=== PATIENT | female | born 1955 ===

== ENCOUNTER 2020-07-31 10:02 | Outpatient (REF) | payer OTHER, SELFPAY | END 2020-07-31 10:03 | disposition home or self-care (01) | LOC: HO.LAB 10:02 | PROVIDERS: PCP Internal Medicine Pulmonary Disease; Visit Provider Internal Medicine Pulmonary Disease | DX: I48.91 Unspecified atrial fibrillation (principal); Z51.81 Encounter for therapeutic drug level monitoring; Z79.01 Long term (current) use of anticoagulants | CPT/HCPCS: 85610; 99211 ==

== ENCOUNTER → 2020-08-03 14:12 | Outpatient (BNVA) | payer OTHER, SELFPAY | PROVIDERS: PCP Internal Medicine Pulmonary Disease; Visit Provider Internal Medicine | DX: I48.91 Unspecified atrial fibrillation (principal); Z51.81 Encounter for therapeutic drug level monitoring; Z79.01 Long term (current) use of anticoagulants | CPT/HCPCS: 85610; 99211 ==

== ENCOUNTER → 2020-08-09 08:39 | Outpatient (BNVA) | payer OTHER, SELFPAY | PROVIDERS: PCP Internal Medicine Pulmonary Disease; Visit Provider Internal Medicine | DX: I48.91 Unspecified atrial fibrillation (principal); Z51.81 Encounter for therapeutic drug level monitoring; Z79.01 Long term (current) use of anticoagulants | CPT/HCPCS: 85610; 99211 ==

== ENCOUNTER → 2020-08-16 10:41 | Outpatient (BNVA) | payer OTHER, SELFPAY | PROVIDERS: PCP Internal Medicine Pulmonary Disease; Visit Provider Internal Medicine Pulmonary Disease | DX: I48.91 Unspecified atrial fibrillation (principal); Z79.01 Long term (current) use of anticoagulants; Z51.81 Encounter for therapeutic drug level monitoring | CPT/HCPCS: 85610; 99211 ==

== ENCOUNTER → 2020-08-31 10:55 | Outpatient (BNVA) | payer OTHER, SELFPAY | PROVIDERS: PCP Internal Medicine Pulmonary Disease; Visit Provider Internal Medicine | DX: I48.91 Unspecified atrial fibrillation (principal); Z51.81 Encounter for therapeutic drug level monitoring; Z79.01 Long term (current) use of anticoagulants | CPT/HCPCS: 85610; 99211 ==

== ENCOUNTER → 2020-09-08 10:11 | Outpatient (BNVA) | payer OTHER, SELFPAY | PROVIDERS: PCP Internal Medicine Pulmonary Disease; Visit Provider Internal Medicine | DX: I48.91 Unspecified atrial fibrillation (principal); Z79.01 Long term (current) use of anticoagulants; Z51.81 Encounter for therapeutic drug level monitoring | CPT/HCPCS: 85610; 99211 ==

== ENCOUNTER → 2020-09-27 14:49 | Outpatient (BNVA) | payer OTHER, SELFPAY | PROVIDERS: PCP Internal Medicine Pulmonary Disease; Visit Provider Internal Medicine | DX: I48.91 Unspecified atrial fibrillation (principal); Z51.81 Encounter for therapeutic drug level monitoring; Z79.01 Long term (current) use of anticoagulants | CPT/HCPCS: 85610; 99211 ==

== ENCOUNTER → 2020-10-23 09:53 | Outpatient (BNVA) | payer OTHER, SELFPAY | PROVIDERS: PCP Internal Medicine Pulmonary Disease; Visit Provider Internal Medicine | DX: I48.91 Unspecified atrial fibrillation (principal); Z51.81 Encounter for therapeutic drug level monitoring; Z79.01 Long term (current) use of anticoagulants | CPT/HCPCS: 85610; 99211 ==

== ENCOUNTER → 2020-10-30 09:35 | Outpatient (BNVA) | payer OTHER, SELFPAY | PROVIDERS: PCP Internal Medicine Pulmonary Disease; Visit Provider Internal Medicine | DX: I48.91 Unspecified atrial fibrillation (principal); Z51.81 Encounter for therapeutic drug level monitoring; Z79.01 Long term (current) use of anticoagulants | CPT/HCPCS: 85610; 99211 ==

== ENCOUNTER → 2020-11-08 08:04 | Outpatient (BNVA) | payer OTHER, SELFPAY | PROVIDERS: PCP Internal Medicine Pulmonary Disease; Visit Provider Internal Medicine | DX: I48.91 Unspecified atrial fibrillation (principal); Z51.81 Encounter for therapeutic drug level monitoring; Z79.01 Long term (current) use of anticoagulants | CPT/HCPCS: 85610; 99211 ==

== ENCOUNTER → 2020-11-15 08:25 | Outpatient (BNVA) | payer OTHER, SELFPAY | PROVIDERS: PCP Internal Medicine Pulmonary Disease; Visit Provider Internal Medicine | DX: I48.91 Unspecified atrial fibrillation (principal); Z51.81 Encounter for therapeutic drug level monitoring; Z79.01 Long term (current) use of anticoagulants | CPT/HCPCS: 85610; 99211 ==

== ENCOUNTER → 2020-11-22 08:51 | Outpatient (BNVA) | payer OTHER, SELFPAY | PROVIDERS: PCP Internal Medicine Pulmonary Disease; Visit Provider Internal Medicine | DX: I48.91 Unspecified atrial fibrillation (principal); Z51.81 Encounter for therapeutic drug level monitoring; Z79.01 Long term (current) use of anticoagulants | CPT/HCPCS: 85610; 99211 ==

== ENCOUNTER → 2020-12-06 09:18 | Outpatient (BNVA) | payer OTHER, SELFPAY | PROVIDERS: PCP Internal Medicine Pulmonary Disease; Visit Provider Internal Medicine | DX: I48.91 Unspecified atrial fibrillation (principal); Z51.81 Encounter for therapeutic drug level monitoring; Z79.01 Long term (current) use of anticoagulants | CPT/HCPCS: 85610; 99211 ==

== ENCOUNTER → 2020-12-20 09:16 | Outpatient (BNVA) | payer OTHER, SELFPAY | PROVIDERS: PCP Internal Medicine Pulmonary Disease; Visit Provider Internal Medicine | DX: I48.91 Unspecified atrial fibrillation (principal); Z79.01 Long term (current) use of anticoagulants; Z51.81 Encounter for therapeutic drug level monitoring | CPT/HCPCS: 85610; 99211 ==

== ENCOUNTER → 2021-02-05 11:09 | Outpatient (BNVA) | payer OTHER, SELFPAY | PROVIDERS: PCP Internal Medicine Pulmonary Disease; Visit Provider Internal Medicine | DX: I48.91 Unspecified atrial fibrillation (principal); Z51.81 Encounter for therapeutic drug level monitoring; Z79.01 Long term (current) use of anticoagulants | CPT/HCPCS: 85610; 99211 ==

== ENCOUNTER → 2021-03-06 10:37 | Outpatient (BNVA) | payer OTHER, SELFPAY | PROVIDERS: PCP Internal Medicine Pulmonary Disease; Visit Provider Internal Medicine | DX: I48.91 Unspecified atrial fibrillation (principal); Z51.81 Encounter for therapeutic drug level monitoring; Z79.01 Long term (current) use of anticoagulants | CPT/HCPCS: 85610; 99211 ==

== ENCOUNTER → 2021-04-03 10:39 | Outpatient (BNVA) | payer MEDICARE, SELFPAY | PROVIDERS: PCP Internal Medicine Pulmonary Disease; Visit Provider Internal Medicine | DX: I48.91 Unspecified atrial fibrillation (principal); Z51.81 Encounter for therapeutic drug level monitoring; Z79.01 Long term (current) use of anticoagulants | CPT/HCPCS: 85610 ==

== ENCOUNTER → 2021-05-01 11:03 | Outpatient (BNVA) | payer MEDICARE, SELFPAY | PROVIDERS: PCP Internal Medicine Pulmonary Disease; Visit Provider Internal Medicine | DX: I48.91 Unspecified atrial fibrillation (principal); Z51.81 Encounter for therapeutic drug level monitoring; Z79.01 Long term (current) use of anticoagulants | CPT/HCPCS: 85610; 99211 ==

== ENCOUNTER → 2021-05-29 11:01 | Outpatient (BNVA) | payer MEDICARE, SELFPAY | PROVIDERS: PCP Internal Medicine Pulmonary Disease; Visit Provider Internal Medicine | DX: I48.91 Unspecified atrial fibrillation (principal); Z51.81 Encounter for therapeutic drug level monitoring; Z79.01 Long term (current) use of anticoagulants | CPT/HCPCS: 85610; 99211 ==

== ENCOUNTER → 2021-06-13 13:38 | Outpatient (BNVA) | payer MEDICARE, SELFPAY | PROVIDERS: PCP Internal Medicine Pulmonary Disease; Visit Provider Internal Medicine | DX: I48.91 Unspecified atrial fibrillation (principal); Z51.81 Encounter for therapeutic drug level monitoring; Z79.01 Long term (current) use of anticoagulants | CPT/HCPCS: 85610; 99211 ==

== ENCOUNTER 2021-06-20 08:42 | Outpatient (REF) | payer MEDICARE, SELFPAY ==
[2021-06-20 09:08] LABS: MANUAL DIFF FLAG NO
[2021-06-20 09:32] LABS: Basophils Percent Auto 0.5 % (0-2); Eosinophils Absolute Auto 0.1 X10*3/uL (0.0-0.4); Eosinophils Percent Auto 1.4 % (0-4); Hematocrit 42.9 % (37-47); Hemoglobin 13.5 g/dl (12.0-16.0); Imm Gran Abs Auto 0.01 X10*3/uL (0.00-0.03); Imm Gran Pct Auto 0.2 % (0.0-0.4); Lymphocytes Absolute Auto 1.9 X10*3/uL (1.2-4.9); Lymphocytes Percent Auto 33.4 % (20-40); Mean Corpuscular HGB Conc 31.5 g/dl (31.0-35.0); Mean Corpuscular Hemoglobin 29.4 pg (27.0-33.0); Mean Corpuscular Volume 93.5 fL (80-98); Mean Platelet Volume 10.9 fL (9.4-12.3); Monocytes Absolute Auto 0.6 X10*3/uL (0.1-1.2); Monocytes Percent Auto 11.1 % (2-11); Neutrophils Percent Auto 53.4 % (45-73); Platelet Count 167 X10*3/uL (160-400); Red Blood Count 4.59 X10*6/uL (4.20-5.50); Red Cell Distribution Width 13.7 % (11.0-16.0); White Blood Count 5.7 X10*3/uL (4.8-10.8)
[2021-06-20 09:52] LABS: Estimated Average Glucose 117 mg/dL; Hemoglobin A1c % 5.7 %
[2021-06-20 09:57] LABS: B Type Natriuretic Peptide 549 pg/mL (<100)
[2021-06-20 10:00] LABS: Alanine Aminotransferase 16 U/L (0-31); Albumin Level 4.4 g/dL (3.5-5.0); Alkaline Phosphatase 57 U/L (39-117); Anion Gap 14 (12-20); Aspartate Amino Transferase 19 U/L (5-31); Bilirubin Total 1.4 mg/dL (0.0-1.0); Blood Urea Nitrogen 24 mg/dL (9-16); Carbon Dioxide 29 mmol/L (22-29); Chloride 104 mmol/L (96-108); Cholesterol 165 mg/dL; Estimated Glomerular Filt Rate > 60; Glucose Random 121 mg/dL (60-115); HDL Cholesterol 42 mg/dL; LDL Cholesterol Calculated 90 mg/dl; Potassium 3.5 mmol/L (3.3-5.1); Sodium 143 mmol/L (135-145); Triglycerides 166 mg/dL
[2021-06-20 10:24] LABS: Insulin 12 uU/mL (2-29); TSH reflex Free T4 3.45 uIU/mL (0.32-4.0); Vitamin D 25-OH Total 6.3 ng/mL (>30)
== END 2021-06-20 08:43 | disposition home or self-care (01) ==
LOC: HO.LAB 08:42
PROVIDERS: PCP Registered Nurse; Visit Provider Registered Nurse
DX: I10 Essential (primary) hypertension (principal); E78.00 Pure hypercholesterolemia, unspecified; R73.01 Impaired fasting glucose; M06.4 Inflammatory polyarthropathy; I48.19 Other persistent atrial fibrillation; E66.9 Obesity, unspecified; E55.9 Vitamin D deficiency, unspecified
CPT/HCPCS: 36415; 80053; 80061; 82306; 83036; 83525; 83880; 84443; 85025; 86141

== ENCOUNTER → 2021-07-03 10:43 | Outpatient (BNVA) | payer MEDICARE, SELFPAY | PROVIDERS: PCP Registered Nurse; Visit Provider Internal Medicine | DX: I48.91 Unspecified atrial fibrillation (principal); Z51.81 Encounter for therapeutic drug level monitoring; Z79.01 Long term (current) use of anticoagulants | CPT/HCPCS: 85610; 99211 ==

== ENCOUNTER → 2021-07-31 10:46 | Outpatient (BNVA) | payer MEDICARE, SELFPAY | PROVIDERS: PCP Registered Nurse; Visit Provider Internal Medicine | DX: I48.91 Unspecified atrial fibrillation (principal); Z51.81 Encounter for therapeutic drug level monitoring; Z79.01 Long term (current) use of anticoagulants | CPT/HCPCS: 85610; 99211 ==

== ENCOUNTER → 2021-08-30 10:56 | Outpatient (BNVA) | payer MEDICARE, SELFPAY | PROVIDERS: PCP Registered Nurse; Visit Provider Internal Medicine | DX: I48.0 Paroxysmal atrial fibrillation (principal); Z51.81 Encounter for therapeutic drug level monitoring; Z79.01 Long term (current) use of anticoagulants | CPT/HCPCS: 85610; 99211 ==

== ENCOUNTER → 2021-10-04 11:10 | Outpatient (BNVA) | payer MEDICARE, SELFPAY | PROVIDERS: PCP Registered Nurse; Visit Provider Internal Medicine | DX: I48.0 Paroxysmal atrial fibrillation (principal); Z51.81 Encounter for therapeutic drug level monitoring; Z79.01 Long term (current) use of anticoagulants | CPT/HCPCS: 85610; 99211 ==

== ENCOUNTER → 2021-11-08 11:24 | Outpatient (BNVA) | payer MEDICARE, SELFPAY | PROVIDERS: PCP Registered Nurse; Visit Provider Internal Medicine | DX: I48.0 Paroxysmal atrial fibrillation (principal); Z51.81 Encounter for therapeutic drug level monitoring; Z79.01 Long term (current) use of anticoagulants | CPT/HCPCS: 85610; 99211 ==

== ENCOUNTER → 2021-12-06 10:58 | Outpatient (BNVA) | payer MEDICARE, SELFPAY | PROVIDERS: PCP Registered Nurse; Visit Provider Internal Medicine | DX: I48.0 Paroxysmal atrial fibrillation (principal); Z51.81 Encounter for therapeutic drug level monitoring; Z79.01 Long term (current) use of anticoagulants | CPT/HCPCS: 85610; 99211 ==

== ENCOUNTER → 2021-12-12 10:00 | Outpatient (BNVA) | payer MEDICARE, SELFPAY | PROVIDERS: PCP Registered Nurse; Visit Provider Internal Medicine | DX: I48.0 Paroxysmal atrial fibrillation (principal); Z79.01 Long term (current) use of anticoagulants; Z51.81 Encounter for therapeutic drug level monitoring | CPT/HCPCS: 85610; 99211 ==

== ENCOUNTER 2021-12-31 22:42 | Emergency (ER) | payer MEDICARE, SELFPAY ==
--- NOTE | ~2021-12-31 | XR_ITS ---
EXAMINATION: XR CHEST CLINICAL INFORMATION: Cough COMPARISON: None TECHNIQUE: Frontal view of the chest was obtained. FINDINGS: Lung volumes are symmetric. There is prominence of the central vasculature and surrounding interstitium. Haziness is noted towards the bilateral lung bases.. No evidence of pneumothorax or significant pleural effusion. Cardiac silhouette is enlarged. Calcification is present at the aortic arch. No acute osseous findings are seen. XR/XR chest 1V IMPRESSION: Prominence of the central vasculature and surrounding interstitium, suggesting congestion and subtle interstitial edema. Enlarged cardiac silhouette.
[2021-12-31 23:59] VITALS: BP 183/96; PULSE 76; RESP 20; TEMP 36.2; O2SAT 99; BMI 51.2
--- NOTE | 2022-01-01 | ECG_ITS ---
Test Reason : abd pain,htn Blood Pressure : / mmHG Vent. Rate : 121 BPM Atrial Rate : 000 BPM P-R Int : 000 ms QRS Dur : 142 ms QT Int : 386 ms P-R-T Axes : 000 062 -83 degrees QTc Int : 548 ms Atrial fibrillation with rapid ventricular response with premature ventricular or aberrantly conducted complexes Right bundle branch block T wave abnormality, consider inferolateral ischemia Abnormal ECG When compared with ECG of 01-OCT-2010 06:51, Atrial fibrillation has replaced Sinus rhythm Vent. rate has increased BY 66 BPM Right bundle branch block is now Present Referred By: Generic ED Physician Electronically Signed By:ANTONY PEPE MD
[2022-01-01] MEDS: Ondansetron ODT 4 MG TAB.RAPDIS TRANSLINGU (00:09)
[2022-01-01 00:20] LABS: MANUAL DIFF FLAG NO
[2022-01-01 00:22] LABS: Basophils Percent Auto 0.2 % (0-2); Eosinophils Percent Auto 0.2 % (0-4); Hematocrit 44.7 % (37.0-47.0); Imm Gran Abs Auto 0.09 X10*3/uL (0.00-0.03); Imm Gran Pct Auto 0.9 % (0.0-0.4); Lymphocytes Absolute Auto 1.4 X10*3/uL (1.2-4.9); Lymphocytes Percent Auto 14.3 % (20-40); Mean Corpuscular HGB Conc 33.6 g/dl (31.0-35.0); Mean Corpuscular Hemoglobin 29.5 pg (27.0-33.0); Mean Platelet Volume 9.8 fL (9.4-12.3); Monocytes Absolute Auto 1.1 X10*3/uL (0.1-1.2); Monocytes Percent Auto 11.4 % (2-11); Neutrophils Absolute Auto 7.2 x10*3/uL (2.0-8.3); Platelet Count 295 X10*3/uL (160-400); Red Blood Count 5.08 X10*6/uL (4.20-5.50); Red Cell Distribution Width 14.7 % (11.0-16.0); White Blood Count 9.8 X10*3/uL (4.8-10.8)
[2022-01-01 00:29] LABS: INTERNATIONAL NORM RATIO 3.5 (0.9-1.1); Prothrombin Time 41.1 SEC (9.9-13.0)
[2022-01-01 00:38] LABS: Alanine Aminotransferase 15 U/L (0-31); Alkaline Phosphatase 58 U/L (39-117); Anion Gap 15 (12-20); Aspartate Amino Transferase 19 U/L (5-31); Bilirubin Direct 0.5 mg/dL (0.0-0.5); Bilirubin Total 1.1 mg/dL (0.0-1.0); Blood Urea Nitrogen 10 mg/dL (9-16); Calcium 8.6 mg/dL (8.4-10.2); Carbon Dioxide 22 mmol/L (22-29); Chloride 104 mmol/L (96-108); Creatinine Clr Calc Pharmacy 87.4; Estimated Glomerular Filt Rate > 60; Glucose Random 121 mg/dL (60-115); Lipase 27 U/L (8-78); Potassium 3.2 mmol/L (3.3-5.1); Sodium 138 mmol/L (135-145); Total Protein 6.9 g/dL (6.5-8.0)
[2022-01-01 00:41] LABS: Troponin-I High Sensitivity 24.7 ng/L (<3.5-17.0)
[2022-01-01 00:41] LABS: COVID-19 Test Negative (Negative); IDNOW Serial# 16C4AD1C; Influenza A Positive (Negative); Influenza B2 Negative (Negative)
--- NOTE | 2022-01-01 00:48 | ED.GENADULT ---
HPI - General Adult General Chief complaint: Nausea/Vomiting/Diarrhea Stated complaint: n,v Time Seen by Provider: 01/01/22 00:42 Source: patient Limitations: no limitations History of Present Illness HPI narrative: This is a 66-year-old female with history of atrial fibrillation who complains of vomiting and diarrhea as well as a dry cough for about a week. The patient states she has not been able to hold down her medication or food or fluids for several days. She has had body aches, is not sure if she has had any fever. She does feel short of breath. She denies abdominal pain, states she has nausea. She denies any urinary symptoms. She notes she is on Coumadin for atrial fibrillation but cannot recall a she is on a medication for rate control Related Data Home Medications Medication Instructions Recorded Confirmed atenolol 100 mg tablet 100 mg PO DAILY 08/16/20 12/12/21 furosemide 20 mg tablet 20 mg PO Q OTHER DAY 08/16/20 12/12/21 gabapentin 300 mg capsule 300 mg PO DAILY 08/16/20 12/12/21 hydrochlorothiazide 12.5 mg tablet 12.5 mg PO DAILY 08/16/20 12/12/21 levothyroxine 50 mcg tablet 50 mcg PO QAM 08/16/20 12/12/21 losartan 50 mg tablet 50 mg PO DAILY 08/16/20 12/12/21 omeprazole 20 mg capsule,delayed 20 mg PO DAILY 08/16/20 12/12/21 release oxycodone 5 mg tablet mg PO 08/16/20 12/12/21 simvastatin 10 mg tablet 10 mg PO DAILY 08/16/20 12/12/21 metformin 500 mg tablet 500 mg PO BID 08/30/21 12/12/21 Previous Rx's Medication Instructions Recorded warfarin 1 mg tablet See Rx Instructions .ROUTE 07/31/20 .COMPLEX #180 tab ondansetron 4 mg disintegrating 4 mg PO Q6H PRN 3 Days #12 tab 01/01/22 tablet Allergies Allergy/AdvReac Type Severity Reaction Status Date / Time codeine [CODEINE] Allergy Intermediate CHEST PAIN Verified 01/01/22 00:03 Review of Systems Review of Systems: Yes all other systems are reviewed and are negative Constitutional: Constitutional: Reports as per HPI and Denies fever(s) Eyes: Eyes: Reports as per HPI and Reports no additional eye complaints ENT: Reports system reviewed and no additional complaints, except as documented, Reports as per HPI, Denies nasal congestion, Denies nasal discharge and Denies sore throat Cardiovascular: Cardiovascular: Reports as per HPI, Denies chest pain and Reports dyspnea Respiratory: Respiratory: Reports as per HPI, Reports cough and Reports dyspnea Gastrointestinal: Gastrointestinal: Reports as per HPI, Denies abdominal pain, Reports diarrhea, Reports nausea and Reports vomiting Genitourinary: Genitourinary: Reports as per HPI, Denies hematuria, Denies urinary frequency and Denies dysuria Musculoskeletal: Musculoskeletal: Reports no additional musculoskeletal complaints and Denies numbness Integumentary/Breasts: Skin/Breast: Reports as per HPI and Denies rash Neurologic: Reports as per HPI, Denies focal weakness and Denies numbness Psychiatric: Psychiatric: Reports no additional psychiatric complaints and Reports as per HPI Endocrine: Endocrine: Reports no additional endocrine complaints and Reports as per HPI Hematologic/Lymphatic: Hematologic/Lymphatic: Reports no additional hematologic/lymphatic complaints, Reports as per HPI and Reports other (No peripheral edema) [facility] Past Medical History Medical History (Updated 01/01/22 @ 02:48 by Brian Parnell MD) Afib HTN (hypertension) Social History Social History Advance Directives: No Advance Directives Information Provided: Yes Physical Exam ED Vital Signs: Vital Signs - 24 hr 12/31/21 23:59 01/01/22 01:15 01/01/22 02:28 Temperature 97.2 F Pulse Rate 76 95 89 Respiratory Rate 20 22 H 20 Blood Pressure 183/96 H 185/120 H 166/108 H Pulse Oximetry 99 94 93 BMI result Body Mass Index 51.2 Medical Decision Making [facility] Narrative Medical decision making narrative: Patient with recent vomiting and diarrhea, cough. Influenza A positive. Negative COVID. Patient was mildly hypokalemia, was repleted with 20 mEq IV. Patient was also tachycardic with AFib/RVR, had not been able hold down her usual medicines. Patient was given metoprolol 5 mg IV and atenolol 100 mg p.o.. Her heart rate has come down to 7 days. She is feeling better. She was given normal saline 1 L IV to rehydrate her. CBC and chemistry otherwise without any concerning findings. Patient is out of the window for Tamiflu. Will prescribe Zofran to help control the nausea so the patient can both feel better and take her usual medications. Patient feels comfortable going home Lab Data Lab results reviewed: Yes I reviewed the patient's lab results. Result diagrams: 01/01/22 00:13 01/01/22 00:13 Labs: Lab Results 01/01/22 01/01/22 01/01/22 Range/Units 00:06 00:06 00:13 WBC 9.8 (4.8-10.8) X10*3/uL RBC 5.08 (4.20-5.50) X10*6/uL Hgb 15.0 (12.0-16.0) g/dl Hct 44.7 (37.0-47.0) % MCV 88.0 (80.0-98.0) fL MCH 29.5 (27.0-33.0) pg MCHC 33.6 (31.0-35.0) g/dl RDW 14.7 (11.0-16.0) % Plt Count 295 (160-400) X10*3/uL MPV 9.8 (9.4-12.3) fL Immature Gran % (Auto) 0.9 H (0.0-0.4) % Neut % (Auto) 73.0 (45-73) % Lymph % (Auto) 14.3 L (20-40) % [place] % (Auto) 11.4 H (2-11) % Eos % (Auto) 0.2 (0-4) % Baso % (Auto) 0.2 (0-2) % Lymph # (Auto) 1.4 (1.2-4.9) X10*3/uL [place] # (Auto) 1.1 (0.1-1.2) X10*3/uL Eos # (Auto) 0.0 (0.0-0.4) X10*3/uL Baso # (Auto) 0.0 (0.0-0.2) X10*3/uL Abs Immat Gran (auto) 0.09 H (0.00-0.03) X10*3/uL Absolute Neuts (auto) 7.2 (2.0-8.3) x10*3/uL Absolute Nucleated RBC 0.000 (0.0-0.012) X10*3/uL Nucleated RBC % (auto) 0.0 (0.0-0.2) /100WBC PT (9.9-13.0) SEC INR (0.9-1.1) Sodium (135-145) mmol/L Potassium (3.3-5.1) mmol/L Chloride (96-108) mmol/L Carbon Dioxide (22-29) mmol/L Anion Gap (12-20) BUN (9-16) mg/dL Creatinine (0.5-1.4) mg/dL Estim Creat Clear Calc Estimated GFR Random Glucose (60-115) mg/dL Calcium (8.4-10.2) mg/dL Total Bilirubin (0.0-1.0) mg/dL Direct Bilirubin (0.0-0.5) mg/dL AST (5-31) U/L ALT (0-31) U/L Alkaline Phosphatase (39-117) U/L Troponin I High Sens (<3.5-17.0) ng/L Total Protein (6.5-8.0) g/dL Albumin (3.5-5.0) g/dL Lipase (8-78) U/L COVID-19 (EDWIN) Negative (Negative) COVID-19 Clin Com See Note Influenza Type A (YESSENIA) Positive A (Negative) Influenza Type B (YESSENIA) Negative (Negative) Influenza A & B Note See Note 01/01/22 01/01/22 01/01/22 Range/Units 00:13 00:13 00:13 WBC (4.8-10.8) X10*3/uL RBC (4.20-5.50) X10*6/uL Hgb (12.0-16.0) g/dl Hct (37.0-47.0) % MCV (80.0-98.0) fL MCH (27.0-33.0) pg MCHC (31.0-35.0) g/dl RDW (11.0-16.0) % Plt Count (160-400) X10*3/uL MPV (9.4-12.3) fL Immature Gran % (Auto) (0.0-0.4) % Neut % (Auto) (45-73) % Lymph % (Auto) (20-40) % [place] % (Auto) (2-11) % Eos % (Auto) (0-4) % Baso % (Auto) (0-2) % Lymph # (Auto) (1.2-4.9) X10*3/uL [place] # (Auto) (0.1-1.2) X10*3/uL Eos # (Auto) (0.0-0.4) X10*3/uL Baso # (Auto) (0.0-0.2) X10*3/uL Abs Immat Gran (auto) (0.00-0.03) X10*3/uL Absolute Neuts (auto) (2.0-8.3) x10*3/uL Absolute Nucleated RBC (0.0-0.012) X10*3/uL Nucleated RBC % (auto) (0.0-0.2) /100WBC PT 41.1 H (9.9-13.0) SEC INR 3.5 H (0.9-1.1) Sodium 138 (135-145) mmol/L Potassium 3.2 L (3.3-5.1) mmol/L Chloride 104 (96-108) mmol/L Carbon Dioxide 22 (22-29) mmol/L Anion Gap 15 (12-20) BUN 10 (9-16) mg/dL Creatinine 0.83 (0.5-1.4) mg/dL Estim Creat Clear Calc 87.4 Estimated GFR > 60 Random Glucose 121 H (60-115) mg/dL Calcium 8.6 (8.4-10.2) mg/dL Total Bilirubin 1.1 H (0.0-1.0) mg/dL Direct Bilirubin 0.5 (0.0-0.5) mg/dL AST 19 (5-31) U/L ALT 15 (0-31) U/L Alkaline Phosphatase 58 (39-117) U/L Troponin I High Sens 24.7 H (<3.5-17.0) ng/L Total Protein 6.9 (6.5-8.0) g/dL Albumin 4.0 (3.5-5.0) g/dL Lipase 27 (8-78) U/L COVID-19 ([facility]WIN) (Negative) COVID-19 Clin Com Influenza Type A (YESSENIA) (Negative) Influenza Type B (YESSENIA) (Negative) Influenza A & B Note Imaging Data Chest x-ray: Radiologist's impression: IMPRESSION: Prominence of the central vasculature and surrounding interstitium, suggesting congestion and subtle interstitial edema. Enlarged cardiac silhouette. ECG Data Attestation: I personally reviewed and interpreted this ECG as follows: Interpretation: Atrial fibrillation with a ventricular response of 121. Right bundle-branch block. Q-waves in leads V1 and V2. PVC present Discharge Plan Discharge Clinical Impression: Influenza A, Hypokalemia, Vomiting, Atrial fibrillation with rapid ventricular response Patient Disposition: Home, Self-Care Instructions: Hypokalemia (ED), Influenza (ED) Additional Instructions: Drink plenty of fluids. Continue her current medications. Use ondansetron as prescribed for nausea. Return for any new or worsened symptoms Prescriptions: New ondansetron 4 mg tablet,disintegrating 4 mg PO Q6H PRN (Reason: nausea and vomiting) 3 Days Qty: 12 0RF No Action warfarin 1 mg tablet See Rx Instructions mg .ROUTE .COMPLEX Qty: 180 0RF Protocol: Dose Management Condition: Friday (Week One) Dose/Route: 3 mg Instruction: 3 x 1 mg tablets Condition: Friday Dose/Route: 4 mg Instruction: 4 x 1 mg tablets Condition: Friday Dose/Route: 3 mg Instruction: 3 x 1 mg tablets Condition: Friday Dose/Route: 4 mg Instruction: 4 x 1 mg tablets Condition: Dose/Route: 3 mg Instruction: 3 x 1 mg tablets Condition: Friday Dose/Route: 4 mg Instruction: 4 x 1 mg tablets Condition: Friday Dose/Route: 3 mg Instruction: 3 x 1 mg tablets Condition: Friday (Week Two) Dose/Route: 3 mg Instruction: 3 x 1 mg tablets Condition: Friday Dose/Route: 4 mg Instruction: 4 x 1 mg tablets Condition: Friday Dose/Route: 3 mg Instruction: 3 x 1 mg tablets Condition: Friday Dose/Route: 4 mg Instruction: 4 x 1 mg tablets Condition: Dose/Route: 3 mg Instruction: 3 x 1 mg tablets Condition: Friday Dose/Route: 4 mg Instruction: 4 x 1 mg tablets Condition: Friday Dose/Route: 3 mg Instruction: 3 x 1 mg tablets Protocol Text: Adjustment Start Date: Friday12/12/21 INR Value: 2.1 INR Date: 12/12/21 Recheck Date: 01/09/22 Additional Instructions: EAT A FEW MORE ORANGE AND REDS WHILE EATING MORE [place] LOWER THE INR ORANGE AND REDS HELP RAISE THE INR Rx Instructions: 4MG DAILY; oxycodone 5 mg tablet PO 0RF hydrochlorothiazide 12.5 mg tablet 12.5 mg PO DAILY 0RF losartan 50 mg tablet 50 mg PO DAILY 0RF levothyroxine 50 mcg tablet 50 mcg PO QAM 0RF omeprazole 20 mg capsule,delayed release(DR/EC) 20 mg PO DAILY 0RF simvastatin 10 mg tablet 10 mg PO DAILY 0RF atenolol 100 mg tablet 100 mg PO DAILY 0RF gabapentin 300 mg capsule 300 mg PO DAILY 0RF furosemide 20 mg tablet 20 mg PO Q OTHER DAY 0RF metformin 500 mg tablet 500 mg PO BID 0RF
[2022-01-01 01:15] VITALS: BP 185/120; PULSE 95; RESP 22; O2SAT 94
[2022-01-01] MEDS: atenoloL 100 MG TABLET PO (01:16)
[2022-01-01] MEDS: Potassium Chloride/H20 10 MEQ/100 ML PIGGYBACK 100 MEQ IV ×2 (01:16→02:27)
[2022-01-01] MEDS: 0.9 % Sodium Chloride 1,000 ML 999 ML IV (01:16)
[2022-01-01] MEDS: ondansetron HCL 4 MG/2 ML VIAL IVPUSH (01:16)
[2022-01-01] MEDS: Metoprolol Tartrate 5 MG/5 ML VIAL IVPUSH (01:16)
[2022-01-01 02:28] VITALS: BP 166/108; PULSE 89; RESP 20; O2SAT 93
== END 2022-01-01 03:47 | disposition home or self-care (01) ==
PROVIDERS: Emergency Provider Emergency Medicine
DX: J10.1 Influenza due to other identified influenza virus with other respiratory manifestations (principal); I48.20 Chronic atrial fibrillation, unspecified; E87.6 Hypokalemia; R11.10 Vomiting, unspecified; R11.2 Nausea with vomiting, unspecified; R19.7 Diarrhea, unspecified; R05.9 Cough, unspecified; Z20.822 Contact with and (suspected) exposure to COVID-19; Z79.01 Long term (current) use of anticoagulants; Z79.899 Other long term (current) drug therapy
CPT/HCPCS: 36415; 71045; 80048; 80076; 83690; 84484; 85025; 85610; 87502; 87635; 93005; 96361; 96365; 96375; 99284; J2405

== ENCOUNTER → 2022-01-18 10:44 | Outpatient (BNVA) | payer MEDICARE, SELFPAY | PROVIDERS: PCP Registered Nurse; Visit Provider Internal Medicine | DX: I48.0 Paroxysmal atrial fibrillation (principal); Z79.01 Long term (current) use of anticoagulants; Z51.81 Encounter for therapeutic drug level monitoring | CPT/HCPCS: 85610; 99211 ==

== ENCOUNTER → 2022-02-18 10:28 | Outpatient (BNVA) | payer OTHER, SELFPAY | PROVIDERS: PCP Registered Nurse; Visit Provider Internal Medicine | DX: I48.0 Paroxysmal atrial fibrillation (principal); Z79.01 Long term (current) use of anticoagulants; Z51.81 Encounter for therapeutic drug level monitoring | CPT/HCPCS: 85610; 99211 ==

== ENCOUNTER → 2022-02-21 14:31 | Outpatient (BNVA) | payer OTHER, SELFPAY | PROVIDERS: PCP Registered Nurse; Visit Provider Internal Medicine | DX: I48.0 Paroxysmal atrial fibrillation (principal); Z51.81 Encounter for therapeutic drug level monitoring; Z79.01 Long term (current) use of anticoagulants | CPT/HCPCS: Q3014 ==

== ENCOUNTER 2022-03-06 11:17 | Inpatient (IN) | payer MEDICARE, SELFPAY ==
--- NOTE | ~2022-03-06 | XR_ITS ---
EXAMINATION: XR CHEST CLINICAL INFORMATION: Leg swelling COMPARISON: 01/01/2022 TECHNIQUE: 2 views of the chest were obtained. FINDINGS: There is cardiomegaly and likely left lower lobe opacity due to pleural effusion and atelectasis. There are mildly increased interstitial markings. There is no vascular congestion. XR/XR chest 2V IMPRESSION: Cardiomegaly with interstitial prominence and left lower lobe airspace disease and/or pleural
--- NOTE | ~2022-03-06 | XR_ITS ---
EXAMINATION: XR CHEST CLINICAL INFORMATION: Right heart failure. Evaluate for pulmonary embolism. COMPARISON: Previous chest x-ray most recent 03/06/2022 TECHNIQUE: Frontal view of the chest was obtained. FINDINGS: The cardiac silhouette is enlarged but stable. There may be pulmonary venous redistribution. The lungs are otherwise clear. There is no pleural effusion or thorax. There are degenerative changes of the spine. XR/XR chest 1V IMPRESSION: Stable enlargement of the cardiac silhouette. Question pulmonary venous redistribution.
--- NOTE | ~2022-03-06 | NM_ITS ---
EXAMINATION: PULMONARY PERFUSION STUDY CLINICAL INFORMATION: Evaluate for pulmonary embolism, right heart failure. COMPARISON: No previous lung scan is available for comparison. A radiograph of the chest dated 03/11/2022, the same date as this lung scan, is available for comparison. TECHNIQUE: Following the intravenous injection of 4.0 mCi Tc-99m MAA, the lungs were imaged in the anterior and posterior, left and right lateral and CORIE, BOYKIN, LPO, and RPO projections using a gamma scintillation camera. FINDINGS: No segmental perfusion defects are present. There is volume loss on the left associated with marked cardiomegaly. There is otherwise homogeneous distribution of activity bilaterally. There are no focal anatomic appearing perfusion defects present. The contemporaneous chest radiograph shows cardiomegaly that is well matched to the appearance on this lung scan. NM/NM pul perfusion IMPRESSION: Very low probability of pulmonary embolism. Cardiomegaly.
--- NOTE | ~2022-03-06 | US_ITS ---
EXAMINATION: US VENOUS ULTRASOUND WITH DOPPLER LOWER EXTREMITY, LEFT CLINICAL INFORMATION: Swelling. Rule out DVT. COMPARISON: None TECHNIQUE: Ultrasound of the deep veins is performed from the hip to the calf with compression sonography and color and pulse Doppler assessment. Spectral analysis with color-flow imaging is performed. FINDINGS: There is normal venous compression and respiratory variation and augmented flow. The visualized common femoral vein, superficial femoral vein, profunda femoral vein, popliteal vein, and the trifurcation region shows no evidence of deep venous thrombosis. The contralateral right common femoral vein is patent. There is no popliteal fossa cyst. US/US venous duplex LE LT IMPRESSION: No DVT demonstrated in the left lower extremity.
[2022-03-06 11:37] VITALS: BP 116/89; PULSE 93; RESP 18; TEMP 36.7; O2SAT 93; BMI 51.2
--- NOTE | 2022-03-06 12:37 | ECG_ITS ---
Test Reason : Leg Swelling Blood Pressure : / mmHG Vent. Rate : 084 BPM Atrial Rate : 000 BPM P-R Int : 000 ms QRS Dur : 148 ms QT Int : 440 ms P-R-T Axes : 000 068 224 degrees QTc Int : 519 ms Atrial fibrillation with premature ventricular or aberrantly conducted complexes Non-specific intra-ventricular conduction block T wave abnormality, consider inferior ischemia T wave abnormality, consider anterolateral ischemia Abnormal ECG When compared with ECG of 01-JAN-2022 00:04, No significant change was found Referred By: Jayda Ctoo Electronically Signed By:Danyel Prado
--- NOTE | 2022-03-06 12:39 | ED_ITS ---
HPI - General Adult General Chief complaint: General Medical Stated complaint: swollen and leaking L leg Time Seen by Provider: 03/06/22 11:19 Source: patient Mode of arrival: wheelchair Limitations: no limitations History of Present Illness HPI narrative: 66-year-old female with a history of hypertension, AFib on Coumadin, [id number] diabetes, hypothyroidism, high cholesterol, GERD, diabetic neuropathy here with reports of bilateral lower leg swelling left greater than right with wounds. Patient tells me that she has had swelling to the lower legs for several months extending to abdomen with weight gain. She noticed 1 month ago wound to the left leg. She was seen by her primary care doctor and given a 10 day course of cephalexin which she completed. She feels like the wounds have continued. She also feels like both legs were swollen and she has some increasing shortness of breath from baseline. No cough, no chest pain, no leg fevers or chills. No recent travel or sick contact. She has been compliant with her Coumadin. Related Data Home Medications Medication Instructions Recorded Confirmed atenolol 100 mg tablet 100 mg PO DAILY 08/16/20 03/06/22 gabapentin 300 mg capsule 300 mg PO TID 08/16/20 03/06/22 hydrochlorothiazide 12.5 mg tablet 12.5 mg PO DAILY 08/16/20 03/06/22 levothyroxine 50 mcg tablet 50 mcg PO QAM 08/16/20 03/06/22 losartan 50 mg tablet 50 mg PO DAILY 08/16/20 03/06/22 omeprazole 20 mg capsule,delayed 20 mg PO BEDTIME 08/16/20 03/06/22 release simvastatin 10 mg tablet 10 mg PO DAILY 08/16/20 03/06/22 metformin 500 mg tablet 500 mg PO BID 08/30/21 03/06/22 oxycodone 5 mg tablet 1 tab PO TID 03/06/22 03/06/22 warfarin 1 mg tablet 3 mg PO SUTUTHSA 03/06/22 03/06/22 warfarin 1 mg tablet 4 mg PO MOWEFR@1800 03/06/22 03/06/22 Previous Rx's Medication Instructions Recorded ondansetron 4 mg disintegrating 4 mg PO Q6H PRN nausea and 01/01/22 tablet vomiting 3 days #12 tabs Allergies Allergy/AdvReac Type Severity Reaction Status Date / Time codeine [CODEINE] Allergy Intermediate CHEST PAIN Verified 03/06/22 11:37 Review of Systems Review of Systems: Yes all other systems are reviewed and are negative Constitutional: Constitutional: Reports no additional constitutional complaints, Denies body ache(s), Denies chills, Denies fever(s), Denies headache(s) and Denies weakness Eyes: Eyes: Reports no additional eye complaints and Denies change in vision ENT: Reports system reviewed and no additional complaints, except as documented, Denies dizziness, Denies headache(s), Denies nasal congestion, Denies nasal discharge and Denies neck pain Cardiovascular: Cardiovascular: Reports no additional cardiovascular complaints, Denies chest pain, Reports leg edema and Reports dyspnea Respiratory: Respiratory: Reports no additional respiratory complaints, Denies cough and Reports dyspnea Gastrointestinal: Gastrointestinal: Reports no additional gastrointestinal complaints, Denies abdominal pain, Denies diarrhea, Denies nausea and Denies vomiting Genitourinary: Genitourinary: Reports no additional female genitourinary complaints and Denies urinary incontinence Musculoskeletal: Musculoskeletal: Reports no additional musculoskeletal complaints, Denies back pain, Denies arthralgias, Denies joint swelling, Denies neck pain, Denies numbness and Denies tingling Integumentary/Breasts: Skin/Breast: Reports system reviewed and no additional complaints, except as docu, Reports erythema and Denies rash Neurologic: Reports system reviewed and no additional complaints, except as documented, Denies dizziness, Denies headache(s), Denies numbness, Denies tingling and Denies weakness PMFSH Past Medical History Attestation statement: The following information was validated with the patient. Source: old records reviewed and nursing notes reviewed Medical History Afib Chronic venous stasis Diabetes HTN (hypertension) Hypothyroid Morbid obesity Surgical History History of appendectomy Hx of total knee arthroplasty S/P cholecystectomy Family History Family History Father EtOH dependence Social History Social History (Updated 03/06/22 @ 16:40 by Francisco Javier Moss MD) Alcohol intake: never Patient Tobacco Use Status: Never used Tobacco Use of substances other than those prescribed or required for medical reasons: No Advance Directives: Yes Advance Directives Information Provided: Yes Advance Directives on File: No Physical Exam ED Vital Signs: Vital Signs - 24 hr 03/06/22 11:37 03/06/22 16:39 Temperature 98.0 F Pulse Rate 93 72 Respiratory Rate 18 18 Blood Pressure 116/89 132/74 Pulse Oximetry 93 100 Oxygen Delivery Method Room Air Room Air BMI result Body Mass Index 51.2 Const General: cooperative, healthy appearing, comfortable and no acute distress Orientation/consciousness: patient oriented x3 Limitations: no limitations HENMT Head: Yes normal to inspection Ears: hearing grossly normal bilaterally Eyes General: appearance normal, both eyes and all related structures Pupils: Equal, round and reactive pupils present Neck Neck: Yes normal visual inspection, Yes full ROM and Yes no lymphadenopathy Chest Chest palpation & inspection: normal inspection of the chest Resp Effort & Inspection: normal respiratory effort Auscultation: clear to auscultation bilaterally Cardio Rate: regular rate Rhythm: regular rhythm Peripheral pulses: Peripheral pulses 2+ throughout GI Other: +obese Inspection: Yes normal to inspection Palpation (GI): Soft to palpation and nontender Auscultation: normal bowel sounds Back/Spine/Pelvis Thoracic/Lumbar Spine: thoracic and lumbar spine normal to inspection Skin General skin exam: no rashes or lesions noted Neuro General: patient oriented x3 and moves all extremities Cranial nerves: Yes Equal, round and reactive pupils present Extrem Other: Both legs have nonpitting bilateral edema left greater than right extending to thighs, bilateral buttocks. Palpable DP and PT pulses. There is chronic vascular changes seen over the skin. To the left leg over the anterior aspect there is a wet wound with some slough covering the wound base. There is mild erythema surrounding the wound base and tenderness. Course Course Course Narrative: 1400-The patient has a chest x-ray that is consistent with fluid overload. The left lower lobe there is an area of atelectasis that may be concerning for pneumonia patient does report shortness of breath with exertion and with lying flat but no cough and no shortness of breath at rest. Her BNP is 1500 her baseline is 500. She is denies current use of lasix or diuretics. She had taken lasix years ago.' She sees Dr Dario Albrecht at [facility]. She last saw him about 7-8 months ago and tells me she had echocardiogram at that time but she does not know the results. Her troponin is 186. No chest pain. Will trend. Low concern for ACS Magnesium 1.2. Will replace. Patient quite tachypneic with any movement. Sats are okay. At this time infection is suspected. Blood cultures and lactic acid ordered. Antibiotics ordered. COVID screen ordered. Anticipate admission Reevaluation(s) Reevaluation #1: Unofficial read of left lower extremity ultrasound is negative for DVT. Will speak to Medicine to admit Reevaluation #2: Spoke to Medicine who accepted admission of patient. Dr Moss Time: 16:45 Medical Decision Making MDM Narrative Medical decision making narrative: 66-year-old female here with months of bilateral leg swelling now with wounds the left leg for the last month despite taking oral antibiotics. Also acute on chronic shortness of breath, swelling extending to abdomen with weight gain. Will check chest x-ray, EKG, labs, venous ultrasound left lower extremity. -consider CHF, DVT, liver disease, chronic changes Medical Records Medical records reviewed: Yes I reviewed the patient's medical records. Lab Data Lab results reviewed: Yes I reviewed the patient's lab results. Result diagrams: 03/06/22 13:07 03/06/22 13:07 Labs: Lab Results 03/06/22 03/06/22 03/06/22 Range/Units 13:07 13:07 13:07 WBC 5.2 (4.8-10.8) X10*3/uL RBC 4.36 (4.20-5.50) X10*6/uL Hgb 12.8 (12.0-16.0) g/dl Hct 41.4 (37.0-47.0) % MCV 95.0 (80.0-98.0) fL MCH 29.4 (27.0-33.0) pg MCHC 30.9 L (31.0-35.0) g/dl RDW 14.5 (11.0-16.0) % Plt Count 201 D (160-400) X10*3/uL MPV 10.3 (9.4-12.3) fL Immature Gran % (Auto) 0.4 (0.0-0.4) % Neut % (Auto) 67.3 (45-73) % Lymph % (Auto) 15.6 L (20-40) % Brooke % (Auto) 14.9 H (2-11) % Eos % (Auto) 1.2 (0-4) % Baso % (Auto) 0.6 (0-2) % Lymph # (Auto) 0.8 L (1.2-4.9) X10*3/uL Brooke # (Auto) 0.8 (0.1-1.2) X10*3/uL Eos # (Auto) 0.1 (0.0-0.4) X10*3/uL Baso # (Auto) 0.0 (0.0-0.2) X10*3/uL Abs Immat Gran (auto) 0.02 (0.00-0.03) X10*3/uL Absolute Neuts (auto) 3.5 (2.0-8.3) x10*3/uL Absolute Nucleated RBC 0.000 (0.0-0.012) X10*3/uL Nucleated RBC % (auto) 0.0 (0.0-0.2) /100WBC PT (10.0-13.1) SEC INR (0.9-1.1) Sodium 140 (135-145) mmol/L Potassium 3.6 (3.3-5.1) mmol/L Chloride 101 (96-108) mmol/L Carbon Dioxide 29 (22-29) mmol/L Anion Gap 14 (12-20) BUN 22 H D (9-16) mg/dL Creatinine 1.13 (0.5-1.4) mg/dL Estim Creat Clear Calc 64.2 Estimated GFR 48 Random Glucose 104 (60-115) mg/dL Lactic Acid (0.5-2.0) mmol/L Calcium 7.9 L D (8.4-10.2) mg/dL Magnesium 1.2 L* (1.6-2.6) mg/dL Total Bilirubin 1.0 (0.0-1.0) mg/dL Direct Bilirubin 0.5 (0.0-0.5) mg/dL AST 16 (5-31) U/L ALT 8 (0-31) U/L Alkaline Phosphatase 50 (39-117) U/L Total Creatine Kinase 70 (26-140) U/L Troponin I High Sens (<3.5-17.0) ng/L B-Natriuretic Peptide (<100) pg/mL Total Protein 5.9 L (6.5-8.0) g/dL Albumin 3.6 (3.5-5.0) g/dL COVID-19 ([facility]) (Negative) COVID-19 Clin Com 03/06/22 03/06/22 03/06/22 Range/Units 13:07 13:07 13:07 WBC (4.8-10.8) X10*3/uL RBC (4.20-5.50) X10*6/uL Hgb (12.0-16.0) g/dl Hct (37.0-47.0) % MCV (80.0-98.0) fL MCH (27.0-33.0) pg MCHC (31.0-35.0) g/dl RDW (11.0-16.0) % Plt Count (160-400) X10*3/uL MPV (9.4-12.3) fL Immature Gran % (Auto) (0.0-0.4) % Neut % (Auto) (45-73) % Lymph % (Auto) (20-40) % Brooke % (Auto) (2-11) % Eos % (Auto) (0-4) % Baso % (Auto) (0-2) % Lymph # (Auto) (1.2-4.9) X10*3/uL Brooke # (Auto) (0.1-1.2) X10*3/uL Eos # (Auto) (0.0-0.4) X10*3/uL Baso # (Auto) (0.0-0.2) X10*3/uL Abs Immat Gran (auto) (0.00-0.03) X10*3/uL Absolute Neuts (auto) (2.0-8.3) x10*3/uL Absolute Nucleated RBC (0.0-0.012) X10*3/uL Nucleated RBC % (auto) (0.0-0.2) /100WBC PT 33.3 H (10.0-13.1) SEC INR 2.8 H (0.9-1.1) Sodium (135-145) mmol/L Potassium (3.3-5.1) mmol/L Chloride (96-108) mmol/L Carbon Dioxide (22-29) mmol/L Anion Gap (12-20) BUN (9-16) mg/dL Creatinine (0.5-1.4) mg/dL Estim Creat Clear Calc Estimated GFR Random Glucose (60-115) mg/dL Lactic Acid (0.5-2.0) mmol/L Calcium (8.4-10.2) mg/dL Magnesium (1.6-2.6) mg/dL Total Bilirubin (0.0-1.0) mg/dL Direct Bilirubin (0.0-0.5) mg/dL AST (5-31) U/L ALT (0-31) U/L Alkaline Phosphatase (39-117) U/L Total Creatine Kinase (26-140) U/L Troponin I High Sens 184.9 H* D (<3.5-17.0) ng/L B-Natriuretic Peptide 1537 H (<100) pg/mL Total Protein (6.5-8.0) g/dL Albumin (3.5-5.0) g/dL COVID-19 ([facility]) (Negative) COVID-19 Clin Com 03/06/22 03/06/22 03/06/22 Range/Units 15:31 15:50 15:50 WBC (4.8-10.8) X10*3/uL RBC (4.20-5.50) X10*6/uL Hgb (12.0-16.0) g/dl Hct (37.0-47.0) % MCV (80.0-98.0) fL MCH (27.0-33.0) pg MCHC (31.0-35.0) g/dl RDW (11.0-16.0) % Plt Count (160-400) X10*3/uL MPV (9.4-12.3) fL Immature Gran % (Auto) (0.0-0.4) % Neut % (Auto) (45-73) % Lymph % (Auto) (20-40) % Brooke % (Auto) (2-11) % Eos % (Auto) (0-4) % Baso % (Auto) (0-2) % Lymph # (Auto) (1.2-4.9) X10*3/uL Brooke # (Auto) (0.1-1.2) X10*3/uL Eos # (Auto) (0.0-0.4) X10*3/uL Baso # (Auto) (0.0-0.2) X10*3/uL Abs Immat Gran (auto) (0.00-0.03) X10*3/uL Absolute Neuts (auto) (2.0-8.3) x10*3/uL Absolute Nucleated RBC (0.0-0.012) X10*3/uL Nucleated RBC % (auto) (0.0-0.2) /100WBC PT (10.0-13.1) SEC INR (0.9-1.1) Sodium (135-145) mmol/L Potassium (3.3-5.1) mmol/L Chloride (96-108) mmol/L Carbon Dioxide (22-29) mmol/L Anion Gap (12-20) BUN (9-16) mg/dL Creatinine (0.5-1.4) mg/dL Estim Creat Clear Calc Estimated GFR Random Glucose (60-115) mg/dL Lactic Acid 1.3 (0.5-2.0) mmol/L Calcium (8.4-10.2) mg/dL Magnesium (1.6-2.6) mg/dL Total Bilirubin (0.0-1.0) mg/dL Direct Bilirubin (0.0-0.5) mg/dL AST (5-31) U/L ALT (0-31) U/L Alkaline Phosphatase (39-117) U/L Total Creatine Kinase (26-140) U/L Troponin I High Sens 234.8 H* (<3.5-17.0) ng/L B-Natriuretic Peptide (<100) pg/mL Total Protein (6.5-8.0) g/dL Albumin (3.5-5.0) g/dL COVID-19 ([facility]) Negative (Negative) COVID-19 Clin Com See Note Imaging Data Chest x-ray: Attestation: I personally reviewed and interpreted this imaging study as follows: Radiologist's impression: EXAMINATION: XR CHEST CLINICAL INFORMATION: Leg swelling COMPARISON: 01/01/2022 TECHNIQUE: 2 views of the chest were obtained. FINDINGS: There is cardiomegaly and likely left lower lobe opacity due to pleural effusion and atelectasis. There are mildly increased interstitial markings. There is no vascular congestion. XR/XR chest 2V IMPRESSION: Cardiomegaly with interstitial prominence and left lower lobe airspace disease and/or pleural Venous US: Attestation: I personally reviewed and interpreted this imaging study as follows: Radiologist's impression: TECHNIQUE: Ultrasound of the deep veins is performed from the hip to the calf with compression sonography and color and pulse Doppler assessment. Spectral analysis with color-flow imaging is performed. FINDINGS: There is normal venous compression and respiratory variation and augmented flow. The visualized common femoral vein, superficial femoral vein, profunda femoral vein, popliteal vein, and the trifurcation region shows no evidence of deep venous thrombosis. The contralateral right common femoral vein is patent. There is no popliteal fossa cyst. US/US venous duplex LE LT IMPRESSION: No DVT demonstrated in the left lower extremity. ECG Data Attestation: I personally reviewed and interpreted this ECG as follows: Interpretation: AFib with a rate of 84, normal QRS, normal QT, diffuse ST depressions leads v1- v6, occasional PVCs-unchanged from EKG 12/2021 Discharge Plan Discharge Clinical Impression: CHF (congestive heart failure), Hypomagnesemia Patient Disposition: Admitted As Inpatient
[2022-03-06 13:14] LABS: MANUAL DIFF FLAG NO
[2022-03-06 13:15] LABS: Basophils Percent Auto 0.6 % (0-2); Eosinophils Absolute Auto 0.1 X10*3/uL (0.0-0.4); Eosinophils Percent Auto 1.2 % (0-4); Hematocrit 41.4 % (37.0-47.0); Hemoglobin 12.8 g/dl (12.0-16.0); Imm Gran Abs Auto 0.02 X10*3/uL (0.00-0.03); Imm Gran Pct Auto 0.4 % (0.0-0.4); Lymphocytes Absolute Auto 0.8 X10*3/uL (1.2-4.9); Lymphocytes Percent Auto 15.6 % (20-40); Mean Corpuscular HGB Conc 30.9 g/dl (31.0-35.0); Mean Corpuscular Hemoglobin 29.4 pg (27.0-33.0); Mean Platelet Volume 10.3 fL (9.4-12.3); Monocytes Absolute Auto 0.8 X10*3/uL (0.1-1.2); Monocytes Percent Auto 14.9 % (2-11); Neutrophils Absolute Auto 3.5 x10*3/uL (2.0-8.3); Neutrophils Percent Auto 67.3 % (45-73); Platelet Count 201 X10*3/uL (160-400); Red Blood Count 4.36 X10*6/uL (4.20-5.50); Red Cell Distribution Width 14.5 % (11.0-16.0); White Blood Count 5.2 X10*3/uL (4.8-10.8)
[2022-03-06 13:20] LABS: INTERNATIONAL NORM RATIO 2.8 (0.9-1.1); Prothrombin Time 33.3 SEC (10.0-13.1)
--- NOTE | 2022-03-06 13:44 | PC.NURSE ---
ambulated pt and o2 sat went from 98% on RA to 95% on RA
[2022-03-06 13:48] LABS: Anion Gap 14 (12-20); Blood Urea Nitrogen 22 mg/dL (9-16); Calcium 7.9 mg/dL (8.4-10.2); Chloride 101 mmol/L (96-108); Creatinine Clr Calc Pharmacy 64.2; Estimated Glomerular Filt Rate 48; Glucose Random 104 mg/dL (60-115); Potassium 3.6 mmol/L (3.3-5.1); Sodium 140 mmol/L (135-145)
[2022-03-06 13:49] LABS: B Type Natriuretic Peptide 1537 pg/mL (<100)
[2022-03-06 13:53] LABS: Carbon Dioxide 29 mmol/L (22-29)
[2022-03-06 13:55] LABS: Alanine Aminotransferase 8 U/L (0-31); Albumin Level 3.6 g/dL (3.5-5.0); Alkaline Phosphatase 50 U/L (39-117); Aspartate Amino Transferase 16 U/L (5-31); Bilirubin Direct 0.5 mg/dL (0.0-0.5); Magnesium 1.2 mg/dL (1.6-2.6); Total Protein 5.9 g/dL (6.5-8.0)
[2022-03-06 13:58] LABS: Troponin-I High Sensitivity 184.9 ng/L (<3.5-17.0)
[2022-03-06] MEDS: Furosemide 40 MG/4 ML VIAL IVPUSH ×2 (14:30→18:03)
--- NOTE | 2022-03-06 15:36 | PHA.MEDREC ---
Pharmacy Consult ? Medication Reconciliation Pharmacy has completed the medication reconciliation.
[2022-03-06 15:58] LABS: COVID-19 Test Negative (Negative); IDNOW Serial# 16C4AD1C
[2022-03-06 16:10] LABS: Lactic Acid 1.3 mmol/L (0.5-2.0)
[2022-03-06] MEDS: cefTRIAXone sodium 1 GM in 0.9 % Sodium Chloride 50 ML IV (16:19)
[2022-03-06] MEDS: Magnesium Sulfate/H2O 2 GM/50 ML PIGGYBACK IV (16:22)
[2022-03-06 16:26] LABS: Troponin-I High Sensitivity 234.8 ng/L (<3.5-17.0)
--- NOTE | 2022-03-06 16:37 | PM.IMHP ---
History of Present Illness Date of Service: 03/06/22 Chief Complaint: sob, le edema 66F poor historian, pmh of chornic afib, morbid obesity, chronic diastolic chf, htn, dm, presented with worsening le bilateral edema Left>right, sob. reports ongoing symptoms for years, but has worsened over the past few days. positive orthopnea, sob on minmal exertion. patient only on HCTZ for diuretic at home. denies cehst pain, fever, chills. in ED noted to have elevated bnp 1537, elevated trop 184.9 and 234.8. Review of Systems Review of Systems: Constitutional: Denies fever, denies Chills Eyes: denies blurry vision ENT: denies sore throat CVS: denies chest pain Respiratory: dyspnea GI: no abdominal pain : denies dysuria MSK: denies neck pain Skin: denies rash Neuro: denies specific motor weakness Psych: denies suicidal ideation Endocrine: denies heat/cold intolerance Hematologic: denies easy bleeding Allergy: denies hives [facility] Medical History Afib Chronic venous stasis Diabetes HTN (hypertension) Hypothyroid Morbid obesity Family History Father EtOH dependence Surgical History History of appendectomy Hx of total knee arthroplasty S/P cholecystectomy Social History (Updated 03/06/22 @ 16:40 by Francisco Javier Moss MD) Alcohol intake: never Patient Tobacco Use Status: Never used Tobacco Use of substances other than those prescribed or required for medical reasons: No Advance Directives: Yes Advance Directives Information Provided: Yes Advance Directives on File: No Meds Allergies Allergy/AdvReac Type Severity Reaction Status Date / Time codeine [CODEINE] Allergy Intermediate CHEST PAIN Verified 03/06/22 11:37 Active Medications: Current Medications Atenolol (Atenolol 100 Mg Tablet) 100 mg PO DAILY AYE; Protocol Dextrose (Dextrose 50 % 25 Gm/50 Ml Syringe) 25 gm IVPUSH Q15M PRN; Protocol PRN Reason: per Hypoglycemia Standing Ord. Furosemide (Furosemide 40 Mg/4 Ml Vial) 40 mg IVPUSH BID@0900,1800 AYE; Protocol Gabapentin (Gabapentin 300 Mg Capsule) 300 mg PO TID [facility] Glucose (Glucose Gel 15 Gm Gel..Gram.) 15 gm PO Q15M PRN; Protocol PRN Reason: per Hypoglycemia Standing Ord. Insulin Human Lispro (Insulin Lispro 100 Unit/Ml 3 Ml Vial) 0 unit SUBCUT QIDACHS [facility]; Protocol Levothyroxine Sodium (Levothyroxine Sodium 50 Mcg Tablet) 50 mcg PO QAM [facility] Losartan Potassium (Losartan Potassium 50 Mg Tablet) 50 mg PO DAILY [facility]; Protocol Non-Formulary Medication (Simvastatin) 10 mg PO DAILY [facility] Omeprazole (Omeprazole 20 Mg Capsule.Dr) 20 mg PO BEDTIME [facility] Oxycodone HCl (Oxycodone Hcl Immed Release 5 Mg Tablet) 5 mg PO TID [facility] Pharmacy Consult (Consult Rx Perform Med Rec) 1 each MISCELLANE ONCE PRN PRN Reason: Consult order Warfarin Sodium (Warfarin Sodium 3 Mg Tablet) 3 mg PO SUTUTHSA [facility] Warfarin Sodium (Warfarin Sodium 1 Mg Tablet) mg PO MOWEFR@1800 [facility] Home Medications Medication Instructions Recorded Confirmed Last Taken Type atenolol 100 mg tablet 100 mg PO DAILY 08/16/20 03/06/22 03/05/22 History gabapentin 300 mg capsule 300 mg PO TID 08/16/20 03/06/22 03/05/22 History hydrochlorothiazide 12.5 mg tablet 12.5 mg PO DAILY 08/16/20 03/06/22 03/05/22 History levothyroxine 50 mcg tablet 50 mcg PO QAM 08/16/20 03/06/22 03/05/22 History losartan 50 mg tablet 50 mg PO DAILY 08/16/20 03/06/22 03/05/22 History omeprazole 20 mg capsule,delayed 20 mg PO BEDTIME 08/16/20 03/06/22 03/05/22 History release simvastatin 10 mg tablet 10 mg PO DAILY 08/16/20 03/06/22 03/05/22 History metformin 500 mg tablet 500 mg PO BID 08/30/21 03/06/22 03/05/22 History oxycodone 5 mg tablet 1 tab PO TID 03/06/22 03/06/22 03/05/22 History warfarin 1 mg tablet 3 mg PO SUTUTHSA 03/06/22 03/06/22 03/05/22 History warfarin 1 mg tablet 4 mg PO MOWEFR@1800 03/06/22 03/06/22 03/04/22 History Physical Exam Vital Signs and Narrative: Vital Signs: Last Vital Signs Temp 98.0 F 03/06/22 11:37 Pulse 93 03/06/22 11:37 Resp 18 03/06/22 11:37 BP 116/89 03/06/22 11:37 Pulse Ox 93 03/06/22 11:37 O2 Del Method 03/06/22 11:37 BMI result Body Mass Index 51.2 General: no acute distress HEENT: atraumatic Neck: normal to visual inspection CVS: S1, S2, RRR, 3 bilateral edema Resp: CTA bilateral Chest: non tender GI: soft, non tender, non distended : no CVA tenderness Skin: stasis ulcer lle Extremities: 3 + edema Neuro: Oriented X3, grossly intact Psych: cooperative Results Labs CBC and Chem 7: 03/06/22 13:07 03/06/22 13:07 Labs: Laboratory Results - last 24 hr 03/06/22 03/06/22 03/06/22 13:07 13:07 13:07 MCV 95.0 MCH 29.4 MCHC 30.9 L RDW 14.5 Plt Count 201 D MPV 10.3 Immature Gran % (Auto) 0.4 Neut % (Auto) 67.3 Lymph % (Auto) 15.6 L [place] % (Auto) 14.9 H Eos % (Auto) 1.2 Baso % (Auto) 0.6 Lymph # (Auto) 0.8 L [place] # (Auto) 0.8 Eos # (Auto) 0.1 Baso # (Auto) 0.0 Abs Immat Gran (auto) 0.02 Absolute Neuts (auto) 3.5 Absolute Nucleated RBC 0.000 Nucleated RBC % (auto) 0.0 PT INR Anion Gap 14 Estim Creat Clear Calc 64.2 Estimated GFR 48 Random Glucose 104 Lactic Acid Calcium 7.9 L D Magnesium 1.2 L* Total Bilirubin 1.0 Direct Bilirubin 0.5 AST 16 ALT 8 Alkaline Phosphatase 50 Total Creatine Kinase 70 Troponin I High Sens B-Natriuretic Peptide Total Protein 5.9 L Albumin 3.6 COVID-19 ([facility]) COVID-19 Clin Com 03/06/22 03/06/22 03/06/22 13:07 13:07 13:07 MCV MCH MCHC RDW Plt Count MPV Immature Gran % (Auto) Neut % (Auto) Lymph % (Auto) [place] % (Auto) Eos % (Auto) Baso % (Auto) Lymph # (Auto) [place] # (Auto) Eos # (Auto) Baso # (Auto) Abs Immat Gran (auto) Absolute Neuts (auto) Absolute Nucleated RBC Nucleated RBC % (auto) PT 33.3 H INR 2.8 H Anion Gap Estim Creat Clear Calc Estimated GFR Random Glucose Lactic Acid Calcium Magnesium Total Bilirubin Direct Bilirubin AST ALT Alkaline Phosphatase Total Creatine Kinase Troponin I High Sens 184.9 H* D B-Natriuretic Peptide 1537 H Total Protein Albumin COVID-19 ([facility]) COVID-19 [employer] Com 03/06/22 03/06/22 03/06/22 15:31 15:50 15:50 MCV MCH MCHC RDW Plt Count MPV Immature Gran % (Auto) Neut % (Auto) Lymph % (Auto) [place] % (Auto) Eos % (Auto) Baso % (Auto) Lymph # (Auto) [place] # (Auto) Eos # (Auto) Baso # (Auto) Abs Immat Gran (auto) Absolute Neuts (auto) Absolute Nucleated RBC Nucleated RBC % (auto) PT INR Anion Gap Estim Creat Clear Calc Estimated GFR Random Glucose Lactic Acid 1.3 Calcium Magnesium Total Bilirubin Direct Bilirubin AST ALT Alkaline Phosphatase Total Creatine Kinase Troponin I High Sens 234.8 H* B-Natriuretic Peptide Total Protein Albumin COVID-19 ([facility]) Negative COVID-19 Clin Com See Note Imaging Radiologist's Impressions: Impressions Chest X-Ray 03/06/22 12:52 IMPRESSION: Cardiomegaly with interstitial prominence and left lower lobe airspace disease and/or pleural Venous Duplex 03/06/22 14:44 IMPRESSION: No DVT demonstrated in the left lower extremity. Assessment and Plan (1) CHF (congestive heart failure): Status: Acute Plan 66F presented with edema and sob acute on chronic unspecified chf IV lasix, monitor electrolytes, echo, cardio eval elevated troponin denies chest pain, ekg non ischemic chronic afib atenolol, coumadin, monitor inr DM hold metformin inuslin hld statin htn atenolol morbid obesity weight loss hypothryoid synthroid dvt prophylaxis - on coumadin full code patient with significant fluid overload requiring iv diuresis, risk factors include DM, chronic afib, morbid obesity, therefore, expected to require atleast 2 midnights in hospital. Quality Stroke Does the patient have a stroke diagnosis?: No VTE Prior VTE?: No VTE Risk Level:: Medical - moderate - high VTE Device Contraindication: Treatment Not Indicated VTE Drug Contraindication: N/A - Med Ordered
[2022-03-06 16:39] VITALS: BP 132/74; PULSE 72; RESP 18; O2SAT 100
--- NOTE | 2022-03-06 16:40 | PC.NURSE ---
HOSPITALIST AT BEDSIDE. PT AGREES TO ADMISSION.
[2022-03-06] MEDS: Magnesium Oxide 400 MG TABLET PO (18:03)
[2022-03-06] MEDS: Warfarin Sodium 4 MG TABLET PO (18:04)
[2022-03-06 18:08] VITALS: BP 129/82; PULSE 67; RESP 20; O2SAT 96
[2022-03-06 21:13] LABS: Glucose, Whole Blood 105 mg/dL (60-115)
[2022-03-06 23:05] VITALS: BP 120/73; PULSE 83; RESP 20; TEMP 37; O2SAT 95
[2022-03-06] MEDS: oxyCODONE HCl Immed Release 5 MG TABLET PO (23:08)
[2022-03-06] MEDS: Omeprazole 20 MG CAPSULE.DR PO (23:08)
[2022-03-06] MEDS: Gabapentin 300 MG CAPSULE PO (23:09)
[2022-03-07] VITALS (7 sets, daily range): BP systolic 110–137; BP diastolic 65–86; PULSE 68–85; RESP 14–20; TEMP 36.1–37.1; O2SAT 91–99; BMI 60.8
[2022-03-07] MEDS: 0.9 % Sodium Chloride Flush 3 ML SYRINGE IVFLUSH ×3 (00:34→17:48)
--- NOTE | 2022-03-07 00:55 | PC.NURSE ---
Addendum entered by Yas Garcia 03/07/22 05:23: report given to DIONY Salinas Original Note: report received from DIONY Henry. pt is alert and oriented. resting in bed. no signs of acute distress notice.
[2022-03-07] MEDS: Acetaminophen 325 MG TABLET 650 MG PO ×2 (05:11→18:09)
[2022-03-07] MEDS: Levothyroxine Sodium 50 MCG TABLET PO (05:11)
--- NOTE | 2022-03-07 06:33 | PC.NURSE ---
ADMIT TO 459-1 VIA BED FROM ER DEPT..ALERT..ORIENTED X3..SPEECH CLEAR...RESPIRATIONS EASY ON ROOM AIR...MILD ORTHOPNEA WITH HOB FLAT..CHRONIC ATRIAL FIB CONTROLLED HR..MARKED +4 EDEMA LEGS TO HIPS/BUTTOCKS/ABDOMEN....ABDOMEN /CELLULITIS...FUNGAL AREAS TO GROIN....2 SCABBED WOUNDS TO LEFT LOWER LEG...PATIENT REPORTED I WAS DOWN TO 277 POUNDS AND ALL THIS STARTED ... ADMIT WEIGHT= 150.9KG/331 LBS..ORIENTED TO UNIT ROUTINE/ENVIRONMENT INCLUDING CALL MOTA
--- NOTE | 2022-03-07 07:00 | CA_ITS ---
Transthoracic Echocardiogram Amended Patient (Last, First, Middle): Stella Frias, Gender: Female Date of : 1955 Age: 66 Procedure Date: 03/07/2022 Procedure Type: Transthoracic Echocardiogram Location: [facility] [place] Height: 157.48 cm Weight: 150.6 kg BSA: 2.37 m2 Heart Rate: bpm BP: 137 / 73 mmHg Load Out Supervisor: YA Referring MD: Francisco Javier Moss MD Symptoms: chf Study Quality: Technically Difficult Conclusions: - Technically limited study. - Normal left ventricular cavity size. There is mildly increased left ventricular wall thickness. The left ventricular systolic function is low normal. The visually estimated ejection fraction is between 55-60%. - Severely increased right ventricular cavity size. There is severely decreased right ventricular systolic function. - There is trace tricuspid valve regurgitation. Significantly elevated right atrial pressure. Mild pulmonary hypertension is present. - There is mild dilatation of the ascending aorta measuring 3.60 cm. The visualized portions of the pulmonary artery and branches are normal. Findings Procedure Information Contrast agent, definity, is being given per protocol without apparent complications. Left Ventricle Normal left ventricular cavity size. There is mildly increased left ventricular wall thickness. The left ventricular systolic function is low normal. The visually estimated ejection fraction is between 55-60%. There is a flattened septum in systole and diastole consistent with right ventricular pressure and volume overload. Diastolic function is indeterminate on the basis of available data. Right Ventricle Severely increased right ventricular cavity size. There is severely decreased right ventricular systolic function. Atria The left atrium is normal in size. The right atrium is mildly dilated. Aortic Valve The aortic valve was not well visualized. There is no aortic valve stenosis. There is no aortic valve regurgitation. Mitral Valve The mitral valve was not well visualized. There is moderate mitral annular calcification. Pulmonic Valve The pulmonic valve is likely normal. Tricuspid Valve There is trace tricuspid valve regurgitation. Significantly elevated right atrial pressure. Mild pulmonary hypertension is present. Great Vessels There is mild dilatation of the ascending aorta measuring 3.60 cm. The visualized portions of the pulmonary artery and branches are normal. Venous The inferior vena cava is dilated and does not collapse with inspiration. Pericardium/Pleural There is no evidence of pericardial effusion. Prior Study Comparison Changes noted compared to prior study dated: 11/13/2004. RV dysfunction noted. Measurements 2D Linear Measurements IVSd: 1.11 0.6-0.9/0.6-1.0 cm LVIDd: 5.29 3.9-5.3/4.2-5.9 cm LVIDd Index: 2.23 2.4-3.2/2.2-3.1 cm/m2 LVIDs: 4.10 2.0-3.6 cm LVPWd: 1.10 0.7-1.1 cm LV Mass: 284.79 67-162/88-224 g LV Mass Index: 120.17 43-95/49-115 g/m2 LVOT Diam: 2.00 3.0+(-)1.3 cm 2D Volumes LA Vol: 29.60 Mitral Valve MV Pk E: 0.90 MV Decel Time: 179.00 E'Lateral: 10.30 E'Medial: 8.38 E/E' Med: 10.70 E/E' Lat: 8.70 PHT: 52.00 MVA PHT: 4.23 Decel Schuyler: 5.04 Aortic Valve AoV Pk Flaquito: 0.99 AoV Mn Flaquito: 0.73 AoV VTI: 0.22 AoV Pk Grad: 4.00 Aov Mn Grad: 2.00 GARCIA Cont.VTI: 2.13 LVOT LVOT Pk Flaquito: 0.65 LVOT Mn Flaquito: 0.48 LVOT VTI: 0.15 LVOT Pk Grad: 2.00 LVOT Mn Grad: 1.00 LVOT Diam: 2.00 LVOT Area: 3.14 Diastolic Function MV Pk E: 0.90 E'Medial: 8.38 E/E' Med: 10.70 E' Laterial: 10.30 E/E' Lat: 8.70 Right Ventricle TAPSE (mm): 17.30 Tricuspid Valve TR Pk Flaquito: 2.52 TR Pk Grad: 25.00 RA Press: 15.00 RVSP: 40.00 Great Vessels Aorta Ao Asc: 3.60 2.1-3.4 cm Updated in Other Vendor System with Status of Final Danyel Prado MD electronically signed on 03/08/2022 5:31:20 PM with status of Final
[2022-03-07 07:22] LABS: Glucose, Whole Blood 96 mg/dL (60-115)
[2022-03-07] MEDS: oxyCODONE HCl Immed Release 5 MG TABLET PO ×3 (08:28→20:47)
[2022-03-07] MEDS: Magnesium Oxide 400 MG TABLET PO (08:28)
[2022-03-07] MEDS: Gabapentin 300 MG CAPSULE PO ×3 (08:29→20:47)
[2022-03-07] MEDS: Losartan Potassium 50 MG TABLET PO (08:29)
[2022-03-07] MEDS: Atorvastatin Calcium 10 MG TABLET PO (08:29)
[2022-03-07] MEDS: Furosemide 40 MG/4 ML VIAL IVPUSH (08:29)
[2022-03-07] MEDS: atenoloL 100 MG TABLET PO (08:29)
--- NOTE | 2022-03-07 09:36 | HO.PM.IMPN ---
Subjective Subjective Date of Service: 03/07/22 Interval History: cc: edema, sob interval history:minimal improvment Cardiovascular Cardiovascular: Reports no additional cardiovascular complaints Respiratory Respiratory: Reports no additional respiratory complaints Physical Exam Vital Signs: Vital Signs: Last Vital Signs Temp 96.9 F 03/07/22 07:07 Pulse 68 03/07/22 07:07 Resp 20 03/07/22 07:07 BP 137/73 03/07/22 07:07 Pulse Ox 98 03/07/22 07:07 O2 Del Method 03/07/22 07:07 BMI result Body Mass Index 60.8 General: AO X 3, no acute distress Resp: CTA bilateral, no accessory muscles used CVS: S1,S2,RRR, 2-3+ edema GI: soft, non tender, non distended Neuro: motor grossly intact, alert Psych: appropriate affect, appropriate insight Objective Data Active Medications Acetaminophen (Acetaminophen 325 Mg Tablet) 650 mg PO Q6H PRN PRN Reason: Pain, Mild (Pain Scale 1-3) Last Admin: 03/07/22 05:11 Dose: 650 mg Documented By: JUAN-TREASURE Atenolol (Atenolol 100 Mg Tablet) 100 mg PO DAILY [facility]; Protocol Last Admin: 03/07/22 08:29 Dose: 100 mg Documented By: TREY Atorvastatin Calcium (Atorvastatin Calcium 10 Mg Tablet) 10 mg PO DAILY [facility] Last Admin: 03/07/22 08:29 Dose: 10 mg Documented By: TREY Dextrose (Dextrose 50 % 25 Gm/50 Ml Syringe) 25 gm IVPUSH Q15M PRN; Protocol PRN Reason: per Hypoglycemia Standing Ord. Furosemide (Furosemide 40 Mg/4 Ml Vial) 40 mg IVPUSH BID@0900,1800 [facility]; Protocol Last Admin: 03/07/22 08:29 Dose: 40 mg Documented By: TREY Gabapentin (Gabapentin 300 Mg Capsule) 300 mg PO TID [facility] Last Admin: 03/07/22 08:29 Dose: 300 mg Documented By: TREY Glucose (Glucose Gel 15 Gm Gel..Gram.) 15 gm PO Q15M PRN; Protocol PRN Reason: per Hypoglycemia Standing Ord. Insulin Human Lispro (Insulin Lispro 100 Unit/Ml 3 Ml Vial) 0 unit SUBCUT QIDACHS [facility]; Protocol Last Admin: 03/07/22 07:25 Dose: Not Given Documented By: TREY Non-Admin Reason: No Insulin Coverage Levothyroxine Sodium (Levothyroxine Sodium 50 Mcg Tablet) 50 mcg PO DAILY@0600 [facility] Last Admin: 03/07/22 05:11 Dose: 50 mcg Documented By: N-ANICL Losartan Potassium (Losartan Potassium 50 Mg Tablet) 50 mg PO DAILY [facility]; Protocol Last Admin: 03/07/22 08:29 Dose: 50 mg Documented By: TREY Magnesium Oxide (Magnesium Oxide 400 Mg Tablet) 400 mg PO BIDPC [facility] Last Admin: 03/07/22 08:28 Dose: 400 mg Documented By: TREY Omeprazole (Omeprazole 20 Mg Capsule.Dr) 20 mg PO BEDTIME [facility] Last Admin: 03/06/22 23:08 Dose: 20 mg Documented By: LAUREN Oxycodone HCl (Oxycodone Hcl Immed Release 5 Mg Tablet) 5 mg PO TID [facility] Last Admin: 03/07/22 08:28 Dose: 5 mg Documented By: TREY Pharmacy Consult (Consult Rx Perform Med Rec) 1 each MISCELLANE ONCE PRN PRN Reason: Consult order Sodium Chloride (0.9 % Sodium Chloride Flush 3 Ml Syringe) 3 ml IVFLUSH QSHIFT [facility] Last Admin: 03/07/22 08:29 Dose: 3 ml Documented By: TREY Warfarin Sodium (Warfarin Sodium 4 Mg Tablet) 4 mg PO MOWEFR@1800 [facility] Last Admin: 03/06/22 18:04 Dose: 4 mg Documented By: LAUREN Warfarin Sodium (Warfarin Sodium 3 Mg Tablet) 3 mg PO SUTUTHSA [facility] Labs CBC & Chem 7: 03/06/22 13:07 03/06/22 13:07 Labs: Laboratory Results - last 24 hr 03/06/22 03/06/22 03/06/22 13:07 13:07 13:07 MCV 95.0 MCH 29.4 MCHC 30.9 L RDW 14.5 Plt Count 201 D MPV 10.3 Immature Gran % (Auto) 0.4 Neut % (Auto) 67.3 Lymph % (Auto) 15.6 L Rogers % (Auto) 14.9 H Eos % (Auto) 1.2 Baso % (Auto) 0.6 Lymph # (Auto) 0.8 L Rogers # (Auto) 0.8 Eos # (Auto) 0.1 Baso # (Auto) 0.0 Abs Immat Gran (auto) 0.02 Absolute Neuts (auto) 3.5 Absolute Nucleated RBC 0.000 Nucleated RBC % (auto) 0.0 PT INR Anion Gap 14 Estim Creat Clear Calc 64.2 Estimated GFR 48 POC Glucose Random Glucose 104 Lactic Acid Calcium 7.9 L D Magnesium 1.2 L* Total Bilirubin 1.0 Direct Bilirubin 0.5 AST 16 ALT 8 Alkaline Phosphatase 50 Total Creatine Kinase 70 Troponin I High Sens B-Natriuretic Peptide Total Protein 5.9 L Albumin 3.6 COVID-19 ([facility]) COVID-19 Clin Com 03/06/22 03/06/22 03/06/22 13:07 13:07 13:07 MCV MCH MCHC RDW Plt Count MPV Immature Gran % (Auto) Neut % (Auto) Lymph % (Auto) Rogers % (Auto) Eos % (Auto) Baso % (Auto) Lymph # (Auto) Rogers # (Auto) Eos # (Auto) Baso # (Auto) Abs Immat Gran (auto) Absolute Neuts (auto) Absolute Nucleated RBC Nucleated RBC % (auto) PT 33.3 H INR 2.8 H Anion Gap Estim Creat Clear Calc Estimated GFR POC Glucose Random Glucose Lactic Acid Calcium Magnesium Total Bilirubin Direct Bilirubin AST ALT Alkaline Phosphatase Total Creatine Kinase Troponin I High Sens 184.9 H* D B-Natriuretic Peptide 1537 H Total Protein Albumin COVID-19 ([facility]) COVID-19 Clin Com 03/06/22 03/06/22 03/06/22 15:31 15:50 15:50 MCV MCH MCHC RDW Plt Count MPV Immature Gran % (Auto) Neut % (Auto) Lymph % (Auto) Rogers % (Auto) Eos % (Auto) Baso % (Auto) Lymph # (Auto) Rogers # (Auto) Eos # (Auto) Baso # (Auto) Abs Immat Gran (auto) Absolute Neuts (auto) Absolute Nucleated RBC Nucleated RBC % (auto) PT INR Anion Gap Estim Creat Clear Calc Estimated GFR POC Glucose Random Glucose Lactic Acid 1.3 Calcium Magnesium Total Bilirubin Direct Bilirubin AST ALT Alkaline Phosphatase Total Creatine Kinase Troponin I High Sens 234.8 H* B-Natriuretic Peptide Total Protein Albumin COVID-19 ([facility]) Negative COVID-19 Clin Com See Note 03/06/22 03/07/22 21:05 07:09 MCV MCH MCHC RDW Plt Count MPV Immature Gran % (Auto) Neut % (Auto) Lymph % (Auto) Rogers % (Auto) Eos % (Auto) Baso % (Auto) Lymph # (Auto) Rogers # (Auto) Eos # (Auto) Baso # (Auto) Abs Immat Gran (auto) Absolute Neuts (auto) Absolute Nucleated RBC Nucleated RBC % (auto) PT INR Anion Gap Estim Creat Clear Calc Estimated GFR POC Glucose 105 96 Random Glucose Lactic Acid Calcium Magnesium Total Bilirubin Direct Bilirubin AST ALT Alkaline Phosphatase Total Creatine Kinase Troponin I High Sens B-Natriuretic Peptide Total Protein Albumin COVID-19 ([facility]) COVID-19 Clin Com Assessment and Plan (1) CHF (congestive heart failure): Status: Acute Plan 66F presented with edema and sob acute on chronic unspecified chf continue IV lasix, monitor electrolytes, echo, cardio eval elevated troponin denies chest pain, ekg non ischemic chronic afib atenolol, coumadin, monitor inr DM holding metformin inuslin hld statin htn atenolol morbid obesity weight loss hypothryoid synthroid dvt prophylaxis - on coumadin full code reason for continued hospitalization:ongoing diuresis Quality Stroke Does the patient have a stroke diagnosis?: No VTE Prior VTE?: No VTE Risk Level:: Medical - moderate - high VTE Device Contraindication: Treatment Not Indicated VTE Drug Contraindication: N/A - Med Ordered
--- NOTE | 2022-03-07 09:46 | MHC.CM.PN ---
CM met with pt. IMM addressed with pt at bedside, original given to pt and copy placed in chart. Pt reports she lives with her spouse, Sammy. She reports she does not have services at home and uses a walker, she reports she goes to the coumadin clinic monthly. She is COVID Vaccinated x3 ([place]). PCP is Reny Nixon. Brother-Nilesh or Friend-Miguelina will transport her home. HCP to be completed. D/C plan: Home vs Home with New [facility]NA service pending PT eval.
--- NOTE | 2022-03-07 10:15 | MHC.CM.PN ---
HCP completed, original and copies to pt. copy uploaded to [facility].
[2022-03-07 10:32] LABS: Hematocrit 38.7 % (37.0-47.0); Hemoglobin 12.1 g/dl (12.0-16.0); Mean Corpuscular HGB Conc 31.3 g/dl (31.0-35.0); Mean Corpuscular Hemoglobin 29.5 pg (27.0-33.0); Mean Corpuscular Volume 94.4 fL (80.0-98.0); Mean Platelet Volume 10.3 fL (9.4-12.3); Platelet Count 209 X10*3/uL (160-400); Red Cell Distribution Width 14.3 % (11.0-16.0); White Blood Count 4.7 X10*3/uL (4.8-10.8)
[2022-03-07 10:51] LABS: INTERNATIONAL NORM RATIO 2.8 (0.9-1.1); Prothrombin Time 33.2 SEC (10.0-13.1)
[2022-03-07 11:18] LABS: Anion Gap 14 (12-20); Blood Urea Nitrogen 18 mg/dL (9-16); Calcium 8.2 mg/dL (8.4-10.2); Carbon Dioxide 33 mmol/L (22-29); Chloride 98 mmol/L (96-108); Creatinine Clr Calc Pharmacy 77.2; Estimated Glomerular Filt Rate 53; Glucose Fasting 133 mg/dL (60-99); Potassium 3.5 mmol/L (3.3-5.1); Sodium 141 mmol/L (135-145)
[2022-03-07 11:23] LABS: Glucose, Whole Blood 131 mg/dL (60-115)
[2022-03-07 11:32] LABS: Magnesium 1.2 mg/dL (1.6-2.6)
--- NOTE | 2022-03-07 14:03 | P.CONCA_ITS ---
History of Present Illness History of Present Illness Date of Service: 03/07/22 Requesting physician: Francisco Javier Moss Chief complaint: chf Narrative: 66-year-old female who has history of heart failure, hypothyroidism, hypertension and atrial fibrillation on Coumadin. She has been following with Dr. Dario Albrecht at [facility]. She is here because she has been experiencing shortness of breath and significant weight gain over the last few months. She is significantly volume overloaded. Has been started on 40 mg IV b.i.d. Lasix. She is taking the same supplements currently because her magnesium level was 1.2. She denying any chest discomfort. She is saying she has significant weight gain and approximately has gained 60 lb compared to her dry weight of 270 lb few months ago. Reports that she takes medications regularly. Does not smoke or drink. Has no reported history of coronary disease or valvular heart disease. We will need records from [facility]. [facility] Past Medical History Medical History Afib Chronic venous stasis Diabetes HTN (hypertension) Hypothyroid Morbid obesity Family History Family History Father EtOH dependence Surgical History Surgical History History of appendectomy Hx of total knee arthroplasty S/P cholecystectomy Social History Social History (Updated 03/06/22 @ 16:40 by Francisco Javier Moss MD) Alcohol intake: never Patient Tobacco Use Status: Never used Tobacco Use of substances other than those prescribed or required for medical reasons: No Currently Displaying Signs/Symptoms of Drug Intoxication Withdrawal: No Advance Directives: Yes Advance Directives Information Provided: Yes Advance Directives on File: No service: No Current occupational status: disabled Meds Allergies Allergy/AdvReac Type Severity Reaction Status Date / Time codeine [CODEINE] Allergy Intermediate CHEST PAIN Verified 03/06/22 11:37 Active Medications: Current Medications Acetaminophen (Acetaminophen 325 Mg Tablet) 650 mg PO Q6H PRN PRN Reason: Pain, Mild (Pain Scale 1-3) Last Admin: 03/07/22 05:11 Dose: 650 mg Atenolol (Atenolol 100 Mg Tablet) 100 mg PO DAILY [facility]; Protocol Last Admin: 03/07/22 08:29 Dose: 100 mg Atorvastatin Calcium (Atorvastatin Calcium 10 Mg Tablet) 10 mg PO DAILY [facility] Last Admin: 03/07/22 08:29 Dose: 10 mg Dextrose (Dextrose 50 % 25 Gm/50 Ml Syringe) 25 gm IVPUSH Q15M PRN; Protocol PRN Reason: per Hypoglycemia Standing Ord. Furosemide (Furosemide 40 Mg/4 Ml Vial) 40 mg IVPUSH BID@0900,1800 [facility]; Protocol Last Admin: 03/07/22 08:29 Dose: 40 mg Gabapentin (Gabapentin 300 Mg Capsule) 300 mg PO TID [facility] Last Admin: 03/07/22 08:29 Dose: 300 mg Glucose (Glucose Gel 15 Gm Gel..Gram.) 15 gm PO Q15M PRN; Protocol PRN Reason: per Hypoglycemia Standing Ord. Insulin Human Lispro (Insulin Lispro 100 Unit/Ml 3 Ml Vial) 0 unit SUBCUT QIDACHS [facility]; Protocol Last Admin: 03/07/22 11:32 Dose: Not Given Levothyroxine Sodium (Levothyroxine Sodium 50 Mcg Tablet) 50 mcg PO DAILY@0600 [facility] Last Admin: 03/07/22 05:11 Dose: 50 mcg Losartan Potassium (Losartan Potassium 50 Mg Tablet) 50 mg PO DAILY [facility]; Protocol Last Admin: 03/07/22 08:29 Dose: 50 mg Magnesium Oxide (Magnesium Oxide 400 Mg Tablet) 400 mg PO BIDPC [facility] Last Admin: 03/07/22 08:28 Dose: 400 mg Omeprazole (Omeprazole 20 Mg Capsule.Dr) 20 mg PO BEDTIME [facility] Last Admin: 03/06/22 23:08 Dose: 20 mg Oxycodone HCl (Oxycodone Hcl Immed Release 5 Mg Tablet) 5 mg PO TID [facility] Last Admin: 03/07/22 08:28 Dose: 5 mg Pharmacy Consult (Consult Rx Perform Med Rec) 1 each MISCELLANE ONCE PRN PRN Reason: Consult order Sodium Chloride (0.9 % Sodium Chloride Flush 3 Ml Syringe) 3 ml IVFLUSH QSHIFT [facility] Last Admin: 03/07/22 08:29 Dose: 3 ml Spironolactone (Spironolactone 25 Mg Tablet) 25 mg PO DAILY [facility]; Protocol Warfarin Sodium (Warfarin Sodium 4 Mg Tablet) 4 mg PO MOWEFR@1800 [facility] Last Admin: 03/06/22 18:04 Dose: 4 mg Warfarin Sodium (Warfarin Sodium 3 Mg Tablet) 3 mg PO [facility] Home Medications Medication Instructions Recorded Confirmed Last Taken Type atenolol 100 mg tablet 100 mg PO DAILY 08/16/20 03/06/22 03/05/22 History gabapentin 300 mg capsule 300 mg PO TID 08/16/20 03/06/22 03/05/22 History hydrochlorothiazide 12.5 mg tablet 12.5 mg PO DAILY 08/16/20 03/06/22 03/05/22 History levothyroxine 50 mcg tablet 50 mcg PO QAM 08/16/20 03/06/22 03/05/22 History losartan 50 mg tablet 50 mg PO DAILY 08/16/20 03/06/22 03/05/22 History omeprazole 20 mg capsule,delayed 20 mg PO BEDTIME 08/16/20 03/06/22 03/05/22 History release simvastatin 10 mg tablet 10 mg PO DAILY 08/16/20 03/06/22 03/05/22 History metformin 500 mg tablet 500 mg PO BID 08/30/21 03/06/22 03/05/22 History oxycodone 5 mg tablet 1 tab PO TID 03/06/22 03/06/22 03/05/22 History warfarin 1 mg tablet 3 mg PO [facility] 03/06/22 03/06/22 03/05/22 History warfarin 1 mg tablet 4 mg PO MOWEFR@1800 03/06/22 03/06/22 03/04/22 History Physical Exam Vital Signs: Vital Signs: Last Vital Signs Temp 97.8 F 03/07/22 11:54 Pulse 70 03/07/22 11:54 Resp 19 03/07/22 11:54 BP 135/70 03/07/22 11:54 Pulse Ox 99 03/07/22 11:54 O2 Del Method 03/07/22 11:54 BMI result Body Mass Index 60.8 GENERAL APPEARANCE: Short of breath. NECK: no carotid bruit, chief PD angle of jaw. SKIN: no suspicious lesions, warm and dry. HEART: no murmurs, irregular irregular heart rhythm. LUNGS: Few crackles at bases. ABDOMEN: soft, nontender. EXTREMITIES: 2+ edema bilaterally. PERIPHERAL PULSES: equal. NEUROLOGIC: No gross deficits, AAO X 3 Objective Labs and Meds Result diagrams: 03/07/22 10:08 03/07/22 10:08 Lab results: Laboratory Results - last 24 hr 03/06/22 03/06/22 03/06/22 15:31 15:50 15:50 WBC RBC Hgb Hct MCV MCH MCHC RDW Plt Count MPV Absolute Nucleated RBC Nucleated RBC % (auto) PT INR Sodium Potassium Chloride Carbon Dioxide Anion Gap BUN Creatinine Estim Creat Clear Calc Estimated GFR POC Glucose Fasting Glucose Lactic Acid 1.3 Calcium Magnesium Troponin I High Sens 234.8 H* COVID-19 ([facility]) Negative COVID-19 Clin Com See Note 03/06/22 03/07/22 03/07/22 21:05 07:09 10:08 WBC RBC Hgb Hct MCV MCH MCHC RDW Plt Count MPV Absolute Nucleated RBC Nucleated RBC % (auto) PT 33.2 H INR 2.8 H Sodium Potassium Chloride Carbon Dioxide Anion Gap BUN Creatinine Estim Creat Clear Calc Estimated GFR POC Glucose 105 96 Fasting Glucose Lactic Acid Calcium Magnesium Troponin I High Sens COVID-19 ([facility]) COVID-19 Clin Com 03/07/22 03/07/22 03/07/22 10:08 10:08 11:13 WBC 4.7 L RBC 4.10 L Hgb 12.1 Hct 38.7 MCV 94.4 MCH 29.5 MCHC 31.3 RDW 14.3 Plt Count 209 MPV 10.3 Absolute Nucleated RBC 0.000 Nucleated RBC % (auto) 0.0 PT INR Sodium 141 Potassium 3.5 Chloride 98 Carbon Dioxide 33 H Anion Gap 14 BUN 18 H Creatinine 1.05 Estim Creat Clear Calc 77.2 Estimated GFR 53 POC Glucose 131 H Fasting Glucose 133 H Lactic Acid Calcium 8.2 L Magnesium 1.2 L* Troponin I High Sens COVID-19 ([facility]) COVID-19 Clin Com Imaging Radiologist's impression: Impressions Venous Duplex 03/06/22 14:44 IMPRESSION: No DVT demonstrated in the left lower extremity. Assessment and Plan (1) CHF (congestive heart failure): Status: Acute (2) Hypomagnesemia: Status: Acute Plan 66-year-old female with acute on chronic congestive heart failure. She reports history of congestive heart failure. She has chronic atrial fibrillation. Has been on Coumadin. Clinically she is significantly volume overloaded at this point. By report she is 60 lb above her dry weight of 270 lb. Would favor starting her on Bumex drip 0.25 milligram/hour. Please monitor electrolytes closely. She has hypomagnesemia and has been is heaving magnesium supplements. She is on PPI which can cause magnesium absorption issues and may be this should be changed to Pepcid for now. Would check echocardiogram. We will request her records from Dr. Albrecht. Thank you for allowing me to participate in the care of your patient. Please feel free to contact me if you have any questions. Procedures Date of Service Date of Service: 03/07/22
[2022-03-07] MEDS: Spironolactone 25 MG TABLET PO (14:40)
[2022-03-07 15:57] LABS: Glucose, Whole Blood 119 mg/dL (60-115)
[2022-03-07] MEDS: Magnesium Oxide 400 MG TABLET 800 MG PO (17:47)
[2022-03-07] MEDS: Bumetanide 25 MG in Container,Empty 0 ML IVCONT (17:58)
[2022-03-07] MEDS: Warfarin Sodium 3 MG TABLET PO (18:10)
[2022-03-07 20:27] LABS: Glucose, Whole Blood 109 mg/dL (60-115)
[2022-03-07] MEDS: Omeprazole 20 MG CAPSULE.DR PO (20:47)
[2022-03-08 04:00] VITALS: BP 96/64; PULSE 74; RESP 18; TEMP 36.6; O2SAT 92
[2022-03-08] MEDS: Levothyroxine Sodium 50 MCG TABLET PO (05:18)
[2022-03-08 07:15] LABS: Hematocrit 37.1 % (37.0-47.0); Hemoglobin 11.6 g/dl (12.0-16.0); Mean Corpuscular HGB Conc 31.3 g/dl (31.0-35.0); Mean Corpuscular Hemoglobin 29.2 pg (27.0-33.0); Mean Corpuscular Volume 93.5 fL (80.0-98.0); Mean Platelet Volume 10.4 fL (9.4-12.3); Platelet Count 190 X10*3/uL (160-400); Red Blood Count 3.97 X10*6/uL (4.20-5.50); Red Cell Distribution Width 14.4 % (11.0-16.0); White Blood Count 4.5 X10*3/uL (4.8-10.8)
[2022-03-08 07:17] LABS: INTERNATIONAL NORM RATIO 2.7 (0.9-1.1); Prothrombin Time 32.9 SEC (10.0-13.1)
[2022-03-08 07:23] LABS: Glucose, Whole Blood 95 mg/dL (60-115)
[2022-03-08 07:51] LABS: Anion Gap 11 (12-20); Blood Urea Nitrogen 22 mg/dL (9-16); Calcium 8.1 mg/dL (8.4-10.2); Carbon Dioxide 36 mmol/L (22-29); Chloride 95 mmol/L (96-108); Creatinine Clr Calc Pharmacy 69.3; Estimated Glomerular Filt Rate 47; Glucose Fasting 108 mg/dL (60-99); Magnesium 1.2 mg/dL (1.6-2.6); Potassium 3.2 mmol/L (3.3-5.1); Sodium 139 mmol/L (135-145)
[2022-03-08 08:00] VITALS: BP 134/60; PULSE 66; RESP 20; TEMP 36.5; O2SAT 94
[2022-03-08] MEDS: Magnesium Sulfate/H2O 2 GM/50 ML PIGGYBACK IV ×2 (09:15→14:14)
[2022-03-08] MEDS: atenoloL 50 MG TABLET PO (09:15)
[2022-03-08] MEDS: oxyCODONE HCl Immed Release 5 MG TABLET PO ×3 (09:15→20:26)
[2022-03-08] MEDS: Gabapentin 300 MG CAPSULE PO ×3 (09:15→20:27)
[2022-03-08] MEDS: Losartan Potassium 50 MG TABLET PO (09:16)
[2022-03-08] MEDS: Atorvastatin Calcium 10 MG TABLET PO (09:16)
[2022-03-08] MEDS: Magnesium Oxide 400 MG TABLET 800 MG PO ×2 (09:16→16:59)
[2022-03-08] MEDS: 0.9 % Sodium Chloride Flush 3 ML SYRINGE IVFLUSH ×2 (09:16→17:03)
[2022-03-08] MEDS: Spironolactone 25 MG TABLET PO ×2 (09:16→16:59)
--- NOTE | 2022-03-08 11:17 | MHC.CM.PN ---
Per ROUNDS discussion, Patient is being diuresed and is not yet medically cleared for dc. Home is the goal vs home with new VNA and CM will continue to follow.
[2022-03-08 11:23] LABS: Glucose, Whole Blood 111 mg/dL (60-115)
--- NOTE | 2022-03-08 11:34 | PM.PNCARD ---
Subjective Subjective Date of Service: 03/08/22 Interval history: Continues to be volume overloaded and short of breath. Magnesium was low and she is getting IV supplementation. Has been on Bumex drip. Physical Exam Vital Signs: Last Vital Signs Temp 97.7 F 03/08/22 08:00 Pulse 66 03/08/22 08:00 Resp 20 03/08/22 08:00 BP 134/60 03/08/22 08:00 Pulse Ox 94 03/08/22 08:00 O2 Del Method 03/08/22 08:00 BMI result Body Mass Index 60.8 GENERAL APPEARANCE: Short of breath. NECK: no carotid bruit, JVD to angle of jaw. SKIN: no suspicious lesions, warm and dry. HEART: no murmurs, irregular irregular heart rhythm. LUNGS: Few crackles at bases. ABDOMEN: soft, nontender. EXTREMITIES: 2+ edema bilaterally. PERIPHERAL PULSES: equal. NEUROLOGIC: No gross deficits, AAO X 3 Objective Labs and Meds Result diagrams: 03/08/22 06:46 03/08/22 06:46 Lab results: Laboratory Results - last 24 hr 03/07/22 03/07/22 03/08/22 15:54 20:23 06:46 WBC RBC Hgb Hct MCV MCH MCHC RDW Plt Count MPV Absolute Nucleated RBC Nucleated RBC % (auto) PT 32.9 H INR 2.7 H Sodium Potassium Chloride Carbon Dioxide Anion Gap BUN Creatinine Estim Creat Clear Calc Estimated GFR POC Glucose 119 H 109 Fasting Glucose Calcium Magnesium 03/08/22 03/08/22 03/08/22 06:46 06:46 07:12 WBC 4.5 L RBC 3.97 L Hgb 11.6 L Hct 37.1 MCV 93.5 MCH 29.2 MCHC 31.3 RDW 14.4 Plt Count 190 MPV 10.4 Absolute Nucleated RBC 0.000 Nucleated RBC % (auto) 0.0 PT INR Sodium 139 Potassium 3.2 L Chloride 95 L Carbon Dioxide 36 H Anion Gap 11 L BUN 22 H Creatinine 1.17 Estim Creat Clear Calc 69.3 Estimated GFR 47 POC Glucose 95 Fasting Glucose 108 H Calcium 8.1 L Magnesium 1.2 L* 03/08/22 11:13 WBC RBC Hgb Hct MCV MCH MCHC RDW Plt Count MPV Absolute Nucleated RBC Nucleated RBC % (auto) PT INR Sodium Potassium Chloride Carbon Dioxide Anion Gap BUN Creatinine Estim Creat Clear Calc Estimated GFR POC Glucose 111 Fasting Glucose Calcium Magnesium Progress Note: A&P Assessment and plan (1) CHF (congestive heart failure): Status: Acute Plan 66-year-old female with acute on chronic congestive heart failure appears significantly volume overloaded and has right more than left side heart failure currently. Was not diuresing well and we have decided to give her some metolazone increase Bumex dose to 0.5 milligram/hour. Monitor electrolytes including magnesium closely. She is hypomagnesemic. Titrating spironolactone. Decreasing the atenolol dose for now. We will follow along with you. Thank you for allowing me to participate in the care of your patient. Please feel free to contact me if you have any questions. Time Spent With Patient Time: Total time spent is greater than 50% in coordination of care (as documented) at patient's floor/unit and/or counseling patient: Progress Note: Quality Stroke Does the patient have a stroke diagnosis?: No Procedures Date of Service Date of Service: 03/08/22
--- NOTE | 2022-03-08 11:38 | HO.PM.IMPN ---
Subjective Subjective Date of Service: 03/08/22 Interval History: cc: sob interval history:edema Cardiovascular Cardiovascular: Reports no additional cardiovascular complaints Respiratory Respiratory: Reports no additional respiratory complaints Physical Exam Vital Signs: Vital Signs: Last Vital Signs Temp 97.7 F 03/08/22 08:00 Pulse 66 03/08/22 08:00 Resp 20 03/08/22 08:00 BP 134/60 03/08/22 08:00 Pulse Ox 94 03/08/22 08:00 O2 Del Method 03/08/22 08:00 BMI result Body Mass Index 60.8 General: AO X 3, no acute distress Resp: CTA bilateral, no accessory muscles used CVS: S1,S2,RRR, 3+ edema GI: soft, non tender, non distended Neuro: motor grossly intact, alert Psych: appropriate affect, appropriate insight Objective Data Active Medications Acetaminophen (Acetaminophen 325 Mg Tablet) 650 mg PO Q6H PRN PRN Reason: Pain, Mild (Pain Scale 1-3) Last Admin: 03/07/22 18:09 Dose: 650 mg Documented By: LUIS M Atenolol (Atenolol 50 Mg Tablet) 50 mg PO DAILY [facility]; Protocol Last Admin: 03/08/22 09:15 Dose: 50 mg Documented By: TARAH Atorvastatin Calcium (Atorvastatin Calcium 10 Mg Tablet) 10 mg PO DAILY [facility] Last Admin: 03/08/22 09:16 Dose: 10 mg Documented By: TARAH Dextrose (Dextrose 50 % 25 Gm/50 Ml Syringe) 25 gm IVPUSH Q15M PRN; Protocol PRN Reason: per Hypoglycemia Standing Ord. Gabapentin (Gabapentin 300 Mg Capsule) 300 mg PO TID [facility] Last Admin: 03/08/22 09:15 Dose: 300 mg Documented By: TARAH Glucose (Glucose Gel 15 Gm Gel..Gram.) 15 gm PO Q15M PRN; Protocol PRN Reason: per Hypoglycemia Standing Ord. Magnesium Sulfate (Magnesium Sulfate/H2o) 2 gm in 50 mls @ 25 mls/hr IV ONCE ONE Stop: 03/08/22 16:35 Bumetanide 25 mg/ IV (Miscellaneous Supplies) 100 mls @ 2 mls/hr IVCONT .Q24H [facility] Insulin Human Lispro (Insulin Lispro 100 Unit/Ml 3 Ml Vial) 0 unit SUBCUT QIDACHS [facility]; Protocol Last Admin: 03/08/22 07:42 Dose: Not Given Documented By: TARAH Non-Admin Reason: No Insulin Coverage Levothyroxine Sodium (Levothyroxine Sodium 50 Mcg Tablet) 50 mcg PO DAILY@0600 [facility] Last Admin: 03/08/22 05:18 Dose: 50 mcg Documented By: DARRYL Losartan Potassium (Losartan Potassium 50 Mg Tablet) 50 mg PO DAILY [facility]; Protocol Last Admin: 03/08/22 09:16 Dose: 50 mg Documented By: TARAH Magnesium Oxide (Magnesium Oxide 400 Mg Tablet) 800 mg PO BIDPC [facility] Last Admin: 03/08/22 09:16 Dose: 800 mg Documented By: TARAH Metolazone (Metolazone 2.5 Mg Tablet) 2.5 mg PO ONCE ONE Stop: 03/08/22 11:38 Omeprazole (Omeprazole 20 Mg Capsule.Dr) 20 mg PO BEDTIME [facility] Last Admin: 03/07/22 20:47 Dose: 20 mg Documented By: LUIS M Oxycodone HCl (Oxycodone Hcl Immed Release 5 Mg Tablet) 5 mg PO TID [facility] Last Admin: 03/08/22 09:15 Dose: 5 mg Documented By: TARAH Pharmacy Consult (Consult Rx Perform Med Rec) 1 each MISCELLANE ONCE PRN PRN Reason: Consult order Sodium Chloride (0.9 % Sodium Chloride Flush 3 Ml Syringe) 3 ml IVFLUSH QSHIFT [facility] Last Admin: 03/08/22 09:16 Dose: 3 ml Documented By: TARAH Spironolactone (Spironolactone 25 Mg Tablet) 25 mg PO BID@0900,1800 [facility]; Protocol Last Admin: 03/08/22 09:16 Dose: 25 mg Documented By: TARAH Warfarin Sodium (Warfarin Sodium 4 Mg Tablet) 4 mg PO MOWEFR@1800 [facility] Last Admin: 03/06/22 18:04 Dose: 4 mg Documented By: LAUREN Warfarin Sodium (Warfarin Sodium 3 Mg Tablet) 3 mg PO SUTUTHSA [facility] Last Admin: 03/07/22 18:10 Dose: 3 mg Documented By: LUIS M Labs CBC & Chem 7: 03/08/22 06:46 03/08/22 06:46 Labs: Laboratory Results - last 24 hr 03/07/22 03/07/22 03/08/22 15:54 20:23 06:46 MCV MCH MCHC RDW Plt Count MPV Absolute Nucleated RBC Nucleated RBC % (auto) PT 32.9 H INR 2.7 H Anion Gap Estim Creat Clear Calc Estimated GFR POC Glucose 119 H 109 Fasting Glucose Calcium Magnesium 03/08/22 03/08/22 03/08/22 06:46 06:46 07:12 MCV 93.5 MCH 29.2 MCHC 31.3 RDW 14.4 Plt Count 190 MPV 10.4 Absolute Nucleated RBC 0.000 Nucleated RBC % (auto) 0.0 PT INR Anion Gap 11 L Estim Creat Clear Calc 69.3 Estimated GFR 47 POC Glucose 95 Fasting Glucose 108 H Calcium 8.1 L Magnesium 1.2 L* 03/08/22 11:13 MCV MCH MCHC RDW Plt Count MPV Absolute Nucleated RBC Nucleated RBC % (auto) PT INR Anion Gap Estim Creat Clear Calc Estimated GFR POC Glucose 111 Fasting Glucose Calcium Magnesium Microbiology Microbiology Results: Microbiology 03/06/22 15:17 Blood Culture - Final Blood - Venous Coag negative Staphylococcus 03/06/22 15:50 Blood Culture - Preliminary Blood - Venous No growth after 24 hours. Assessment and Plan (1) CHF (congestive heart failure): Status: Acute Plan 66F presented with edema and sob acute on chronic unspecified chf minimal diuresis, increased to bumex 0.5mg/hr, metolazone 2.5mg hyopmagnesemia replace, monitor elevated troponin denies chest pain, ekg non ischemic chronic afib atenolol, coumadin, monitor inr DM holding metformin insulin hld statin htn atenolol morbid obesity weight loss hypothryoid synthroid dvt prophylaxis - on coumadin full code reason for continued hospitalization:ongoing diuresis Quality Stroke Does the patient have a stroke diagnosis?: No VTE Prior VTE?: No VTE Risk Level:: Medical - moderate - high VTE Device Contraindication: Treatment Not Indicated VTE Drug Contraindication: N/A - Med Ordered
[2022-03-08 11:47] VITALS: BP 144/69; PULSE 70; RESP 20; TEMP 36.6; O2SAT 92
[2022-03-08] MEDS: metOLazone 2.5 MG TABLET PO (14:14)
[2022-03-08] MEDS: Bumetanide 25 MG in Container,Empty 0 ML IVCONT (14:14)
[2022-03-08 15:49] LABS: Glucose, Whole Blood 141 mg/dL (60-115)
[2022-03-08 16:00] VITALS: BP 106/54; PULSE 69; RESP 20; TEMP 36.6; O2SAT 92
[2022-03-08] MEDS: Warfarin Sodium 4 MG TABLET PO (16:59)
[2022-03-08 20:00] VITALS: BP 123/56; PULSE 75; RESP 14; TEMP 36.7; O2SAT 90
[2022-03-08 20:20] LABS: Glucose, Whole Blood 123 mg/dL (60-115)
[2022-03-08] MEDS: Omeprazole 20 MG CAPSULE.DR PO (20:25)
[2022-03-08] MEDS: Acetaminophen 325 MG TABLET 650 MG PO (20:26)
[2022-03-08 23:12] VITALS: BP 138/76; PULSE 68; RESP 19; TEMP 36.5; O2SAT 90
[2022-03-09] VITALS (8 sets, daily range): BP systolic 113–148; BP diastolic 55–92; PULSE 57–77; RESP 14–18; TEMP 36–36.6; O2SAT 85–93
[2022-03-09] MEDS: Levothyroxine Sodium 50 MCG TABLET PO (05:42)
[2022-03-09 06:44] LABS: Hematocrit 38.1 % (37.0-47.0); Hemoglobin 12.2 g/dl (12.0-16.0); Mean Corpuscular Hemoglobin 29.7 pg (27.0-33.0); Mean Corpuscular Volume 92.7 fL (80.0-98.0); Mean Platelet Volume 10.4 fL (9.4-12.3); Platelet Count 186 X10*3/uL (160-400); Red Blood Count 4.11 X10*6/uL (4.20-5.50); Red Cell Distribution Width 14.5 % (11.0-16.0); White Blood Count 4.4 X10*3/uL (4.8-10.8)
[2022-03-09 06:47] LABS: INTERNATIONAL NORM RATIO 2.5 (0.9-1.1)
[2022-03-09 07:03] LABS: Anion Gap 14 (12-20); Blood Urea Nitrogen 19 mg/dL (9-16); Calcium 8.8 mg/dL (8.4-10.2); Carbon Dioxide 37 mmol/L (22-29); Chloride 91 mmol/L (96-108); Creatinine Clr Calc Pharmacy 80.2; Estimated Glomerular Filt Rate 55; Glucose Fasting 107 mg/dL (60-99); Potassium 2.9 mmol/L (3.3-5.1); Sodium 139 mmol/L (135-145)
[2022-03-09 07:18] LABS: Magnesium 1.4 mg/dL (1.6-2.6)
[2022-03-09 08:15] LABS: Glucose, Whole Blood 107 mg/dL (60-115)
[2022-03-09] MEDS: Atorvastatin Calcium 10 MG TABLET PO (09:23)
[2022-03-09] MEDS: Magnesium Oxide 400 MG TABLET 800 MG PO ×2 (09:23→18:21)
[2022-03-09] MEDS: Losartan Potassium 50 MG TABLET PO (09:23)
[2022-03-09] MEDS: atenoloL 50 MG TABLET PO (09:23)
[2022-03-09] MEDS: oxyCODONE HCl Immed Release 5 MG TABLET PO ×3 (09:23→21:16)
[2022-03-09] MEDS: Spironolactone 25 MG TABLET PO ×2 (09:23→18:21)
[2022-03-09] MEDS: Gabapentin 300 MG CAPSULE PO ×3 (09:27→21:15)
--- NOTE | 2022-03-09 10:10 | HO.PM.IMPN ---
Subjective Subjective Date of Service: 03/09/22 Interval History: cc: sob, edema interval history: some improvement Cardiovascular Cardiovascular: Reports no additional cardiovascular complaints Respiratory Respiratory: Reports no additional respiratory complaints Physical Exam Vital Signs: Vital Signs: Last Vital Signs Temp 97.2 F 03/09/22 07:48 Pulse 57 03/09/22 07:48 Resp 18 03/09/22 07:48 BP 148/92 H 03/09/22 07:48 Pulse Ox 92 03/09/22 07:48 O2 Del Method 03/09/22 07:48 O2 Flow Rate 2 03/09/22 03:14 BMI result Body Mass Index 60.8 General: AO X 3, no acute distress Resp: CTA bilateral, no accessory muscles used CVS: S1,S2,RRR, 3+ edema GI: soft, non tender, non distended Neuro: motor grossly intact, alert Psych: appropriate affect, appropriate insight Objective Data Active Medications Acetaminophen (Acetaminophen 325 Mg Tablet) 650 mg PO Q6H PRN PRN Reason: Pain, Mild (Pain Scale 1-3) Last Admin: 03/08/22 20:26 Dose: 650 mg Documented By: IVA Atenolol (Atenolol 50 Mg Tablet) 50 mg PO DAILY [facility]; Protocol Last Admin: 03/09/22 09:23 Dose: 50 mg Documented By: TANYA Atorvastatin Calcium (Atorvastatin Calcium 10 Mg Tablet) 10 mg PO DAILY [facility] Last Admin: 03/09/22 09:23 Dose: 10 mg Documented By: TANYA Dextrose (Dextrose 50 % 25 Gm/50 Ml Syringe) 25 gm IVPUSH Q15M PRN; Protocol PRN Reason: per Hypoglycemia Standing Ord. Gabapentin (Gabapentin 300 Mg Capsule) 300 mg PO TID [facility] Last Admin: 03/09/22 09:27 Dose: 300 mg Documented By: TANYA Glucose (Glucose Gel 15 Gm Gel..Gram.) 15 gm PO Q15M PRN; Protocol PRN Reason: per Hypoglycemia Standing Ord. Bumetanide 25 mg/ IV (Miscellaneous Supplies) 100 mls @ 2 mls/hr IVCONT .Q24H [facility] Last Admin: 03/08/22 14:14 Dose: 0.5 mg/hr, 2 mls/hr Documented By: TARAH Magnesium Sulfate (Magnesium Sulfate/H2o) 2 gm in 50 mls @ 25 mls/hr IV ONCE ONE Stop: 03/09/22 11:43 Insulin Human Lispro (Insulin Lispro 100 Unit/Ml 3 Ml Vial) 0 unit SUBCUT QIDACHS [facility]; Protocol Last Admin: 03/09/22 08:27 Dose: Not Given Documented By: TANYA Non-Admin Reason: No Insulin Coverage Levothyroxine Sodium (Levothyroxine Sodium 50 Mcg Tablet) 50 mcg PO DAILY@0600 [facility] Last Admin: 03/09/22 05:42 Dose: 50 mcg Documented By: IVA Losartan Potassium (Losartan Potassium 50 Mg Tablet) 50 mg PO DAILY [facility]; Protocol Last Admin: 03/09/22 09:23 Dose: 50 mg Documented By: TANYA Magnesium Oxide (Magnesium Oxide 400 Mg Tablet) 800 mg PO BIDPC [facility] Last Admin: 03/09/22 09:23 Dose: 800 mg Documented By: TANYA Omeprazole (Omeprazole 20 Mg Capsule.Dr) 20 mg PO BEDTIME [facility] Last Admin: 03/08/22 20:25 Dose: 20 mg Documented By: IVA Oxycodone HCl (Oxycodone Hcl Immed Release 5 Mg Tablet) 5 mg PO TID [facility] Last Admin: 03/09/22 09:23 Dose: 5 mg Documented By: TANYA Pharmacy Consult (Consult Rx Perform Med Rec) 1 each MISCELLANE ONCE PRN PRN Reason: Consult order Potassium Chloride (Potassium Chloride Er 20 Meq Tab.Er.Prt) 40 meq PO ONCE ONE Stop: 03/09/22 10:10 Sodium Chloride (0.9 % Sodium Chloride Flush 3 Ml Syringe) [facility] Last Admin: 03/09/22 09:27 Dose: Not Given Documented By: TANYA Non-Admin Reason: IV Running Spironolactone (Spironolactone 25 Mg Tablet) 25 mg PO BID@0900,1800 [facility]; Protocol Last Admin: 03/09/22 09:23 Dose: 25 mg Documented By: TANYA Warfarin Sodium (Warfarin Sodium 4 Mg Tablet) 4 mg PO MOWEFR@1800 [facility] Last Admin: 03/08/22 16:59 Dose: 4 mg Documented By: TARAH Warfarin Sodium (Warfarin Sodium 3 Mg Tablet) [facility] Last Admin: 03/07/22 18:10 Dose: 3 mg Documented By: LUIS M Labs CBC & Chem 7: 03/09/22 06:07 03/09/22 06:07 Labs: Laboratory Results - last 24 hr 03/08/22 03/08/22 03/08/22 11:13 15:42 20:16 MCV MCH MCHC RDW Plt Count MPV Absolute Nucleated RBC Nucleated RBC % (auto) PT INR Anion Gap Estim Creat Clear Calc Estimated GFR POC Glucose 111 141 H 123 H Fasting Glucose Calcium Magnesium 03/09/22 03/09/22 03/09/22 06:07 06:07 06:07 MCV 92.7 MCH 29.7 MCHC 32.0 RDW 14.5 Plt Count 186 MPV 10.4 Absolute Nucleated RBC 0.000 Nucleated RBC % (auto) 0.0 PT 30.0 H INR 2.5 H Anion Gap 14 Estim Creat Clear Calc 80.2 Estimated GFR 55 POC Glucose Fasting Glucose 107 H Calcium 8.8 D Magnesium 1.4 L* 03/09/22 07:52 MCV MCH MCHC RDW Plt Count MPV Absolute Nucleated RBC Nucleated RBC % (auto) PT INR Anion Gap Estim Creat Clear Calc Estimated GFR POC Glucose 107 Fasting Glucose Calcium Magnesium Microbiology Microbiology Results: Microbiology 03/06/22 15:50 Blood Culture - Preliminary Blood - Venous No growth after 48 hours. 03/06/22 15:17 Blood Culture - Final Blood - Venous Coag negative Staphylococcus Assessment and Plan (1) CHF (congestive heart failure): Status: Acute Plan 66F presented with edema and sob acute on chronic right sided chf now diuresing well on bumex 0.5mg/hr, monitor bmp hyopmagnesemia, hypokalemia replace, monitor elevated troponin denies chest pain, ekg non ischemic chronic afib atenolol, coumadin, monitor inr DM holding metformin insulin hld statin htn atenolol morbid obesity weight loss hypothryoid synthroid dvt prophylaxis - on coumadin full code reason for continued hospitalization:ongoing diuresis Quality Stroke Does the patient have a stroke diagnosis?: No VTE Prior VTE?: No VTE Risk Level:: Medical - moderate - high VTE Device Contraindication: Treatment Not Indicated VTE Drug Contraindication: N/A - Med Ordered
[2022-03-09] MEDS: Potassium Chloride ER 20 MEQ TAB.ER.PRT 40 MEQ PO (10:36)
[2022-03-09] MEDS: Magnesium Sulfate/H2O 2 GM/50 ML PIGGYBACK IV (11:13)
--- NOTE | 2022-03-09 11:18 | PM.PNCARD ---
Subjective Subjective Date of Service: 03/09/22 Interval history: Feeling little tired today. Diuresing well. Echo has shown severely increased right ventricular cavity size with severely decreased right ventricular systolic function. Physical Exam Vital Signs: Last Vital Signs Temp 97.2 F 03/09/22 07:48 Pulse 57 03/09/22 07:48 Resp 18 03/09/22 07:48 BP 148/92 H 03/09/22 07:48 Pulse Ox 92 03/09/22 07:48 O2 Del Method 03/09/22 07:48 O2 Flow Rate 2 03/09/22 03:14 BMI result Body Mass Index 60.8 GENERAL APPEARANCE: Short of breath. NECK: no carotid bruit, JVD to angle of jaw. SKIN: no suspicious lesions, warm and dry. HEART: no murmurs, irregular irregular heart rhythm. LUNGS: Few crackles at bases. ABDOMEN: soft, nontender. EXTREMITIES: 1+ edema bilaterally. PERIPHERAL PULSES: equal. NEUROLOGIC: No gross deficits, AAO X 3 Objective Labs and Meds Result diagrams: 03/09/22 06:07 03/09/22 06:07 Lab results: Laboratory Results - last 24 hr 03/08/22 03/08/22 03/08/22 11:13 15:42 20:16 WBC RBC Hgb Hct MCV MCH MCHC RDW Plt Count MPV Absolute Nucleated RBC Nucleated RBC % (auto) PT INR Sodium Potassium Chloride Carbon Dioxide Anion Gap BUN Creatinine Estim Creat Clear Calc Estimated GFR POC Glucose 111 141 H 123 H Fasting Glucose Calcium Magnesium 03/09/22 03/09/22 03/09/22 06:07 06:07 06:07 WBC 4.4 L RBC 4.11 L Hgb 12.2 Hct 38.1 MCV 92.7 MCH 29.7 MCHC 32.0 RDW 14.5 Plt Count 186 MPV 10.4 Absolute Nucleated RBC 0.000 Nucleated RBC % (auto) 0.0 PT 30.0 H INR 2.5 H Sodium 139 Potassium 2.9 L Chloride 91 L Carbon Dioxide 37 H Anion Gap 14 BUN 19 H Creatinine 1.01 Estim Creat Clear Calc 80.2 Estimated GFR 55 POC Glucose Fasting Glucose 107 H Calcium 8.8 D Magnesium 1.4 L* 03/09/22 07:52 WBC RBC Hgb Hct MCV MCH MCHC RDW Plt Count MPV Absolute Nucleated RBC Nucleated RBC % (auto) PT INR Sodium Potassium Chloride Carbon Dioxide Anion Gap BUN Creatinine Estim Creat Clear Calc Estimated GFR POC Glucose 107 Fasting Glucose Calcium Magnesium Progress Note: A&P Assessment and plan (1) CHF (congestive heart failure): Status: Acute (2) Hypomagnesemia: Status: Acute Plan 66-year-old female presenting with congestive heart failure. She has right more than left-sided heart failure. Echo showing severely reduced right ventricular function. Etiology is unclear but probably related to underlying untreated sleep apnea and hypoxia. She does not have COPD. We decreased her atenolol to 50 mg and increase her Bumex drip yesterday with good diuresis. She has significant volume overload right now and I would leave her on drip. Aggressively treat hypokalemia and hypomagnesemia. Would titrate spironolactone to 50 mg twice a day from tomorrow. Thank you for allowing me to participate in the care of your patient. Please feel free to contact me if you have any questions. Time Spent With Patient Time: Total time spent is greater than 50% in coordination of care (as documented) at patient's floor/unit and/or counseling patient: Progress Note: Quality Stroke Does the patient have a stroke diagnosis?: No Procedures Date of Service Date of Service: 03/09/22
[2022-03-09 11:37] LABS: Glucose, Whole Blood 107 mg/dL (60-115)
[2022-03-09 15:32] LABS: Glucose, Whole Blood 112 mg/dL (60-115)
[2022-03-09] MEDS: Potassium Chloride ER 20 MEQ TAB.ER.PRT PO (18:21)
[2022-03-09] MEDS: Warfarin Sodium 3 MG TABLET PO (18:47)
[2022-03-09 19:55] LABS: Glucose, Whole Blood 97 mg/dL (60-115)
[2022-03-09] MEDS: Omeprazole 20 MG CAPSULE.DR PO (21:16)
[2022-03-10] VITALS (8 sets, daily range): BP systolic 98–143; BP diastolic 52–86; PULSE 56–83; RESP 14–18; TEMP 36.2–36.9; O2SAT 90–99
--- NOTE | 2022-03-10 01:14 | PC.NURSE ---
Midnight O2 sat 88 on RA. O2 appied via 2L NC. Rechecked O2 sat-99% on 2L NC. Will continue to monitor.
[2022-03-10] MEDS: Levothyroxine Sodium 50 MCG TABLET PO (05:32)
[2022-03-10 07:06] LABS: Hematocrit 39.4 % (37.0-47.0); Hemoglobin 12.5 g/dl (12.0-16.0); Mean Corpuscular HGB Conc 31.7 g/dl (31.0-35.0); Mean Corpuscular Hemoglobin 29.3 pg (27.0-33.0); Mean Corpuscular Volume 92.3 fL (80.0-98.0); Mean Platelet Volume 10.6 fL (9.4-12.3); Platelet Count 189 X10*3/uL (160-400); Red Blood Count 4.27 X10*6/uL (4.20-5.50); Red Cell Distribution Width 14.4 % (11.0-16.0); White Blood Count 5.1 X10*3/uL (4.8-10.8)
[2022-03-10 07:14] LABS: INTERNATIONAL NORM RATIO 2.1 (0.9-1.1); Prothrombin Time 24.6 SEC (10.0-13.1)
[2022-03-10 07:22] LABS: Anion Gap 15 (12-20); Blood Urea Nitrogen 21 mg/dL (9-16); Calcium 9.2 mg/dL (8.4-10.2); Chloride 83 mmol/L (96-108); Creatinine Clr Calc Pharmacy 87.2; Estimated Glomerular Filt Rate > 60; Glucose Fasting 105 mg/dL (60-99); Potassium 2.9 mmol/L (3.3-5.1); Sodium 139 mmol/L (135-145)
[2022-03-10 07:26] LABS: Carbon Dioxide 44 mmol/L (22-29); Magnesium 1.4 mg/dL (1.6-2.6)
[2022-03-10] MEDS: 0.9 % Sodium Chloride Flush 3 ML SYRINGE IVFLUSH ×3 (07:54→21:21)
[2022-03-10] MEDS: Spironolactone 25 MG TABLET PO (07:55)
[2022-03-10] MEDS: Magnesium Oxide 400 MG TABLET 800 MG PO ×2 (07:55→17:39)
[2022-03-10] MEDS: oxyCODONE HCl Immed Release 5 MG TABLET PO ×3 (07:56→21:18)
[2022-03-10] MEDS: Losartan Potassium 50 MG TABLET PO (07:56)
[2022-03-10] MEDS: atenoloL 50 MG TABLET PO (07:56)
[2022-03-10] MEDS: Gabapentin 300 MG CAPSULE PO ×3 (07:56→21:19)
[2022-03-10] MEDS: Atorvastatin Calcium 10 MG TABLET PO (07:56)
[2022-03-10 08:09] LABS: Glucose, Whole Blood 123 mg/dL (60-115)
--- NOTE | 2022-03-10 09:12 | HO.PM.IMPN ---
Subjective Subjective Date of Service: 03/10/22 Interval History: cc: sob, edema interval history: some improvement Cardiovascular Cardiovascular: Reports no additional cardiovascular complaints Respiratory Respiratory: Reports no additional respiratory complaints Physical Exam Vital Signs: Vital Signs: Last Vital Signs Temp 97.3 F 03/10/22 08:58 Pulse 83 03/10/22 08:58 Resp 17 03/10/22 08:58 BP 143/86 H 03/10/22 08:58 Pulse Ox 93 03/10/22 08:58 O2 Del Method 03/10/22 08:58 O2 Flow Rate 2 03/10/22 03:15 BMI result Body Mass Index 60.8 GENERAL APPEARANCE: Short of breath. NECK: no carotid bruit, JVD to angle of jaw. SKIN: no suspicious lesions, warm and dry. HEART: no murmurs, irregular irregular heart rhythm. LUNGS: Few crackles at bases. ABDOMEN: soft, nontender. EXTREMITIES: 1+ edema bilaterally. PERIPHERAL PULSES: equal. NEUROLOGIC: No gross deficits, AAO X 3 Objective Data Active Medications Acetaminophen (Acetaminophen 325 Mg Tablet) 650 mg PO Q6H PRN PRN Reason: Pain, Mild (Pain Scale 1-3) Last Admin: 03/08/22 20:26 Dose: 650 mg Documented By: IVA Acetazolamide (Acetazolamide Sodium 500 Mg Vial) 250 mg IVPUSH TID [facility] Stop: 03/11/22 21:01 Atenolol (Atenolol 50 Mg Tablet) 50 mg PO DAILY [facility]; Protocol Last Admin: 03/10/22 07:56 Dose: 50 mg Documented By: TANYA Atorvastatin Calcium (Atorvastatin Calcium 10 Mg Tablet) 10 mg PO DAILY [facility] Last Admin: 03/10/22 07:56 Dose: 10 mg Documented By: TANYA Dextrose (Dextrose 50 % 25 Gm/50 Ml Syringe) 25 gm IVPUSH Q15M PRN; Protocol PRN Reason: per Hypoglycemia Standing Ord. Gabapentin (Gabapentin 300 Mg Capsule) 300 mg PO TID [facility] Last Admin: 03/10/22 07:56 Dose: 300 mg Documented By: TANYA Glucose (Glucose Gel 15 Gm Gel..Gram.) 15 gm PO Q15M PRN; Protocol PRN Reason: per Hypoglycemia Standing Ord. Bumetanide 25 mg/ IV (Miscellaneous Supplies) 100 mls @ 2 mls/hr IVCONT .Q24H [facility] Last Admin: 03/08/22 14:14 Dose: 0.5 mg/hr, 2 mls/hr Documented By: TARAH Magnesium Sulfate (Magnesium Sulfate/H2o) 2 gm in 50 mls @ 25 mls/hr IV ONCE ONE Stop: 03/10/22 09:43 Insulin Human Lispro (Insulin Lispro 100 Unit/Ml 3 Ml Vial) 0 unit SUBCUT QIDACHS [facility]; Protocol Last Admin: 03/10/22 07:34 Dose: Not Given Documented By: TANYA Non-Admin Reason: No Insulin Coverage Levothyroxine Sodium (Levothyroxine Sodium 50 Mcg Tablet) 50 mcg PO DAILY@0600 [facility] Last Admin: 03/10/22 05:32 Dose: 50 mcg Documented By: CHON Losartan Potassium (Losartan Potassium 50 Mg Tablet) 50 mg PO DAILY [facility]; Protocol Last Admin: 03/10/22 07:56 Dose: 50 mg Documented By: TANYA Magnesium Oxide (Magnesium Oxide 400 Mg Tablet) 800 mg PO BIDPC [facility] Last Admin: 03/10/22 07:55 Dose: 800 mg Documented By: TANYA Omeprazole (Omeprazole 20 Mg Capsule.Dr) 20 mg PO BEDTIME [facility] Last Admin: 03/09/22 21:16 Dose: 20 mg Documented By: CHON Oxycodone HCl (Oxycodone Hcl Immed Release 5 Mg Tablet) 5 mg PO TID [facility] Last Admin: 03/10/22 07:56 Dose: 5 mg Documented By: TANYA Pharmacy Consult (Consult Rx Perform Med Rec) 1 each MISCELLANE ONCE PRN PRN Reason: Consult order Sodium Chloride (0.9 % Sodium Chloride Flush 3 Ml Syringe) 3 ml IVFLUSH QSHIFT [facility] Last Admin: 03/10/22 07:54 Dose: 3 ml Documented By: TANYA Spironolactone (Spironolactone 25 Mg Tablet) 25 mg PO BID@0900,1800 [facility]; Protocol Last Admin: 03/10/22 07:55 Dose: 25 mg Documented By: TANYA Warfarin Sodium (Warfarin Sodium 4 Mg Tablet) 4 mg PO MOWEFR@1800 [facility] Last Admin: 03/08/22 16:59 Dose: 4 mg Documented By: TARAH Warfarin Sodium (Warfarin Sodium 3 Mg Tablet) 3 mg PO [facility] Last Admin: 03/09/22 18:47 Dose: 3 mg Documented By: TANYA Labs CBC & Chem 7: 03/10/22 06:08 03/10/22 06:08 Labs: Laboratory Results - last 24 hr 03/09/22 03/09/22 03/09/22 11:21 15:17 19:28 MCV MCH MCHC RDW Plt Count MPV Absolute Nucleated RBC Nucleated RBC % (auto) PT INR Anion Gap Estim Creat Clear Calc Estimated GFR POC Glucose 107 112 97 Fasting Glucose Calcium Magnesium 03/10/22 03/10/22 03/10/22 06:08 06:08 06:08 MCV 92.3 MCH 29.3 MCHC 31.7 RDW 14.4 Plt Count 189 MPV 10.6 Absolute Nucleated RBC 0.000 Nucleated RBC % (auto) 0.0 PT 24.6 H INR 2.1 H Anion Gap 15 Estim Creat Clear Calc 87.2 Estimated GFR > 60 POC Glucose Fasting Glucose 105 H Calcium 9.2 Magnesium 1.4 L* 03/10/22 07:26 MCV MCH MCHC RDW Plt Count MPV Absolute Nucleated RBC Nucleated RBC % (auto) PT INR Anion Gap Estim Creat Clear Calc Estimated GFR POC Glucose 123 H Fasting Glucose Calcium Magnesium Assessment and Plan (1) CHF (congestive heart failure): Status: Acute Plan 66F presented with edema and sob acute on chronic right sided chf -15L will change bumex to diamox for now (bicarb up to 44) monitor bmp hyopmagnesemia, hypokalemia replace, monitor elevated troponin denies chest pain, ekg non ischemic chronic afib atenolol, coumadin, monitor inr DM holding metformin insulin hld statin htn atenolol morbid obesity weight loss hypothryoid synthroid dvt prophylaxis - on coumadin full code reason for continued hospitalization:ongoing diuresis Quality Stroke Does the patient have a stroke diagnosis?: No VTE Prior VTE?: No VTE Risk Level:: Medical - moderate - high VTE Device Contraindication: Treatment Not Indicated VTE Drug Contraindication: N/A - Med Ordered
[2022-03-10] MEDS: Potassium Chloride ER 20 MEQ TAB.ER.PRT 40 MEQ PO (10:03)
[2022-03-10] MEDS: Magnesium Sulfate/H2O 2 GM/50 ML PIGGYBACK IV (10:05)
--- NOTE | 2022-03-10 11:21 | P.PNCA_ITS ---
Subjective Subjective Date of Service: 03/10/22 Interval history: Significantly volume overloaded. On Bumex drip. Hypokalemic and hypomagnesemic. Physical Exam Vital Signs: Last Vital Signs Temp 97.3 F 03/10/22 08:58 Pulse 83 03/10/22 08:58 Resp 17 03/10/22 08:58 BP 143/86 H 03/10/22 08:58 Pulse Ox 93 03/10/22 08:58 O2 Del Method 03/10/22 08:58 O2 Flow Rate 2 03/10/22 03:15 BMI result Body Mass Index 60.8 GENERAL APPEARANCE: In no acute distress. NECK: no carotid bruit, elevated neck veins. SKIN: no suspicious lesions, warm and dry. HEART: no murmurs, irregular irregular heart rhythm. LUNGS: Few crackles at bases. ABDOMEN: soft, nontender. EXTREMITIES: 1+ edema bilaterally. PERIPHERAL PULSES: equal. NEUROLOGIC: No gross deficits, AAO X 3 Objective Labs and Meds Result diagrams: 03/10/22 06:08 03/10/22 06:08 Lab results: Laboratory Results - last 24 hr 03/09/22 03/09/22 03/09/22 11:21 15:17 19:28 WBC RBC Hgb Hct MCV MCH MCHC RDW Plt Count MPV Absolute Nucleated RBC Nucleated RBC % (auto) PT INR Sodium Potassium Chloride Carbon Dioxide Anion Gap BUN Creatinine Estim Creat Clear Calc Estimated GFR POC Glucose 107 112 97 Fasting Glucose Calcium Magnesium 03/10/22 03/10/22 03/10/22 06:08 06:08 06:08 WBC 5.1 RBC 4.27 Hgb 12.5 Hct 39.4 MCV 92.3 MCH 29.3 MCHC 31.7 RDW 14.4 Plt Count 189 MPV 10.6 Absolute Nucleated RBC 0.000 Nucleated RBC % (auto) 0.0 PT 24.6 H INR 2.1 H Sodium 139 Potassium 2.9 L Chloride 83 L Carbon Dioxide 44 H* Anion Gap 15 BUN 21 H Creatinine 0.93 Estim Creat Clear Calc 87.2 Estimated GFR > 60 POC Glucose Fasting Glucose 105 H Calcium 9.2 Magnesium 1.4 L* 03/10/22 07:26 WBC RBC Hgb Hct MCV MCH MCHC RDW Plt Count MPV Absolute Nucleated RBC Nucleated RBC % (auto) PT INR Sodium Potassium Chloride Carbon Dioxide Anion Gap BUN Creatinine Estim Creat Clear Calc Estimated GFR POC Glucose 123 H Fasting Glucose Calcium Magnesium Progress Note: A&P Assessment and plan (1) CHF (congestive heart failure): Status: Acute (2) Hypomagnesemia: Status: Acute Plan 66-year-old female presenting with congestive heart failure. She has right more than left-sided heart failure. Echo showing severely reduced right ventricular function. Etiology is unclear but probably related to underlying untreated sleep apnea and hypoxia. She does not have COPD. We decreased her atenolol to 50 mg and increase her Bumex drip with good diuresis. She has significant volume overload but also is developing some contraction alkalosis and electrolyte abnormalities. Monitor potassium and magnesium closely and replete. I think we can decrease the Bumex drip 2.2 5 milligram/ hour. Thank you for allowing me to participate in the care of your patient. Please feel free to contact me if you have any questions. Time Spent With Patient Time: Total time spent is greater than 50% in coordination of care (as documented) at patient's floor/unit and/or counseling patient: Progress Note: Quality Stroke Does the patient have a stroke diagnosis?: No Procedures Date of Service Date of Service: 03/10/22
[2022-03-10 11:41] LABS: Glucose, Whole Blood 121 mg/dL (60-115)
[2022-03-10] MEDS: acetaZOLAMIDE sodium 500 MG VIAL 250 MG IVPUSH ×3 (12:03→21:19)
[2022-03-10 16:37] LABS: Glucose, Whole Blood 106 mg/dL (60-115)
[2022-03-10] MEDS: Spironolactone 25 MG TABLET 50 MG PO (17:40)
[2022-03-10] MEDS: Warfarin Sodium 3 MG TABLET PO (18:44)
[2022-03-10 20:49] LABS: Glucose, Whole Blood 109 mg/dL (60-115)
[2022-03-10] MEDS: Omeprazole 20 MG CAPSULE.DR PO (21:18)
[2022-03-11 03:19] VITALS: BP 117/57; PULSE 71; RESP 14; TEMP 36.6; O2SAT 90
[2022-03-11] MEDS: Acetaminophen 325 MG TABLET 650 MG PO (05:21)
[2022-03-11] MEDS: Levothyroxine Sodium 50 MCG TABLET PO (05:21)
[2022-03-11 06:26] LABS: Hematocrit 38.8 % (37.0-47.0); Hemoglobin 12.3 g/dl (12.0-16.0); Mean Corpuscular HGB Conc 31.7 g/dl (31.0-35.0); Mean Corpuscular Hemoglobin 29.5 pg (27.0-33.0); Mean Platelet Volume 10.6 fL (9.4-12.3); Platelet Count 182 X10*3/uL (160-400); Red Blood Count 4.17 X10*6/uL (4.20-5.50); Red Cell Distribution Width 14.2 % (11.0-16.0); White Blood Count 5.8 X10*3/uL (4.8-10.8)
[2022-03-11 06:39] LABS: INTERNATIONAL NORM RATIO 1.9 (0.9-1.1); Prothrombin Time 22.4 SEC (10.0-13.1)
[2022-03-11 06:45] LABS: Anion Gap 12 (12-20); Blood Urea Nitrogen 25 mg/dL (9-16); Calcium 9.1 mg/dL (8.4-10.2); Carbon Dioxide 42 mmol/L (22-29); Chloride 85 mmol/L (96-108); Creatinine Clr Calc Pharmacy 78.7; Estimated Glomerular Filt Rate 54; Glucose Fasting 108 mg/dL (60-99); Magnesium 1.6 mg/dL (1.6-2.6); Potassium 3.4 mmol/L (3.3-5.1); Sodium 136 mmol/L (135-145)
--- NOTE | 2022-03-11 06:46 | PC.NURSE ---
Critical bicarb of [address] Parker. Will passs along in report.
[2022-03-11 07:25] LABS: Glucose, Whole Blood 98 mg/dL (60-115)
[2022-03-11 07:30] VITALS: BP 124/71; PULSE 76; RESP 20; TEMP 36.2; O2SAT 95
[2022-03-11] MEDS: acetaZOLAMIDE sodium 500 MG VIAL 250 MG IVPUSH ×3 (09:34→21:56)
[2022-03-11] MEDS: Gabapentin 300 MG CAPSULE PO ×3 (09:35→21:56)
[2022-03-11] MEDS: Spironolactone 25 MG TABLET 50 MG PO ×2 (09:35→16:45)
[2022-03-11] MEDS: oxyCODONE HCl Immed Release 5 MG TABLET PO ×2 (09:35→16:42)
[2022-03-11] MEDS: 0.9 % Sodium Chloride Flush 3 ML SYRINGE IVFLUSH ×2 (09:35→16:42)
[2022-03-11] MEDS: Losartan Potassium 50 MG TABLET PO (09:36)
[2022-03-11] MEDS: Atorvastatin Calcium 10 MG TABLET PO (09:37)
[2022-03-11] MEDS: Magnesium Oxide 400 MG TABLET 800 MG PO ×2 (09:37→16:40)
[2022-03-11] MEDS: atenoloL 50 MG TABLET PO (09:38)
--- NOTE | 2022-03-11 10:02 | P.PNCA_ITS ---
Subjective Subjective Date of Service: 03/11/22 Principal diagnosis: Right heart failure Interval history: patient has diuresed since admission about -17 L. she says her leg edema significantly improved. Her breathing is stable. However she says she remains fluid overloaded. Blood pressure is stable. Noted low potassium and magnesium levels. Review of Systems Constitutional: Reports no additional constitutional complaints Eyes: Reports no additional eye complaints Cardiovascular: Denies chest pain, Reports leg edema, Denies lightheadedness, D enies Loss of Consciousness and Reports dyspnea on exertion Respiratory: Reports no additional respiratory complaints and Reports dyspnea on exertion Gastrointestinal: Reports no additional gastrointestinal complaints Genitourinary: Reports no additional female genitourinary complaints Musculoskeletal: Reports no additional musculoskeletal complaints Skin/Breast: Reports system reviewed and no additional complaints, except as docu Reports system reviewed and no additional complaints, except as documented Psychiatric: Reports no additional psychiatric complaints Endocrine: Reports no additional endocrine complaints Hematologic/Lymphatic: Reports no additional hematologic/lymphatic complaints Allergic/Immunologic: Reports no additional allergic/immunologic complaints Physical Exam Vital Signs: Last Vital Signs Temp 97.2 F 03/11/22 07:30 Pulse 76 03/11/22 07:30 Resp 20 03/11/22 07:30 BP 124/71 03/11/22 07:30 Pulse Ox 95 03/11/22 07:30 O2 Del Method 03/11/22 07:30 O2 Flow Rate 2 03/10/22 03:15 BMI result Body Mass Index 60.8 Objective Labs and Meds Result diagrams: 03/11/22 05:46 03/11/22 05:46 Lab results: Laboratory Results - last 24 hr 03/10/22 03/10/22 03/10/22 11:22 16:20 20:22 WBC RBC Hgb Hct MCV MCH MCHC RDW Plt Count MPV Absolute Nucleated RBC Nucleated RBC % (auto) PT INR Sodium Potassium Chloride Carbon Dioxide Anion Gap BUN Creatinine Estim Creat Clear Calc Estimated GFR POC Glucose 121 H 106 109 Fasting Glucose Calcium Magnesium 03/11/22 03/11/22 03/11/22 05:46 05:46 05:46 WBC 5.8 RBC 4.17 L Hgb 12.3 Hct 38.8 MCV 93.0 MCH 29.5 MCHC 31.7 RDW 14.2 Plt Count 182 MPV 10.6 Absolute Nucleated RBC 0.000 Nucleated RBC % (auto) 0.0 PT 22.4 H INR 1.9 H Sodium 136 Potassium 3.4 Chloride 85 L Carbon Dioxide 42 H* Anion Gap 12 BUN 25 H Creatinine 1.03 Estim Creat Clear Calc 78.7 Estimated GFR 54 POC Glucose Fasting Glucose 108 H Calcium 9.1 Magnesium 1.6 03/11/22 07:20 WBC RBC Hgb Hct MCV MCH MCHC RDW Plt Count MPV Absolute Nucleated RBC Nucleated RBC % (auto) PT INR Sodium Potassium Chloride Carbon Dioxide Anion Gap BUN Creatinine Estim Creat Clear Calc Estimated GFR POC Glucose 98 Fasting Glucose Calcium Magnesium Progress Note: A&P Assessment and plan (1) Decompensated heart failure: Status: Acute Assessment and Plan: decompensated heart failure with predominant right heart failure secondary to RV dysfunction. Cause of RV dysfunction is unclear at this point time. Possible chronic thromboembolic disease needs to be considered. Consider of V/Q scan for the same. Will also require sleep study, will be done as outpatient. Could be related to obesity hypoventilation syndrome. Still appears to be clinically fluid overloaded. Will continue IV diuresis with Bumex at a lower dose 2 mg b.i.d.. Continue strict intake and output chart. Continue Diamox therapy p.o. for contraction alkalosis. Continue with spironolactone therapy. Replace electrolytes aggressively including potassium and magnesium. Trend BMP and BNP tomorrow. Out of bed to chair and consider PT consultation. CHF education to be provided. Will continue to follow with you Time Spent With Patient Time: Total time spent is greater than 50% in coordination of care (as documented) at patient's floor/unit and/or counseling patient: Progress Note: Quality Stroke Does the patient have a stroke diagnosis?: No Procedures Date of Service Date of Service: 03/11/22
[2022-03-11] MEDS: Bumetanide 1 MG/4 ML VIAL 2 MG IVPUSH ×2 (10:23→16:41)
[2022-03-11 11:08] VITALS: BP 119/67; PULSE 68; RESP 19; TEMP 36.2; O2SAT 93
[2022-03-11 11:15] LABS: Glucose, Whole Blood 113 mg/dL (60-115)
--- NOTE | 2022-03-11 12:05 | HO.PM.IMPN ---
Subjective Subjective Date of Service: 03/11/22 Interval History: Seen and examined this morning Follow-up for CHF No dyspnea at rest, lower extremity edema persist Denies chest pain Review of Systems Review of Systems: Yes all other systems are reviewed and are negative Constitutional Constitutional: Denies fever(s) Cardiovascular Cardiovascular: Denies chest pain Respiratory Respiratory: Denies cough Gastrointestinal Gastrointestinal: Denies diarrhea, Denies nausea and Denies vomiting Physical Exam Vital Signs: Vital Signs: Last Vital Signs Temp 97.2 F 03/11/22 11:08 Pulse 68 03/11/22 11:08 Resp 19 03/11/22 11:08 BP 119/67 03/11/22 11:08 Pulse Ox 93 03/11/22 11:08 O2 Del Method 03/11/22 11:08 O2 Flow Rate 2 03/10/22 03:15 BMI result Body Mass Index 60.8 Const: General: cooperative, comfortable, alert, awake and acute distress Nutritional Appearance: obese Resp: Effort & Inspection: normal respiratory effort and able to speak in complete sentences Auscultation: crackles Cardio: Jugular venous distension: JVD Heart sounds: S1 normal heart sound present and S2 normal heart sound present GI: Palpation (GI): Soft to palpation and nontender Extrem: General: Yes no pedal edema Objective Data Active Medications Acetaminophen (Acetaminophen 325 Mg Tablet) 650 mg PO Q6H PRN PRN Reason: Pain, Mild (Pain Scale 1-3) Last Admin: 03/11/22 05:21 Dose: 650 mg Documented By: CHON Acetazolamide (Acetazolamide Sodium 500 Mg Vial) 250 mg IVPUSH TID [facility] Stop: 03/11/22 21:01 Last Admin: 03/11/22 09:34 Dose: 250 mg Documented By: MARIAH Atenolol (Atenolol 50 Mg Tablet) 50 mg PO DAILY [facility]; Protocol Last Admin: 03/11/22 09:38 Dose: 50 mg Documented By: MARIAH Atorvastatin Calcium (Atorvastatin Calcium 10 Mg Tablet) 10 mg PO DAILY [facility] Last Admin: 03/11/22 09:37 Dose: 10 mg Documented By: MARIAH Bumetanide (Bumetanide 1 Mg/4 Ml Vial) 2 mg IVPUSH BID@0900,1700 [facility]; Protocol Last Admin: 03/11/22 10:23 Dose: 2 mg Documented By: MARIAH Dextrose (Dextrose 50 % 25 Gm/50 Ml Syringe) 25 gm IVPUSH Q15M PRN; Protocol PRN Reason: per Hypoglycemia Standing Ord. Gabapentin (Gabapentin 300 Mg Capsule) 300 mg PO TID [facility] Last Admin: 03/11/22 09:35 Dose: 300 mg Documented By: MARIAH Glucose (Glucose Gel 15 Gm Gel..Gram.) 15 gm PO Q15M PRN; Protocol PRN Reason: per Hypoglycemia Standing Ord. Insulin Human Lispro (Insulin Lispro 100 Unit/Ml 3 Ml Vial) 0 unit SUBCUT QIDACHS [facility]; Protocol Last Admin: 03/11/22 09:34 Dose: Not Given Documented By: MARIAH Non-Admin Reason: No Insulin Coverage Levothyroxine Sodium (Levothyroxine Sodium 50 Mcg Tablet) 50 mcg PO DAILY@0600 [facility] Last Admin: 03/11/22 05:21 Dose: 50 mcg Documented By: CHON Losartan Potassium (Losartan Potassium 50 Mg Tablet) 50 mg PO DAILY [facility]; Protocol Last Admin: 03/11/22 09:36 Dose: 50 mg Documented By: MARIAH Magnesium Oxide (Magnesium Oxide 400 Mg Tablet) 800 mg PO BIDPC [facility] Last Admin: 03/11/22 09:37 Dose: 800 mg Documented By: MARIAH Omeprazole (Omeprazole 20 Mg Capsule.Dr) 20 mg PO BEDTIME [facility] Last Admin: 03/10/22 21:18 Dose: 20 mg Documented By: CHON Oxycodone HCl (Oxycodone Hcl Immed Release 5 Mg Tablet) 5 mg PO TID [facility] Last Admin: 03/11/22 09:35 Dose: 5 mg Documented By: MARIAH Pharmacy Consult (Consult Rx Perform Med Rec) 1 each MISCELLANE ONCE PRN PRN Reason: Consult order Sodium Chloride (0.9 % Sodium Chloride Flush 3 Ml Syringe) [address] [facility] Last Admin: 03/11/22 09:35 Dose: 3 ml Documented By: MARIAH Spironolactone (Spironolactone 25 Mg Tablet) 50 mg PO BID@0900,1800 [facility]; Protocol Last Admin: 03/11/22 09:35 Dose: 50 mg Documented By: MARIAH Warfarin Sodium (Warfarin Sodium 4 Mg Tablet) 4 mg PO MOWEFR@1800 [facility] Last Admin: 03/08/22 16:59 Dose: 4 mg Documented By: TARAH Warfarin Sodium (Warfarin Sodium 3 Mg Tablet) 3 mg PO [facility] Last Admin: 03/10/22 18:44 Dose: 3 mg Documented By: TANYA Labs CBC & Chem 7: 03/11/22 05:46 03/11/22 05:46 Labs: Laboratory Results - last 24 hr 03/10/22 03/10/22 03/11/22 16:20 20:22 05:46 MCV MCH MCHC RDW Plt Count MPV Absolute Nucleated RBC Nucleated RBC % (auto) PT 22.4 H INR 1.9 H Anion Gap Estim Creat Clear Calc Estimated GFR POC Glucose 106 109 Fasting Glucose Calcium Magnesium 03/11/22 03/11/22 03/11/22 05:46 05:46 07:20 MCV 93.0 MCH 29.5 MCHC 31.7 RDW 14.2 Plt Count 182 MPV 10.6 Absolute Nucleated RBC 0.000 Nucleated RBC % (auto) 0.0 PT INR Anion Gap 12 Estim Creat Clear Calc 78.7 Estimated GFR 54 POC Glucose 98 Fasting Glucose 108 H Calcium 9.1 Magnesium 1.6 03/11/22 11:10 MCV MCH MCHC RDW Plt Count MPV Absolute Nucleated RBC Nucleated RBC % (auto) PT INR Anion Gap Estim Creat Clear Calc Estimated GFR POC Glucose 113 Fasting Glucose Calcium Magnesium Assessment and Plan (1) Decompensated heart failure: Status: Acute Plan 66F presented with edema and sob acute on chronic right sided chf Still appears fluid overloaded -18L Initially on Bumex drip, held due to rising bicarb, resume IV bolus dosing per Cardiology recommendation Continue low-sodium diet, follow I's and O's monitor bmp Cardiology following, etiology for right heart failure unclear, requesting V/Q scan to evaluate for chronic PE Continue Diamox for contraction alkalosis- bicarb 42 hyopmagnesemia, hypokalemia replace, monitor Atrial fibrillation Heart rate controlled Continue Coumadin elevated troponin denies chest pain, ekg non ischemic chronic afib atenolol, coumadin, monitor inr DM holding metformin insulin hld statin htn atenolol morbid obesity BMI 60.8 weight loss hypothryoid synthroid dvt prophylaxis - on coumadin Attending-Dr. Silverman full code reason for continued hospitalization:ongoing diuresis Quality Stroke Does the patient have a stroke diagnosis?: No VTE Prior VTE?: No VTE Risk Level:: Medical - moderate - high VTE Device Contraindication: Treatment Not Indicated VTE Drug Contraindication: N/A - Med Ordered
--- NOTE | 2022-03-11 13:30 | MHC.CM.PN ---
PT NOT READY FOR DC DUE TO ONGOING DIURESIS
[2022-03-11 15:22] VITALS: BP 109/58; PULSE 74; RESP 18; TEMP 36.9; O2SAT 92
[2022-03-11 16:02] LABS: Glucose, Whole Blood 118 mg/dL (60-115)
[2022-03-11] MEDS: Warfarin Sodium 4 MG TABLET PO (16:40)
[2022-03-11 19:11] VITALS: BP 116/56; PULSE 101; RESP 18; TEMP 36.7; O2SAT 91
[2022-03-11 19:43] LABS: Glucose, Whole Blood 123 mg/dL (60-115)
[2022-03-11] MEDS: Omeprazole 20 MG CAPSULE.DR PO (21:56)
[2022-03-11 23:08] VITALS: BP 134/62; PULSE 72; RESP 19; TEMP 36.1; O2SAT 94
[2022-03-12 03:50] VITALS: BP 103/55; PULSE 80; RESP 16; TEMP 36.6; O2SAT 95
[2022-03-12] MEDS: Levothyroxine Sodium 50 MCG TABLET PO (05:28)
[2022-03-12 06:46] LABS: Prothrombin Time 24.2 SEC (10.0-13.1)
[2022-03-12 07:04] LABS: Hematocrit 38.4 % (37.0-47.0); Hemoglobin 11.9 g/dl (12.0-16.0); Mean Corpuscular Hemoglobin 28.8 pg (27.0-33.0); Mean Platelet Volume 10.7 fL (9.4-12.3); Platelet Count 192 X10*3/uL (160-400); Red Blood Count 4.13 X10*6/uL (4.20-5.50); Red Cell Distribution Width 14.2 % (11.0-16.0); White Blood Count 5.6 X10*3/uL (4.8-10.8)
[2022-03-12 07:05] LABS: B Type Natriuretic Peptide 650 pg/mL (<100)
[2022-03-12 07:17] LABS: Glucose, Whole Blood 135 mg/dL (60-115)
[2022-03-12 07:23] LABS: Anion Gap 12 (12-20); Blood Urea Nitrogen 27 mg/dL (9-16); Calcium 8.8 mg/dL (8.4-10.2); Carbon Dioxide 40 mmol/L (22-29); Chloride 88 mmol/L (96-108); Creatinine Clr Calc Pharmacy 73.7; Estimated Glomerular Filt Rate 50; Glucose Random 110 mg/dL (60-115); Magnesium 1.6 mg/dL (1.6-2.6); Potassium 3.3 mmol/L (3.3-5.1); Sodium 137 mmol/L (135-145)
[2022-03-12 07:41] VITALS: BP 108/57; PULSE 64; RESP 20; TEMP 36.2; O2SAT 93
[2022-03-12 08:50] VITALS: BP 108/57; PULSE 64; O2SAT 93
[2022-03-12] MEDS: Bumetanide 1 MG/4 ML VIAL 2 MG IVPUSH (08:54)
[2022-03-12] MEDS: Gabapentin 300 MG CAPSULE PO (08:54)
[2022-03-12] MEDS: Spironolactone 25 MG TABLET 50 MG PO (08:54)
[2022-03-12] MEDS: 0.9 % Sodium Chloride Flush 3 ML SYRINGE IVFLUSH (08:54)
[2022-03-12] MEDS: Magnesium Oxide 400 MG TABLET 800 MG PO (08:54)
[2022-03-12] MEDS: Losartan Potassium 50 MG TABLET PO (08:54)
[2022-03-12] MEDS: Atorvastatin Calcium 10 MG TABLET PO (08:55)
[2022-03-12] MEDS: atenoloL 50 MG TABLET PO (08:55)
[2022-03-12 11:18] LABS: Glucose, Whole Blood 108 mg/dL (60-115)
--- NOTE | 2022-03-12 11:38 | W.MHC.F2F ---
Service Date Service Date: 03/12/22 Encounter Date of encounter: 03/12/22 Reasons for Services Signs and symptoms assessed: Heart failure exacerbation Reason for mcc: monitoring of PT/INR, medication management and teach disease management Reason for physical therapy: home safety and mobility and therapeutic exercises Homebound: Leaving the home is medically contraindicated at this time without the asist of a device and/or another person due th the listed conditions above and below. Reason homebound: unsteady gait / fall risk Certification: Based on the above findings, I certify that this patient is confined to the home and needs intermittent mcc care, physical therapy and/or speech therapy, or continues to need occupational therapy. The patient is under my care, and I have initiated the establishment of the plan of care. The patient will be followed by a physician who will periodically review the plan of care.
--- NOTE | 2022-03-12 11:39 | P.DS_ITS ---
DS: Providers Provider Date of Service: 03/12/22 Date of admission: 03/06/22 16:36 Primary care physician: Reny Nixon DNP Consults: 03/06/22 16:32 Consult to Cardiology Routine Consulting Provider: Danyel Prado Reason for consultation: chf, elevated trops DS: Diagnosis Discharge Diagnosis (1) Decompensated heart failure: Status: Acute (2) Physical deconditioning: Status: Acute (3) Hypomagnesemia: Status: Acute (4) Hypokalemia: Status: Acute DS: Summary Hospital Course Hospital Course: Admission note HPI 66F poor historian, pmh of chornic afib, morbid obesity, chronic diastolic chf, htn, dm, presented with worsening le bilateral edema Left>right, sob. reports ongoing symptoms for years, but has worsened over the past few days. positive orthopnea, sob on minmal exertion. patient only on HCTZ for diuretic at home. denies cehst pain, fever, chills. in ED noted to have elevated bnp 1537, elevated trop 184.9 and 234.8. Hospital course The patient was admitted for treatment of CHF exacerbation. Responded well to treatment with Bumex drip for CHF exacerbation as evidenced with elevated BNP and CXR showing fluid overload. Seen by Cardiology team who recommended IV boluses of Bumex for evidence of traction alkalosis. Her CO2 level were fairly controlled after addition of Diamox. The patient was weaned off the oxygen and became able to ambulate on room air is for short distance as she uses walker to ambulate. A V/Q scan was done per Cardiology recommendation but came back negative. Recommendations to follow-up with outpatient sleep study. Doppler ultrasound was negative for DVT in her left lower extremity. She was found to have hypomagnesemia and hypokalemia which both were repleted with good response. We advise you to lose weight To do outpatient sleep study as you might need CPAP machine at night To do physical therapy at home Decrease atenolol to 50 mg daily Start Bumex 2 mg daily along with acetazolamide once daily Discontinue hydrochlorothiazide Start spironolactone 50 mg twice Daily To follow up with Cardiology as outpatient, low-sodium diet, fluid restriction to 1.5 L a day To repeat blood work next week Time Spent with Patient Time attestation: Total time spent providing and/or coordinating discharge services: Discharge coordination time: Greater than 30 minutes Quality: Safe Use of Opioids Does Pt have an Active Cancer Diagnosis on the Problem List?: No Quality: Stroke Does the patient have a stroke diagnosis?: No Physical Exam Vital Signs: Vital Signs: Last Vital Signs Temp 97.2 F 03/12/22 07:41 Pulse 64 03/12/22 08:50 Resp 20 03/12/22 07:41 BP 108/57 L 03/12/22 08:50 Pulse Ox 93 03/12/22 08:50 O2 Del Method 03/12/22 07:41 O2 Flow Rate 2 03/10/22 03:15 BMI result Body Mass Index 60.8 Const: Other: Constitutional : Alert, oriented, not in distress Neck : Normal inspection, Supple Cardiovascular : RRR, no JVP, trace bilateral lower extremity edema Respiratory : fair bilateral air entry decreased at the bases, no crackles, wheezes or rhonchi Gastrointestinal: soft, lax, Normal bowel sounds, Non tender Skin : Warm, Dry, chronic bilateral lower extremities changes suggestive of stasis dermatitis Neurological : Alert & oriented x3, No focal deficit , CN 2-12 within normal DS: Data Data Completed and Pending Labs on day of discharge: Laboratory Results - last 24 hr 03/11/22 03/11/22 03/12/22 15:57 19:39 05:49 WBC RBC Hgb Hct MCV MCH MCHC RDW Plt Count MPV Absolute Nucleated RBC Nucleated RBC % (auto) PT 24.2 H INR 2.0 H Sodium Potassium Chloride Carbon Dioxide Anion Gap BUN Creatinine Estim Creat Clear Calc Estimated GFR POC Glucose 118 H 123 H Random Glucose Calcium Magnesium B-Natriuretic Peptide 03/12/22 03/12/22 03/12/22 05:49 05:49 05:49 WBC 5.6 RBC 4.13 L Hgb 11.9 L Hct 38.4 MCV 93.0 MCH 28.8 MCHC 31.0 RDW 14.2 Plt Count 192 MPV 10.7 Absolute Nucleated RBC 0.000 Nucleated RBC % (auto) 0.0 PT INR Sodium 137 Potassium 3.3 Chloride 88 L Carbon Dioxide 40 H* Anion Gap 12 BUN 27 H Creatinine 1.10 Estim Creat Clear Calc 73.7 Estimated GFR 50 POC Glucose Random Glucose 110 Calcium 8.8 Magnesium 1.6 B-Natriuretic Peptide 650 H 03/12/22 03/12/22 07:04 10:51 WBC RBC Hgb Hct MCV MCH MCHC RDW Plt Count MPV Absolute Nucleated RBC Nucleated RBC % (auto) PT INR Sodium Potassium Chloride Carbon Dioxide Anion Gap BUN Creatinine Estim Creat Clear Calc Estimated GFR POC Glucose 135 H 108 Random Glucose Calcium Magnesium B-Natriuretic Peptide Imaging Chest x-ray: Radiologist's impression: ITS Impressions Chest X-Ray 03/06/22 12:52 IMPRESSION: Cardiomegaly with interstitial prominence and left lower lobe airspace disease and/or pleural Venous Duplex 03/06/22 14:44 IMPRESSION: No DVT demonstrated in the left lower extremity. Pulmonary Perfusion Imaging 03/11/22 13:09 IMPRESSION: Very low probability of pulmonary embolism. Cardiomegaly. Chest X-Ray 03/11/22 13:11 IMPRESSION: Stable enlargement of the cardiac silhouette. Question pulmonary venous redistribution. Discharge Plan Discharge Patient Disposition: Home Health Service Discharge Diagnosis: Heart failure exacerbation Referrals: Reny Nixon, [facility], [employer] CAREER MANAGER, [employer] [Primary Care Provider] - 1 Week Discharge Medications: New spironolactone 25 mg Tablet 50 mg PO BID@0900,1800 30 Days Qty: 120 0RF Protocol: Hold for SBP< HOLD for SBP < : 90 magnesium oxide 400 mg (241.3 mg magnesium) Tablet 800 mg PO DAILY Qty: 60 0RF bumetanide 2 mg tablet 2 mg PO DAILY Qty: 30 0RF acetazolamide 250 mg tablet 500 mg PO DAILY Qty: 60 0RF (DME) Ultra-Light Rollator Misc See Rx Instructions .Route Qty: 1 0RF Rx Instructions: As directed Continued ondansetron 4 mg tablet,disintegrating 4 mg PO Q6H PRN (Reason: nausea and vomiting) 3 Days Qty: 12 0RF oxycodone 5 mg tablet 1 tab PO TID warfarin 1 mg tablet 3 mg PO SUTUTHSA warfarin 1 mg tablet 4 mg PO MOWEFR@1800 Protocol: Dose Management Condition: Friday (Week One) Dose/Route: 3 mg Instruction: 3 x 1 mg tablets Condition: Friday Dose/Route: 6 mg Instruction: 6 x 1 mg tablets Condition: Friday Dose/Route: 3 mg Instruction: 3 x 1 mg tablets Condition: Friday Dose/Route: 4 mg Instruction: 4 x 1 mg tablets Condition: Dose/Route: 3 mg Instruction: 3 x 1 mg tablets Condition: Friday Dose/Route: 4 mg Instruction: 4 x 1 mg tablets Condition: Friday Dose/Route: 3 mg Instruction: 3 x 1 mg tablets Condition: Friday (Week Two) Dose/Route: 3 mg Instruction: 3 x 1 mg tablets Condition: Friday Dose/Route: 4 mg Instruction: 4 x 1 mg tablets Condition: Friday Dose/Route: 3 mg Instruction: 3 x 1 mg tablets Condition: Friday Dose/Route: 4 mg Instruction: 4 x 1 mg tablets Condition: Dose/Route: 3 mg Instruction: 3 x 1 mg tablets Condition: Friday Dose/Route: 4 mg Instruction: 4 x 1 mg tablets Condition: Friday Dose/Route: 3 mg Instruction: 3 x 1 mg tablets Protocol Text: Adjustment Start Date: 02/21/22 INR Value: 1.7 INR Date: 02/18/22 Recheck Date: 02/25/22 Additional Instructions: KEEP SAME DOSE FOR NOW THE ANTIBIOITCS CAN RAISE THE INR EAT A SERVING OF [place] OVER THE WEEKEND PLEASE KEEP 02/25/22 APPT losartan 50 mg tablet 50 mg PO DAILY levothyroxine 50 mcg tablet 50 mcg PO QAM omeprazole 20 mg capsule,delayed release(DR/EC) 20 mg PO BEDTIME simvastatin 10 mg tablet 10 mg PO DAILY gabapentin 300 mg capsule 300 mg PO TID metformin 500 mg tablet 500 mg PO BID Changed atenolol 100 mg tablet 50 mg PO DAILY Qty: 15 0RF Discontinued hydrochlorothiazide 12.5 mg tablet 12.5 mg PO DAILY Discharge Orders: Discharge Order (Routine); Ordered 03/12/22 Ordered By: Corine Lennon Diet: Low salt diet Activity on Discharge: As tolerated Stand Alone Forms: Patient Portal Discharge page Other Ambulatory Orders: Basic Metabolic Panel (Routine) Timeframe: 1 Week Facility: [facility] - Location: Laboratory Ordered By: Corine Lennon Care Plan Goals: Read below Health Concerns: Read below Plan of Treatment: Read below Assessment: You were admitted to the hospital for treatment of shortness of breath and edema in lower extremities. Found to be in acute heart failure exacerbation. Treated with water restriction and IV water pills as you were evaluated by Cardiology team. Your symptoms improved significantly as you lost almost 20 L of extra fluids. You were also noted to have electrolyte imbalance that was corrected with replacement. We advise you to lose weight To do outpatient sleep study as you might need CPAP machine at night To do physical therapy at home Decrease atenolol to 50 mg daily Start Bumex 2 mg daily along with acetazolamide once daily Discontinue hydrochlorothiazide Start spironolactone 50 mg twice Daily To follow up with Cardiology as outpatient, low-sodium diet, fluid restriction to 1.5 L a day To repeat blood work next week
[2022-03-12 11:55] VITALS: BP 122/58; PULSE 63; RESP 20; TEMP 36.3; O2SAT 94
--- NOTE | 2022-03-12 12:05 | MHC.CM.PN ---
pt dcd with [facility]ns ,pt arranging own ride home with cecilia banerjee .t/w asked md for script for seated walker
--- NOTE | 2022-03-12 12:29 | P.PNCA_ITS ---
Subjective Subjective Date of Service: 03/12/22 Principal diagnosis: Right heart failure Interval history: Patient has diuresed extremely well. She is negative balance of almost 20 L. her leg edema is improved. Breathing is improved. No palpitations. Atrial f ibrillation rate is controlled. Review of Systems Review of Systems Yes all other systems are reviewed and are negative Physical Exam Vital Signs: Last Vital Signs Temp 97.3 F 03/12/22 11:55 Pulse 63 03/12/22 11:55 Resp 20 03/12/22 11:55 BP 122/58 L 03/12/22 11:55 Pulse Ox 94 03/12/22 11:55 O2 Del Method 03/12/22 11:55 O2 Flow Rate 2 03/10/22 03:15 BMI result Body Mass Index 60.8 Neck Neck: Yes trachea midline, Yes supple and Yes no JVD Resp Effort & Inspection: normal respiratory effort Auscultation: clear to auscultation bilaterally and diminished lung sounds Cardio Jugular venous distension: no JVD Rhythm: abnormal rhythm irregularly irregular Heart sounds: S1 normal heart sound present and S2 normal heart sound present Neuro General: no focal motor deficits Objective Labs and Meds Result diagrams: 03/12/22 05:49 03/12/22 05:49 Lab results: Laboratory Results - last 24 hr 03/11/22 03/11/22 03/12/22 15:57 19:39 05:49 WBC RBC Hgb Hct MCV MCH MCHC RDW Plt Count MPV Absolute Nucleated RBC Nucleated RBC % (auto) PT 24.2 H INR 2.0 H Sodium Potassium Chloride Carbon Dioxide Anion Gap BUN Creatinine Estim Creat Clear Calc Estimated GFR POC Glucose 118 H 123 H Random Glucose Calcium Magnesium B-Natriuretic Peptide 03/12/22 03/12/22 03/12/22 05:49 05:49 05:49 WBC 5.6 RBC 4.13 L Hgb 11.9 L Hct 38.4 MCV 93.0 MCH 28.8 MCHC 31.0 RDW 14.2 Plt Count 192 MPV 10.7 Absolute Nucleated RBC 0.000 Nucleated RBC % (auto) 0.0 PT INR Sodium 137 Potassium 3.3 Chloride 88 L Carbon Dioxide 40 H* Anion Gap 12 BUN 27 H Creatinine 1.10 Estim Creat Clear Calc 73.7 Estimated GFR 50 POC Glucose Random Glucose 110 Calcium 8.8 Magnesium 1.6 B-Natriuretic Peptide 650 H 03/12/22 03/12/22 07:04 10:51 WBC RBC Hgb Hct MCV MCH MCHC RDW Plt Count MPV Absolute Nucleated RBC Nucleated RBC % (auto) PT INR Sodium Potassium Chloride Carbon Dioxide Anion Gap BUN Creatinine Estim Creat Clear Calc Estimated GFR POC Glucose 135 H 108 Random Glucose Calcium Magnesium B-Natriuretic Peptide Imaging Radiologist's impression: Impressions Pulmonary Perfusion Imaging 03/11/22 13:09 IMPRESSION: Very low probability of pulmonary embolism. Cardiomegaly. Chest X-Ray 03/11/22 13:11 IMPRESSION: Stable enlargement of the cardiac silhouette. Question pulmonary venous redistribution. Progress Note: A&P Assessment and plan (1) Decompensated heart failure: Status: Acute Assessment and Plan: Decompensated heart failure predominant right heart failure with significant RV systolic dysfunction enlargement. No evidence of chronic thromboembolic disease Bi VQ scan. Sleep study at our outpatient is required. Continue to switch to p.o. Bumex. Heart failure management and education should be provided. Will follow up in the office in couple of weeks time. Continue spironolactone therapy. (2) Persistent atrial fibrillation: Status: Acute Assessment and Plan: Persistent atrial fibrillation, currently rate controlled. Continue rate control strategy with atenolol. Continue full oral anticoagulation, currently on warfarin therapy. Follow-up Holter monitor next week. Will follow up in the clinic in 2 weeks time, patient can be discharged home today Time Spent With Patient Time: Total time spent is greater than 50% in coordination of care (as documented) at patient's floor/unit and/or counseling patient: Progress Note: Quality Stroke Does the patient have a stroke diagnosis?: No Procedures Date of Service Date of Service: 03/12/22
== END 2022-03-12 14:25 | disposition home health service (06) | DRG 292 ==
LOC: HO.ED 16:23 → HO.EDOVER 17:01 → HO.IMC 03-07 04:47
PROVIDERS: Nurse Practitioner Family; Physician Assistant Medical; Admitting Provider Internal Medicine; Emergency Provider Internal Medicine; PCP Registered Nurse; Visit Provider Student in an Organized Health Care Education/Training Program
DX: I11.0 Hypertensive heart disease with heart failure (principal); I48.20 Chronic atrial fibrillation, unspecified; E03.9 Hypothyroidism, unspecified; E66.01 Morbid (severe) obesity due to excess calories; E11.40 Type 2 diabetes mellitus with diabetic neuropathy, unspecified; K21.9 Gastro-esophageal reflux disease without esophagitis; E83.42 Hypomagnesemia; E78.5 Hyperlipidemia, unspecified; I50.813 Acute on chronic right heart failure; E87.6 Hypokalemia; Z96.653 Presence of artificial knee joint, bilateral; Z20.822 Contact with and (suspected) exposure to COVID-19; Z88.5 Allergy status to narcotic agent; Z79.84 Long term (current) use of oral hypoglycemic drugs; Z79.01 Long term (current) use of anticoagulants; Z79.899 Other long term (current) drug therapy
CPT/HCPCS: 36415; 71045; 71046; 78580; 80048; 80076; 82550; 82947; 83605; 83735; 83880; 84484; 85025; 85027; 85610; 87040; 87147; 87205; 87635; 93005; 93306; 93971; 96365; 96366; 96375; 97162; 99284; 99285; A9540; J0696; J1940; J3475; Q9957

== ENCOUNTER → 2022-03-20 14:22 | Outpatient (REF) | payer MEDICARE, SELFPAY ==
[2022-03-20 12:12] LABS: Anion Gap 15 (12-20); Blood Urea Nitrogen 36 mg/dL (9-16); Calcium 9.8 mg/dL (8.4-10.2); Carbon Dioxide 26 mmol/L (22-29); Chloride 100 mmol/L (96-108); Estimated Glomerular Filt Rate 48; Glucose Random 95 mg/dL (60-115); Potassium 4.2 mmol/L (3.3-5.1); Sodium 137 mmol/L (135-145)
--- NOTE | 2022-03-20 14:25 | HM_ITS ---
* Total monitoring time 3 days. * Underlying rhythm is atrial fibrillation. * Average ventricular rate 66/Min. Range 47 to 111/Min. * No significant pauses. * Rare ventricular ectopy with minimal burden. * No patient events. MTDD
== END ==
LOC: HO.CARD 14:22
PROVIDERS: Student in an Organized Health Care Education/Training Program; PCP Registered Nurse; Visit Provider Internal Medicine Cardiovascular Disease
DX: I50.9 Heart failure, unspecified (principal); I48.19 Other persistent atrial fibrillation
CPT/HCPCS: 36415; 80048; 93242

== ENCOUNTER → 2022-04-05 11:25 | Outpatient (BNVA) | payer MEDICARE, SELFPAY | PROVIDERS: PCP Registered Nurse; Visit Provider Internal Medicine | DX: I48.0 Paroxysmal atrial fibrillation (principal); Z79.01 Long term (current) use of anticoagulants; Z51.81 Encounter for therapeutic drug level monitoring | CPT/HCPCS: Q3014 ==

== ENCOUNTER → 2022-04-08 10:46 | Outpatient (REF) | payer MEDICARE, SELFPAY | LOC: HO.SL 10:46 | PROVIDERS: PCP Registered Nurse; Visit Provider Internal Medicine Cardiovascular Disease | DX: G47.33 Obstructive sleep apnea (adult) (pediatric) (principal); G47.10 Hypersomnia, unspecified | CPT/HCPCS: 95806; Q3014 ==

== ENCOUNTER → 2022-04-09 12:23 | Outpatient (BNVA) | payer MEDICARE, SELFPAY | PROVIDERS: PCP Registered Nurse; Visit Provider Internal Medicine | DX: I48.0 Paroxysmal atrial fibrillation (principal); Z79.01 Long term (current) use of anticoagulants; Z51.81 Encounter for therapeutic drug level monitoring | CPT/HCPCS: Q3014 ==

== ENCOUNTER → 2022-04-15 08:15 | Outpatient (BNVA) | payer MEDICARE, SELFPAY | PROVIDERS: PCP Registered Nurse; Visit Provider Internal Medicine | DX: I48.0 Paroxysmal atrial fibrillation (principal); Z79.01 Long term (current) use of anticoagulants; Z51.81 Encounter for therapeutic drug level monitoring | CPT/HCPCS: 85610; 99211 ==

== ENCOUNTER 2022-04-26 08:13 | Outpatient (REF) | payer MEDICARE, SELFPAY ==
[2022-04-26 09:07] LABS: MANUAL DIFF FLAG NO
[2022-04-26 09:48] LABS: Basophils Percent Auto 0.8 % (0-2); Eosinophils Absolute Auto 0.1 X10*3/uL (0.0-0.4); Eosinophils Percent Auto 2.1 % (0-4); Hematocrit 45.4 % (37.0-47.0); Hemoglobin 14.7 g/dl (12.0-16.0); Imm Gran Abs Auto 0.02 X10*3/uL (0.00-0.03); Imm Gran Pct Auto 0.4 % (0.0-0.4); Lymphocytes Absolute Auto 1.9 X10*3/uL (1.2-4.9); Lymphocytes Percent Auto 39.2 % (20-40); Mean Corpuscular HGB Conc 32.4 g/dl (31.0-35.0); Mean Corpuscular Volume 89.5 fL (80.0-98.0); Mean Platelet Volume 10.3 fL (9.4-12.3); Monocytes Absolute Auto 0.8 X10*3/uL (0.1-1.2); Monocytes Percent Auto 17.1 % (2-11); Neutrophils Absolute Auto 1.9 x10*3/uL (2.0-8.3); Neutrophils Percent Auto 40.4 % (45-73); Platelet Count 203 X10*3/uL (160-400); Red Blood Count 5.07 X10*6/uL (4.20-5.50); Red Cell Distribution Width 14.2 % (11.0-16.0); White Blood Count 4.8 X10*3/uL (4.8-10.8)
[2022-04-26 10:10] LABS: Alanine Aminotransferase 34 U/L (0-31); Albumin Level 4.4 g/dL (3.5-5.0); Alkaline Phosphatase 72 U/L (39-117); Anion Gap 17 (12-20); Aspartate Amino Transferase 32 U/L (5-31); Bilirubin Total 1.1 mg/dL (0.0-1.0); Blood Urea Nitrogen 38 mg/dL (9-16); Calcium 8.7 mg/dL (8.4-10.2); Carbon Dioxide 26 mmol/L (22-29); Chloride 99 mmol/L (96-108); Cholesterol 166 mg/dL; Estimated Glomerular Filt Rate 32; Glucose Random 108 mg/dL (60-115); HDL Cholesterol 42 mg/dL; LDL Cholesterol Calculated 89 mg/dl; Potassium 3.4 mmol/L (3.3-5.1); Sodium 139 mmol/L (135-145); Total Protein 7.5 g/dL (6.5-8.0); Triglycerides 177 mg/dL
[2022-04-26 12:17] LABS: Amphetamine Screen Urine Not Detected (Not Detect); Barbiturates, Urine Not Detected (Not Detect); Benzodiazepines Screen Urine Not Detected (Not Detect); Cannabinoid Screen Urine Not Detected (Not Detect); Cocaine Screen Urine Not Detected (Not Detect); Fentanyl, urine Not Detected (Not Detect); Opiate Screen Urine POSITIVE (Not Detect); Phencyclidine Screen Urine Not Detected (Not Detect)
[2022-04-26 12:19] LABS: Creatinine Urine 135.34 mg/dL; Microalbum/Creatinine Ratio Ur 33.9 ug/mg cr
== END 2022-04-26 08:14 | disposition home or self-care (01) ==
LOC: HO.LAB 08:13
PROVIDERS: Absent Provider Registered Nurse; PCP Registered Nurse; Visit Provider Internal Medicine
DX: I48.19 Other persistent atrial fibrillation (principal); Z51.81 Encounter for therapeutic drug level monitoring; Z79.01 Long term (current) use of anticoagulants; I10 Essential (primary) hypertension; E78.00 Pure hypercholesterolemia, unspecified
CPT/HCPCS: 80053; 80061; 80307; 82043; 85025; 85610; 99211

== ENCOUNTER → 2022-05-03 08:35 | Outpatient (BNVA) | payer MEDICARE, SELFPAY | PROVIDERS: PCP Registered Nurse; Visit Provider Internal Medicine | DX: I48.0 Paroxysmal atrial fibrillation (principal); Z51.81 Encounter for therapeutic drug level monitoring; Z79.01 Long term (current) use of anticoagulants | CPT/HCPCS: 85610; 99211 ==

== ENCOUNTER → 2022-05-10 08:00 | Outpatient (BNVA) | payer MEDICARE, SELFPAY | PROVIDERS: PCP Registered Nurse; Visit Provider Internal Medicine | DX: I48.0 Paroxysmal atrial fibrillation (principal); Z79.01 Long term (current) use of anticoagulants; Z51.81 Encounter for therapeutic drug level monitoring | CPT/HCPCS: 85610; 99211 ==

== ENCOUNTER → 2022-05-22 10:13 | Outpatient (BNVA) | payer MEDICARE, SELFPAY | PROVIDERS: PCP Registered Nurse; Visit Provider Internal Medicine | DX: G47.33 Obstructive sleep apnea (adult) (pediatric) (principal); E66.01 Morbid (severe) obesity due to excess calories; Z68.42 Body mass index [BMI] 45.0-49.9, adult | CPT/HCPCS: 99202 ==

== ENCOUNTER → 2022-05-24 08:02 | Outpatient (BNVA) | payer MEDICARE, SELFPAY | PROVIDERS: PCP Registered Nurse; Visit Provider Internal Medicine | DX: I48.0 Paroxysmal atrial fibrillation (principal); Z79.01 Long term (current) use of anticoagulants; Z51.81 Encounter for therapeutic drug level monitoring | CPT/HCPCS: 85610; 99211 ==

== ENCOUNTER 2022-05-29 13:49 | Outpatient (REF) | payer MEDICARE, SELFPAY ==
[2022-05-29 15:55] LABS: B Type Natriuretic Peptide 196 pg/mL (<100)
[2022-05-29 15:57] LABS: Alanine Aminotransferase 29 U/L (0-31); Albumin Level 4.3 g/dL (3.5-5.0); Alkaline Phosphatase 85 U/L (39-117); Anion Gap 20 (12-20); Aspartate Amino Transferase 30 U/L (5-31); Bilirubin Total 1.4 mg/dL (0.0-1.0); Blood Urea Nitrogen 23 mg/dL (9-16); Calcium 9.4 mg/dL (8.4-10.2); Carbon Dioxide 29 mmol/L (22-29); Chloride 96 mmol/L (96-108); Estimated Glomerular Filt Rate 49; Glucose Random 104 mg/dL (60-115); Magnesium 1.3 mg/dL (1.6-2.6); Potassium 3.4 mmol/L (3.3-5.1); Sodium 142 mmol/L (135-145); Total Protein 7.4 g/dL (6.5-8.0)
== END 2022-05-29 13:50 | disposition home or self-care (01) ==
LOC: HO.LAB 13:49
PROVIDERS: PCP Registered Nurse; Visit Provider Nurse Practitioner Family
DX: I48.91 Unspecified atrial fibrillation (principal); I50.9 Heart failure, unspecified; E83.42 Hypomagnesemia; E66.01 Morbid (severe) obesity due to excess calories; G47.33 Obstructive sleep apnea (adult) (pediatric); Z51.81 Encounter for therapeutic drug level monitoring; Z79.01 Long term (current) use of anticoagulants
CPT/HCPCS: 36415; 80053; 83735; 83880; 85610; 99211; 99212

== ENCOUNTER → 2022-06-06 14:55 | Outpatient (BNVA) | payer MEDICARE, SELFPAY | PROVIDERS: PCP Internal Medicine; Visit Provider Internal Medicine | DX: I48.0 Paroxysmal atrial fibrillation (principal); Z79.01 Long term (current) use of anticoagulants; Z51.81 Encounter for therapeutic drug level monitoring | CPT/HCPCS: 85610; 99211 ==

== ENCOUNTER 2022-06-20 08:13 | Outpatient (REF) | payer MEDICARE, SELFPAY ==
--- NOTE | ~2022-06-20 | MM_ITS ---
EXAMINATION: MM SCREENING DIGITAL BREAST TOMOSYNTHESIS, BILATERAL CLINICAL INFORMATION: Screening. Asymptomatic. The lifetime risk of breast cancer based on the Tyrer-Cuzick Model is 12%. COMPARISON: Mammography: 03/06/2012, 01/25/2011, 10/27/2009 TECHNIQUE: Digital breast tomosynthesis is performed in both the craniocaudal and mediolateral oblique views along with computer-aided detection (CAD). Synthesized 2D images are generated from the tomosynthesis. Additional bilateral CC and right MLO views are provided. FINDINGS: There are scattered areas of fibroglandular density (ACR BI-RADS breast composition Category b). There are scattered small asymmetric densities similar to prior studies. No interval mass or architectural abnormality. There are scattered bilateral round and predominantly vascular calcifications. Interval tightly grouped punctate calcifications inferior medial mid right breast possibly vascular. There are also some additional calcifications posterior outer breast without three-dimensional correlate on MLO view. Patient will be recalled for additional magnification views on the right. The axilla and skin contours are unremarkable. MM/MM tomosynthesis screening BI IMPRESSION: Right: -Tightly grouped calcifications mid lower inner quadrant, possibly vascular. -Loosely grouped calcifications posterior outer breast, no MLO correlate. Left: -No mammographic evidence of malignancy. ASSESSMENT: BI-RADS 0: Incomplete - Need Additional Imaging Evaluation RECOMMENDATION: 1. Additional views of the right breast (magnification CC inner and outer, magnification LM). 2. Radiology department staff will contact the patient for additional imaging. This patient's information was entered into a reminder system with a target due date for their next mammogram.
== END 2022-06-20 08:14 | disposition home or self-care (01) ==
LOC: HO.MAMMO 08:13
PROVIDERS: PCP Internal Medicine; Visit Provider Internal Medicine
DX: Z12.31 Encounter for screening mammogram for malignant neoplasm of breast (principal)
CPT/HCPCS: 77063; 77067

== ENCOUNTER 2022-06-21 07:13 | Outpatient (REF) | payer MEDICARE, SELFPAY ==
[2022-06-21 09:28] LABS: Anion Gap 15 (12-20); Blood Urea Nitrogen 27 mg/dL (9-16); Calcium 9.5 mg/dL (8.4-10.2); Carbon Dioxide 28 mmol/L (22-29); Chloride 104 mmol/L (96-108); Estimated Glomerular Filt Rate 42; Glucose Random 113 mg/dL (60-115); Magnesium 1.9 mg/dL (1.6-2.6); Potassium 5.3 mmol/L (3.3-5.1); Sodium 142 mmol/L (135-145)
[2022-06-21 09:29] LABS: B Type Natriuretic Peptide 594 pg/mL (<100)
[2022-06-21 09:50] LABS: Free T4 (Free Thyroxine) 1.15 ng/dL (0.71-1.85); Thyroid Stimulating Hormone 2.62 uIU/mL (0.32-4.0)
== END 2022-06-21 07:14 | disposition home or self-care (01) ==
LOC: HO.LAB 07:13
PROVIDERS: Internal Medicine; PCP Registered Nurse; Visit Provider Nurse Practitioner Family
DX: E03.9 Hypothyroidism, unspecified (principal); I50.9 Heart failure, unspecified
CPT/HCPCS: 36415; 80048; 83735; 83880; 84439; 84443

== ENCOUNTER 2022-06-25 08:11 | Outpatient (REF) | payer MEDICARE, SELFPAY | END 2022-06-25 08:12 | disposition home or self-care (01) | LOC: HO.MAMMO 08:11 | PROVIDERS: PCP Registered Nurse; Visit Provider Internal Medicine | DX: I48.0 Paroxysmal atrial fibrillation (principal); Z51.81 Encounter for therapeutic drug level monitoring; Z79.01 Long term (current) use of anticoagulants | CPT/HCPCS: 85610; 99211 ==

== ENCOUNTER 2022-07-01 12:30 | Outpatient (REF) | payer MEDICARE, SELFPAY ==
--- NOTE | ~2022-07-01 | MM_ITS ---
EXAMINATION: MM DIAGNOSTIC DIGITAL MAMMOGRAPHY, RIGHT CLINICAL INFORMATION: Recall from screening for 2 areas calcification right breast mid lower inner and posterior outer, respectively. COMPARISON: Mammography: 06/20/2022, outside mammography 01/23/2019 and 01/20/2018 ([facility]). TECHNIQUE: Digital mammography is performed in the following views: Magnification CC x2, magnification ML x3, magnification LM. FINDINGS: There are scattered areas of fibroglandular density (ACR BI-RADS breast composition Category b). A few loosely grouped punctate round calcifications 3-6 in number in the posterior outer right breast, are likely without significant change from prior outside mammography 2019. They are considered probably benign. There are additional tightly grouped fine round calcifications anterior upper outer right breast on magnification CC view which were not intended for recall. In retrospect, these are likely without significant change from outside right exaggerated CC view 2019. They are considered probably benign. The calcifications mid lower inner right breast are heterogeneous and likely increased since 2019. There were some calcifications in this area on 2019, definitive comparison is difficult in absence of prior diagnostic magnified images as usual. Results are discussed with the patient at time of visit and follow up called today. Management options were discussed including stereotactic sampling of the calcifications lower inner right breast and follow-up of the other 2 areas. Patient prefers follow-up rather than stereotactic sampling. MM/MM added views RT IMPRESSION: -2 grouped of calcifications outer right breast, probably benign, likely chronic. -Grouped calcifications lower inner right breast, probably increased. ASSESSMENT: BI-RADS 3: Probably Benign RECOMMENDATION: -Diagnostic right mammography to include magnifications views in 6 months. This patient's information was entered into a reminder system with a target due date for their next mammogram.
== END 2022-07-01 12:31 | disposition home or self-care (01) ==
LOC: HO.MAMMO 12:30
PROVIDERS: PCP Internal Medicine; Visit Provider Internal Medicine
DX: R92.1 Mammographic calcification found on diagnostic imaging of breast (principal)
CPT/HCPCS: 77065

== ENCOUNTER → 2022-07-12 07:58 | Outpatient (BNVA) | payer MEDICARE, SELFPAY | PROVIDERS: PCP Internal Medicine; Visit Provider Internal Medicine | DX: I48.0 Paroxysmal atrial fibrillation (principal); Z51.81 Encounter for therapeutic drug level monitoring; Z79.01 Long term (current) use of anticoagulants | CPT/HCPCS: 85610; 99211 ==

== ENCOUNTER → 2022-07-29 08:12 | Outpatient (BNVA) | payer MEDICARE, SELFPAY | PROVIDERS: PCP Internal Medicine; Visit Provider Internal Medicine | DX: I48.0 Paroxysmal atrial fibrillation (principal); Z51.81 Encounter for therapeutic drug level monitoring; Z79.01 Long term (current) use of anticoagulants | CPT/HCPCS: 85610; 99211 ==

== ENCOUNTER → 2022-08-16 14:20 | Outpatient (BNVA) | payer MEDICARE, SELFPAY | PROVIDERS: PCP Internal Medicine; Visit Provider Internal Medicine | DX: M25.561 Pain in right knee (principal); M25.562 Pain in left knee; M79.89 Other specified soft tissue disorders; R20.0 Anesthesia of skin; R20.2 Paresthesia of skin; E66.01 Morbid (severe) obesity due to excess calories; I73.9 Peripheral vascular disease, unspecified; Z96.653 Presence of artificial knee joint, bilateral; Z68.42 Body mass index [BMI] 45.0-49.9, adult; G89.28 Other chronic postprocedural pain; I48.0 Paroxysmal atrial fibrillation; Z79.01 Long term (current) use of anticoagulants; Z51.81 Encounter for therapeutic drug level monitoring | CPT/HCPCS: 85610; 99202; 99211 ==

== ENCOUNTER → 2022-08-30 13:26 | Outpatient (BNVA) | payer MEDICARE, SELFPAY | PROVIDERS: PCP Internal Medicine; Visit Provider Internal Medicine | DX: I48.0 Paroxysmal atrial fibrillation (principal); Z79.01 Long term (current) use of anticoagulants; Z51.81 Encounter for therapeutic drug level monitoring | CPT/HCPCS: 85610; 99211 ==

== ENCOUNTER → 2022-09-13 13:01 | Outpatient (BNVA) | payer MEDICARE, SELFPAY | PROVIDERS: PCP Internal Medicine; Visit Provider Internal Medicine | DX: I48.0 Paroxysmal atrial fibrillation (principal); Z79.01 Long term (current) use of anticoagulants; Z51.81 Encounter for therapeutic drug level monitoring | CPT/HCPCS: 85610; 99211 ==

== ENCOUNTER → 2022-09-27 13:03 | Outpatient (BNVA) | payer MEDICARE, SELFPAY | PROVIDERS: PCP Internal Medicine; Visit Provider Internal Medicine | DX: I48.0 Paroxysmal atrial fibrillation (principal); Z79.01 Long term (current) use of anticoagulants; Z51.81 Encounter for therapeutic drug level monitoring | CPT/HCPCS: 85610; 99211 ==

== ENCOUNTER → 2022-10-18 13:02 | Outpatient (BNVA) | payer MEDICARE, SELFPAY | PROVIDERS: PCP Internal Medicine; Visit Provider Internal Medicine | DX: I48.0 Paroxysmal atrial fibrillation (principal); Z79.01 Long term (current) use of anticoagulants; Z51.81 Encounter for therapeutic drug level monitoring | CPT/HCPCS: 85610; 99211 ==

== ENCOUNTER → 2022-11-01 13:17 | Outpatient (BNVA) | payer MEDICARE, SELFPAY | PROVIDERS: PCP Internal Medicine; Visit Provider Internal Medicine | DX: I48.0 Paroxysmal atrial fibrillation (principal); Z79.01 Long term (current) use of anticoagulants; Z51.81 Encounter for therapeutic drug level monitoring | CPT/HCPCS: 85610; 99211 ==

== ENCOUNTER → 2022-11-07 14:16 | Outpatient (BNVA) | payer MEDICARE, SELFPAY | PROVIDERS: PCP Internal Medicine; Visit Provider Surgery Vascular Surgery | DX: I45.10 Unspecified right bundle-branch block (principal); I48.91 Unspecified atrial fibrillation; R94.31 Abnormal electrocardiogram [ECG] [EKG]; I50.9 Heart failure, unspecified; E66.01 Morbid (severe) obesity due to excess calories; Z68.42 Body mass index [BMI] 45.0-49.9, adult; I83.12 Varicose veins of left lower extremity with inflammation; I89.0 Lymphedema, not elsewhere classified | CPT/HCPCS: 93005; 99202; 99212 ==

== ENCOUNTER → 2022-11-14 10:32 | Outpatient (REF) | payer MEDICARE, OTHER, SELFPAY ==
--- NOTE | 2022-11-14 11:05 | CA_ITS ---
Transthoracic Echocardiogram Patient (Last, First, Middle): Stella Frias M Gender: Female Date of : 1955 Age: 67 Procedure Date: 11/14/2022 Procedure Type: Transthoracic Echocardiogram Location: OP Height: 157.48 cm Weight: 108.86 kg BSA: 2.07 m2 Heart Rate: bpm BP: 124 / 78 mmHg Nib Inspector: TO Referring MD: Danyel Prado MD Doctor Of Veterinary Medicine: Danyel Prado MD Symptoms: I50.9 - Heart failure, unspecified Study Quality: Fair Conclusions: - Normal left ventricular cavity size. There is mildly increased left ventricular wall thickness. The left ventricular systolic function is borderline reduced. The visually estimated ejection fraction is between 45-50%. - Moderately increased right ventricular cavity size. There is moderately decreased right ventricular systolic function. - Mildly elevated right atrial pressure. Mild to moderate pulmonary hypertension is present. - There is mild dilatation of the sinuses of Valsalva measuring 3.63 cm and mild dilatation of the ascending aorta measuring 3.90 cm. - There is a small pericardial effusion. Findings Left Ventricle Normal left ventricular cavity size. There is mildly increased left ventricular wall thickness. The left ventricular systolic function is borderline reduced. The visually estimated ejection fraction is between 45 50%. Regional wall motion abnormalities can not be excluded due to suboptimal endocardial definition. Diastolic function is indeterminate on the basis of available data. Right Ventricle Moderately increased right ventricular cavity size. There is moderately decreased right ventricular systolic function. Atria The left atrium is mildly dilated. The right atrium is mildly dilated. Aortic Valve There is no aortic valve stenosis. There is trace (trivial) aortic valve regurgitation. Mitral Valve There is mild mitral annular calcification. There is trace mitral valve regurgitation. There is no mitral valve stenosis. Pulmonic Valve Normal pulmonic valve structure and function. There is trace pulmonic valve regurgitation. Tricuspid Valve Normal tricuspid valve structure. There is mild to moderate tricuspid valve regurgitation. Mildly elevated right atrial pressure. Mild to moderate pulmonary hypertension is present. Great Vessels There is mild dilatation of the sinuses of Valsalva measuring 3.63 cm and mild dilatation of the ascending aorta measuring 3.90 cm. The visualized portions of the pulmonary artery and branches are normal. Venous The inferior vena cava is dilated and collapses greater than 50% with inspiration. Pericardium/Pleural There is a small pericardial effusion. There are no definitive echocardiographic findings of tamponade physiology. Prior Study Comparison Changes noted compared to prior study dated: 03/07/2022. RV moderately dilated with moderate dysfunction. Measurements 2D Linear Measurements IVSd: 1.19 0.6-0.9/0.6-1.0 cm LVIDd: 4.85 3.9-5.3/4.2-5.9 cm LVIDd Index: 2.34 2.4-3.2/2.2-3.1 cm/m2 LVIDs: 3.24 2.0-3.6 cm LVPWd: 1.02 0.7-1.1 cm LA Diam: 4.10 2.7-3.8/3.0-4.0 cm LAIDs Index: 1.98 1.5-2.3 cm/m2 LV Mass: 247.32 67-162/88-224 g LV Mass Index: 119.48 43-95/49-115 g/m2 LVOT Diam: 2.10 3.0+(-)1.3 cm 2D Systolic Function EF 4C: 49.90 >55% EF 2C: 46.40 >55% EF BiP: 47.70 >55% Mitral Valve MV Pk E: 0.96 MV Decel Time: 191.00 E'Lateral: 9.34 E'Medial: 5.01 E/E' Med: 19.20 E/E' Lat: 10.30 PHT: 56.00 MVA PHT: 3.93 Decel Howell: 5.19 Aortic Valve AoV Pk [place]: 1.04 AoV Pk Grad: 4.00 LVOT LVOT Pk [place]: 0.73 LVOT Mn [place]: 0.48 LVOT VTI: 0.16 LVOT Pk Grad: 2.00 LVOT Mn Grad: 1.00 LVOT Diam: 2.10 LVOT Area: 3.46 Diastolic Function MV Pk E: 0.96 E'Medial: 5.01 E/E' Med: 19.20 E' Laterial: 9.34 E/E' Lat: 10.30 Right Ventricle TAPSE (mm): 13.50 TVS' Flaquito: 8.22 Tricuspid Valve TR Pk [place]quito: 3.04 TR Pk Grad: 37.00 RA Press: 8.00 RVSP: 45.00 Great Vessels Aorta Sinus of Valsalva: 3.63 2.0-3.5 cm Ao Asc: 3.90 2.1-3.4 cm Updated in Other Vendor System with Status of Final Danyel Prado MD electronically signed on 11/17/2022 5:51:12 PM with status of Final
== END ==
LOC: HO.CARD 10:32
PROVIDERS: PCP Internal Medicine; Visit Provider Internal Medicine Cardiovascular Disease
DX: I50.9 Heart failure, unspecified (principal)
CPT/HCPCS: 93306

== ENCOUNTER → 2022-11-22 13:00 | Outpatient (BNVA) | payer MEDICARE, SELFPAY | PROVIDERS: PCP Internal Medicine; Visit Provider Internal Medicine | DX: I48.0 Paroxysmal atrial fibrillation (principal); Z79.01 Long term (current) use of anticoagulants; Z51.81 Encounter for therapeutic drug level monitoring | CPT/HCPCS: 85610; 99211 ==

== ENCOUNTER → 2022-12-18 13:00 | Outpatient (BNVA) | payer MEDICARE, MEDICAID, SELFPAY | PROVIDERS: PCP Internal Medicine; Visit Provider Internal Medicine | DX: I48.0 Paroxysmal atrial fibrillation (principal); Z79.01 Long term (current) use of anticoagulants; Z51.81 Encounter for therapeutic drug level monitoring | CPT/HCPCS: 85610; 99211 ==

== ENCOUNTER 2022-12-25 10:03 | Outpatient (REF) | payer MEDICARE, MEDICAID, SELFPAY ==
--- NOTE | ~2022-12-25 | US_ITS ---
EXAMINATION: US LOWER EXTREMITY VENOUS (REFLUX EXAM), BILATERAL CLINICAL INDICATION: Varicose veins of the lower extremity COMPARISON: None. TECHNIQUE: Color flow triplex imaging and compression Doppler was performed to evaluate both the deep and the superficial systems bilaterally. To evaluate the superficial system, the examination was performed in the upright position. Color-flow Doppler ultrasound and compression ultrasound were utilized. In addition, maneuvers were utilized to demonstrate reflux. FINDINGS: RIGHT: 1. DEEP VENOUS ULTRASOUND OF THE RIGHT LOWER EXTREMITY: Common Femoral Vein: Compressible, normal respiratory variation and augmented flow. Popliteal Vein: Compressible, normal augmentation. Deep Venous Reflux: There is no evidence of reflux in the deep system in either the common femoral vein or the popliteal vein. There is no evidence of a Wolff's cyst. 2. SUPERFICIAL ULTRASOUND WITH DOPPLER OF RIGHT LOWER EXTREMITY: RIGHT GREAT SAPHENOUS VEIN: Saphenofemoral Junction: 8 mm. No reflux. Proximal Thigh: 6 mm. No reflux. Mid Thigh: 4 mm. No reflux. Above Knee: 4 mm. No reflux. Below Knee: 4 mm. No reflux. Mid Calf: 3 mm. No reflux. Ankle: 4 mm. No reflux. DUPLICATED GREAT SAPHENOUS VEIN: None RIGHT SMALL SAPHENOUS VEIN: Saphenopopliteal junction: 2 mm. 2316 ms reflux Proximal: 3 mm. 2264 ms reflux. Distal: 3 mm. 440 ms reflux. PERFORATORS: None LEFT: 1. DEEP VENOUS ULTRASOUND OF THE LEFT LOWER EXTREMITY: Common Femoral Vein: Compressible, normal respiratory variation and augmented flow. Popliteal Vein: Compressible, normal augmentation. Deep Venous Reflux: There is no evidence of reflux in the deep system in either the common femoral vein or the popliteal vein. There is no evidence of a Wolff's cyst. 2. SUPERFICIAL ULTRASOUND WITH DOPPLER OF LEFT LOWER EXTREMITY: LEFT GREAT SAPHENOUS VEIN: Saphenofemoral Junction: 7 mm. No reflux. Proximal Thigh: 4 mm. No reflux. Mid Thigh: 4 mm. No reflux. Above Knee: 4 mm. No reflux. Below Knee: 4 mm. No reflux. Mid Calf: 2 mm. No reflux. Ankle: 3 mm. No reflux. DUPLICATED GREAT SAPHENOUS VEIN: None LEFT SMALL SAPHENOUS VEIN: Proximal: 3 mm. No reflux. Distal: 3 mm. No reflux. PERFORATORS: None US/US venous duplex LE BI IMPRESSION: Prolonged reflux in the right small saphenous vein. Abnormal lower extremity venous reflux times: Superficial and deep calf veins: >500 ms Femoropopliteal veins: >1000 ms Perforating veins: >350 ms Mei N, Samantha J, Angeline L, Jacob AK, Isidro SS, Deanna Ovalles M, Mariella WH. Definition of venous reflux in lower-extremity veins.J Vasc Surg. 2003; [phone].
[2022-12-25 11:30] LABS: MANUAL DIFF FLAG NO
[2022-12-25 12:16] LABS: Basophils Percent Auto 0.8 % (0-2); Eosinophils Absolute Auto 0.1 X10*3/uL (0.0-0.4); Eosinophils Percent Auto 1.4 % (0-4); Hematocrit 44.4 % (37.0-47.0); Hemoglobin 14.1 g/dl (12.0-16.0); Imm Gran Abs Auto 0.02 X10*3/uL (0.00-0.03); Imm Gran Pct Auto 0.4 % (0.0-0.4); Lymphocytes Absolute Auto 1.6 X10*3/uL (1.2-4.9); Lymphocytes Percent Auto 31.2 % (20-40); Mean Corpuscular HGB Conc 31.8 g/dl (31.0-35.0); Mean Corpuscular Hemoglobin 30.3 pg (27.0-33.0); Mean Corpuscular Volume 95.5 fL (80.0-98.0); Mean Platelet Volume 10.8 fL (9.4-12.3); Monocytes Absolute Auto 0.7 X10*3/uL (0.1-1.2); Monocytes Percent Auto 13.2 % (2-11); Neutrophils Absolute Auto 2.7 x10*3/uL (2.0-8.3); Platelet Count 198 X10*3/uL (160-400); Red Blood Count 4.65 X10*6/uL (4.20-5.50); Red Cell Distribution Width 12.9 % (11.0-16.0); White Blood Count 5.1 X10*3/uL (4.8-10.8)
[2022-12-25 12:45] LABS: Estimated Average Glucose 105 mg/dL; Hemoglobin A1c % 5.3 %
[2022-12-25 12:46] LABS: B Type Natriuretic Peptide 255 pg/mL (<100)
[2022-12-25 12:49] LABS: Alanine Aminotransferase 24 U/L (0-31); Albumin Level 4.3 g/dL (3.5-5.0); Alkaline Phosphatase 89 U/L (39-117); Anion Gap 16 (12-20); Aspartate Amino Transferase 28 U/L (5-31); Bilirubin Total 1.1 mg/dL (0.0-1.0); Blood Urea Nitrogen 32 mg/dL (9-16); Calcium 9.7 mg/dL (8.4-10.2); Carbon Dioxide 33 mmol/L (22-29); Chloride 96 mmol/L (96-108); Estimated Glomerular Filt Rate 48; Glucose Random 104 mg/dL (60-115); Sodium 141 mmol/L (135-145); Total Protein 7.1 g/dL (6.5-8.0)
[2022-12-25 13:06] LABS: Free T4 (Free Thyroxine) 1.13 ng/dL (0.71-1.85); Thyroid Stimulating Hormone 4.21 uIU/mL (0.32-4.0)
== END 2022-12-25 10:04 | disposition home or self-care (01) ==
LOC: HO.US 10:03
PROVIDERS: Absent Provider Internal Medicine; PCP Internal Medicine; Visit Provider Surgery Vascular Surgery
DX: I83.893 Varicose veins of bilateral lower extremities with other complications (principal); I50.9 Heart failure, unspecified; E11.65 Type 2 diabetes mellitus with hyperglycemia
CPT/HCPCS: 36415; 80053; 83036; 83880; 84439; 84443; 85025; 93970

== ENCOUNTER → 2023-01-06 15:44 | Outpatient (BNVA) | payer MEDICARE, MEDICAID, SELFPAY | PROVIDERS: PCP Internal Medicine; Visit Provider Internal Medicine ==

== ENCOUNTER → 2023-01-09 14:36 | Outpatient (BNVA) | payer MEDICARE, MEDICAID, SELFPAY | PROVIDERS: PCP Internal Medicine; Visit Provider Internal Medicine | DX: I48.0 Paroxysmal atrial fibrillation (principal); Z79.01 Long term (current) use of anticoagulants; Z51.81 Encounter for therapeutic drug level monitoring | CPT/HCPCS: 85610; 99211 ==

== ENCOUNTER → 2023-01-15 13:07 | Outpatient (BNVA) | payer MEDICARE, MEDICAID, SELFPAY | PROVIDERS: PCP Internal Medicine; Visit Provider Internal Medicine | DX: I48.0 Paroxysmal atrial fibrillation (principal); Z79.01 Long term (current) use of anticoagulants; Z51.81 Encounter for therapeutic drug level monitoring | CPT/HCPCS: 85610; 99211 ==

== ENCOUNTER → 2023-01-16 13:35 | Outpatient (BNVA) | payer MEDICARE, MEDICAID, SELFPAY | PROVIDERS: PCP Internal Medicine; Visit Provider Internal Medicine | DX: I48.0 Paroxysmal atrial fibrillation (principal); Z79.01 Long term (current) use of anticoagulants; Z51.81 Encounter for therapeutic drug level monitoring | CPT/HCPCS: 85610; 99212 ==

== ENCOUNTER → 2023-01-20 13:48 | Outpatient (BNVA) | payer MEDICARE, MEDICAID, SELFPAY | PROVIDERS: PCP Internal Medicine; Visit Provider Internal Medicine | DX: I48.0 Paroxysmal atrial fibrillation (principal); Z79.01 Long term (current) use of anticoagulants; Z51.81 Encounter for therapeutic drug level monitoring | CPT/HCPCS: 85610; 99211 ==

== ENCOUNTER → 2023-01-22 12:46 | Outpatient (BNVA) | payer MEDICARE, MEDICAID, SELFPAY | PROVIDERS: PCP Internal Medicine; Visit Provider Internal Medicine Cardiovascular Disease | DX: I42.9 Cardiomyopathy, unspecified (principal) | CPT/HCPCS: 93005; 99212 ==

== ENCOUNTER → 2023-02-05 13:04 | Outpatient (BNVA) | payer MEDICARE, MEDICAID, SELFPAY | PROVIDERS: PCP Internal Medicine; Visit Provider Internal Medicine | DX: I48.0 Paroxysmal atrial fibrillation (principal); Z79.01 Long term (current) use of anticoagulants; Z51.81 Encounter for therapeutic drug level monitoring | CPT/HCPCS: 85610; 99211 ==

== ENCOUNTER 2023-02-06 13:21 | Outpatient (REF) | payer MEDICARE, MEDICAID, SELFPAY ==
--- NOTE | ~2023-02-06 | MM_ITS ---
EXAMINATION: MM DIAGNOSTIC DIGITAL BREAST TOMOSYNTHESIS, RIGHT CLINICAL INFORMATION: Short interval follow-up for 3 areas of probable benign calcification right breast posterior outer, anterior upper outer, and mid lower inner, respectively. TC score 12%. COMPARISON: Mammography: 07/01/2022, 06/20/2022 (BI-RADS 0); outside mammography 01/23/2019 ([place]). TECHNIQUE: Digital breast tomosynthesis is performed in both the craniocaudal and mediolateral oblique views along with computer-aided detection (CAD). Synthesized 2D images are generated from the tomosynthesis. FINDINGS: There are scattered areas of fibroglandular density (ACR BI-RADS breast composition Category b). Parenchymal pattern is similar to prior studies and there is no significant mass, developing density, or architectural abnormality. There are scattered vascular and some small grouped round calcifications. The axilla and skin contours are unremarkable. Calcifications for follow-up as previously described are stable from prior diagnostic exam. They will be reassessed again at time of annual bilateral mammography, due in 6 months. Results are provided to the patient at time of visit by the technologist. MM/MM tomosynthesis diagnostic RT IMPRESSION: -Calcifications right breast for follow-up are stable from prior diagnostic exam. ASSESSMENT: BI-RADS 3: Probably Benign RECOMMENDATION: Diagnostic mammography at time of annual bilateral mammography, due in 6 months. This patient's information was entered into a reminder system with a target due date for their next mammogram.
== END 2023-02-06 13:22 | disposition home or self-care (01) ==
LOC: HO.MAMMO 13:21
PROVIDERS: PCP Internal Medicine; Visit Provider Internal Medicine
DX: R92.1 Mammographic calcification found on diagnostic imaging of breast (principal)
CPT/HCPCS: 77061; 77065

== ENCOUNTER 2023-02-14 09:47 | Outpatient (REF) | payer MEDICARE, MEDICAID, SELFPAY ==
[2023-02-14 09:58] LABS: MANUAL DIFF FLAG NO
[2023-02-14 11:04] LABS: Basophils Percent Auto 0.9 % (0-2); Eosinophils Absolute Auto 0.1 X10*3/uL (0.0-0.4); Eosinophils Percent Auto 2.2 % (0-4); Hematocrit 43.6 % (37.0-47.0); Imm Gran Abs Auto 0.01 X10*3/uL (0.00-0.03); Imm Gran Pct Auto 0.2 % (0.0-0.4); Lymphocytes Percent Auto 44.7 % (20-40); Mean Corpuscular HGB Conc 32.1 g/dl (31.0-35.0); Mean Corpuscular Volume 93.6 fL (80.0-98.0); Mean Platelet Volume 10.4 fL (9.4-12.3); Monocytes Absolute Auto 0.5 X10*3/uL (0.1-1.2); Monocytes Percent Auto 11.5 % (2-11); Neutrophils Absolute Auto 1.8 x10*3/uL (2.0-8.3); Neutrophils Percent Auto 40.5 % (45-73); Platelet Count 168 X10*3/uL (160-400); Red Blood Count 4.66 X10*6/uL (4.20-5.50); Red Cell Distribution Width 12.7 % (11.0-16.0); White Blood Count 4.5 X10*3/uL (4.8-10.8)
[2023-02-14 11:09] LABS: INTERNATIONAL NORM RATIO 2.4 (0.9-1.1); Prothrombin Time 28.9 SEC (10.0-13.1)
[2023-02-14 12:05] LABS: Anion Gap 14 (12-20); Blood Urea Nitrogen 41 mg/dL (9-16); Carbon Dioxide 33 mmol/L (22-29); Chloride 98 mmol/L (96-108); Estimated Glomerular Filt Rate 43; Glucose Random 132 mg/dL (60-115); Potassium 3.3 mmol/L (3.3-5.1); Sodium 142 mmol/L (135-145)
== END 2023-02-14 09:48 | disposition home or self-care (01) ==
LOC: HO.LAB 09:47
PROVIDERS: PCP Internal Medicine; Visit Provider Internal Medicine Cardiovascular Disease
DX: Z01.812 Encounter for preprocedural laboratory examination (principal); Z79.01 Long term (current) use of anticoagulants
CPT/HCPCS: 36415; 80048; 85025; 85610

== ENCOUNTER → 2023-02-28 07:50 | Outpatient (BNVA) | payer MEDICARE, OTHER, SELFPAY | PROVIDERS: PCP Internal Medicine; Visit Provider Surgery Vascular Surgery | DX: I83.11 Varicose veins of right lower extremity with inflammation (principal) | CPT/HCPCS: 36475 ==

== ENCOUNTER 2023-03-03 12:50 | Outpatient (REF) | payer MEDICARE, OTHER, SELFPAY ==
--- NOTE | ~2023-03-03 | US_ITS ---
EXAMINATION: TRIPLEX SCANNING OF RIGHT LOWER EXTREMITY; SUPERFICIAL ULTRASOUND WITH DOPPLER OF RIGHT LOWER EXTREMITY CLINICAL INFORMATION: Status post radiofrequency ablation of the small saphenous vein Ambulatory phlebectomy performed: No COMPARISON: preprocedure studies. TECHNIQUE: Color flow triplex imaging and compression Doppler were performed as well as superficial ultrasound with Doppler. FINDINGS: RIGHT LOWER EXTREMITY DEEP VENOUS SYSTEM: Respiratory variation, normal compression and augmented flow are noted throughout the lower extremity. The visualized common femoral vein, femoral vein, profunda femoral vein, popliteal vein and the calf veins show no evidence of deep venous thrombosis. There is no evidence of Wolff's cyst. SUPERFICIAL VENOUS SYSTEM: The small saphenous vein is partially patent from the access site to just before the saphenofemoral junction. Flow is seen within the small saphenous vein. US/US venous duplex LE RT IMPRESSION: No evidence of DVT.
== END 2023-03-03 12:51 | disposition home or self-care (01) ==
LOC: HO.US 12:50
PROVIDERS: PCP Internal Medicine; Visit Provider Surgery Vascular Surgery
DX: I48.0 Paroxysmal atrial fibrillation (principal); M79.604 Pain in right leg; Z51.81 Encounter for therapeutic drug level monitoring; Z79.01 Long term (current) use of anticoagulants
CPT/HCPCS: 85610; 93971; 99211

== ENCOUNTER → 2023-03-11 23:59 | Outpatient (BNV) | payer MEDICARE, MEDICAID, SELFPAY | PROVIDERS: PCP Internal Medicine; Visit Provider Internal Medicine Cardiovascular Disease | DX: I50.20 Unspecified systolic (congestive) heart failure (principal); R06.02 Shortness of breath; I25.10 Atherosclerotic heart disease of native coronary artery without angina pectoris | CPT/HCPCS: 93460; 93566; 93571; 99152 ==

== ENCOUNTER 2023-03-12 11:05 | Outpatient (AMB) | payer MEDICARE, MEDICAID, SELFPAY ==
[2023-03-12 11:10] VITALS: BP 104/62; PULSE 70; O2SAT 91; BMI 46.5
--- NOTE | 2023-03-12 11:10 | A.OFFPC_ITS ---
Vital Signs 03/12/23 11:10 Height 5 ft 2 in Weight 254 lb BMI 46.5 BP 104/62 Blood Pressure Location Lt brachial Position Sitting Pulse 70 Pulse Source Pulse Oximeter Pulse Oximetry (%) 91 L Oxygen Delivery Method Room Air Intake Visit Reasons: Chronic knee pain, diabetes, hypothyroidism Allergies codeine [CODEINE] Allergy (Intermediate, Verified 03/12/23 11:10) CHEST PAIN Tobacco use date assessed: 09/10/22 Fall risk assessment: No Falls in past year Last assessed Fall Risk: 03/12/23 Dental Screening Dental Screen Date: 03/12/23 Did you have a dental visit in the last 12 months?: No Did you have a dental problem in the last 6 months where you did not have access to dental care?: No Was dental information given to patient?: No HPI Chronic knee pain, diabetes, hypothyroidism HPI Details 67-year-old obese female with multiple medical problems diabetes mellitus hypothyroidism hypercholesterolemia hypertension chronic atrial fibrillation on anticoagulation congestive heart failure coming in for follow- up. Last seen in November 2022. Patient has declined colonoscopy. Up-to-date with mammogram. Patient has chronic knee pain bilateral and has been referred for pain management patient also has seen the vascular surgeon and in 02/28/2023 had endovascular radiofrequency ablation of the right saphenous vein. Echocardiogram October 2022 mild reduced ejection fraction 45 to 50% with moderately increased right ventricular size and moderately decreased right ventricular systolic function. With her getting short of breath has been advised to get right heart and left heart catheterization. PAtient did get the cathertherization done but results are pending. [facility] Medical History (Updated 03/12/23 @ 11:31 by Anderson Peters MD) Afib Breast calcification, left Breast cancer screening by mammogram Bunion CHF (congestive heart failure) Chronic venous stasis Diabetes Hospital discharge follow-up HTN (hypertension) Hypokalemia Hypothyroid Morbid obesity PARADISE (obstructive sleep apnea) Persistent atrial fibrillation Physical deconditioning Surgical History History of ankle surgery History of appendectomy Hx of total knee arthroplasty S/P cholecystectomy Family History (Updated 03/12/23 @ 11:11 by Shannon Lala CMA) Father EtOH dependence Social History Housing: Apartment Alcohol intake: current Alcohol intake frequency: holidays/special occasions only Patient Tobacco Use Status: Never used Tobacco e-Cigarette/Vaping Use: Never Used Second Hand Smoke Exposure: No service: No Current occupational status: disabled Cognitive needs: No Hearing needs: No Vision needs: Yes Questionnaire PHQ-9 Over the last 2 weeks, how often have you been bothered by any of the following problems? 1. Little interest or pleasure in doing things: not at all 2. Feeling down, depressed, or hopeless: nearly every day 3. Trouble falling or staying asleep, or sleeping too much: nearly every day 4. Feeling tired or having little energy: nearly every day 5. Poor appetite or overeating: several days 6. Feeling bad about yourself - or that you are a failure or have let yourself or your family down: several days 7. Trouble concentrating on things, such as reading the newspaper or watching television: more than half the days 8. Moving or speaking so slowly that other people could have noticed. Or the opposite - being so fidgety or restless that you have been moving around a lot more than usual: not at all 9. Thoughts that you would be better off or of hurting yourself in some way: not at all Total score: 13 Depression Screening Interpretation: Positive Depression Screening Follow-up: Community Mental Health Worker F/U 10236 - PHQ-9 Billing: Yes Source: Developed by Drs. Jaime Moore, Ganesh Olivares and colleagues, with an educational rick from [employer]. Thrive Questionnaire Date Thrive assessed: 09/10/22 AUDIT C Alcohol Use Questionnaire (AUDIT-C) 1. How often do you have a drink containing alcohol?: Monthly or less 2. How many drinks containing alcohol do you have on a typical day when you are drinking?: 1 or 2 3. How often do you have six or more drinks on one occasion?: Never Total Score: 1 MARTITA-7 AMB Questionnaire MARTITA-7 Date MARTITA - 7 assessed: 09/10/22 Source: Developed by Drs. Jaime Moore, Ganesh Olivares and colleagues, with an educational rick from [employer]. Physical exam (Primary Care) Vital Signs: Last Vital Signs Pulse 70 03/12/23 11:10 BP 104/62 03/12/23 11:10 Pulse Ox 91 L 03/12/23 11:10 Oxygen Delivery Method Room Air 03/12/23 11:10 BMI result Body Mass Index 46.5 Tobacco/Smoking Status: Tobacco use Status Tobacco use date assessed 09/10/22 03/12/23 11:11 Patient Tobacco Use Status Never used Tobacco 03/12/23 11:11 e-Cigarette/Vaping Use Never Used 03/12/23 11:11 PHQ-9: PHQ-9 Score PHQ-9: Total score 13 03/12/23 11:11 Depression Screening Interpretation: Positive Depression Screening Follow-up: Community Mental Health Worker F/U Thrive Assessment: Date of Thrive Assessment Date Thrive assessed 09/10/22 03/12/23 11:11 Const General: alert; No acute distress Eyes Conjunctivae: conjunctivae normal Resp Auscultation: clear to auscultation bilaterally Cardio Rate: regular rate Rhythm: regular rhythm GI Inspection: Yes normal to inspection Extrem General: Yes normal to inspection and No edema Results AMB Hemoglobin A1c AMB Hemoglobin A1c 5.5 % Last Edit by Shannon Lala CMA on 03/12/23 11 :24 Assessment and Plan Assessment & Plan (1) Type 2 diabetes mellitus with hyperglycemia: Comment: Eye and lasik 10/03/2022 Code(s): E11.65 - Type 2 diabetes mellitus with hyperglycemia Plan: Decrease the amount of carbohydrate intake, pasta, bread, rice and potatoes are all sugar and that is aside from all the sweet stuff, remember that fruits are good but they are Sweet also. Hemoglobin A1c goal of less than 6.5 patient is on diet control (2) Afib: Comment: Normal left ventricular cavity size. There is mildly increased left ventricular wall thickness. The left ventricular systolic function is borderline reduced. The visually estimated ejection fraction is between 45-50%. - Moderately increased right ventricular cavity size. There is moderately decreased right ventricular systolic function. - Mildly elevated right atrial pressure. Mild to moderate pulmonary hypertension is present. - There is mild dilatation of the sinuses of Valsalva measuring 3.63 cm and mild dilatation of the ascending aorta measuring 3.90 cm. - There is a small pericardial effusion. 10/2022 Code(s): I48.91 - Unspecified atrial fibrillation Plan: Patient follows up with Cardiology and planned left and right heart catheterization continue with anticoagulation (3) Morbid obesity: Code(s): E66.01 - Morbid (severe) obesity due to excess calories Plan: Diet and exercise (4) CHF (congestive heart failure): Code(s): I50.9 - Heart failure, unspecified Plan: Continue with present diuretic weigh daily. (5) Hypertension: Code(s): I10 - Essential (primary) hypertension Plan: Continue with blood pressure medication. Decrease salt intake and exercise patient is on atenolol 50 mg once a day spironolactone (6) Hypothyroid: Code(s): E03.9 - Hypothyroidism, unspecified Plan: Continue with thyroid medication will need blood work (7) Knee osteoarthritis: Code(s): M17.9 - Osteoarthritis of knee, unspecified Plan: Patient has met with pain management agreed on oxycodone use as well as gabapentin. Problem of needing to lose weight (8) Hypercholesterolemia: Code(s): E78.00 - Pure hypercholesterolemia, unspecified Plan: Avoid fried foods, chicken skin, eggs, butter margarine, pastries and meat. Be it pork or beef they have a lot of cholesterol patient is taking simvastatin 10 mg once a day need to get blood work (9) Varicose veins of right lower extremity with inflammation: Code(s): I83.11 - Varicose veins of right lower extremity with inflammation Plan: Patient has had ablation done under vascular surgeon right (10) Cardiomyopathy: Code(s): I42.9 - Cardiomyopathy, unspecified Plan: Control the cholesterol, weight, blood pressure, diabetes (11) Age-related osteoporosis without current pathological fracture: Code(s): M81.0 - Age-related osteoporosis without current pathological fracture Orders: Orders Vitamin B12 and Folate Today E11.65 - Type 2 diabetes mellitus with hyperglycemia B Type Natriuretic Peptide Today I48.91 - Unspecified atrial fibrillation Comprehensive Met. Panel Today E11.65 - Type 2 diabetes mellitus with hyperglycemia Lipid Panel Today E11.65 - Type 2 diabetes mellitus with hyperglycemia, E78.00 - Pure hypercholesterolemia, unspecified Magnesium Today I48.91 - Unspecified atrial fibrillation Phosphorus Today I48.91 - Unspecified atrial fibrillation Free T4 (Free Thyroxine) Today E11.65 - Type 2 diabetes mellitus with hyperglycemia Thyroid Stimulating Hormone Today E11.65 - Type 2 diabetes mellitus with hyperglycemia Vitamin D 25-OH Total Today E11.65 - Type 2 diabetes mellitus with hyperglycemia Creatinine Urine Today E11.65 - Type 2 diabetes mellitus with hyperglycemia Microalbumin, Random (w Creat) Today E11.65 - Type 2 diabetes mellitus with hyperglycemia Complete Blood Count Auto Diff Today E11.65 - Type 2 diabetes mellitus with hyperglycemia XR DEXA axial skeleton Today M81.0 - Age-related osteoporosis without current pathological fracture AMB Hemoglobin A1c Today Z13.9 - Encounter for screening, unspecified Coding Level of Care Code Est Pt Level 4 (89098) Diagnoses Type 2 diabetes mellitus with hyperglycemia E11.65 Afib I48.91 Morbid obesity E66.01 CHF (congestive heart failure) I50.9 Hypertension I10 Hypothyroid E03.9 Knee osteoarthritis M17.9 Hypercholesterolemia E78.00 Varicose veins of right lower extremity with inflammation I83.11 Cardiomyopathy I42.9 Age-related osteoporosis without current pathological fracture M81.0
== END 2023-03-12 11:45 | disposition home or self-care (01) ==
PROVIDERS: PCP Internal Medicine; Visit Provider Internal Medicine
DX: E03.9 Hypothyroidism, unspecified (principal); I48.91 Unspecified atrial fibrillation; E66.01 Morbid (severe) obesity due to excess calories; Z68.42 Body mass index [BMI] 45.0-49.9, adult; I50.9 Heart failure, unspecified; I10 Essential (primary) hypertension; E11.65 Type 2 diabetes mellitus with hyperglycemia; M17.9 Osteoarthritis of knee, unspecified; E78.00 Pure hypercholesterolemia, unspecified; I83.11 Varicose veins of right lower extremity with inflammation; I42.9 Cardiomyopathy, unspecified; M81.0 Age-related osteoporosis without current pathological fracture
CPT/HCPCS: 83036; 90471; 90677; 99214

== ENCOUNTER 2023-03-13 08:57 | Outpatient (AMB) | payer MEDICARE, MEDICAID, SELFPAY ==
--- NOTE | 2023-03-13 09:03 | MHC.OFFVIS ---
Intake Intake Visit Reasons: 2 week follow up Right SSV RFA 02/28/2023 Intake Note: Patient is here for a 2 week follow up right SSV RFA 02/28/23, patient stated shes been doing good. pt mentioned Left leg discomfort Allergies codeine [CODEINE] Allergy (Intermediate, Verified 03/13/23 09:05) CHEST PAIN HPI 2 week follow up Right SSV RFA 02/28/2023 HPI Details Very pleasant 67-year-old female presents for follow-up status post right small saphenous vein ablation. She reports that her leg does feel significantly better and notes that her discomfort is is better. She reports that she does have continued swelling of the low left lower extremity. When she tries to walker exercise it appears that her shortness of breath is an issue as well. She now presents for routine postprocedure follow-up. Of note postprocedure ultrasound was negative for DVT. [facility] Medical History Afib Breast calcification, left Breast cancer screening by mammogram Bunion CHF (congestive heart failure) Chronic venous stasis Diabetes Hospital discharge follow-up HTN (hypertension) Hypokalemia Hypothyroid Morbid obesity [place] (obstructive sleep apnea) Persistent atrial fibrillation Physical deconditioning Surgical History History of ankle surgery History of appendectomy Hx of total knee arthroplasty S/P cholecystectomy Family History Father EtOH dependence Social History Housing: Apartment Alcohol intake: current Alcohol intake frequency: holidays/special occasions only Patient Tobacco Use Status: Never used Tobacco e-Cigarette/Vaping Use: Never Used Second Hand Smoke Exposure: No service: No Current occupational status: disabled Cognitive needs: No Hearing needs: No Vision needs: Yes Review of Systems Const All systems reviewed & are unremarkable except as noted in HPI and below Reports no additional complaints ENT Reports Normal hearing present Card Denies chest pain, Denies chest pain at rest, Denies chest pain with activity and Denies pedal edema Resp Denies cough GI Denies abdominal pain Musc Denies abnormal gait, Denies muscle cramps and Denies radiating pain into limb Skin/Breast Denies skin ulcer and Denies wounds Neuro Reports Normal hearing present and Denies abnormal gait Psych Reports no additional complaints Physical Exam Const General: cooperative, healthy appearing and comfortable Orientation/consciousness: oriented to person, oriented to place and oriented to time HEENT Head: Yes normal to inspection Neck Neck: Yes normal visual inspection Carotids: no bruits Chest Chest palpation & inspection: normal inspection of the chest Resp Effort & Inspection: normal respiratory effort and able to speak in complete sentences Auscultation: clear to auscultation bilaterally, no crackles, no rales, no rhonchi and no wheezes Cardio Rate: regular rate Rhythm: regular rhythm Heart sounds: S1 normal heart sound present and S2 normal heart sound present Bruits: no carotid bruits Peripheral pulses: Peripheral pulses 2+ throughout GI Inspection: Yes normal to inspection Skin Wounds: no wounds Hair: normal Neuro General: oriented to person, oriented to place and oriented to time Cranial nerves: Yes CN's II-XII intact bilaterally and Yes Normal hearing present Cognition (Neuro): normal cognition Motor exam (neuro): 5/5 motor strength present throughout Extrem Other: venous exam: +2 edema General: No clubbing, No cyanosis and Yes edema Psych Appearance: grossly normal Mental Status: mental status grossly normal Speech and movement: Normal speech and movement present Assessment & Plan Assessment & Plan (1) Varicose veins of right lower extremity with inflammation: Comment: 02/28/2023 - right small saphenous vein ablation Code(s): I83.11 - Varicose veins of right lower extremity with inflammation Plan: The patient has done extremely well with all venous treatments. Patient's may often experience postprocedure phlebitic episodes and I have discussed with the patient use of warm compresses and NSAIDS if tolerated for pain discomfort. In addition, I have discussed continued conservative measures including use of compression, leg elevation, and exercise. The patient was also given an information sheet regarding appropriate use of compression stockings and future purchases. Thank you for allowing us to care for your patient with venous disease. Coding Level of Care Code Est Pt Level 3 (25326) Diagnoses Varicose veins of right lower extremity with inflammation I83.11
== END 2023-03-13 09:44 | disposition home or self-care (01) ==
LOC: HO.HVS 08:57
PROVIDERS: PCP Internal Medicine; Visit Provider Surgery Vascular Surgery
DX: I83.11 Varicose veins of right lower extremity with inflammation (principal)
CPT/HCPCS: 99213

== ENCOUNTER → 2023-03-13 08:57 | Outpatient (BNVA) | payer MEDICARE, MEDICAID, SELFPAY | PROVIDERS: PCP Internal Medicine; Visit Provider Surgery Vascular Surgery | DX: I83.11 Varicose veins of right lower extremity with inflammation (principal) | CPT/HCPCS: 99212 ==

== ENCOUNTER 2023-03-17 10:45 | Outpatient (AMB) | payer MEDICARE, MEDICAID, SELFPAY ==
--- NOTE | 2023-03-17 11:08 | MHC.OFFVISCO ---
Intake Intake Visit Reasons: Anticoagulation Allergies codeine [CODEINE] Allergy (Intermediate, Verified 03/17/23 11:08) CHEST PAIN Medication List - Last Reconciled 03/17/23 by Margo Briceno RN acetaminophen 500 mg PO Q6H atenolol 50 mg PO DAILY 90 days blood sugar diagnostic (FreeStyle Lite Strips) As directed check the BS QD blood-glucose meter (FreeStyle Lite Meter kit) As directed bumetanide 2 mg PO BID gabapentin 300 mg PO DAILY lancets (FreeStyle Lancets) As directed check BS QD levothyroxine 50 mcg PO QAM magnesium oxide 400 mg PO DAILY omeprazole 20 mg PO BEDTIME 90 days ondansetron 8 mg PO Q8H PRN oxycodone 5 mg PO BID PRN simvastatin 10 mg PO DAILY 90 days spironolactone 12.5 mg (1/2 x 25 mg) PO DAILY 90 days walker (Ultra-Light Rollator misc) As directed warfarin As per INR orally daily; Nursing Note INR: 2.7- in therapeutic range Medications and supplements reviewed- no changes No changes in health, diet, medications, or supplements, Denies any signs and symptoms of bleeding or bruising or clotting. Bleeding, bruising, clotting discussed Nutritional guidance given Dose: 4mg x 2, 3mg x 5 F/U INR: 1 week Patient verbalizes understanding of instructions given pt s/p vein ligation 02/28/23 without warfarin hold pt s/p cardiac cath 03/11/23, warfarin hold 03/06/23-03/10/23 pt with bruising right wrist. pt states diarrhea, decreased appetite pt to verify warfarin pill strengtha and call acs Anti-Coag Initial Assessment Social Hx Patient Tobacco Use Status: Never used Tobacco alcohol intake: current Alcohol intake frequency: holidays/special occasions only Coding Level of Care Code Est Patient Level 2 Diagnoses Current use of anticoagulant therapy Z79.01 Assessment & Plan Assessment & Plan (1) Current use of anticoagulant therapy: Code(s): Z79.01 - FPC (current) use of anticoagulants Category: Medical Medications: New warfarin 1 mg See Protocol PO DAILY
[2023-03-17 11:15] LABS: Prothrombin Time Whole Bld POC 32.4 sec (11.1-13.5); ~PT, ~INR - Anti Coag Clinic 2.7 (0.9-1.1)
== END 2023-03-17 11:32 | disposition home or self-care (01) ==
LOC: HO.ACS 10:45
PROVIDERS: PCP Internal Medicine; Visit Provider Internal Medicine
DX: Z79.01 Long term (current) use of anticoagulants (principal)

== ENCOUNTER → 2023-03-17 10:45 | Outpatient (BNVA) | payer MEDICARE, MEDICAID, SELFPAY | PROVIDERS: PCP Internal Medicine; Visit Provider Internal Medicine | DX: I48.0 Paroxysmal atrial fibrillation (principal); Z79.01 Long term (current) use of anticoagulants; Z51.81 Encounter for therapeutic drug level monitoring | CPT/HCPCS: 85610; 99212 ==

== ENCOUNTER 2023-03-24 12:33 | Outpatient (REF) | payer MEDICARE, MEDICAID, SELFPAY ==
[2023-03-24 12:50] LABS: MANUAL DIFF FLAG NO
[2023-03-24 13:31] LABS: Basophils Absolute Auto 0.1 X10*3/uL (0.0-0.2); Basophils Percent Auto 0.9 % (0-2); Eosinophils Absolute Auto 0.1 X10*3/uL (0.0-0.4); Eosinophils Percent Auto 1.8 % (0-4); Hemoglobin 14.4 g/dl (12.0-16.0); Imm Gran Abs Auto 0.01 X10*3/uL (0.00-0.03); Imm Gran Pct Auto 0.2 % (0.0-0.4); Lymphocytes Absolute Auto 1.8 X10*3/uL (1.2-4.9); Lymphocytes Percent Auto 33.5 % (20-40); Mean Corpuscular Hemoglobin 29.9 pg (27.0-33.0); Mean Corpuscular Volume 93.4 fL (80.0-98.0); Mean Platelet Volume 10.6 fL (9.4-12.3); Monocytes Absolute Auto 0.6 X10*3/uL (0.1-1.2); Monocytes Percent Auto 11.5 % (2-11); Neutrophils Absolute Auto 2.8 x10*3/uL (2.0-8.3); Neutrophils Percent Auto 52.1 % (45-73); Platelet Count 195 X10*3/uL (160-400); Red Blood Count 4.82 X10*6/uL (4.20-5.50); Red Cell Distribution Width 13.3 % (11.0-16.0); White Blood Count 5.4 X10*3/uL (4.8-10.8)
[2023-03-24 13:47] LABS: B Type Natriuretic Peptide 301 pg/mL (<100)
[2023-03-24 14:00] LABS: Alanine Aminotransferase 14 U/L (0-31); Albumin Level 4.4 g/dL (3.5-5.0); Alkaline Phosphatase 79 U/L (39-117); Anion Gap 13 (12-20); Aspartate Amino Transferase 18 U/L (5-31); Bilirubin Total 0.8 mg/dL (0.0-1.0); Blood Urea Nitrogen 41 mg/dL (9-16); Calcium 10.2 mg/dL (8.4-10.2); Carbon Dioxide 33 mmol/L (22-29); Chloride 100 mmol/L (96-108); Cholesterol 202 mg/dL; Estimated Glomerular Filt Rate 39; Glucose Random 104 mg/dL (60-115); HDL Cholesterol 44 mg/dL; LDL Cholesterol Calculated 117 mg/dl; Magnesium 2.4 mg/dL (1.6-2.6); Phosphorus 3.9 mg/dL (2.7-4.5); Potassium 3.9 mmol/L (3.3-5.1); Sodium 142 mmol/L (135-145); Triglycerides 209 mg/dL
[2023-03-24 14:15] LABS: Folate 10.6 ng/mL (> or = 4.0); Vitamin B12 519 pg/mL (200-900)
[2023-03-24 14:16] LABS: Free T4 (Free Thyroxine) 1.01 ng/dL (0.71-1.85); Vitamin D 25-OH Total 10.8 ng/mL (>30)
[2023-03-24 14:53] LABS: Creatinine Urine 110.03 mg/dL; Microalbum/Creatinine Ratio Ur 112.6 ug/mg cr
== END 2023-03-24 12:34 | disposition home or self-care (01) ==
LOC: HO.LAB 12:33
PROVIDERS: PCP Internal Medicine; Visit Provider Internal Medicine
DX: E11.65 Type 2 diabetes mellitus with hyperglycemia (principal); E78.00 Pure hypercholesterolemia, unspecified; I48.91 Unspecified atrial fibrillation; M81.0 Age-related osteoporosis without current pathological fracture
CPT/HCPCS: 36415; 80053; 80061; 82043; 82306; 82607; 82746; 83735; 83880; 84100; 84439; 84443; 85025; 85610; 99211

== ENCOUNTER 2023-03-24 13:08 | Outpatient (AMB) | payer MEDICARE, MEDICAID, SELFPAY ==
[2023-03-24 13:17] LABS: Prothrombin Time Whole Bld POC 36.6 sec (11.1-13.5); ~PT, ~INR - Anti Coag Clinic 3.1 (0.9-1.1)
--- NOTE | 2023-03-24 13:24 | MHC.OFFVISCO ---
Intake Intake Visit Reasons: Anticoagulation Allergies codeine [CODEINE] Allergy (Intermediate, Verified 03/24/23 13:13) CHEST PAIN Medication List - Last Reconciled 03/24/23 by Stella Morales RN acetaminophen 500 mg PO Q6H atenolol 50 mg PO DAILY 90 days blood sugar diagnostic (FreeStyle Lite Strips) As directed check the BS QD blood-glucose meter (FreeStyle Lite Meter kit) As directed bumetanide 2 mg PO BID gabapentin 300 mg PO DAILY lancets (FreeStyle Lancets) As directed check BS QD levothyroxine 50 mcg PO QAM magnesium oxide 400 mg PO DAILY omeprazole 20 mg PO BEDTIME 90 days ondansetron 8 mg PO Q8H PRN oxycodone 5 mg PO BID PRN simvastatin 10 mg PO DAILY 90 days spironolactone 12.5 mg (1/2 x 25 mg) PO DAILY 90 days walker (Ultra-Light Rollator misc) As directed warfarin See Protocol As per INR orally daily; warfarin 1 mg See Protocol PO DAILY warfarin 2 mg orally as per INR; Nursing Note NO CP,SOB,DIET/MED CHANGES,FALLS OR SX OF BLEEDING. CONTINUE PRESENT DOSE AND FOLLOW-UP IN 2 WEEKS. GOOD UNDERSTANDING OF DOSING INSTR. CARMENCITA TOUSSAINT Anti-Coag Initial Assessment Social Hx Patient Tobacco Use Status: Never used Tobacco alcohol intake: current Alcohol intake frequency: holidays/special occasions only Coding Level of Care Code Est Patient Level 1 Diagnoses Current use of anticoagulant therapy Z79.01 Assessment & Plan Assessment & Plan (1) Current use of anticoagulant therapy: Code(s): Z79.01 - residential (current) use of anticoagulants Category: Medical
== END 2023-03-24 13:26 | disposition home or self-care (01) ==
LOC: HO.ACS 13:08
PROVIDERS: PCP Internal Medicine; Visit Provider Internal Medicine
DX: Z79.01 Long term (current) use of anticoagulants (principal)

== ENCOUNTER 2023-04-03 14:00 | Outpatient (AMB) | payer MEDICARE, MEDICAID, SELFPAY ==
[2023-04-03 14:18] VITALS: BP 120/70; PULSE 74; BMI 48.0
--- NOTE | 2023-04-03 14:18 | MHC.OFFVIS ---
Intake Vital Signs 04/03/23 14:18 Height 5 ft 2 in Weight 262 lb 5.601 oz BMI 48.0 BP 120/70 Blood Pressure Location Lt brachial Position Sitting Pulse 74 Pulse Source Pulse Oximeter Intake Visit Reasons: Follow up post cardiac cath Intake Note: f/up post cardiac cath having some s/b while doing physical activities Mgmt Analyst Required: No Allergies codeine [CODEINE] Allergy (Intermediate, Verified 04/03/23 14:23) CHEST PAIN Medication List - Last Reconciled 04/03/23 by Elza Macdonald NP-C acetaminophen 500 mg PO Q6H atenolol 50 mg PO DAILY 90 days blood sugar diagnostic (FreeStyle Lite Strips) As directed check the BS QD blood-glucose meter (FreeStyle Lite Meter kit) As directed bumetanide 2 mg PO BID gabapentin 300 mg PO DAILY lancets (FreeStyle Lancets) As directed check BS QD levothyroxine 50 mcg PO QAM magnesium oxide 400 mg PO DAILY omeprazole 20 mg PO BEDTIME 90 days ondansetron 8 mg PO Q8H PRN oxycodone 5 mg PO BID PRN simvastatin 10 mg PO DAILY 90 days spironolactone 12.5 mg (1/2 x 25 mg) PO DAILY 90 days walker (Ultra-Light Rollator misc) As directed warfarin See Protocol 2 mg orally as per INR; HPI Follow up post cardiac cath HPI Details Stella 67-year-old past medical history of hypertension, diabetes, morbid obesity, obstructive sleep apnea, Congestive heart failure, chronic atrial fibrillation with recent echo showing reduced EF. She underwent right and left cardiac catheterization for further evaluation and now presents for follow-up. Her pulmonary pressures were mildly elevated and note indicates that her Bumex would be increased. Today she reports that she did not know about the increased dose of Bumex. She has been taking her usual 2 mg b.i.d.. She has chronic shortness of breath with activity. No chest discomfort, palpitations, dizziness, presyncope, syncope, PND, edema. She reports compliance with her medications. No bleeding issues with anticoagulation. Right radial catheterization site feels fine. Family member present. [facility] Medical History (Updated 04/03/23 @ 19:08 by Elza Macdonald, DIRECTOR DIABETES-C) Afib Breast calcification, left Breast cancer screening by mammogram Bunion CHF (congestive heart failure) Chronic venous stasis Diabetes Hospital discharge follow-up HTN (hypertension) Hypokalemia Hypothyroid Morbid obesity PARADISE (obstructive sleep apnea) Persistent atrial fibrillation Physical deconditioning Surgical History (Updated 04/03/23 @ 17:17 by Elza Macdonald NP-C) History of ankle surgery History of appendectomy Hx of total knee arthroplasty S/P cardiac catheterization S/P cholecystectomy Family History Father EtOH dependence Social History Housing: Apartment Alcohol intake: current Alcohol intake frequency: holidays/special occasions only Patient Tobacco Use Status: Never used Tobacco e-Cigarette/Vaping Use: Never Used Second Hand Smoke Exposure: No service: No Current occupational status: disabled Cognitive needs: No Hearing needs: No Vision needs: Yes Review of Systems Const All systems reviewed & are unremarkable except as noted in HPI and below ENT Denies dizziness Card Denies chest pain, Denies chest pain at rest, Denies chest pain with activity, Denies rapid heart rate, Denies pedal edema, Denies edema, Denies leg edema, Denies lightheadedness, Denies palpitations, Denies dyspnea, Reports dyspnea on exertion and Denies orthopnea Resp Denies cough, Denies dyspnea and Reports dyspnea on exertion GI Denies hematochezia and Denies change in stool character Musc Denies abnormal gait, Reports limited range of motion, Reports muscle cramps, Denies muscle weakness, Denies numbness, Denies radiating pain into limb, Denies stiffness and Denies tingling Neuro Denies abnormal gait, Denies dizziness, Denies numbness and Denies tingling Endo Denies palpitations Physical Exam Vital Signs: Last Vital Signs Pulse 74 04/03/23 14:18 BP 120/70 04/03/23 14:18 BMI result Body Mass Index 48.0 Const General: cooperative, healthy appearing, comfortable and no acute distress Orientation/consciousness: patient oriented x3 Neck Neck: Yes normal visual inspection and Yes no JVD Resp Effort & Inspection: normal respiratory effort Auscultation: clear to auscultation bilaterally, no crackles, no rales, no rhonchi and no wheezes Cardio Jugular venous distension: no JVD Rate: regular rate Rhythm: regular rhythm Heart sounds: S1 normal heart sound present, S2 normal heart sound present, no murmurs and no rubs Neuro General: patient oriented x3 Extrem Other: Right radial catheterization site well healed General: Yes normal to inspection, No no pedal edema and No calf tenderness Psych Appearance: grossly normal Mental Status: mental status grossly normal Speech and movement: Normal speech and movement present Assessment & Plan Assessment & Plan (1) Cardiomyopathy: Code(s): I42.9 - Cardiomyopathy, unspecified Plan: [facility] [place] admission 03/2022 with RV failure, Congestive heart failure. She was diuresed and has been on Bumex for diuretic. Repeat echo done 10/2022 showing a mildly reduced EF 45-50% with moderate increase in the RV size and moderate decrease in the RV systolic function. She underwent cardiac catheterization on 03/11/2023 showing mid LAD 50% stenosis, IFR 0.97, mildly elevated PA pressures with PA D 28, wedge 19. She was determined to have severe pulmonary hypertension as a cause of her RV dysfunction. The cardiac catheterization note recommends increase in Bumex to 3 mg in the a.m. and 2 mg in the p.m.. Reviewed this with her and she will begin now. At this time she will use her current to mg tabs. Diagnosis of pulmonary hypertension reviewed. She does not follow with pulmonology and states she follows with her PCP for her lung issues. At this time will continue current meds including atenolol, spironolactone. Blood pressure is well controlled. Benefits of weight loss reviewed. Cardiology follow-up in 3 months, sooner if needed (2) S/P cardiac catheterization: Comment: 03/11/2023, mid LAD 50% stenosis, IFR 0.97, wedge 19, PA pressure is 62/42/28, RA 14 Code(s): Z98.890 - Other specified postprocedural states (3) Hypertension: Code(s): I10 - Essential (primary) hypertension Plan: Well controlled at present (4) CHF (congestive heart failure): Code(s): I50.9 - Heart failure, unspecified Plan: She does not appear in decompensated heart failure at present. She does have severe pulmonary hypertension as above (5) Morbid obesity: Code(s): E66.01 - Morbid (severe) obesity due to excess calories Plan: BMI 48. Weight loss strongly encouraged. She may benefit from weight loss program. (6) Hypercholesterolemia: Code(s): E78.00 - Pure hypercholesterolemia, unspecified Plan: [place] LDL goal less than 70% in patient with CAD. Labs done 03/24/2023 shows LDL 117. She is currently on simvastatin 10 mg daily. Will change to atorvastatin 20 mg daily. Plan for fasting lipid profile at next visit (7) Coronary atherosclerosis: Code(s): I25.10 - Atherosclerotic heart disease of teller coronary artery without angina pectoris Plan: As above, 50 % mid LAD stenosis. Medical management. Medications: New atorvastatin 20 mg PO BEDTIME 90 tabs 1RF Discontinued simvastatin Discontinued Reason: Doctor's Order 10 mg PO DAILY 90 days 90 tabs 3RF E78.00 - Pure hypercholesterolemia, unspecified Coding Level of Care Code Est Pt Level 4 (49095) Diagnoses Cardiomyopathy I42.9 S/P cardiac catheterization Z98.890 Hypertension I10 CHF (congestive heart failure) I50.9 Morbid obesity E66.01 Hypercholesterolemia E78.00 Coronary atherosclerosis I25.10 Time Spent (min) 28 Comment Chart review, documentation, interview, assessment
== END 2023-04-03 14:59 | disposition home or self-care (01) ==
PROVIDERS: PCP Internal Medicine; Referring Provider Internal Medicine; Visit Provider Nurse Practitioner Family
DX: I42.9 Cardiomyopathy, unspecified (principal); Z98.890 Other specified postprocedural states; I10 Essential (primary) hypertension; I50.9 Heart failure, unspecified; E66.01 Morbid (severe) obesity due to excess calories; E78.00 Pure hypercholesterolemia, unspecified; I25.10 Atherosclerotic heart disease of native coronary artery without angina pectoris
CPT/HCPCS: 99214

== ENCOUNTER → 2023-04-03 14:00 | Outpatient (BNVA) | payer MEDICARE, MEDICAID, SELFPAY | PROVIDERS: PCP Internal Medicine; Referring Provider Internal Medicine; Visit Provider Nurse Practitioner Family | DX: I42.9 Cardiomyopathy, unspecified (principal); I11.0 Hypertensive heart disease with heart failure; I50.9 Heart failure, unspecified; I25.10 Atherosclerotic heart disease of native coronary artery without angina pectoris; E78.00 Pure hypercholesterolemia, unspecified; E66.01 Morbid (severe) obesity due to excess calories; Z98.890 Other specified postprocedural states; Z68.42 Body mass index [BMI] 45.0-49.9, adult | CPT/HCPCS: 99212 ==

== ENCOUNTER 2023-04-09 13:04 | Outpatient (AMB) | payer MEDICARE, MEDICAID, SELFPAY ==
[2023-04-09 13:11] LABS: Prothrombin Time Whole Bld POC 29.7 sec (11.1-13.5); ~PT, ~INR - Anti Coag Clinic 2.5 (0.9-1.1)
--- NOTE | 2023-04-09 13:11 | MHC.OFFVISCO ---
Intake Intake Visit Reasons: Anticoagulation Allergies codeine [CODEINE] Allergy (Intermediate, Verified 04/09/23 13:04) CHEST PAIN Medication List - Last Reconciled 04/09/23 by Margo Briceno RN acetaminophen 500 mg PO Q6H atenolol 50 mg PO DAILY 90 days atorvastatin 20 mg PO BEDTIME blood sugar diagnostic (FreeStyle Lite Strips) As directed check the BS QD blood-glucose meter (FreeStyle Lite Meter kit) As directed bumetanide 2 mg orally 1.5 tablets in the a.m. and 1 tablet in the p.m.; 90 days gabapentin 300 mg PO DAILY lancets (FreeStyle Lancets) As directed check BS QD levothyroxine 50 mcg PO QAM magnesium oxide 400 mg PO DAILY omeprazole 20 mg PO BEDTIME 90 days ondansetron 8 mg PO Q8H PRN oxycodone 5 mg PO BID PRN spironolactone 12.5 mg (1/2 x 25 mg) PO DAILY 90 days walker (Ultra-Light Rollator misc) As directed warfarin See Protocol 2 mg orally as per INR; Nursing Note INR: 2.5- in therapeutic range Medications and supplements reviewed- pt states simvastatin to be d/c today and will start atorvastatin. simvastatin raises inr, no interaction with warfarin for atorvastatin, bumetanide increased per cardiology to 1.5 tabs in the am, 1 tab in the pm No changes in health, diet, medications, or supplements, Denies any signs and symptoms of bleeding or bruising or clotting. Bleeding, bruising, clotting discussed - bruise on upper right arm Nutritional guidance given Dose: 4mg x 2, 3mg x 5 F/U INR: 2 weeks- due to med changes- delayed Patient verbalizes understanding of instructions given Anti-Coag Initial Assessment Social Hx Patient Tobacco Use Status: Never used Tobacco alcohol intake: current Alcohol intake frequency: holidays/special occasions only Coding Level of Care Code Est Patient Level 1 Diagnoses Current use of anticoagulant therapy Z79.01 Assessment & Plan Assessment & Plan (1) Current use of anticoagulant therapy: Code(s): Z79.01 - FDC (current) use of anticoagulants Category: Medical
== END 2023-04-09 13:43 | disposition home or self-care (01) ==
LOC: HO.ACS 13:04
PROVIDERS: PCP Internal Medicine; Visit Provider Internal Medicine
DX: Z79.01 Long term (current) use of anticoagulants (principal)

== ENCOUNTER → 2023-04-09 13:04 | Outpatient (BNVA) | payer MEDICARE, MEDICAID, SELFPAY | PROVIDERS: PCP Internal Medicine; Visit Provider Internal Medicine | DX: I48.0 Paroxysmal atrial fibrillation (principal); Z79.01 Long term (current) use of anticoagulants; Z51.81 Encounter for therapeutic drug level monitoring | CPT/HCPCS: 85610; 99211 ==

== ENCOUNTER 2023-04-24 13:01 | Outpatient (AMB) | payer MEDICARE, MEDICAID, SELFPAY ==
[2023-04-24 13:16] LABS: Prothrombin Time Whole Bld POC 34.7 sec (11.1-13.5); ~PT, ~INR - Anti Coag Clinic 2.9 (0.9-1.1)
--- NOTE | 2023-04-24 13:27 | MHC.OFFVISCO ---
Intake Intake Visit Reasons: Anticoagulation Allergies codeine [CODEINE] Allergy (Intermediate, Verified 04/24/23 13:02) CHEST PAIN Medication List - Last Reconciled 04/24/23 by Meme Villalobos RN acetaminophen 500 mg PO Q6H atenolol 50 mg PO DAILY 90 days atorvastatin 20 mg PO BEDTIME blood sugar diagnostic (FreeStyle Lite Strips) As directed check the BS QD blood-glucose meter (FreeStyle Lite Meter kit) As directed bumetanide 2 mg orally 1.5 tablets in the a.m. 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 her escitalopram was increased from 10mg to 20 mg few weeks ago ( she did not mention that med change last visit) which may increase the INR over time Denies any signs and symptoms of bleeding or clotting. She has a bruise on her arm and leg about egg size - she is not sure where they came from Bleeding, bruising, clotting discussed Nutritional guidance given - increase greens weekly Dose: keep same for now 4mg x 2 days/ 3mg x 5 days F/U INR: 3 weeks Patient verbalizes understanding of instructions given Anti-Coag Initial Assessment Social Hx Patient Tobacco Use Status: Never used Tobacco alcohol intake: current Alcohol intake frequency: holidays/special occasions only Coding Level of Care Code Est Patient Level 1 Diagnoses Current use of anticoagulant therapy Z79.01 Assessment & Plan Assessment & Plan (1) Current use of anticoagulant therapy: Code(s): Z79.01 - terminal carman (current) use of anticoagulants Category: Medical
== END 2023-04-24 13:32 | disposition home or self-care (01) ==
LOC: HO.ACS 13:01
PROVIDERS: PCP Internal Medicine; Visit Provider Internal Medicine
DX: Z79.01 Long term (current) use of anticoagulants (principal)

== ENCOUNTER → 2023-04-24 13:01 | Outpatient (BNVA) | payer MEDICARE, MEDICAID, SELFPAY | PROVIDERS: PCP Internal Medicine; Visit Provider Internal Medicine | DX: I48.0 Paroxysmal atrial fibrillation (principal); Z79.01 Long term (current) use of anticoagulants; Z51.81 Encounter for therapeutic drug level monitoring | CPT/HCPCS: 85610; 99211 ==

== ENCOUNTER 2023-05-21 13:04 | Outpatient (AMB) | payer MEDICARE, MEDICAID, SELFPAY ==
--- NOTE | 2023-05-21 13:13 | MHC.OFFVISCO ---
Intake Intake Visit Reasons: Anticoagulation Allergies codeine [CODEINE] Allergy (Intermediate, Verified 05/21/23 13:08) CHEST PAIN Medication List - Last Reconciled 05/21/23 by Margo Briceno RN acetaminophen 500 mg PO Q6H atenolol 50 mg PO DAILY 90 days atorvastatin 20 mg PO BEDTIME blood sugar diagnostic (FreeStyle Lite Strips) As directed check the BS QD blood-glucose meter (FreeStyle Lite Meter kit) As directed bumetanide 2 mg orally 1.5 tablets in the a.m. and 1 tablet in the p.m.; 90 days escitalopram oxalate 20 mg PO DAILY gabapentin 300 mg PO DAILY lancets (FreeStyle Lancets) As directed check BS QD levothyroxine 50 mcg PO QAM magnesium oxide 400 mg PO DAILY omeprazole 20 mg PO BEDTIME 90 days ondansetron 8 mg PO Q8H PRN oxycodone 5 mg PO BID PRN spironolactone 12.5 mg (1/2 x 25 mg) PO DAILY 90 days walker (Ultra-Light Rollator [facility] [place]) As directed warfarin See Protocol 2 mg orally 4mg x 2 days , 3mg x 5 days; Nursing Note INR 3.9-?? out of therapeutic range Medications and supplements reviewed Patient status: pt states s/p fall last week/friday and landed on knees and hands, denies hit head. bruise right knee fading. pt states does not need xray at this time. enc to use assistive device- cane or walker Medications or supplements: no changes in medications, taking tylenol prn- awaire raises inr and to increase greens recent increase in escitalopram which can raise inr Diet: same Denies any signs and symptoms of bleeding or clotting or unusual bruising Bleeding, bruising, clotting discussed Nutritional guidance given: eat greens to lower, no reds for 2 days Dose: hold warfarin today, then decrease weekly dose to 3mg x 6, 4mg x 1 F/U INR Date : 2 weeks? Patient verbalizing understanding of instructions given. 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
[2023-05-21 13:14] LABS: Prothrombin Time Whole Bld POC 46.9 sec (11.1-13.5); ~PT, ~INR - Anti Coag Clinic 3.9 (0.9-1.1)
== END 2023-05-21 13:26 | disposition home or self-care (01) ==
LOC: HO.ACS 13:04
PROVIDERS: PCP Internal Medicine; Visit Provider Internal Medicine
DX: Z79.01 Long term (current) use of anticoagulants (principal)

== ENCOUNTER → 2023-05-21 13:04 | Outpatient (BNVA) | payer MEDICARE, MEDICAID, SELFPAY | PROVIDERS: PCP Internal Medicine; Visit Provider Internal Medicine | DX: I48.0 Paroxysmal atrial fibrillation (principal); Z79.01 Long term (current) use of anticoagulants; Z51.81 Encounter for therapeutic drug level monitoring | CPT/HCPCS: 85610; 99211 ==

== ENCOUNTER 2023-07-02 13:03 | Outpatient (AMB) | payer MEDICARE, SELFPAY ==
--- NOTE | 2023-07-02 13:11 | MHC.OFFVISCO ---
Intake Intake Visit Reasons: Anticoagulation Allergies codeine [CODEINE] Allergy (Intermediate, Verified 07/02/23 13:06) CHEST PAIN Medication List - Last Reconciled 07/02/23 by Margo Briceno RN acetaminophen 500 mg PO Q6H atenolol 50 mg PO DAILY 90 days atorvastatin 20 mg PO BEDTIME blood sugar diagnostic (FreeStyle Lite Strips) As directed check the BS QD blood-glucose meter (FreeStyle Lite Meter kit) As directed bumetanide 2 mg orally 1.5 tablets in the a.m. and 1 tablet in the p.m.; 90 days escitalopram oxalate 20 mg PO DAILY gabapentin 300 mg PO DAILY lancets (FreeStyle Lancets) As directed check BS QD levothyroxine 50 mcg PO QAM magnesium oxide 400 mg PO DAILY omeprazole 20 mg PO BEDTIME 90 days ondansetron 8 mg PO Q8H PRN oxycodone 5 mg PO BID PRN spironolactone 12.5 mg (1/2 x 25 mg) PO DAILY 90 days walker (Ultra-Light Rollator misc) As directed warfarin See Protocol 2 mg orally 4mg x 2 days , 3mg x 5 days; Nursing Note INR: 2.6-in therapeutic range Medications and supplements reviewed- no changes No changes in health, diet, medications, or supplements, Denies any signs and symptoms of bleeding or bruising or clotting. 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
[2023-07-02 13:12] LABS: Prothrombin Time Whole Bld POC 31.8 sec (11.1-13.5); ~PT, ~INR - Anti Coag Clinic 2.6 (0.9-1.1)
== END 2023-07-02 13:19 | disposition home or self-care (01) ==
LOC: HO.ACS 13:03
PROVIDERS: PCP Internal Medicine; Visit Provider Internal Medicine
DX: Z79.01 Long term (current) use of anticoagulants (principal)

== ENCOUNTER → 2023-07-02 13:03 | Outpatient (BNVA) | payer MEDICARE, SELFPAY | PROVIDERS: PCP Internal Medicine; Visit Provider Internal Medicine | DX: I48.0 Paroxysmal atrial fibrillation (principal); Z79.01 Long term (current) use of anticoagulants; Z51.81 Encounter for therapeutic drug level monitoring | CPT/HCPCS: 85610; 99211 ==

== ENCOUNTER 2023-07-28 11:37 | Outpatient (AMB) | payer MEDICARE, SELFPAY ==
[2023-07-28 11:44] LABS: Prothrombin Time Whole Bld POC 55.9 sec (11.1-13.5); ~PT, ~INR - Anti Coag Clinic 4.7 (0.9-1.1)
--- NOTE | 2023-07-28 11:48 | MHC.OFFVISCO ---
Intake Intake Visit Reasons: Anticoagulation Allergies codeine [CODEINE] Allergy (Intermediate, Verified 07/28/23 11:38) CHEST PAIN Medication List - Last Reconciled 07/28/23 by Meme Villalobos RN acetaminophen 500 mg PO Q6H atenolol 50 mg PO DAILY 90 days atorvastatin 20 mg PO BEDTIME blood sugar diagnostic (FreeStyle Lite Strips) As directed check the BS QD blood-glucose meter (FreeStyle Lite Meter kit) As directed bumetanide 2 mg orally 1.5 tablets in the a.m. and 1 tablet in the p.m.; 90 days escitalopram oxalate 20 mg PO DAILY gabapentin 300 mg PO DAILY lancets (FreeStyle Lancets) As directed check BS QD levothyroxine 50 mcg PO QAM magnesium oxide 400 mg PO DAILY omeprazole 20 mg PO BEDTIME 90 days ondansetron 8 mg PO Q8H PRN oxycodone 5 mg PO BID PRN spironolactone 12.5 mg (1/2 x 25 mg) PO DAILY 90 days walker (Ultra-Light Rollator misc) As directed warfarin See Protocol 2 mg orally 4mg x 2 days , 3mg x 5 days; Nursing Note INR 4.7? out of therapeutic range Medications and supplements reviewed Patient status: PT STATES SHE HAS BEEN TAKING MORE TYLENOL THAN USUAL FOR SERNA , HAS A HX OF HEADACHES, STATES SHE FELT DIZZY OFF AND ON, SHE WAS STRONGLY ENC TO GO TO ER IF IT PERSISTS DUE TO HER ELEVATED INR VALUE , MAY ALSO BE ELEVATED DUE TO THANKSGIVING MEAL Medications or supplements: NO CHANGES Diet: GOOD - HAD A LOT OF FOODS THAT COULD RAISE THE INR Denies any signs and symptoms of bleeding or clotting or unusual bruising Bleeding, bruising, clotting discussed Nutritional guidance given: EAT GREENS TODAY AND TOMORROW Dose: HOLD TODAY AND DECREASE WEEKLY DOSE 3MG X 6 DAYS/4MG X 1 DAY F/U INR Date : PT REFUSED [facility]ON[facility] APPT DUE TO GOIGN AWAY 08/07/23 IT WAS EXPLAINED TO HER AND HER SPOUSE THAT HER INR IS ELEVATED AND THAT IF HER HEADACHE PERSISTS AND OR HAS DIZZINESS SHE SHOULD GO TO THE ER DUE TO RISK OF BLEEDING ? SHE STATES SHE IS FINE AND KNOWS WHAT TO DO Patient verbalizing understanding of instructions given. Anti-Coag Initial Assessment Social Hx Patient Tobacco Use Status: Never used Tobacco alcohol intake: current Alcohol intake frequency: holidays/special occasions only Coding Level of Care Code Est Patient Level 1
== END 2023-07-28 12:01 | disposition home or self-care (01) ==
LOC: HO.ACS 11:37
PROVIDERS: PCP Internal Medicine; Visit Provider Internal Medicine
DX: Z79.01 Long term (current) use of anticoagulants (principal)

== ENCOUNTER → 2023-07-28 11:37 | Outpatient (BNVA) | payer MEDICARE, SELFPAY | PROVIDERS: PCP Internal Medicine; Visit Provider Internal Medicine | DX: I25.10 Atherosclerotic heart disease of native coronary artery without angina pectoris (principal); I42.9 Cardiomyopathy, unspecified; I50.9 Heart failure, unspecified; G47.30 Sleep apnea, unspecified; I48.0 Paroxysmal atrial fibrillation; Z79.01 Long term (current) use of anticoagulants; Z51.81 Encounter for therapeutic drug level monitoring | CPT/HCPCS: 85610; 99211; 99212 ==

== ENCOUNTER 2023-07-28 11:59 | Outpatient (AMB) | payer MEDICARE, MEDICAID, SELFPAY ==
[2023-07-28 12:41] VITALS: BP 114/80; PULSE 74; O2SAT 92; BMI 49.2
--- NOTE | 2023-07-28 12:41 | A.OFFVIS_ITS ---
Intake Vital Signs 07/28/23 12:41 Height 5 ft 2 in Weight 268 lb 15.423 oz BMI 49.2 BP 114/80 Blood Pressure Location Lt brachial Position Sitting Pulse 74 Pulse Source Pulse Oximeter Pulse Oximetry (%) 92 Oxygen Delivery Method Room Air Intake Visit Reasons: 6 mth f/up Intake Note: Pt presents to the office today for a 6 month follow up. Pt states she is overall feeling well but states she does get headaches occasionally. Pt denies any new cardiac symptoms at this time. Allergies codeine [CODEINE] Allergy (Intermediate, Verified 07/28/23 12:43) CHEST PAIN Medication List - Last Reconciled 07/28/23 by Danyel Prado MD acetaminophen 500 mg PO Q6H atenolol 50 mg PO DAILY 90 days atorvastatin 20 mg PO BEDTIME blood sugar diagnostic (FreeStyle Lite Strips) As directed check the BS QD blood-glucose meter (FreeStyle Lite Meter kit) As directed bumetanide 2 mg orally 1.5 tablets in the a.m. and 1 tablet in the p.m.; 90 days escitalopram oxalate 20 mg PO DAILY gabapentin 300 mg PO DAILY lancets (FreeStyle Lancets) As directed check BS QD levothyroxine 50 mcg PO QAM magnesium oxide 400 mg PO DAILY omeprazole 20 mg PO BEDTIME 90 days ondansetron 8 mg PO Q8H PRN oxycodone 5 mg PO BID PRN spironolactone 12.5 mg (1/2 x 25 mg) PO DAILY 90 days walker (Ultra-Light Rollator misc) As directed warfarin See Protocol 2 mg orally 4mg x 2 days , 3mg x 5 days; HPI HPI Comments History of Present Illness Details 68 female here for f/u. She was seen in March 2022 in the hospital when she presented with RV failure and congestive heart failure. She is c/o dyspnea and PND. She recently has gained weight. Taking meds regularly. She is on Bumex 2 mg once daily. She had repeat echocardiography in October 2022 which is showing mildly reduced ejection fraction of 45-50% with moderately increased right ventricular size and moderately decreased right ventricular systolic function. She continues to have dyspnea on exertion. She is denying chest discomfort. By exam she is not in heart failure but has gained 5 more lb. She is saying she had sleep study in the past which was borderline and she was not offered CPAP treatment. 07/28/23: She returns for f/u. She unde rwent cardiac catheterization which showed 50% mid LAD stenosis which was IFR negative. She had elevated filling pressures. She was advised to increase the Bumex to 3 mg in the morning. She was seen in the office by Elza in April at that time she was taking Bumex 2 mg twice a day and she was advised to increase to 3 mg in the morning and 2 in the afternoon. She is returning and continues to be short of breath. She sleeps on 2 pillows and has not been experiencing any orthopnea. She had borderline PARADISE in the past. Given pulmonary hypertension RV dysfunction I have advised her that she should get repeat sleep study and should see sleep medicine. [facility] Medical History Breast calcification, left Breast cancer screening by mammogram [facility] discharge follow-up PARADISE (obstructive sleep apnea) Morbid obesity Persistent atrial fibrillation Hypokalemia Physical deconditioning CHF (congestive heart failure) Diabetes Chronic venous stasis Hypothyroid Afib HTN (hypertension) Surgical History S/P cardiac catheterization History of ankle surgery History of appendectomy S/P cholecystectomy Hx of total knee arthroplasty Family History Father EtOH dependence Housing: Apartment Alcohol intake: current Alcohol intake frequency: holidays/special occasions only Patient Tobacco Use Status: Never used Tobacco e-Cigarette/Vaping Use: Never Used Second Hand Smoke Exposure: No service: No Current occupational status: disabled Cognitive needs: No Hearing needs: No Vision needs: Yes Physical Exam Vital Signs: Last Vital Signs Pulse 74 07/28/23 12:41 BP 114/80 07/28/23 12:41 Pulse Ox 92 07/28/23 12:41 Oxygen Delivery Method Room Air 07/28/23 12:41 BMI result Body Mass Index 49.2 GENERAL APPEARANCE: in no acute distress, pleasant. NECK: no carotid bruit, + jugular venous distention. SKIN: no suspicious lesions, warm and dry. HEART: no murmurs, irregular rate and rhythm. LUNGS: clear to auscultation bilaterally. ABDOMEN: Mildly distended and tense, nontender. EXTREMITIES: no edema. PERIPHERAL PULSES: equal. NEUROLOGIC: No gross deficits, AAO X 3 Assessment & Plan Assessment & Plan (1) Sleep disorder breathing: Code(s): G47.30 - Sleep apnea, unspecified (2) Coronary atherosclerosis: Code(s): I25.10 - Atherosclerotic heart disease of [place] coronary artery without angina pectoris (3) Cardiomyopathy: Code(s): I42.9 - Cardiomyopathy, unspecified (4) CHF (congestive heart failure): Code(s): I50.9 - Heart failure, unspecified Plan 68-year-old female who is here for follow-up. She has background of mild cardiomyopathy and RV dysfunction. She underwent cardiac catheterization where 50% lad stenosis was noticed. Her filling pressures were elevated. She had severe pulmonary hypertension. Her diuretics were increased previously. I have advised her to increase the Bumex to 3 mg twice a day. Blood pressure control is reasonable. Blood pressure is low to add ROQUE-i/ARB. Referring her for sleep medicine assessment. Thank you for allowing me to participate in the care of your patient. Please feel free to contact me if you have any questions. Orders: Referrals Sleep Medicine Referral G47.30 - Sleep apnea, unspecified Coding Level of Care Code Est Pt Level 4 (07784) Diagnoses Sleep disorder breathing G47.30 Coronary atherosclerosis I25.10 Cardiomyopathy I42.9 CHF (congestive heart failure) I50.9
== END 2023-07-28 13:13 | disposition home or self-care (01) ==
PROVIDERS: PCP Internal Medicine; Visit Provider Internal Medicine Cardiovascular Disease
DX: G47.30 Sleep apnea, unspecified (principal); I25.10 Atherosclerotic heart disease of native coronary artery without angina pectoris; I42.9 Cardiomyopathy, unspecified; I50.9 Heart failure, unspecified
CPT/HCPCS: 99214

== ENCOUNTER 2023-07-31 15:51 | Outpatient (AMB) | payer MEDICARE, MEDICAID, SELFPAY ==
[2023-07-31 15:53] VITALS: BP 116/74; PULSE 52; O2SAT 96; BMI 47.9
--- NOTE | 2023-07-31 15:53 | MHC.PC.OV ---
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 Required: No Allergies codeine [CODEINE] Allergy (Intermediate, Verified 07/31/23 16:13) CHEST PAIN Medication List - Last Reconciled 07/31/23 by GIOVANNA Sebastian acetaminophen 500 mg PO Q6H atenolol 50 mg PO DAILY 90 days atorvastatin 20 mg PO BEDTIME blood sugar diagnostic (FreeStyle Lite Strips) As directed check the BS QD blood-glucose meter (FreeStyle Lite Meter kit) As directed bumetanide 3 mg (1.5 x 2 mg) PO BID 90 days escitalopram oxalate 20 mg PO DAILY gabapentin 300 mg PO DAILY lancets (FreeStyle Lancets) As directed check BS QD levothyroxine 50 mcg PO QAM magnesium oxide 400 mg PO DAILY omeprazole 20 mg PO BEDTIME 90 days ondansetron 8 mg PO Q8H PRN oxycodone 5 mg PO BID PRN spironolactone 12.5 mg (1/2 x 25 mg) PO DAILY 90 days walker (Ultra-Light Rollator misc) As directed warfarin See Protocol 2 mg orally 4mg x 2 days , 3mg x 5 days; Tobacco use date assessed: 07/31/23 Fall risk assessment: No Falls in past year Last assessed Fall Risk: 07/31/23 HPI Atrial fibrillation HPI Details Patient is a 68-year-old female who presents today for a routine follow-up. Patient with Dr. Peters. Medical history significant for congestive heart failure-followed by [facility], morbid obesity, diabetes type 2-diet controlled, hypertension, hypothyroid, depression, sleep disorder breathing-patient reports that she will be having sleep study, knee osteoarthritis-reports stable with oxycodone p.r.n.. Patient denies shortness of breath or chest pain. Denies concerns at this visit. Reports compliant with medications. Patient reports that she is trying to lose weight and would like referral to dietitian. [facility] Medical History Pneumonia Bilateral claudication of lower limb Breast calcification, left Breast cancer screening by mammogram [facility] discharge follow-up [facility] (obstructive sleep apnea) Morbid obesity Persistent atrial fibrillation Hypokalemia Physical deconditioning CHF (congestive heart failure) Diabetes Chronic venous stasis Hypothyroid Afib HTN (hypertension) Surgical History S/P cardiac catheterization History of ankle surgery History of appendectomy S/P cholecystectomy Hx of total knee arthroplasty Family History Father EtOH dependence Social History Housing: Apartment Alcohol intake: current Alcohol intake frequency: holidays/special occasions only Patient Tobacco Use Status: Never used Tobacco e-Cigarette/Vaping Use: Never Used Second Hand Smoke Exposure: No service: No Current occupational status: disabled Cognitive needs: No Hearing needs: No Vision needs: Yes Questionnaire Thrive Questionnaire Date Thrive assessed: 09/10/22 AUDIT C Alcohol Use Questionnaire (AUDIT-C) 1. How often do you have a drink containing alcohol?: Monthly or less 2. How many drinks containing alcohol do you have on a typical day when you are drinking?: 1 or 2 3. How often do you have six or more drinks on one occasion?: Never Total Score: 1 Score Reviewed/Action Taken: No MARTITA-7 AMB Questionnaire MARTITA-7 Date MARTITA - 7 assessed: 09/10/22 Source: Developed by Drs. Jaime Moore, Kasia Manzo, Ganesh Lebron and colleagues, with an educational rick from [employer]. Review of Systems Const Denies body aches, Denies chills, Denies fever(s) and Denies headache(s) Eyes Denies change in vision ENT Denies dizziness, Denies otalgia, Denies headache(s), Denies nasal discharge, Denies sinus pain and Denies sore throat Card Denies chest pain, Denies edema, Denies lightheadedness and Denies dyspnea Resp Denies cough, Denies dyspnea and Denies wheezing GI Denies abdominal pain Denies dysuria Musc Denies myalgias and Reports arthralgias Skin/Breast Denies rash Neuro Denies dizziness and Denies headache(s) Aller/Immun Denies wheezing Physical exam (Primary Care) Vital Signs: Last Vital Signs Pulse 52 07/31/23 15:53 BP 116/74 07/31/23 15:53 Pulse Ox 96 07/31/23 15:53 Oxygen Delivery Method Room Air 07/31/23 15:53 BMI result Body Mass Index 47.9 Tobacco/Smoking Status: Tobacco use Status Tobacco use date assessed 07/31/23 07/31/23 15:53 Patient Tobacco Use Status Never used Tobacco 07/31/23 15:53 e-Cigarette/Vaping Use Never Used 07/31/23 15:53 Thrive Assessment: Date of Thrive Assessment Date Thrive assessed 09/10/22 07/31/23 15:53 Const General: cooperative and no acute distress Orientation/consciousness: patient oriented x3 HENMT Head: Yes normocephalic and Yes atraumatic Throat: Yes posterior oropharynx normal Eyes General: appearance normal, both eyes and all related structures Neck Neck: Yes normal visual inspection and Yes full ROM Resp Effort & Inspection: normal respiratory effort and able to speak in complete sentences Auscultation: clear to auscultation bilaterally, no crackles, no rales, no rhonchi and no wheezes Cardio Rate: regular rate Rhythm: abnormal rhythm irregularly irregular GI Auscultation: normal bowel sounds Skin General skin exam: no rashes or lesions noted Neuro General: patient oriented x3 Gait exam (Neuro): Normal gait present Extrem General: Yes full ROM and No edema Results AMB Hemoglobin A1c AMB Hemoglobin A1c 6.1 % Last Edit by LAURENCE Reyes on 07/31/23 17:00 Assessment and Plan Assessment & Plan (1) Depression: Code(s): F32.A - Depression, unspecified Qualifiers: Depression Type: other depression Qualified Code(s): F32.89 - Other specified depressive episodes Plan: Stable with escitalopram (2) Hypercholesterolemia: Code(s): E78.00 - Pure hypercholesterolemia, unspecified Plan: Continue atorvastatin Low-cholesterol diet (3) Hypothyroid: Code(s): E03.9 - Hypothyroidism, unspecified Plan: Continue levothyroxine (4) Hypertension: Code(s): I10 - Essential (primary) hypertension Plan: Goal BP equal or less than 140/90 Continue atenolol, Bumex, spironolactone Low-sodium diet and weight loss (5) Type 2 diabetes mellitus with hyperglycemia: Comment: Eye and lasik 10/03/2022 Code(s): E11.65 - Type 2 diabetes mellitus with hyperglycemia Plan: A1c 6.1 Reinforced low-carbohydrate diet Dietitian referral Not on prescription at this time (6) Afib: Comment: Normal left ventricular cavity size. There is mildly increased left ventricular wall thickness. The left ventricular systolic function is borderline reduced. The visually estimated ejection fraction is between 45-50%. - Moderately increased right ventricular cavity size. There is moderately decreased right ventricular systolic function. - Mildly elevated right atrial pressure. Mild to moderate pulmonary hypertension is present. - There is mild dilatation of the sinuses of Valsalva measuring 3.63 cm and mild dilatation of the ascending aorta measuring 3.90 cm. - There is a small pericardial effusion. 10/2022 Code(s): I48.91 - Unspecified atrial fibrillation Plan: Continue to follow-up with [facility] Continue atenolol and Coumadin (7) Morbid obesity: Code(s): E66.01 - Morbid (severe) obesity due to excess calories Plan: Healthy food choices and exercise as tolerated Dietitian referral (8) CHF (congestive heart failure): Code(s): I50.9 - Heart failure, unspecified Plan: Continue current treatment Continue to follow-up with geophysical drafter Orders: Orders Lipid Panel Today E78.00 - Pure hypercholesterolemia, unspecified Comprehensive [place]. Panel Fast Today E11.65 - Type 2 diabetes mellitus with hyperglycemia TSH reflex Free T4 Today E03.9 - Hypothyroidism, unspecified AMB Hemoglobin A1c Today E11.65 - Type 2 diabetes mellitus with hyperglycemia Referrals Salesperson Handbags Nutrition Referral E11.65 - Type 2 diabetes mellitus with hyperglycemia, E66.01 - Morbid (severe) obesity due to excess calories Coding Level of Care Code Est Pt Level 4 (75566) Diagnoses Other depression F32.89 Depression Type: other depression Hypercholesterolemia E78.00 Hypothyroid E03.9 Hypertension I10 Type 2 diabetes mellitus with hyperglycemia E11.65 Afib I48.91 Morbid obesity E66.01 CHF (congestive heart failure) I50.9
== END 2023-07-31 16:27 | disposition home or self-care (01) ==
PROVIDERS: PCP Internal Medicine; Visit Provider Nurse Practitioner Family
DX: E11.65 Type 2 diabetes mellitus with hyperglycemia (principal); I50.9 Heart failure, unspecified; I48.91 Unspecified atrial fibrillation; E66.01 Morbid (severe) obesity due to excess calories; Z68.42 Body mass index [BMI] 45.0-49.9, adult; F32.89 Other specified depressive episodes; E78.00 Pure hypercholesterolemia, unspecified; E03.9 Hypothyroidism, unspecified; I10 Essential (primary) hypertension
CPT/HCPCS: 83036; 99214

== ENCOUNTER 2023-08-07 13:32 | Outpatient (AMB) | payer MEDICARE, SELFPAY ==
[2023-08-07 13:40] LABS: Prothrombin Time Whole Bld POC 17.8 sec (11.1-13.5); ~PT, ~INR - Anti Coag Clinic 1.5 (0.9-1.1)
--- NOTE | 2023-08-07 13:40 | MHC.OFFVISCO ---
Intake Intake Visit Reasons: Anticoagulation Allergies codeine [CODEINE] Allergy (Intermediate, Verified 08/07/23 13:35) CHEST PAIN Medication List - Last Reconciled 08/07/23 by Margo Briceno RN acetaminophen 500 mg PO Q6H atenolol 50 mg PO DAILY 90 days atorvastatin 20 mg PO BEDTIME blood sugar diagnostic (FreeStyle Lite Strips) As directed check the BS QD blood-glucose meter (FreeStyle Lite Meter kit) As directed bumetanide 3 mg (1.5 x 2 mg) PO BID 90 days escitalopram oxalate 20 mg PO DAILY gabapentin 300 mg PO DAILY lancets (FreeStyle Lancets) As directed check BS QD levothyroxine 50 mcg PO QAM magnesium oxide 400 mg PO DAILY omeprazole 20 mg PO BEDTIME 90 days ondansetron 8 mg PO Q8H PRN oxycodone 5 mg PO BID PRN spironolactone 12.5 mg (1/2 x 25 mg) PO DAILY 90 days walker (Ultra-Light Rollator misc) As directed warfarin See Protocol 2 mg orally 4mg x 2 days , 3mg x 5 days; Nursing Note INR 1.5-?? out of therapeutic range of 2-3 denies missed dose Medications and supplements reviewed Patient status: pt prev inr last week 4.7 Medications or supplements: no changes Diet: same, had greens Denies any signs and symptoms of bleeding or clotting or unusual bruising Bleeding, bruising, clotting discussed - aware at risk for clotting Nutritional guidance given: no greens for 2-3 days, eat reds to raise inr Dose: 5mg today then 3mg x 6, 4mg x 1 F/U INR Date : fri08/11/23?? Patient verbalizing understanding of instructions given. pcp office dr robledo called with low inr/dosing and f/u appt. ? 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
== END 2023-08-07 14:26 | disposition home or self-care (01) ==
LOC: HO.ACS 13:32
PROVIDERS: PCP Internal Medicine; Visit Provider Internal Medicine
DX: Z79.01 Long term (current) use of anticoagulants (principal)

== ENCOUNTER → 2023-08-07 13:32 | Outpatient (BNVA) | payer MEDICARE, SELFPAY | PROVIDERS: PCP Internal Medicine; Visit Provider Internal Medicine | DX: I48.0 Paroxysmal atrial fibrillation (principal); Z79.01 Long term (current) use of anticoagulants; Z51.81 Encounter for therapeutic drug level monitoring | CPT/HCPCS: 85610; 99211 ==

== ENCOUNTER 2023-08-11 08:01 | Outpatient (AMB) | payer MEDICARE, SELFPAY ==
--- NOTE | 2023-08-11 08:06 | MHC.OFFVISCO ---
Intake Intake Visit Reasons: Anticoagulation Allergies codeine [CODEINE] Allergy (Intermediate, Verified 08/11/23 08:02) CHEST PAIN Medication List - Last Reconciled 08/11/23 by Meme Villalobos RN acetaminophen 500 mg PO Q6H atenolol 50 mg PO DAILY 90 days atorvastatin 20 mg PO BEDTIME blood sugar diagnostic (FreeStyle Lite Strips) As directed check the BS QD blood-glucose meter (FreeStyle Lite Meter kit) As directed bumetanide 3 mg (1.5 x 2 mg) PO BID 90 days escitalopram oxalate 20 mg PO DAILY gabapentin 300 mg PO DAILY lancets (FreeStyle Lancets) As directed check BS QD levothyroxine 50 mcg PO QAM magnesium oxide 400 mg PO DAILY omeprazole 20 mg PO BEDTIME 90 days ondansetron 8 mg PO Q8H PRN oxycodone 5 mg PO BID PRN spironolactone 12.5 mg (1/2 x 25 mg) PO DAILY 90 days walker (Ultra-Light Rollator misc) As directed warfarin See Protocol 2 mg orally 4mg x 2 days , 3mg x 5 days; Nursing Note pt visit delaye ue to interfacing discussed DOAC possiblity due labile INR INR: 1.9almost therapeutic range Medications and supplements reviewed No changes in health, diet, medications, or supplements, Denies any signs and symptoms of bleeding or bruising or clotting. Bleeding, bruising, clotting discussed Nutritional guidance given- avoid greens x 2 days, eat orange and reds to help raise the INR Dose: 4mg today then 3mg x 6days F/U INR: 1 week Patient verbalizes understanding of instructions given Anti-Coag Initial Assessment Social Hx Patient Tobacco Use Status: Never used Tobacco alcohol intake: current Alcohol intake frequency: holidays/special occasions only Coding Level of Care Code Est Patient Level 1 Diagnoses Current use of anticoagulant therapy Z79.01 Results AMB INR Fingerstick AMB INR Fingerstick 1.9 Last Edit by Meme Villalobos RN on 08/11/23 08:10 manual entry Assessment & Plan Assessment & Plan (1) Current use of anticoagulant therapy: Code(s): 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
[2023-08-11 08:11] LABS: Prothrombin Time Whole Bld POC 22.2 sec (11.1-13.5); ~PT, ~INR - Anti Coag Clinic 1.9 (0.9-1.1)
== END 2023-08-11 08:33 | disposition home or self-care (01) ==
PROVIDERS: PCP Internal Medicine; Visit Provider Internal Medicine
DX: Z79.01 Long term (current) use of anticoagulants (principal)

== ENCOUNTER → 2023-08-11 08:01 | Outpatient (BNVA) | payer MEDICARE, SELFPAY | PROVIDERS: PCP Internal Medicine; Visit Provider Internal Medicine | DX: I48.0 Paroxysmal atrial fibrillation (principal); Z79.01 Long term (current) use of anticoagulants; Z51.81 Encounter for therapeutic drug level monitoring | CPT/HCPCS: 85610; 99211 ==

== ENCOUNTER 2023-08-21 08:47 | Outpatient (REF) | payer MEDICARE, SELFPAY ==
--- NOTE | ~2023-08-21 | MM_ITS ---
EXAMINATION: MM DIAGNOSTIC DIGITAL BREAST TOMOSYNTHESIS, RIGHT CLINICAL INFORMATION: 6 month (second) follow-up for calcifications right breast inferomedial aspect, anterior one third. COMPARISON: Mammography: 02/06/2023, 07/01/2022, 06/20/2022, 01/23/2019, 01/20/2018. TECHNIQUE: Digital breast tomosynthesis is performed in both the craniocaudal and mediolateral oblique views along with computer-aided detection (CAD). Synthesized 2D images are generated from the tomosynthesis. In addition to standard views, 2-D spot magnification right CC and right ML views were obtained. FINDINGS: There are scattered areas of fibroglandular density (ACR BI-RADS breast composition Category b). The calcifications in question in the anterior medial right breast, anterior one third, are stable without significant change and remain probably benign. An additional 1 year follow-up recommended to include standard magnification views. There are bilateral vascular calcifications. Calcifications in the far lateral right breast with an associated subtle density are unchanged from 2019 and benign. No suspicious findings in the left breast. MM/MM tomosynthesis diagnostic BI IMPRESSION: Stable calcifications in the lower inner right breast anterior one third, which remain probably benign. One-year follow-up recommended to include standard magnification views. No suspicious findings in the left breast. Benign findings in the right breast. ASSESSMENT: BI-RADS BI-RADS 3 - Probably benign finding(s) - 12 month follow-up suggested RECOMMENDATION: 12 month diagnostic follow up Results were provided to the patient at time of visit by the technologist. This patient's information was entered into a reminder system with a target due date for their next mammogram.
--- NOTE | ~2023-08-21 | MM_ITS ---
EXAMINATION: BONE DENSITOMETRY CLINICAL INDICATION: Age-related osteoporosis without current pathological fracture. COMPARISON: Previous BD dated 07/12/2010 and baseline BD dated 03/11/2008. TECHNIQUE: Using a [employer] DXA System (software version: 13.1) manufactured by [employer], dual-energy x-ray absorptiometry was performed of the lumbar spine and left hip. The images are of good technical quality. Summary results are attached. FINDINGS: LEFT FEMUR, NECK: Current: BMD 0.758 g/cm2, Z-score -1.3, T-score -2.0, osteopenia. Prior: BMD 0.881 g/cm2. Baseline: BMD 0.881 g/cm2. LEFT FEMUR, TOTAL: Current: BMD 0.757 g/cm2, Z-score -1.6, T-score -2.0, osteopenia, 16.5% decrease from previous, 23.1% decrease from baseline (<5% change is not significant). Prior: BMD 0.907 g/cm2. Baseline: BMD 0.984 g/cm2. AP SPINE L1-L4: Current: BMD 1.048 g/cm2, Z-score -0.7, T-score -1.1, osteopenia, 2.1% decrease from previous, 4.6% decrease from baseline (<5% change is not significant). Prior: BMD 1.070 g/cm2. Baseline: BMD 1.098 g/cm2. IDENTIFIED RISK FACTORS: Menopause, history of fracture (adult), recurrent falls, low calcium intake, parental hip fracture. HISTORY OF FRACTURE: Wrist. Other. MEDICATIONS: None listed. MM/XR DEXA axial skeleton IMPRESSION: 1. DIAGNOSIS: Osteopenia based on the lowest T-score value of -2.0 in the femoral neck and total femur applying World Health Organization criteria. 2. 10-YEAR FRACTURE RISK PREDICTION, FRAX: Major osteoporotic fracture (clinical spine, forearm, hip or shoulder) 26.4%. Hip fracture 2.6%. 3. Treatment Recommendations: NOF guidelines recommend consideration for treatment in postmenopausal women and men age 50 and older presenting with the following: -A hip or vertebral (clinical or morphometric) fracture. -T-score less than or equal to -2.5 at the femoral neck or spine after appropriate evaluation to exclude secondary causes. -Low bone mass at the hip or spine and a 10-year fracture probability by FRAX of greater than or equal to 3% for hip fracture or greater than or equal to 20% for major osteoporotic fracture based on the [place] adapted WHO algorithm. 4. Other Recommendations: All treatment decisions require clinical judgment and consideration of individual patient factors, including patient preferences, comorbidities, previous drug use, risk factors not captured in the FRAX model (e.g. frailty, falls, vitamin D deficiency, increased bone turnover, interval significant decline in bone density) and possible under or overestimation of fracture risk by FRAX. Additional medical evaluation for secondary cause of low bone mineral density may be appropriate. FUTURE SCAN RECOMMENDATION: People with diagnosed cases of osteoporosis or at high risk for fracture should have regular bone mineral density tests. For patients eligible for Medicare, routine testing is allowed once every 2 years. The testing frequency can be increased to one year for patients who have rapidly progressing disease, those who are receiving or discontinuing medical therapy to restore bone mass, or have additional risk factors.
== END 2023-08-21 08:48 | disposition home or self-care (01) ==
LOC: HO.MAMMO 08:47
PROVIDERS: PCP Internal Medicine; Visit Provider Internal Medicine
DX: R92.1 Mammographic calcification found on diagnostic imaging of breast (principal); M81.0 Age-related osteoporosis without current pathological fracture
CPT/HCPCS: 77062; 77066; 77080

== ENCOUNTER → 2023-08-21 08:49 | Outpatient (BNV) | payer MEDICARE, SELFPAY | PROVIDERS: PCP Internal Medicine; Visit Provider Radiology Diagnostic Radiology | DX: R92.0 Mammographic microcalcification found on diagnostic imaging of breast (principal) | CPT/HCPCS: 77066; G0279 ==

== ENCOUNTER 2023-09-11 13:31 | Outpatient (AMB) | payer MEDICARE, MEDICAID, SELFPAY ==
--- NOTE | 2023-09-11 13:33 | MHC.OFFVIS ---
Intake Vital Signs 09/11/23 13:34 Height 5 ft 2 in Weight 268 lb 2 oz BMI 49.0 BP 140/68 H Blood Pressure Location Rt brachial Pulse 67 Pulse Source Pulse Oximeter Pulse Oximetry (%) 97 Oxygen Delivery Method Room Air Intake Visit Reasons: I-LOG SAWYER: Sleep Apnea Eval for [facility] -Conf Allergies codeine [CODEINE] Allergy (Intermediate, Verified 09/11/23 13:37) CHEST PAIN HPI HPI Comments History of Present Illness Details 68 y/o female patient presents for new in-person visit to manage sleep apnea. Pt reports she was diagnosed with mild degree of sleep apnea, and recommended wt loss and position therapy to manage sleep apnea. She lost 18 lb since the last sleep study. However, she continues to have gasping arousals, difficulty breathing, non refreshing sleep with daytime sleepiness. She feels tired and takes a nap all the time. Sleep questionnaire: Have you ever been diagnosed with a sleep disorder? Yes. Have you ever had a sleep study in the past? Yes, home sleep study. Have you ever been treated for a sleep disorder? No. Do you take medications for a sleep disorder? No. Do you snore? No. Do you wake up gasping at night? Yes, having hard time breathing. Do you have episodes of apneas? Yes. If yes, are they witnessed? Yes. Do you have episodes of nocturnal chest pain or dyspnea? Yes. Do you have difficulty initiating sleep? Yes. Do you have difficulty maintaining sleep? Yes. Do you wake up tired? Yes. Do you have headaches upon awakening? Yes. Do you wake up with dry mouth or throat? Yes. Do you have GERD? Yes. Do you have nocturia? Yes. Do you have nocturnal leg cramps? Yes. Do you have symptoms of restless legs? Yes. Do you act out your dreams? No. Sleep hygiene questionnaire: What is your usual sleep routine? N/A Usual bedtime is at ; Usual wake up time is at 7 am . Do you take naps? Yes. Is your sleep environment cool, dark, and quiet? Yes. Do you exercise? Yes. Do you take caffeine or other stimulants? Sometimes. Do you use electronics in bed? Yes. What is your work schedule? N/A. Hypersomnolence questionnaire: Do you have daytime tiredness or fatigue? Yes. Do you easily fall asleep when inactive? Yes. Have you ever had episodes of sudden weakness? No. Have you ever had episodes of sudden weakness associated with strong emotions? No. PFSH Medical History Pneumonia Bilateral claudication of lower limb Breast calcification, left Breast cancer screening by mammogram [facility] discharge follow-up [facility] (obstructive sleep apnea) Morbid obesity Persistent atrial fibrillation Hypokalemia Physical deconditioning CHF (congestive heart failure) Diabetes Chronic venous stasis Hypothyroid Afib HTN (hypertension) Surgical History S/P cardiac catheterization History of ankle surgery History of appendectomy S/P cholecystectomy Hx of total knee arthroplasty Family History Father EtOH dependence Social History Housing: Apartment Alcohol intake: current Alcohol intake frequency: holidays/special occasions only Patient Tobacco Use Status: Never used Tobacco e-Cigarette/Vaping Use: Never Used Second Hand Smoke Exposure: No service: No Current occupational status: disabled Cognitive needs: No Hearing needs: No Vision needs: Yes Review of Systems Const All systems reviewed & are unremarkable except as noted in HPI and below Physical Exam Vital Signs: Last Vital Signs Pulse 67 09/11/23 13:34 BP 140/68 H 09/11/23 13:34 Pulse Ox 97 09/11/23 13:34 Oxygen Delivery Method Room Air 09/11/23 13:34 BMI result Body Mass Index 49.0 Const General: cooperative Nutritional Appearance: obese Orientation/consciousness: patient oriented x3 Neck Neck: Yes full ROM and Yes supple Resp Effort & Inspection: normal respiratory effort and able to speak in complete sentences Neuro General: patient oriented x3 and moves all extremities Cranial nerves: Yes CN's II-XII intact bilaterally Cognition (Neuro): normal cognition Psych Appearance: grossly normal Mental Status: mental status grossly normal Speech and movement: Normal speech and movement present Affect: normal affect Attitude: cooperative Assessment & Plan Assessment & Plan (1) Obesity, Class III, BMI 40-49.9 (morbid obesity): Code(s): E66.01 - Morbid (severe) obesity due to excess calories (2) Sleep disorder breathing: Code(s): G47.30 - Sleep apnea, unspecified (3) Morbid obesity: Code(s): E66.01 - Morbid (severe) obesity due to excess calories (4) Hx of sleep apnea: Code(s): Z86.69 - Personal history of other diseases of the nervous system and sense organs Plan Pt is advised to undergo in lab sleep study to assess for sleep apnea. Will f/u with pt after study to discuss results and appropriate treatment options. Wt reudction advised. Pt to call with any worsening concerns or questions. Orders: Orders RT PSG in-lab sleep study 09/11/23 E66.01 - Morbid (severe) obesity due to excess calories, G47.30 - Sleep apnea, unspecified, I25.10 - Atherosclerotic heart disease of [place] coronary artery without angina pectoris, I42.9 - Cardiomyopathy, unspecified, I50.9 - Heart failure, unspecified, Z98.890 - Other specified postprocedural states Coding Level of Care Code New Pt Level 3 (06117) Diagnoses Obesity, Class III, BMI 40-49.9 (morbid obesity) E66.01 Sleep disorder breathing G47.30 Morbid obesity E66.01 Hx of sleep apnea Z86.69
[2023-09-11 13:34] VITALS: BP 140/68; PULSE 67; O2SAT 97; BMI 49.0
== END 2023-09-11 14:18 | disposition home or self-care (01) ==
PROVIDERS: PCP Internal Medicine; Visit Provider Nurse Practitioner Family
DX: E66.01 Morbid (severe) obesity due to excess calories (principal); G47.30 Sleep apnea, unspecified; Z86.69 Personal history of other diseases of the nervous system and sense organs
CPT/HCPCS: 99203; 99213

== ENCOUNTER → 2023-09-11 13:31 | Outpatient (BNVA) | payer MEDICARE, MEDICAID, SELFPAY | PROVIDERS: PCP Internal Medicine; Visit Provider Nurse Practitioner Family | DX: G47.30 Sleep apnea, unspecified (principal); E66.01 Morbid (severe) obesity due to excess calories; Z86.69 Personal history of other diseases of the nervous system and sense organs; Z68.42 Body mass index [BMI] 45.0-49.9, adult | CPT/HCPCS: 99202 ==

== ENCOUNTER 2023-09-18 10:32 | Outpatient (AMB) | payer MEDICARE, SELFPAY ==
--- NOTE | 2023-09-18 10:49 | A.OFFVIS_ITS ---
Intake VS Expanded 09/18/23 10:53 10/01/23 08:32 Height 5 ft 2 in 5 ft 2 in Weight 274 lb 11.135 oz 275 lb 2.19 oz BMI 50.2 50.3 Intake Visit Reasons: obesity, dm2/CONFIRMED Allergies codeine [CODEINE] Allergy (Intermediate, Verified 09/11/23 13:37) CHEST PAIN HPI Nutrition Presentation Details Pt presents for MNT for T2DM with morbid obesity. The Pt was referred by Isa Regalado, PCP at [facility] [place] Typical meal intake 7 am water 12: Participates from [employer] p rogram Snacks on fruit Noodles or rash potatoes with chicken Food frequency fish : 2 x/day juice: 2 x/d ( orange/cranberry Dairy: yoplait/grilled cheese/milk at lunch, cheese added to vegetables fried 2x/wk chicken tenders eating out : [employer] ( chicken finger) once a week canned soup 4 times ( chicken noodles Physical activity: Sedentary Alcohol intake:------- Hemoglobin A1c: 6.1% on August 2023 JEY-Ihlnpqu-Gd.Jeor Equation Height 5 ft 2 in Weight 275 lb Resting Metabolic Rate 1744.66 Calculated Activity Level Sedentary Calories Needed to Maintain Weight 2093.59 Diagnosis Nutrition problem #1 excessive energy intake As related to (etiology) #1 lack of nutrit education and physical inactivity As evidenced by (sign/symptom) #1 high BMI (50.3 on September 2023) and knowledge deficit of diet Monitoring/Goals Nutrition problem monitoring level of knowledge/skill, total PRO intake, total CHO intake and weight Learning/Education Readiness to learn good Stages of change preparation Educational materials provided Yes (Meal planning) Most Recent Diabetes Results: No Data to Display [facility] Medical History Pneumonia Bilateral claudication of lower limb Breast calcification, left Breast cancer screening [facility] (obstructive sleep apnea) Morbid obesity Persistent atrial fibrillation Hypokalemia Physical deconditioning CHF (congestive heart failure) Diabetes Chronic venous stasis Hypothyroid Afib HTN (hypertension) Surgical History S/P cardiac catheterization History of ankle surgery History of appendectomy S/P cholecystectomy Hx of total knee arthroplasty Family History Father EtOH dependence Social History Housing: Apartment Alcohol intake: current Alcohol intake frequency: holidays/special occasions only Patient Tobacco Use Status: Never used Tobacco e-Cigarette/Vaping Use: Never Used Second Hand Smoke Exposure: No service: No Current occupational status: disabled Cognitive needs: No Hearing needs: No Vision needs: Yes Assessment & Plan Assessment & Plan (1) Type 2 diabetes mellitus with hyperglycemia: Comment: A1c at 6.1% on July 2023, BMI at 50.3 on September 2023 Code(s): E11.65 - Type 2 diabetes mellitus with hyperglycemia Plan: Wt: 125 Kg ( 09/2023 ) Est kcal needs as per MSJ: 2100 (40% carb, 30% protein/fat) Est fluid needs as per 30 ml/d: 3700 (unless otherwise specified by MD, related to history of CHF Est prot per day as per 1 g/kg bw: 125 Recommend fiber intake : 8-10 g per day and gradually increase to 25-28 g per day for women and 35-38 g for men or as tolerated Recommend sodium intake per day : less than 2000 mg Educated patient on: ( R = reviewed V = verbalizes understanding N/R = needs review N/A = not applicable * Food sources of carbohydrate, adequate serving sizes and its role in various health conditions: R * Differences between complex carbohydrates a simple carbohydrates, role of fiber in diet: R * Lean protein sources of foods: R * Differences between types of fats and role in diet (mono on saturated fat fatty acids, saturated fatty acids, trans fats): R basic low-fat * Food sources of sodium in salt and healthy modifications for heart health in kidney health: R * Vitamins and minerals: N/R * Healthy plate method concept: R * Physical activity: Benefits a precaution: N/R * Hypoglycemia protocol (rule of 15): R * Dietary prevention of Hyperglycemia: R (2) Morbid obesity: Code(s): E66.01 - Morbid (severe) obesity due to excess calories Plan: Work on reducing salty foods and reducing total amount carbohydrates to less than 60 g at mealtime Patient Instructions: Practice mindful eating keep a food record with meals, snacks, beverages, and time of food, beverage consumed Be mindful of portion sizes and total amount of carbohydrates reducing total carbs to 60 g or less at the meal Coding Level of Care Code Nutr Indiv Intake (82002) Diagnoses Type 2 diabetes mellitus with hyperglycemia E11.65 Morbid obesity E66.01 Time Spent (min) 30
[2023-09-18 10:53] VITALS: BMI 50.2
[2023-10-01 08:32] VITALS: BMI 50.3
== END 2023-09-18 11:34 | disposition home or self-care (01) ==
PROVIDERS: PCP Internal Medicine; Visit Provider Dietitian, Registered
DX: E11.65 Type 2 diabetes mellitus with hyperglycemia (principal); E66.01 Morbid (severe) obesity due to excess calories

== ENCOUNTER → 2023-09-18 10:32 | Outpatient (BNVA) | payer MEDICARE, SELFPAY | PROVIDERS: PCP Internal Medicine; Visit Provider Dietitian, Registered | DX: E11.65 Type 2 diabetes mellitus with hyperglycemia (principal); E66.01 Morbid (severe) obesity due to excess calories; Z68.43 Body mass index [BMI] 50.0-59.9, adult | CPT/HCPCS: 97802 ==

== ENCOUNTER 2023-10-15 10:10 | Outpatient (REF) | payer MEDICARE, SELFPAY ==
[2023-10-15 11:25] LABS: Alanine Aminotransferase 18 U/L (0-31); Albumin Level 4.2 g/dL (3.5-5.0); Alkaline Phosphatase 108 U/L (39-117); Anion Gap 14 (12-20); Aspartate Amino Transferase 20 U/L (5-31); Bilirubin Total 0.8 mg/dL (0.0-1.0); Blood Urea Nitrogen 29 mg/dL (9-16); Calcium 9.9 mg/dL (8.4-10.2); Carbon Dioxide 34 mmol/L (22-29); Chloride 99 mmol/L (96-108); Cholesterol 179 mg/dL (<200); Estimated Glomerular Filt Rate 39; Glucose Fasting 124 mg/dL (60-99); HDL Cholesterol 40 mg/dL (>40); LDL Cholesterol Calculated 104 mg/dL (<100); Potassium 5.1 mmol/L (3.3-5.1); Sodium 142 mmol/L (135-145); Total Protein 7.8 g/dL (6.5-8.0); Triglycerides 175 mg/dL (<150)
[2023-10-15 11:40] LABS: TSH reflex Free T4 3.24 uIU/mL (0.32-4.0)
== END 2023-10-15 10:11 | disposition home or self-care (01) ==
LOC: HO.LAB 10:10
PROVIDERS: PCP Internal Medicine; Visit Provider Nurse Practitioner Family
DX: E11.65 Type 2 diabetes mellitus with hyperglycemia (principal); E03.9 Hypothyroidism, unspecified; E78.00 Pure hypercholesterolemia, unspecified
CPT/HCPCS: 36415; 80053; 80061; 84443

== ENCOUNTER 2023-10-16 16:02 | Outpatient (AMB) | payer MEDICARE, SELFPAY ==
[2023-10-16 16:08] VITALS: BP 124/74; PULSE 59; O2SAT 97; BMI 49.6
--- NOTE | 2023-10-16 16:08 | A.OFFPC_ITS ---
Vital Signs 10/16/23 16:08 Height 5 ft 2 in Weight 271 lb BMI 49.6 BP 124/74 Blood Pressure Location Lt brachial Position Sitting Pulse 59 Pulse Source Pulse Oximeter Pulse Oximetry (%) 97 Oxygen Delivery Method Room Air Intake Visit Reasons: Med Follow up Material Hauler Required: No Doctor Of Nurse Anesthesia Practice: Not Required per policy Accompanied by: Self / Same As Patient Allergies codeine [CODEINE] Allergy (Intermediate, Verified 10/16/23 16:08) CHEST PAIN Tobacco use date assessed: 10/16/23 Fall risk assessment: No Falls in past year Last assessed Fall Risk: 10/16/23 Dental Screening Dental Screen Date: 10/16/23 Did you have a dental visit in the last 12 months?: Yes Did you have a dental problem in the last 6 months where you did not have access to dental care?: No Was dental information given to patient?: Patient has dentist HPI Med Follow up HPI Details 68-year-old morbidly obese female with d iabetes mellitus hypertension hypothyroidism hypercholesterolemia cardiomyopathy osteopenia last seen in March 2023. Patient is here for follow-up. Recently referred to Neurology for the problem of sleep apnea advised to get in-lab sleep study. Patient was also sent to pain management in August 2023 for the lower back and knee pain patient has been advised oxycodone 5 mg twice a day patient also on gabapentin 300 mg 3 times a day. Patient also last so the nurse practitioner in July 2023 for atrial fibrillation patient's last echocardiogram October 2022 ejection fraction 45-50% ascending aorta measures 3.9. Patient also saw Cardiology in July diagnosis of mild cardiomyopathy with RV dysfunction cardiac catheterization showing 50% lad stenosis severe pulmonary hypertension advised Bumex 3 mg twice a day [facility] Medical History Pneumonia Bilateral claudication of lower limb Breast calcification, left Breast cancer screening by mammogram [facility] discharge follow-up [facility] (obstructive sleep apnea) Morbid obesity Persistent atrial fibrillation Hypokalemia Physical deconditioning CHF (congestive heart failure) Diabetes Chronic venous stasis Hypothyroid Afib HTN (hypertension) Surgical History S/P cardiac catheterization History of ankle surgery History of appendectomy S/P cholecystectomy Hx of total knee arthroplasty Family History Father EtOH dependence Social History Housing: Apartment Alcohol intake: current Alcohol intake frequency: holidays/special occasions only Patient Tobacco Use Status: Never used Tobacco e-Cigarette/Vaping Use: Never Used Second Hand Smoke Exposure: No service: No Current occupational status: disabled Cognitive needs: No Hearing needs: No Vision needs: Yes Questionnaire PHQ-9 Over the last 2 weeks, how often have you been bothered by any of the following problems? 1. Little interest or pleasure in doing things: not at all 2. Feeling down, depressed, or hopeless: nearly every day 3. Trouble falling or staying asleep, or sleeping too much: nearly every day 4. Feeling tired or having little energy: nearly every day 5. Poor appetite or overeating: several days 6. Feeling bad about yourself - or that you are a failure or have let yourself or your family down: several days 7. Trouble concentrating on things, such as reading the newspaper or watching television: more than half the days 8. Moving or speaking so slowly that other people could have noticed. Or the opposite - being so fidgety or restless that you have been moving around a lot more than usual: not at all 9. Thoughts that you would be better off or of hurting yourself in some way : not at all Total score: 13 Depression Screening Interpretation: Positive Depression Screening Follow-up: Community Mental Health Worker F/U Depression Screening Done: Yes 18826 - PHQ-9 Billing: Yes Source: Developed by Drs. Jaime Moore, Kasia Manzo, Ganesh brooks nd colleagues, with an educational rick from [employer]. Thrive Questionnaire Date Thrive assessed: 10/16/23 I am a: Patient What is your living situation today?: I have a steady place to live Within the past 12 months, did the food you bought not last and you didn't have the money to get more?: Never true Within the past 12 months, did you worry whether your food would run out before you got money to buy more?: Never true Do you have trouble paying for medicines?: No Do you have trouble getting transportation to medical appointments?: No Do you have trouble paying your heating and electricity bill?: No Do you have trouble taking care of your child, family member or friend?: No Do you have trouble with day-to-day activities such as bathing, preparing meals, shopping, managing finances, etc.?: No Are you currently unemployed and looking for a job?: No Are you interested in more education?: No Please select the resources that you would like help with: None THRIVE Score: 0 AUDIT C Alcohol Use Questionnaire (AUDIT-C) 1. How often do you have a drink containing alcohol?: Monthly or less 2. How many drinks containing alcohol do you have on a typical day when you are drinking?: 1 or 2 3. How often do you have six or more drinks on one occasion?: Never Total Score: 1 Score Reviewed/Action Taken: No MARTITA-7 AMB Questionnaire MARTITA-7 Date MARTITA - 7 assessed: 10/16/23 Feeling nervous, anxious, or on edge: 0 = Not at all Not being able to stop or control worryin = Not at all Worrying too much about different things: 0 = Not at all Trouble relaxin = Not at all Being so restless that it is hard to sit still: 0 = Not at all Becoming easily annoyed or irritable: 0 = Not at all Feeling afraid as if something awful might happen: 0 = Not at all Total MARTITA-7 score (0-4 normal; 5-9 mild; 10-14 moderate; 15-21 severe): 0 Source: Developed by Drs. Jaime Moore, Kasia Manzo, Ganesh Lebron and colleagues, with an educational rick from [employer]. Physical exam (Primary Care) Vital Signs: Last Vital Signs Pulse 59 10/16/23 16:08 BP 124/74 10/16/23 16:08 Pulse Ox 97 10/16/23 16:08 Oxygen Delivery Method Room Air 10/16/23 16:08 BMI result Body Mass Index 49.6 Tobacco/Smoking Status: Tobacco use Status Tobacco use date assessed 10/16/23 10/16/23 16:09 Patient Tobacco Use Status Never used Tobacco 10/16/23 16:09 e-Cigarette/Vaping Use Never Used 10/16/23 16:09 PHQ-9: PHQ-9 Score PHQ-9: Total score 13 10/16/23 16:09 Depression Screening Interpretation: Positive Depression Screening Follow-up: Community Mental Health Worker F/U Thrive Assessment: Date of Thrive Assessment Date Thrive assessed 10/16/23 10/16/23 16:09 Const General: alert; No acute distress Eyes Conjunctivae: conjunctivae normal Resp Auscultation: clear to auscultation bilaterally Cardio Rate: regular rate Rhythm: regular rhythm GI Inspection: Yes normal to inspection Extrem General: Yes normal to inspection and No edema Assessment and Plan Assessment & Plan (1) Type 2 diabetes mellitus with hyperglycemia: Comment: A1c at 6.1% on July 2023, BMI at 50.3 on September 2023 Code(s): E11.65 - Type 2 diabetes mellitus with hyperglycemia Plan: Decrease the amount of carbohydrate intake, pasta, bread, rice and potatoes are all sugar and that is aside from all the sweet stuff, remember that fruits are good but they are Sweet also. Hemoglobin A1c goal of less than 7.0. Patient is on diet control (2) Hx of sleep apnea: Code(s): Z86.69 - Personal history of other diseases of the nervous system and sense organs Plan: Patient has met with a neurologist and sleep study requested in lab awaiting call for scheduling (3) Obesity, Class III, BMI 40-49.9 (morbid obesity): Code(s): E66.01 - Morbid (severe) obesity due to excess calories Plan: Diet and exercise (4) S/P cardiac catheterization: Comment: 03/11/2023, mid LAD 50% stenosis, IFR 0.97, wedge 19, PA pressure is 62/42/28, RA 14 Code(s): Z98.890 - Other specified postprocedural states Plan: CAD but nonobstructive Control the cholesterol, weight, blood pressure, diabetes (5) Cardiomyopathy: Code(s): I42.9 - Cardiomyopathy, unspecified Plan: Control the cholesterol, weight, blood pressure, diabetes patient follows up with Cardiology (6) Hypercholesterolemia: Code(s): E78.00 - Pure hypercholesterolemia, unspecified Plan: Avoid fried foods, chicken skin, eggs, butter margarine, pastries and meat. Be it pork or beef they have a lot of cholesterol LDL goal of less than 70 and triglyceride of less than 150. Patient has atorvastatin 20 mg at bedtime. Will increase atorvastatin (7) Hypothyroid: Code(s): E03.9 - Hypothyroidism, unspecified Plan: Continue with thyroid medication (8) Hypertension: Code(s): I10 - Essential (primary) hypertension Plan: Continue with blood pressure medication. Decrease salt intake and exercise patient on spironolactone atenolol 50 mg once a day Orders: Orders AMB Hemoglobin A1c Today E11.65 - Type 2 diabetes mellitus with hyperglycemia Lipid Panel 3 Months E78.00 - Pure hypercholesterolemia, unspecified Comprehensive Met. Panel 3 Months E78.00 - Pure hypercholesterolemia, unspecified Medications: Changed From atorvastatin 20 mg PO BEDTIME 90 tabs 3RF E78.00 - Pure hypercholesterolemia, unspecified To atorvastatin 40 mg PO BEDTIME 30 tabs 3RF E78.00 - Pure hypercholesterolemia, unspecified Refilled oxycodone 5 mg PO BID PRN 60 tabs 0RF pain M17.9 - Osteoarthritis of knee, unspecified oxycodone 5 mg PO BID PRN 55 tabs 0RF pain M17.9 - Osteoarthritis of knee, unspecified Discontinued enoxaparin (Lovenox) Discontinued Reason: Doctor's Order 120 mg (0.8 mL) subcut Q12H 8 mL 1RF I48.91 - Unspecified atrial fibrillation Coding Level of Care Code Est Pt Level 4 (63501) Diagnoses Type 2 diabetes mellitus with hyperglycemia E11.65 Hx of sleep apnea Z86.69 Obesity, Class III, BMI 40-49.9 (morbid obesity) E66.01 S/P cardiac catheterization Z98.890 Cardiomyopathy I42.9 Hypercholesterolemia E78.00 Hypothyroid E03.9 Hypertension I10
== END 2023-10-16 17:37 | disposition home or self-care (01) ==
PROVIDERS: PCP Internal Medicine; Visit Provider Internal Medicine
DX: E11.65 Type 2 diabetes mellitus with hyperglycemia (principal)
CPT/HCPCS: 83036; 99214

== ENCOUNTER 2023-10-22 09:07 | Outpatient (AMB) | payer MEDICARE, SELFPAY ==
[2023-10-22 09:12] VITALS: BMI 49.2
--- NOTE | 2023-10-22 09:12 | A.OFFVIS_ITS ---
Intake VS Expanded 10/22/23 09:12 Height 5 ft 2 in Weight 269 lb 2.951 oz BMI 49.2 Intake Visit Reasons: T2DM, obesity/CONFIRMED Allergies codeine [CODEINE] Allergy (Intermediate, Verified 10/16/23 16:08) CHEST PAIN HPI Nutrition Presentation Details Pt presents for MNT for T2DM and obesity. Pt reports working on small but consistent diet modifications: reducing on fried foods/batter, having water/low sugar/low sodium beverages and 5 min physical activity (bike) daily -consistently Pt receives meals on wheels -reports consuming 90% of the meal Has breakfast choosing egg/egg white and a fruit Most Recent Diabetes Results: Cholesterol 179 mg/dL (<200) 10/15/23 HDL Cholesterol 40 mg/dL (>40) L 10/15/23 Triglycerides 175 mg/dL (<150) H 10/15/23 Creatinine 1.37 mg/dL (0.5-1.4) 10/15/23 Blood Urea Nitrogen 29 mg/dL (9-16) H 10/15/23 Sodium 142 mmol/L (135-145) 10/15/23 Potassium 5.1 mmol/L (3.3-5.1) 10/15/23 Chloride 99 mmol/L (96-108) 10/15/23 Carbon Dioxide 34 mmol/L (22-29) H 10/15/23 Calcium 9.9 mg/dL (8.4-10.2) 10/15/23 AST 20 U/L (5-31) 10/15/23 ALT 18 U/L (0-31) 10/15/23 Total Protein 7.8 g/dL (6.5-8.0) 10/15/23 Albumin 4.2 g/dL (3.5-5.0) 10/15/23 [facility] Medical History Pneumonia Bilateral claudication of lower limb Breast calcification, left Breast cancer screening by mammogram [facility] discharge follow-up [facility] (obstructive sleep apnea) Morbid obesity Persistent atrial fibrillation Hypokalemia Physical deconditioning CHF (congestive heart failure) Diabetes Chronic venous stasis Hypothyroid Afib HTN (hypertension) Surgical History S/P cardiac catheterization History of ankle surgery History of appendectomy S/P cholecystectomy Hx of total knee arthroplasty Family History Father EtOH dependence Social History Housing: Apartment Alcohol intake: current Alcohol intake frequency: holidays/special occasions only Patient Tobacco Use Status: Never used Tobacco e-Cigarette/Vaping Use: Never Used Second Hand Smoke Exposure: No service: No Current occupational status: disabled Cognitive needs: No Hearing needs: No Vision needs: Yes Assessment & Plan Assessment & Plan (1) Type 2 diabetes mellitus with hyperglycemia: Comment: A1c at 6.1% on July 2023, BMI at 50.3 on September 2023 Code(s): E11.65 - Type 2 diabetes mellitus with hyperglycemia Plan: Wt: 125 Kg ( 09/2023 ) 122 kg (10/2023) Est kcal needs as per MSJ: 2100 (40% carb, 30% protein/fat) Est fluid needs as per 30 ml/d: 3700 (unless otherwise specified by MD, related to history of CHF Est prot per day as per 1 g/kg bw: 125 Recommend fiber intake : 8-10 g per day and gradually increase to 25-28 g per day for women and 35-38 g for men or as tolerated Recommend sodium intake per day : less than 2000 mg Educated patient on: ( R = reviewed V = verbalizes understanding N/R = needs review N/A = not applicable * Food sources of carbohydrate, adequate serving sizes and its role in various health conditions: R * Differences between complex carbohydrates a simple carbohydrates, role of fiber in diet: R * Lean protein sources of foods: R * Differences between types of fats and role in diet (mono on saturated fat fatty acids, saturated fatty acids, trans fats): R basic low-fat * Food sources of sodium in salt and healthy modifications for heart health in kidney health: R * Vitamins and minerals: R * Healthy plate method concept: R * Physical activity: Benefits a precaution: R * Hypoglycemia protocol (rule of 15): R * Dietary prevention of Hyperglycemia: R (2) Morbid obesity: Code(s): E66.01 - Morbid (severe) obesity due to excess calories Plan: Work on reducing salty foods and reducing total amount carbohydrates to less than 60 g at mealtime Patient Instructions: Have a meal replacement at breakfast or dinner Continue working on gradually increasing physical activity to 10 minutes Choose fruit as snack in place of chips/processed foods Coding Level of Care Code Nutr Indiv Subseq (98928) Diagnoses Type 2 diabetes mellitus with hyperglycemia E11.65 Morbid obesity E66.01 Time Spent (min) 30
== END 2023-10-22 09:46 | disposition home or self-care (01) ==
PROVIDERS: PCP Internal Medicine; Visit Provider Dietitian, Registered
DX: E11.65 Type 2 diabetes mellitus with hyperglycemia (principal); E66.01 Morbid (severe) obesity due to excess calories

== ENCOUNTER → 2023-10-22 09:07 | Outpatient (BNVA) | payer MEDICARE, SELFPAY | PROVIDERS: PCP Internal Medicine; Visit Provider Dietitian, Registered | DX: E11.65 Type 2 diabetes mellitus with hyperglycemia (principal); E66.01 Morbid (severe) obesity due to excess calories; Z68.42 Body mass index [BMI] 45.0-49.9, adult | CPT/HCPCS: 97803 ==

== ENCOUNTER 2023-10-27 12:42 | Outpatient (AMB) | payer MEDICARE, SELFPAY ==
--- NOTE | 2023-10-27 12:56 | MHC.OFFVIS ---
Intake Vital Signs 10/27/23 12:57 Height 5 ft 2 in Weight 265 lb 14.04 oz BMI 48.6 BP 124/72 Blood Pressure Location Rt brachial Position Sitting Pulse 56 Pulse Source Pulse Oximeter Intake Visit Reasons: 3 mnth f/up Ditching Machine Operator Required: No Spooling Supervisor: Spooling Supervisor Present Allergies codeine [CODEINE] Allergy (Intermediate, Verified 10/27/23 12:59) CHEST PAIN Medication List - Last Reconciled 10/27/23 by Elza Macdonald NP-C acetaminophen 500 mg PO Q6H apixaban 5 mg PO BID atenolol 50 mg PO DAILY 90 days atorvastatin 40 mg PO BEDTIME blood sugar diagnostic (FreeStyle Lite Strips) As directed check the BS QD blood-glucose meter (FreeStyle Lite Meter kit) As directed bumetanide 3 mg (1.5 x 2 mg) PO BID 90 days escitalopram oxalate 20 mg PO DAILY gabapentin 300 mg PO DAILY lancets (FreeStyle Lancets) As directed check BS QD levothyroxine 50 mcg PO QAM magnesium oxide 400 mg PO DAILY omeprazole 20 mg PO BEDTIME 90 days ondansetron 8 mg PO Q8H PRN oxycodone 5 mg PO BID PRN spironolactone 12.5 mg (1/2 x 25 mg) PO DAILY 90 days walker (Ultra-Light Rollator misc) As directed HPI 3 mnth f/up HPI Details Stella 68-year-old past medical history of hypertension, diabetes, morbid obesity, obstructive sleep apnea, Congestive heart failure, chronic atrial fibrillation with recent echo showing reduced EF. She underwent right and left cardiac catheterization showing nonobstructive coronary artery disease and severe pulmonary hypertension. Diuretic dose was increased and she now presents for follow-up. Today she reports that her condition has been stable since her last visit here in July. She has some chronic shortness of breath with activity which she feels has not worsened. She denies PND, orthopnea or edema. No chest discomfort at rest or with activity. She will feel heart palpitations at times. No lightheadedness, presyncope, syncope. She has fallen due to unsteadiness with her legs. No injuries reported. Taking all meds as directed. No bleeding issues noted. present. [facility] Medical History Pneumonia Bilateral claudication of lower limb Breast calcification, left Breast cancer screening by mammogram [facility] discharge follow-up [facility] (obstructive sleep apnea) Morbid obesity Persistent atrial fibrillation Hypokalemia Physical deconditioning CHF (congestive heart failure) Diabetes Chronic venous stasis Hypothyroid Afib HTN (hypertension) Surgical History S/P cardiac catheterization History of ankle surgery History of appendectomy S/P cholecystectomy Hx of total knee arthroplasty Family History Father EtOH dependence Social History Housing: Apartment Alcohol intake: current Alcohol intake frequency: holidays/special occasions only Patient Tobacco Use Status: Never used Tobacco e-Cigarette/Vaping Use: Never Used Second Hand Smoke Exposure: No service: No Current occupational status: disabled Cognitive needs: No Hearing needs: No Vision needs: Yes Review of Systems Const All systems reviewed & are unremarkable except as noted in HPI and below ENT Denies dizziness Card Denies chest pain, Denies chest pain at rest, Denies chest pain with activity, Denies rapid heart rate, Denies pedal edema, Denies edema, Reports leg edema, Denies lightheadedness, Denies palpitations, Denies dyspnea, Reports dyspnea on exertion and Denies orthopnea Resp Denies cough, Denies dyspnea and Reports dyspnea on exertion GI Denies hematochezia and Denies change in stool character Musc Denies abnormal gait, Denies limited range of motion, Denies muscle cramps, Denies muscle weakness, Denies numbness, Denies radiating pain into limb, Denies stiffness and Denies tingling Neuro Denies abnormal gait, Denies dizziness, Denies numbness and Denies tingling Endo Denies palpitations Physical Exam Vital Signs: Last Vital Signs Pulse 56 10/27/23 12:57 BP 124/72 10/27/23 12:57 BMI result Body Mass Index 48.6 Const Other: morbidly obese General: cooperative, comfortable and no acute distress Orientation/consciousness: patient oriented x3 Neck Neck: Yes normal visual inspection Resp Effort & Inspection: normal respiratory effort Auscultation: clear to auscultation bilaterally, no rales, no rhonchi and no wheezes Cardio Jugular venous distension: no JVD Rate: regular rate Rhythm: abnormal rhythm Heart sounds: S1 normal heart sound present, S2 normal heart sound present, no murmurs and no rubs Skin General skin exam: no rashes or lesions noted Neuro General: patient oriented x3 Extrem General: Yes normal to inspection Psych Appearance: grossly normal Mental Status: mental status grossly normal Speech and movement: Normal speech and movement present Assessment & Plan Assessment & Plan (1) Cardiomyopathy: Code(s): I42.9 - Cardiomyopathy, unspecified Plan: [facility] admission 03/2022 with RV failure, Congestive heart failure. She was diuresed and has been on Bumex for diuretic. Repeat echo done 10/2022 showing a mildly reduced EF 45-50% with moderate increase in the RV size and moderate decrease in the RV systolic function. She underwent cardiac catheterization on 03/11/2023 showing mid LAD 50% stenosis, IFR 0.97, mildly elevated PA pressures with PA D 28, wedge 19. She was determined to have severe pulmonary hypertension as a cause of her RV dysfunction. Her Bumex was initially increased to 3 mg in the a.m. and 2 mg in the p.m. then on follow-up visit it was increased to 3 mg b.i.d. which she remains on. Labs done 10/15/2023 showed potassium 5.1, creatinine 1.37. On exam today she does not appear fluid overloaded though assessment is more challenging in the setting of morbid obesity. She tells me that her breathing is stable. She is chronic shortness of breath with physical activity. No medication changes made. Continue Bumex, atenolol, spironolactone. Blood pressure is well controlled. Benefits of weight loss reviewed. Cardiology follow-up in 6 months, sooner if needed (2) S/P cardiac catheterization: Comment: 03/11/2023, mid LAD 50% stenosis, IFR 0.97, wedge 19, PA pressure is 62/42/28, RA 14 Code(s): Z98.890 - Other specified postprocedural states Plan: As above (3) Hypertension: Code(s): I10 - Essential (primary) hypertension Plan: Well controlled at present (4) CHF (congestive heart failure): Code(s): I50.9 - Heart failure, unspecified Plan: She does not appear in decompensated heart failure at present. She does have severe pulmonary hypertension as above (5) Morbid obesity: Code(s): E66.01 - Morbid (severe) obesity due to excess calories Plan: BMI 48.6 Weight loss strongly encouraged. She may benefit from weight loss program. (6) Hypercholesterolemia: Code(s): E78.00 - Pure hypercholesterolemia, unspecified Plan: [place] LDL goal less than 70in patient with CAD. Labs done 10/15/2023 showed LDL 104. She tells me that her atorvastatin dose was increased from 20 mg up to 40 mg daily. She should have a fasting lipid profile in 2-3 months. Patient aware. (7) Coronary atherosclerosis: Code(s): I25.10 - Atherosclerotic heart disease of [place] coronary artery without angina pectoris Plan: As above, 50 % mid LAD stenosis. No reports of anginal sounding symptoms. Her shortness of breath is chronic and unchanged. Medical management. She has not on aspirin as she is on Eliquis. She is on atenolol and on atorvastatin 40 mg daily. (8) Afib: Code(s): I48.91 - Unspecified atrial fibrillation Plan: History of chronic atrial fibrillation. She is treated with rate control with use of atenolol. EKG done 01/22/2023 showed AFib with right bundle branch block, rate 77. Pulse is irregularly irregular on exam today. She will feel an occasional heart palpitation. She is on Eliquis for anticoagulation. No bleeding issues reported. Continue current treatment Plan Time spent on chart review, documentation, interview and assessment Coding Level of Care Code Est Pt Level 4 (01385) Diagnoses Cardiomyopathy I42.9 S/P cardiac catheterization Z98.890 Hypertension I10 CHF (congestive heart failure) I50.9 Morbid obesity E66.01 Hypercholesterolemia E78.00 Coronary atherosclerosis I25.10 Afib I48.91 Time Spent (min) 28
[2023-10-27 12:57] VITALS: BP 124/72; PULSE 56; BMI 48.6
== END 2023-10-27 13:20 | disposition home or self-care (01) ==
PROVIDERS: PCP Internal Medicine; Visit Provider Nurse Practitioner Family
DX: I42.9 Cardiomyopathy, unspecified (principal); Z98.890 Other specified postprocedural states; I10 Essential (primary) hypertension; I50.9 Heart failure, unspecified; E66.01 Morbid (severe) obesity due to excess calories; E78.00 Pure hypercholesterolemia, unspecified; I25.10 Atherosclerotic heart disease of native coronary artery without angina pectoris; I48.91 Unspecified atrial fibrillation
CPT/HCPCS: 99214

== ENCOUNTER → 2023-10-27 12:42 | Outpatient (BNVA) | payer MEDICARE, SELFPAY | PROVIDERS: PCP Internal Medicine; Visit Provider Nurse Practitioner Family | DX: I42.9 Cardiomyopathy, unspecified (principal); I11.0 Hypertensive heart disease with heart failure; I50.9 Heart failure, unspecified; I25.10 Atherosclerotic heart disease of native coronary artery without angina pectoris; I48.91 Unspecified atrial fibrillation; E78.00 Pure hypercholesterolemia, unspecified; E66.01 Morbid (severe) obesity due to excess calories; Z98.890 Other specified postprocedural states; Z68.42 Body mass index [BMI] 45.0-49.9, adult | CPT/HCPCS: 99212 ==

== ENCOUNTER 2023-11-05 10:38 | Outpatient (AMB) | payer MEDICARE, SELFPAY ==
[2023-11-05 10:47] VITALS: BP 134/68; PULSE 61; O2SAT 94; BMI 48.6
--- NOTE | 2023-11-05 10:47 | A.OFFPC_ITS ---
Vital Signs 11/05/23 10:47 Height 5 ft 2 in Weight 266 lb BMI 48.6 BP 134/68 Blood Pressure Location Lt brachial Position Sitting Pulse 61 Pulse Source Pulse Oximeter Pulse Oximetry (%) 94 Oxygen Delivery Method Room Air Intake Visit Reasons: DM Allergies codeine [CODEINE] Allergy (Intermediate, Verified 10/27/23 12:59) CHEST PAIN Tobacco use date assessed: 10/16/23 HPI DM HPI Details 68-year-old morbidly obese female with c hronic atrial fibrillation controlled diabetes mellitus sleep apnea awaiting for test nonobstructive CAD cardiomyopathy hypercholesterolemia hypothyroidism and hypertension last seen in October 2023. Patient's mammogram is up-to-date declined colonoscopy and up-to-date with bone density. Patient has followed up with cardiology October 2023 cardiomyopathy March 2022 showing right ventricular failure diuresed with Bumex echocardiogram in October 2022 mild reduced ejection fraction 45-50% diagnosis of severe pulmonary hypertension recent change in cholesterol medication advised to follow-up: Cholesterol test as for the atrial fibrillation on anticoagulation [facility] Medical History Pneumonia Bilateral claudication of lower limb Breast calcification, left Breast cancer screening by mammogram [facility] discharge follow-up [facility] (obstructive sleep apnea) Morbid obesity Persistent atrial fibrillation Hypokalemia Physical deconditioning CHF (congestive heart failure) Diabetes Chronic venous stasis Hypothyroid Afib HTN (hypertension) Surgical History S/P cardiac catheterization History of ankle surgery History of appendectomy S/P cholecystectomy Hx of total knee arthroplasty Family History Father EtOH dependence Social History Housing: Apartment Alcohol intake: current Alcohol intake frequency: holidays/special occasions only Patient Tobacco Use Status: Never used Tobacco e-Cigarette/Vaping Use: Never Used Second Hand Smoke Exposure: No service: No Current occupational status: disabled Cognitive needs: No Hearing needs: No Vision needs: Yes Questionnaire Thrive Questionnaire Date Thrive assessed: 10/16/23 MARTITA-7 AMB Questionnaire MARTITA-7 Date MARTITA - 7 assessed: 10/16/23 Source: Developed by Drs. Jaime Moore, Kasia Manzo, Ganesh Lebron and colleagues, with an educational rick from [employer]. Physical exam (Primary Care) Vital Signs: Last Vital Signs Pulse 61 11/05/23 10:47 BP 134/68 11/05/23 10:47 Pulse Ox 94 11/05/23 10:47 Oxygen Delivery Method Room Air 11/05/23 10:47 BMI result Body Mass Index 48.6 Tobacco/Smoking Status: Tobacco use Status Tobacco use date assessed 10/16/23 11/05/23 10:48 Patient Tobacco Use Status Never used Tobacco 11/05/23 10:48 e-Cigarette/Vaping Use Never Used 11/05/23 10:48 Thrive Assessment: Date of Thrive Assessment Date Thrive assessed 10/16/23 11/05/23 10:48 Const General: alert; No acute distress Eyes Conjunctivae: conjunctivae normal Resp Auscultation: clear to auscultation bilaterally Cardio Rate: regular rate Rhythm: regular rhythm GI Inspection: Yes normal to inspection Extrem General: Yes normal to inspection and No edema Assessment and Plan Assessment & Plan (1) Obesity, Class III, BMI 40-49.9 (morbid obesity): Code(s): E66.01 - Morbid (severe) obesity due to excess calories Plan: Diet and exercise patient needs to lose weight (2) Hx of sleep apnea: Code(s): Z86.69 - Personal history of other diseases of the nervous system and sense organs Plan: Awaiting testing for sleep apnea as the patient has pulmonary hypertension (3) Cardiomyopathy: Code(s): I42.9 - Cardiomyopathy, unspecified Plan: Control the cholesterol, weight, blood pressure, diabetes (4) Hypercholesterolemia: Code(s): E78.00 - Pure hypercholesterolemia, unspecified Plan: Avoid fried foods, chicken skin, eggs, butter margarine, pastries and meat. Be it pork or beef they have a lot of cholesterol LDL goal of less than 70 and triglyceride of less than 150 patient presently on atorvastatin 40 mg once a day (5) Hypertension: Code(s): I10 - Essential (primary) hypertension Plan: Continue with blood pressure medication. Decrease salt intake and exercise atenolol 50 mg once a day (6) Hypothyroid: Code(s): E03.9 - Hypothyroidism, unspecified Plan: Continue with thyroid medication (7) Type 2 diabetes mellitus with hyperglycemia: Comment: A1c at 6.1% on July 2023, BMI at 50.3 on September 2023 Code(s): E11.65 - Type 2 diabetes mellitus with hyperglycemia Plan: Decrease the amount of carbohydrate intake, pasta, bread, rice and potatoes are all sugar and that is aside from all the sweet stuff, remember that fruits are good but they are Sweet also. Hemoglobin A1c goal of less than 6.5 on diet (8) Afib: Code(s): I48.91 - Unspecified atrial fibrillation Plan: Continue with anticoagulation continue to monitor renal function (9) CHF (congestive heart failure): Code(s): I50.9 - Heart failure, unspecified Plan: Weigh daily, on spironolactone on bumetanide (10) Osteopenia: Code(s): M85.80 - Other specified disorders of bone density and structure, unspecified site Plan: discussed about medication for the Bone , basic calcium and vitamin d. advised to see dentist first Orders: Orders Comprehensive Met. Panel 3 Months E11.65 - Type 2 diabetes mellitus with hyperglycemia Hemoglobin A1c 3 Months E11.65 - Type 2 diabetes mellitus with hyperglycemia Free T4 (Free Thyroxine) 3 Months E11.65 - Type 2 diabetes mellitus with hyperglycemia Vitamin D 25-OH Total 3 Months E11.65 - Type 2 diabetes mellitus with hyperglycemia Creatinine Urine Today E11.65 - Type 2 diabetes mellitus with hyperglycemia Complete Blood Count Auto Diff 3 Months E11.65 - Type 2 diabetes mellitus with hyperglycemia Lipid Panel 3 Months E11.65 - Type 2 diabetes mellitus with hyperglycemia, E78.00 - Pure hypercholesterolemia, unspecified Vitamin B12 and Folate 3 Months E11.65 - Type 2 diabetes mellitus with hyperglycemia Microalbumin, Random (w Creat) Today E11.65 - Type 2 diabetes mellitus with hyperglycemia Medications: Changed From atorvastatin 40 mg PO BEDTIME 30 tabs 3RF E78.00 - Pure hypercholesterolemia, unspecified To atorvastatin 80 mg PO BEDTIME 90 tabs 3RF E78.00 - Pure hypercholesterolemia, unspecified Coding Level of Care Code Est Pt Level 4 (26768) Diagnoses Obesity, Class III, BMI 40-49.9 (morbid obesity) E66.01 Hx of sleep apnea Z86.69 Cardiomyopathy I42.9 Hypercholesterolemia E78.00 Hypertension I10 Hypothyroid E03.9 Type 2 diabetes mellitus with hyperglycemia E11.65 Afib I48.91 CHF (congestive heart failure) I50.9 Osteopenia M85.80
== END 2023-11-05 11:28 | disposition home or self-care (01) ==
PROVIDERS: PCP Internal Medicine; Visit Provider Internal Medicine
DX: E11.65 Type 2 diabetes mellitus with hyperglycemia (principal); I42.9 Cardiomyopathy, unspecified; I11.0 Hypertensive heart disease with heart failure; I50.9 Heart failure, unspecified; E03.9 Hypothyroidism, unspecified; I48.91 Unspecified atrial fibrillation; M85.80 Other specified disorders of bone density and structure, unspecified site
CPT/HCPCS: 99214

== ENCOUNTER 2023-12-04 09:01 | Emergency (ER) | payer MEDICARE, MEDICAID, SELFPAY ==
--- NOTE | ~2023-12-04 | XR_ITS ---
EXAMINATION: LEFT ANKLE, LEFT FOOT CLINICAL INFORMATION: Left foot pain without known injury COMPARISON: None available. TECHNIQUE: 2 views left ankle, 3 views left foot FINDINGS: The ankle appears unremarkable with an intact mortise and no soft tissue swelling, fractures or dislocations. There is evidence of prior hallux valgus repair in the foot with 2 screws present in the distal first metatarsal. Mild degenerative changes are present in the midfoot with degenerative changes at the navicular cuboid joint with osteophytes. A large plantar calcaneal spur is seen. No acute fractures or dislocations. XR/XR foot LT min 3V IMPRESSION: No acute finding. Stable hallux valgus repair. Degenerative changes in the midfoot and large plantar calcaneal spur.
--- NOTE | ~2023-12-04 | XR_ITS ---
EXAMINATION: LEFT ANKLE, LEFT FOOT CLINICAL INFORMATION: Left foot pain without known injury COMPARISON: None available. TECHNIQUE: 2 views left ankle, 3 views left foot FINDINGS: The ankle appears unremarkable with an intact mortise and no soft tissue swelling, fractures or dislocations. There is evidence of prior hallux valgus repair in the foot with 2 screws present in the distal first metatarsal. Mild degenerative changes are present in the midfoot with degenerative changes at the navicular cuboid joint with osteophytes. A large plantar calcaneal spur is seen. No acute fractures or dislocations. XR/XR ankle LT min 3V IMPRESSION: No acute finding. Stable hallux valgus repair. Degenerative changes in the midfoot and large plantar calcaneal spur.
[2023-12-04 09:05] VITALS: BP 138/69; PULSE 72; RESP 16; TEMP 36.4; O2SAT 97; BMI 45.7
--- NOTE | 2023-12-04 09:55 | ED_ITS ---
HPI - Extremity Problem General Chief complaint: Extremity Problem Stated complaint: l foot pain unable to walk Time Seen by Provider: 12/04/23 09:09 History of Present Illness HPI Narrative: Stella is a 68 year old female with history of obesity, osteopenia, CHF, HLD, a fib, DM2 presents today for evaluation of worsening L foot pain for 1 week. Reports that she noticed that it was difficult to bear weight on her left foot about 1 week ago but was still able to ambulate- just had pain. The pain progressively worsened throughout the week. Denies radiation of pain. No chest pain. Reports shortness of breath but states that this is normal for her and has not noticed worsened. Take diuretics daily for CHF but has noticed worsening edema of her left foot. Lateral malleous is painful to touch. Today, pain became unbearable and she was unable to bear weight or walk independently- which prompted her to come to the ear. No history of clot or DVT. No fevers at home. MD Complaint: extremity pain Onset (ago): week(s) Pain Consistency: constant Location: left Severity scale (1-10): >10 Quality: burning, sharp and constant Radiation: none Relieving factors: nothing Exacerbating factors: range of motion, walking, exertion, palpation and rest Associated symptoms: denies other symptoms Related Data Home Medications ?Medication ?Instructions ?Recorded ?Confirmed gabapentin 300 mg capsule 300 mg PO DAILY 06/06/22 10/27/23 acetaminophen 500 mg capsule 500 mg PO Q6H 11/01/22 10/27/23 Previous Rx's ?Medication ?Instructions ?Recorded blood-glucose meter (FreeStyle #1 ea 06/06/22 Lite Meter kit) lancets 28 gauge (FreeStyle #100 ea 06/06/22 Lancets) blood sugar diagnostic (FreeStyle #100 ea 07/12/22 Lite Strips) atenolol 50 mg tablet 50 mg PO DAILY 90 days #90 tabs 04/21/23 omeprazole 20 mg capsule,delayed 20 mg PO BEDTIME 90 days #90 caps 06/02/23 release bumetanide 2 mg tablet 3 mg (1.5 x 2 mg) PO BID 90 days 07/28/23 #180 tabs apixaban 5 mg tablet 5 mg PO BID #60 tabs 08/11/23 walker (Ultra-Light Rollator misc) #1 ea 09/02/23 ondansetron 8 mg disintegrating 8 mg PO Q8H PRN nausea #30 tabs 09/06/23 tablet levothyroxine 50 mcg tablet 50 mcg PO QAM #90 tabs 09/08/23 magnesium oxide 400 mg (241.3 mg 400 mg PO DAILY #30 tabs 09/15/23 magnesium) tablet atorvastatin 80 mg tablet 80 mg PO BEDTIME #90 tabs 11/05/23 oxycodone 5 mg tablet 5 mg PO BID PRN pain #45 tabs 11/17/23 escitalopram oxalate 20 mg tablet 20 mg PO DAILY #90 tabs 11/30/23 spironolactone 25 mg tablet 12.5 mg (1/2 x 25 mg) PO DAILY 90 12/01/23 days #45 tabs cephalexin 500 mg capsule 500 mg PO Q6H 7 days #28 caps 12/04/23 doxycycline hyclate 100 mg tablet 100 mg PO BID #14 tabs 12/04/23 Allergies Allergy/AdvReac Type Severity Reaction Status Date / Time codeine [CODEINE] Allergy Intermediate CHEST PAIN Verified 12/04/23 09:06 Review of Systems 2 Review of Systems: Yes all other systems are reviewed and are negative PMFSH Past Medical History Medical History Pneumonia Bilateral claudication of lower limb Breast calcification, left Breast cancer screening by mammogram [facility] discharge follow-up [facility] (obstructive sleep apnea) Morbid obesity Persistent atrial fibrillation Hypokalemia Physical deconditioning CHF (congestive heart failure) Diabetes Chronic venous stasis Hypothyroid Afib HTN (hypertension) Surgical History S/P cardiac catheterization History of ankle surgery History of appendectomy S/P cholecystectomy Hx of total knee arthroplasty Family History Family History Father EtOH dependence Social History Social History Housing: Apartment Alcohol intake: current Alcohol intake frequency: holidays/special occasions only Patient Tobacco Use Status: Never used Tobacco e-Cigarette/Vaping Use: Never Used Second Hand Smoke Exposure: No Advance Directives: No Advance Directives Information Provided: No service: No Current occupational status: disabled Cognitive needs: No Hearing needs: No Vision needs: Yes Physical Exam 2 Vital Signs: Vital Signs: Last Vital Signs Temp 97.8 F 12/04/23 11:47 Pulse 75 12/04/23 11:47 Resp 18 12/04/23 11:47 BP 123/57 L 12/04/23 11:47 Pulse Ox 96 12/04/23 11:47 O2 Del Method Room Air 12/04/23 11:47 BMI result Body Mass Index 45.7 Appearance: Alert. Oriented X3. No acute distress. Head: normocephalic, atraumatic. Neck: Normal inspection. Neck supple. CVS: Normal heart rate and rhythm. Pulses normal. Respiratory: No respiratory distress. Breath sounds normal. Abdomen: Soft and nontender. Skin: erythema of the left lower extremity from distal tibia to 1st digt with moderate warmth Extremities: Swelling of the left lower extremity from distal tibia to 1st digit. Most promiment dorsal calcaneous. Limited ROM, unable to dorsiflexion or plantar flexion. Decreased strength- painful to touch. No pitting edema. Neuro/psych: Oriented X 3. Unable to assess gait secondary to pain with ambulation Medical Decision Making Medical Decision Making [facility] Narrative: Stella is a 68 year old female with history of obesity, osteopenia, CHF, HLD, a fib, DM2 presents today for evaluation of worsening L foot pain for 1 week. On exam L foot is pain to touch, erythematous, and warm to touch. High clinical suspicion for cellulitis. Will obtain labs to assess for acute inflammation. VSS and low suspicion for sepsis at this time. Safe to discharge home with oral antibiotics- doxycycline and keflex with strict return precautions. She has follow up with primary care on Friday, instructed her to keep this appointment. Differential Diagnosis Differential Diagnoses: The differential diagnosis associated with the presentation includes cellulitis, septic arthritis, osteomyelitis, DVT, ankle fracture, sepsis Lab Data [facility] Lab Attestation statement: I reviewed the patient's lab results. Labs are reassuring, elevated ESR and CRP most consistent with acute cellulitis. 12/04/23 10:26 12/04/23 10:26 Labs: Lab Results 12/04/23 Range/Units 10:26 WBC 10.6 (4.8-10.8) X10*3/uL RBC 4.53 (4.20-5.50) X10*6/uL Hgb 14.0 (12.0-16.0) g/dl Hct 42.6 (37.0-47.0) % MCV 94.0 (80.0-98.0) fL MCH 30.9 (27.0-33.0) pg MCHC 32.9 (31.0-35.0) g/dl RDW 12.3 (11.0-16.0) % Plt Count 184 (160-400) X10*3/uL MPV 10.3 (9.4-12.3) fL Immature Gran % (Auto) 0.4 (0.0-0.4) % Neut % (Auto) 74.9 H (45-73) % Lymph % (Auto) 13.7 L (20-40) % [place] % (Auto) 9.6 (2-11) % Eos % (Auto) 0.9 (0-4) % Baso % (Auto) 0.5 (0-2) % Lymph # (Auto) 1.5 (1.2-4.9) X10*3/uL [place] # (Auto) 1.0 (0.1-1.2) X10*3/uL Eos # (Auto) 0.1 (0.0-0.4) X10*3/uL Baso # (Auto) 0.1 (0.0-0.2) X10*3/uL Abs Immat Gran (auto) 0.04 H (0.00-0.03) X10*3/uL Absolute Neuts (auto) 7.9 (2.0-8.3) x10*3/uL Absolute Nucleated RBC 0.000 (0.0-0.012) X10*3/uL Nucleated RBC % (auto) 0.0 (0.0-0.2) /100WBC ESR 53 H (0-20) MM/HR Sodium 137 (135-145) mmol/L Potassium 4.8 (3.3-5.1) mmol/L Chloride 98 (96-108) mmol/L Carbon Dioxide 30 H (22-29) mmol/L Anion Gap 14 (12-20) BUN 35 H (9-16) mg/dL Creatinine 1.12 (0.5-1.4) mg/dL Estim Creat Clear Calc 58.8 Estimated GFR 49 Random Glucose 113 (60-115) mg/dL Calcium 10.0 (8.4-10.2) mg/dL Magnesium 2.1 (1.6-2.6) mg/dL Total Bilirubin 0.9 (0.0-1.0) mg/dL Direct Bilirubin 0.4 (0.0-0.5) mg/dL AST 18 (5-31) U/L ALT 15 (0-31) U/L Alkaline Phosphatase 105 (39-117) U/L C-Reactive Protein 0.89 H (< or = 0.50) mg/dL B-Natriuretic Peptide 200 H (<100) pg/mL Total Protein 7.8 (6.5-8.0) g/dL Albumin 4.2 (3.5-5.0) g/dL Independent Interpretation I performed an independent interpretation of an: Plain X-Ray Interpretation: no acute fracture, soft tissue swelling, screws in place Radiology Impression Discussion of test interpretation with radiology: I have reviewed the radiologist's reading. Radiologist Impression: Mild soft tissue inflammation of dorsal left foot EXAMINATION: LEFT ANKLE, LEFT FOOT CLINICAL INFORMATION: Left foot pain without known injury COMPARISON: None available. TECHNIQUE: 2 views left ankle, 3 views left foot FINDINGS: The ankle appears unremarkable with an intact mortise and no soft tissue swelling, fractures or dislocations. There is evidence of prior hallux valgus repair in the foot with 2 screws present in the distal first metatarsal. Mild degenerative changes are present in the midfoot with degenerative changes at the navicular cuboid joint with osteophytes. A large plantar calcaneal spur is seen. No acute fractures or dislocations. XR/XR ankle LT min 3V IMPRESSION: No acute finding. Stable hallux valgus repair. Degenerative changes in the midfoot and large plantar calcaneal spur. Independent Historian Clinical information obtained from an independent historian. History obtained from or confirmed by: Spouse External Record Review External record reviewed: Office record, Outpatient record and Prior outpatient labs Tests considered The following testing was considered but not selected: US LE considered however DVT less likely being on eliquis Prescription Management I considered prescription management with: Pain Medication and Antibiotic Chronic Conditions Patient?s care impacted by: Diabetes Critical Care Time Critical Care Time Critical Care Time: No Discharge Plan Discharge Clinical Impression: Cellulitis of foot, left Patient Disposition: Home, Self-Care Instructions: Cellulitis (DC) Additional Instructions: Your lab workup today was reassuring. Your x-ray showed no acute abnormalities. Take the prescribed antibiotics as directed for infection of your foot. Complete the entire course and do not miss any doses. Elevate your foot when possible. Use warm compresses several times per day to help increase blood flow and fight the infection. Recommend Tylenol 1000 mg every 6-8 hours as needed for pain. Follow-up with your doctor as scheduled next week. If you develop new or worsening symptoms call 911 or come back to the ER for further evaluation. Prescriptions: New doxycycline hyclate 100 mg tablet 100 mg PO BID Qty: 14 0RF cephalexin 500 mg capsule 500 mg PO Q6H 7 Days Qty: 28 0RF No Action atenolol 50 mg tablet 50 mg PO DAILY 90 Days Qty: 90 2RF omeprazole 20 mg capsule,delayed release(DR/EC) 20 mg PO BEDTIME 90 Days Qty: 90 3RF apixaban 5 mg tablet 5 mg PO BID Qty: 60 4RF (DME) Ultra-Light Rollator Misc See Rx Instructions .Route Qty: 1 0RF Rx Instructions: As directed ondansetron 8 mg tablet,disintegrating 8 mg PO Q8H PRN (Reason: nausea) Qty: 30 1RF levothyroxine 50 mcg tablet 50 mcg PO QAM Qty: 90 0RF magnesium oxide 400 mg (241.3 mg magnesium) tablet 400 mg PO DAILY Qty: 30 5RF oxycodone 5 mg tablet 5 mg PO BID PRN (Reason: pain) Qty: 45 0RF escitalopram oxalate 20 mg tablet 20 mg PO DAILY Qty: 90 0RF spironolactone 25 mg tablet 12.5 mg PO DAILY 90 Days Qty: 45 3RF (DME) blood-glucose meter [FreeStyle Lite Meter] Kit See Rx Instructions .ROUTE .MEDSUPPLY Qty: 1 0RF Rx Instructions: As directed (DME) lancets [FreeStyle Lancets] 28 gauge misc See Rx Instructions .ROUTE .MEDSUPPLY Qty: 100 3RF Rx Instructions: As directed check BS QD (DME) FreeStyle Lite Strips Strip See Rx Instructions .ROUTE .MEDSUPPLY Qty: 100 3RF Rx Instructions: As directed check the BS QD atorvastatin 80 mg tablet 80 mg PO BEDTIME Qty: 90 3RF gabapentin 300 mg capsule 300 mg PO DAILY acetaminophen 500 mg capsule 500 mg PO Q6H bumetanide 2 mg tablet 3 mg PO BID 90 Days Qty: 180 3RF Referrals: Anderson Peters MD [Primary Care Provider] - Interventions: ED Discharge Assessment Last Done: 12/04/23 11:47 Discharge Date/Time: 12/04/23 11:49 Print Language: Kazakh
[2023-12-04 10:32] LABS: MANUAL DIFF FLAG NO
[2023-12-04 10:35] LABS: Basophils Absolute Auto 0.1 X10*3/uL (0.0-0.2); Basophils Percent Auto 0.5 % (0-2); Eosinophils Absolute Auto 0.1 X10*3/uL (0.0-0.4); Eosinophils Percent Auto 0.9 % (0-4); Hematocrit 42.6 % (37.0-47.0); Imm Gran Abs Auto 0.04 X10*3/uL (0.00-0.03); Imm Gran Pct Auto 0.4 % (0.0-0.4); Lymphocytes Absolute Auto 1.5 X10*3/uL (1.2-4.9); Lymphocytes Percent Auto 13.7 % (20-40); Mean Corpuscular HGB Conc 32.9 g/dl (31.0-35.0); Mean Corpuscular Hemoglobin 30.9 pg (27.0-33.0); Mean Platelet Volume 10.3 fL (9.4-12.3); Monocytes Percent Auto 9.6 % (2-11); Neutrophils Absolute Auto 7.9 x10*3/uL (2.0-8.3); Neutrophils Percent Auto 74.9 % (45-73); Platelet Count 184 X10*3/uL (160-400); Red Blood Count 4.53 X10*6/uL (4.20-5.50); Red Cell Distribution Width 12.3 % (11.0-16.0); White Blood Count 10.6 X10*3/uL (4.8-10.8)
[2023-12-04 10:48] LABS: Alanine Aminotransferase 15 U/L (0-31); Albumin Level 4.2 g/dL (3.5-5.0); Alkaline Phosphatase 105 U/L (39-117); Anion Gap 14 (12-20); Aspartate Amino Transferase 18 U/L (5-31); Bilirubin Direct 0.4 mg/dL (0.0-0.5); Bilirubin Total 0.9 mg/dL (0.0-1.0); Blood Urea Nitrogen 35 mg/dL (9-16); C Reactive Protein 0.89 mg/dL (< or = 0.50); Carbon Dioxide 30 mmol/L (22-29); Chloride 98 mmol/L (96-108); Creatinine Clr Calc Pharmacy 58.8; Estimated Glomerular Filt Rate 49; Glucose Random 113 mg/dL (60-115); Magnesium 2.1 mg/dL (1.6-2.6); Potassium 4.8 mmol/L (3.3-5.1); Sodium 137 mmol/L (135-145); Total Protein 7.8 g/dL (6.5-8.0)
[2023-12-04 10:54] LABS: B Type Natriuretic Peptide 200 pg/mL (<100)
[2023-12-04 11:13] LABS: Erythrocyte Sedimentation Rate 53 MM/HR (0-20)
[2023-12-04 11:47] VITALS: BP 123/57; PULSE 75; RESP 18; TEMP 36.6; O2SAT 96
== END 2023-12-04 11:49 | disposition home or self-care (01) ==
PROVIDERS: Physician Assistant; Emergency Provider Emergency Medicine; PCP Internal Medicine
DX: L03.116 Cellulitis of left lower limb (principal); M25.572 Pain in left ankle and joints of left foot; R06.02 Shortness of breath; Z79.899 Other long term (current) drug therapy
CPT/HCPCS: 36415; 73610; 73630; 80048; 80076; 83735; 83880; 85025; 85652; 86140; 99282; 99283

== ENCOUNTER 2023-12-09 14:24 | Outpatient (AMB) | payer MEDICARE, SELFPAY ==
[2023-12-09 14:29] VITALS: BP 138/78; PULSE 98; O2SAT 100; BMI 49.0
--- NOTE | 2023-12-09 14:29 | MHC.PC.OV ---
Vital Signs 12/09/23 14:29 Height 5 ft 2 in Weight 268 lb BMI 49.0 BP 138/78 Blood Pressure Location Lt brachial Position Sitting Pulse 98 Pulse Source Pulse Oximeter Pulse Oximetry (%) 100 Oxygen Delivery Method Room Air Intake Visit Reasons: Pain Med Follow Up Intake Note: Patient is here to follow up on medication Shingle Grader Required: No Allergies codeine [CODEINE] Allergy (Intermediate, Verified 12/09/23 14:30) CHEST PAIN Tobacco use date assessed: 12/09/23 Fall risk assessment: No Falls in past year Last assessed Fall Risk: 12/09/23 Dental Screening Dental Screen Date: 10/16/23 HPI Pain Med Follow Up HPI Details 68-year-old morbidly obese female with a history of sleep apnea cardiomyopathy hypercholesterolemia hypertension hypothyroidism, atrial fibrillation with congestive heart failure and controlled diabetes mellitus coming in for follow-up. Last seen in October 2023. Patient had an ER visit in November for left foot pain noted also worsening edema of the left foot. Lateral malleolus painful to touch. X-ray done no acute finding stable hallux valgus repair degenerative changes in the midfoot enlarged plantar calcaneal spur patient was treated like cellulitis of the left foot with doxycycline and cephalexin. Otherwise for atrial fibrillation sees Cardiology and last seen in October 2023 [facility], [facility] Medical History Pneumonia Bilateral claudication of lower limb Breast calcification, left Breast cancer screening by mammogram [facility] discharge follow-up [facility] (obstructive sleep apnea) Morbid obesity Persistent atrial fibrillation Hypokalemia Physical deconditioning CHF (congestive heart failure) Diabetes Chronic venous stasis Hypothyroid Afib HTN (hypertension) Surgical History S/P cardiac catheterization History of ankle surgery History of appendectomy S/P cholecystectomy Hx of total knee arthroplasty Family History Father EtOH dependence Social History Housing: Apartment Alcohol intake: current Alcohol intake frequency: holidays/special occasions only Patient Tobacco Use Status: Never used Tobacco e-Cigarette/Vaping Use: Never Used Second Hand Smoke Exposure: No service: No Current occupational status: disabled Cognitive needs: No Hearing needs: No Vision needs: Yes Questionnaire Thrive Questionnaire Date Thrive assessed: 10/16/23 AUDIT C Alcohol Use Questionnaire (AUDIT-C) 1. How often do you have a drink containing alcohol?: Monthly or less 2. How many drinks containing alcohol do you have on a typical day when you are drinking?: 1 or 2 3. How often do you have six or more drinks on one occasion?: Never Total Score: 1 Score Reviewed/Action Taken: No MARTITA-7 AMB Questionnaire MARTITA-7 Date MARTITA - 7 assessed: 10/16/23 Source: Developed by Drs. Jaime Moore, Kasia Manzo, Ganesh Lebron and colleagues, with an educational rick from [employer]. Physical exam (Primary Care) Vital Signs: Last Vital Signs Pulse 98 12/09/23 14:29 BP 138/78 12/09/23 14:29 Pulse Ox 100 12/09/23 14:29 Oxygen Delivery Method Room Air 12/09/23 14:29 BMI result Body Mass Index 49.0 Tobacco/Smoking Status: Tobacco use Status Tobacco use date assessed 12/09/23 12/09/23 14:30 Patient Tobacco Use Status Never used Tobacco 12/09/23 14:29 e-Cigarette/Vaping Use Never Used 12/09/23 14:29 Thrive Assessment: Date of Thrive Assessment Date Thrive assessed 10/16/23 12/09/23 14:29 Const General: alert; No acute distress Eyes Conjunctivae: conjunctivae normal Resp Auscultation: clear to auscultation bilaterally Cardio Rate: regular rate Rhythm: regular rhythm GI Inspection: Yes normal to inspection Extrem General: Yes normal to inspection and No edema Assessment and Plan Assessment & Plan (1) Afib: Code(s): I48.91 - Unspecified atrial fibrillation Plan: Patient continues to follow-up with cardiology on anticoagulation with apixaban (2) Type 2 diabetes mellitus with hyperglycemia: Comment: A1c at 6.1% on July 2023, BMI at 50.3 on September 2023 Code(s): E11.65 - Type 2 diabetes mellitus with hyperglycemia Plan: Decrease the amount of carbohydrate intake, pasta, bread, rice and potatoes are all sugar and that is aside from all the sweet stuff, remember that fruits are good but they are Sweet also. Hemoglobin A1c goal of less than 7.0 diet controlled (3) Hypertension: Code(s): I10 - Essential (primary) hypertension Plan: Continue with blood pressure medication. Decrease salt intake and exercise presently on spironolactone 12.5 mg once a day atenolol 50 mg once a day (4) Hypothyroid: Code(s): E03.9 - Hypothyroidism, unspecified Plan: Continue with thyroid medication (5) Hypercholesterolemia: Code(s): E78.00 - Pure hypercholesterolemia, unspecified Plan: Avoid fried foods, chicken skin, eggs, butter margarine, pastries and meat. Be it pork or beef they have a lot of cholesterol LDL goal of less than 70 and triglyceride of less than 150. On atorvastatin 80 mg once a day (6) Plantar fasciitis of left foot: Code(s): M72.2 - Plantar fascial fibromatosis Plan: information given to the patient (7) Cellulitis of foot, left: Code(s): L03.116 - Cellulitis of left lower limb Plan: finish the antibiotics Orders: Referrals Podiatry Referral E11.65 - Type 2 diabetes mellitus with hyperglycemia Coding Level of Care Code Est Pt Level 4 (88043) Diagnoses Afib I48.91 Type 2 diabetes mellitus with hyperglycemia E11.65 Hypertension I10 Hypothyroid E03.9 Hypercholesterolemia E78.00 Plantar fasciitis of left foot M72.2 Cellulitis of foot, left L03.116
== END 2023-12-09 16:51 | disposition home or self-care (01) ==
PROVIDERS: PCP Internal Medicine; Visit Provider Internal Medicine
DX: I48.91 Unspecified atrial fibrillation (principal); E11.65 Type 2 diabetes mellitus with hyperglycemia; I10 Essential (primary) hypertension; E03.9 Hypothyroidism, unspecified; E78.00 Pure hypercholesterolemia, unspecified; M72.2 Plantar fascial fibromatosis; L03.116 Cellulitis of left lower limb
CPT/HCPCS: 99214

== ENCOUNTER 2024-01-08 14:21 | Outpatient (AMB) | payer MEDICARE, SELFPAY ==
[2024-01-08 14:49] VITALS: BP 108/70; PULSE 90; O2SAT 100; BMI 49.4
--- NOTE | 2024-01-08 14:49 | MHC.PC.OV ---
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 Last seen in December 2023. Patient's mammograms up-to-date August 2023 as well as the bone density. Declined colonoscopy. [facility] Medical History Pneumonia Bilateral claudication of lower limb Breast calcification, left Breast cancer screening by mammogram [facility] discharge follow-up [facility] (obstructive sleep apnea) Morbid obesity Persistent atrial fibrillation Hypokalemia Physical deconditioning CHF (congestive heart failure) Diabetes Chronic venous stasis Hypothyroid Afib HTN (hypertension) Surgical History S/P cardiac catheterization History of ankle surgery History of appendectomy S/P cholecystectomy Hx of total knee arthroplasty Family History Father EtOH dependence Social History Housing: Apartment Alcohol intake: current Alcohol intake frequency: holidays/special occasions only Patient Tobacco Use Status: Never used Tobacco e-Cigarette/Vaping Use: Never Used Second Hand Smoke Exposure: No service: No Current occupational status: disabled Cognitive needs: No Hearing needs: No Vision needs: Yes Questionnaire Thrive Questionnaire Date Thrive assessed: 10/16/23 MARTITA-7 AMB Questionnaire MARTITA-7 Date MARTITA - 7 assessed: 10/16/23 Source: Developed by Drs. Jaime Moore, Kasia Manzo, Ganesh Lebron and colleagues, with an educational rick from [employer]. Physical exam (Primary Care) Vital Signs: Last Vital Signs Pulse 90 01/08/24 14:49 BP 108/70 01/08/24 14:49 Pulse Ox 100 01/08/24 14:49 Oxygen Delivery Method Room Air 01/08/24 14:49 BMI result Body Mass Index 49.4 Tobacco/Smoking Status: Tobacco use Status Tobacco use date assessed 12/09/23 01/08/24 14:52 Patient Tobacco Use Status Never used Tobacco 01/08/24 14:52 e-Cigarette/Vaping Use Never Used 01/08/24 14:52 Thrive Assessment: Date of Thrive Assessment Date Thrive assessed 10/16/23 01/08/24 14:52 Const General: alert; No acute distress Eyes Conjunctivae: conjunctivae normal Resp Auscultation: clear to auscultation bilaterally Cardio Rate: regular rate Rhythm: regular rhythm GI Inspection: Yes normal to inspection Extrem General: Yes normal to inspection and No edema Assessment and Plan Assessment & Plan (1) Obesity, Class III, BMI 40-49.9 (morbid obesity): Code(s): E66.01 - Morbid (severe) obesity due to excess calories Plan: Diet and exercise. (2) Coronary atherosclerosis: Code(s): I25.10 - Atherosclerotic heart disease of [place] coronary artery without angina pectoris Plan: Control the cholesterol, weight, blood pressure, diabetes on anticoagulation (3) Type 2 diabetes mellitus with hyperglycemia: Comment: A1c at 6.1% on July 2023, BMI at 50.3 on September 2023 Code(s): E11.65 - Type 2 diabetes mellitus with hyperglycemia Plan: Decrease the amount of carbohydrate intake, pasta, bread, rice and potatoes are all sugar and that is aside from all the sweet stuff, remember that fruits are good but they are Sweet also. Hemoglobin A1c goal of less than 6.5. Patient is diet controlled (4) Hypertension: Code(s): I10 - Essential (primary) hypertension Plan: Continue with blood pressure medication. Decrease salt intake and exercise on atenolol 50 mg once a day spironolactone 12.5 mg once a day (5) Hypothyroid: Code(s): E03.9 - Hypothyroidism, unspecified Plan: Continue with thyroid medication (6) Afib: Code(s): I48.91 - Unspecified atrial fibrillation Plan: Continue with anticoagulation with Eliquis. Twice a day year blood work. Orders: Orders Complete Blood Count Auto Diff 3 Months I25.10 - Atherosclerotic heart disease of [place] coronary artery without angina pectoris B Type Natriuretic Peptide 3 Months I25.10 - Atherosclerotic heart disease of [place] coronary artery without angina pectoris Comprehensive Met. 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 Lipid Panel 3 Months E78.00 - Pure hypercholesterolemia, unspecified, I25.10 - Atherosclerotic heart disease of [place] coronary artery without angina pectoris Free T4 (Free Thyroxine) 3 Months I25.10 - Atherosclerotic heart disease of [place] coronary artery without angina pectoris Thyroid Stimulating Hormone 3 Months I25.10 - Atherosclerotic heart disease of [place] coronary artery without angina pectoris Creatinine Urine 3 Months E11.65 - Type 2 diabetes mellitus with hyperglycemia, I25.10 - Atherosclerotic heart disease of [place] coronary artery without angina pectoris Microalbumin, Random (w Creat) 3 Months E11.65 - Type 2 diabetes mellitus with hyperglycemia, I25.10 - Atherosclerotic heart disease of [place] coronary artery without angina pectoris Vitamin B12 and Folate 3 Months I25.10 - Atherosclerotic heart disease of [place] coronary artery without angina pectoris Magnesium 3 Months I25.10 - Atherosclerotic heart disease of [place] coronary artery without angina pectoris Medications: Refilled atorvastatin 80 mg PO BEDTIME 90 tabs 3RF E78.00 - Pure hypercholesterolemia, unspecified Coding Level of Care Code Est Pt Level 4 (33571) Diagnoses Obesity, Class III, BMI 40-49.9 (morbid obesity) E66.01 Coronary atherosclerosis I25.10 Type 2 diabetes mellitus with hyperglycemia E11.65 Hypertension I10 Hypothyroid E03.9 Afib I48.91
== END 2024-01-08 16:17 | disposition home or self-care (01) ==
PROVIDERS: PCP Internal Medicine; Visit Provider Internal Medicine
DX: I48.91 Unspecified atrial fibrillation (principal); E66.01 Morbid (severe) obesity due to excess calories; E11.65 Type 2 diabetes mellitus with hyperglycemia; Z68.42 Body mass index [BMI] 45.0-49.9, adult; I10 Essential (primary) hypertension; I25.10 Atherosclerotic heart disease of native coronary artery without angina pectoris; E03.9 Hypothyroidism, unspecified
CPT/HCPCS: 99214

== ENCOUNTER 2024-02-09 14:03 | Outpatient (AMB) | payer MEDICARE, SELFPAY ==
[2024-02-09 14:03] VITALS: BP 132/80; PULSE 80; O2SAT 95; BMI 49.4
--- NOTE | 2024-02-09 14:03 | MHC.PC.OV ---
Vital Signs 02/09/24 14:03 Height 5 ft 2 in Weight 270 lb BMI 49.4 BP 132/80 Blood Pressure Location Lt brachial Position Sitting Pulse 80 Pulse Source Pulse Oximeter Pulse Oximetry (%) 95 Oxygen Delivery Method Room Air Intake Visit Reasons: Pain Med Follow Up - see comments Allergies codeine [CODEINE] Allergy (Intermediate, Verified 02/09/24 14:05) CHEST PAIN Medication List - Last Reconciled 02/09/24 by Anderson Peters, acetaminophen 500 mg PO Q6H apixaban (Eliquis) 5 mg PO BID atenolol 50 mg PO DAILY 90 days atorvastatin 80 mg PO BEDTIME blood sugar diagnostic (FreeStyle Lite Strips) As directed check the BS QD blood-glucose meter (FreeStyle Lite Meter kit) As directed bumetanide 3 mg (1.5 x 2 mg) PO BID 90 days cephalexin 500 mg PO Q6H 7 days doxycycline hyclate 100 mg PO BID escitalopram oxalate 20 mg PO DAILY gabapentin 300 mg PO DAILY lancets (FreeStyle Lancets) As directed check BS QD levothyroxine 50 mcg PO QAM magnesium oxide 400 mg PO DAILY omeprazole 20 mg PO BEDTIME 90 days ondansetron 8 mg PO Q8H PRN oxycodone 5 mg PO BID PRN spironolactone 12.5 mg (1/2 x 25 mg) PO DAILY 90 days walker (Ultra-Light Rollator misc) As directed Tobacco use date assessed: 02/09/24 Fall risk assessment: No Falls in past year Last assessed Fall Risk: 02/09/24 Dental Screening Dental Screen Date: 10/16/23 HPI Pain Med Follow Up - see comments HPI Details 68 year old obese female with controlled diabetes mellitus coronary artery disease hypertension hypothyroid and atrial fibrillation last seen in 01/19/2024. Patient is here for follow-up. About getting the blood work. Patient complains about having pain on the feet was referred to Podiatry already and scheduled for March. Meanwhile discussed with the patient on the need to exercise the feet. Patient states has some leakage in the wounds of the left leg but on examination not really see any open wounds. Did see a lot of pinpoint scabbed areas this is because the patient has been scratching. [facility] Medical History Pneumonia Bilateral claudication of lower limb Breast calcification, left Breast cancer screening by mammogram [facility] discharge follow-up [facility] (obstructive sleep apnea) Morbid obesity Persistent atrial fibrillation Hypokalemia Physical deconditioning CHF (congestive heart failure) Diabetes Chronic venous stasis Hypothyroid Afib HTN (hypertension) Surgical History S/P cardiac catheterization History of ankle surgery History of appendectomy S/P cholecystectomy Hx of total knee arthroplasty Family History Father EtOH dependence Social History Housing: Apartment Alcohol intake: current Alcohol intake frequency: holidays/special occasions only Patient Tobacco Use Status: Never used Tobacco e-Cigarette/Vaping Use: Never Used Second Hand Smoke Exposure: No service: No Current occupational status: disabled Cognitive needs: No Hearing needs: No Vision needs: Yes Questionnaire Thrive Questionnaire Date Thrive assessed: 10/16/23 I am a: Patient What is your living situation today?: I have a steady place to live Within the past 12 months, did the food you bought not last and you didn't have the money to get more?: Never true Within the past 12 months, did you worry whether your food would run out before you got money to buy more?: Never true Do you have trouble paying for medicines?: No Do you have trouble getting transportation to medical appointments?: No Do you have trouble paying your heating and electricity bill?: No Do you have trouble taking care of your child, family member or friend?: No Do you have trouble with day-to-day activities such as bathing, preparing meals, shopping, managing finances, etc.?: No Are you currently unemployed and looking for a job?: No Are you interested in more education?: No Please select the resources that you would like help with: None Currently or been in a relationship where the following occur: no concerns reported THRIVE Score: 0 AUDIT C Alcohol Use Questionnaire (AUDIT-C) 1. How often do you have a drink containing alcohol?: Monthly or less 2. How many drinks containing alcohol do you have on a typical day when you are drinking?: 1 or 2 3. How often do you have six or more drinks on one occasion?: Never Total Score: 1 Score Reviewed/Action Taken: No MARTITA-7 AMB Questionnaire MARTITA-7 Date MARTITA - 7 assessed: 10/16/23 Source: Developed by Drs. Jaime Moore, Kasia Manzo, Ganesh Lebron and colleagues, with an educational rick from [employer]. Physical exam (Primary Care) Vital Signs: Last Vital Signs Pulse 80 02/09/24 14:03 BP 132/80 02/09/24 14:03 Pulse Ox 95 02/09/24 14:03 Oxygen Delivery Method Room Air 02/09/24 14:03 BMI result Body Mass Index 49.4 Tobacco/Smoking Status: Tobacco use Status Tobacco use date assessed 02/09/24 02/09/24 14:11 Patient Tobacco Use Status Never used Tobacco 02/09/24 14:11 e-Cigarette/Vaping Use Never Used 02/09/24 14:11 Thrive Assessment: Date of Thrive Assessment Date Thrive assessed 10/16/23 02/09/24 14:11 Currently or been in a relationship where the following occur: no concerns reported Const General: alert; No acute distress Eyes Conjunctivae: conjunctivae normal Resp Auscultation: clear to auscultation bilaterally Cardio Rate: regular rate Rhythm: regular rhythm GI Inspection: Yes normal to inspection Extrem General: Yes normal to inspection and No edema Results AMB Hemoglobin A1c AMB Hemoglobin A1c 5.6 % Last Edit by LAURENCE Reyes on 02/09/24 14:16 Assessment and Plan Assessment & Plan (1) Type 2 diabetes mellitus with hyperglycemia: Comment: A1c at 6.1% on July 2023, BMI at 50.3 on September 2023 Code(s): E11.65 - Type 2 diabetes mellitus with hyperglycemia Plan: Decrease the amount of carbohydrate intake, pasta, bread, rice and potatoes are all sugar and that is aside from all the sweet stuff, remember that fruits are good but they are Sweet also. Hemoglobin A1c goal of less than 7.0. Patient diet controlled (2) Hypertension: Code(s): I10 - Essential (primary) hypertension Plan: Continue with blood pressure medication. Decrease salt intake and exercise spironolactone 12.5 mg once a day atenolol 50 mg once a day (3) Hypothyroid: Code(s): E03.9 - Hypothyroidism, unspecified Plan: Continue with thyroid medication (4) Hypercholesterolemia: Code(s): E78.00 - Pure hypercholesterolemia, unspecified Plan: Avoid fried foods, chicken skin, eggs, butter margarine, pastries and meat. Be it pork or beef they have a lot of cholesterol LDL goal of less than 70 and triglyceride of less than 150 patient is on atorvastatin 80 mg once a day (5) Afib: Code(s): I48.91 - Unspecified atrial fibrillation Plan: Continue with anticoagulation with apixaban 5 mg twice a day semiannual renal function test patient also on diuretic (6) Morbid obesity: Code(s): E66.01 - Morbid (severe) obesity due to excess calories (7) Coronary atherosclerosis: Code(s): I25.10 - Atherosclerotic heart disease of [place] coronary artery without angina pectoris (8) Knee osteoarthritis: Code(s): M17.9 - Osteoarthritis of knee, unspecified Plan: Narcotic pain meds: Is being prescribed with the understanding that these medications are potentially addictive and should be used only when absolutely necessary and must always be secured. Any remaining pills should be safely disposed off appropriately. Patient is advised that narcotics can impaired judgment and one should not drive or operate heavy machinery while taking these medications. Never share these medications with anybody and do not leave them unattended. They will not be replaced under any circumstances. Orders: Orders AMB Hemoglobin A1c Today E11.65 - Type 2 diabetes mellitus with hyperglycemia Coding Level of Care Code Est Pt Level 4 (74115) Complex EM visit Add On G2211 Diagnoses Type 2 diabetes mellitus with hyperglycemia E11.65 Hypertension I10 Hypothyroid E03.9 Hypercholesterolemia E78.00 Afib I48.91 Morbid obesity E66.01 Coronary atherosclerosis I25.10 Knee osteoarthritis M17.9
== END 2024-02-09 16:11 | disposition home or self-care (01) ==
PROVIDERS: PCP Internal Medicine; Visit Provider Internal Medicine
DX: E11.65 Type 2 diabetes mellitus with hyperglycemia (principal); I48.91 Unspecified atrial fibrillation; E66.01 Morbid (severe) obesity due to excess calories; Z68.42 Body mass index [BMI] 45.0-49.9, adult; I10 Essential (primary) hypertension; E03.9 Hypothyroidism, unspecified; E78.00 Pure hypercholesterolemia, unspecified; I25.10 Atherosclerotic heart disease of native coronary artery without angina pectoris; M17.9 Osteoarthritis of knee, unspecified
CPT/HCPCS: 83036; 99214; G2211

== ENCOUNTER 2024-03-10 10:43 | Outpatient (AMB) | payer MEDICARE, SELFPAY ==
--- NOTE | 2024-03-10 10:50 | A.OFFPC_ITS ---
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 Patient's mammogram is up-to-date declined colonoscopy and bone density is up-to-date. Received notes from pain management in [id number] regarding narcotic pain medication for the knee pain on gabapentin 300 mg 3 times a day. Pain management justifies her oxycodone 5 mg twice a day for her bilateral knee osteoarthritis [facility] Medical History Pneumonia Bilateral claudication of lower limb Breast calcification, left Breast cancer screening by mammogram [facility] discharge follow-up [facility] (obstructive sleep apnea) Morbid obesity Persistent atrial fibrillation Hypokalemia Physical deconditioning CHF (congestive heart failure) Diabetes Chronic venous stasis Hypothyroid Afib HTN (hypertension) Surgical History S/P cardiac catheterization History of ankle surgery History of appendectomy S/P cholecystectomy Hx of total knee arthroplasty Family History Father EtOH dependence Social History Housing: Apartment Alcohol intake: current Alcohol intake frequency: holidays/special occasions only Patient Tobacco Use Status: Never used Tobacco e-Cigarette/Vaping Use: Never Used Second Hand Smoke Exposure: No service: No Current occupational status: disabled Cognitive needs: No Hearing needs: No Vision needs: Yes Questionnaire Thrive Questionnaire Date Thrive assessed: 10/16/23 MARTITA-7 AMB Questionnaire MARTITA-7 Date MARTITA - 7 assessed: 10/16/23 Source: Developed by Drs. Jaime Moore, Kasia Manzo, Ganesh Lebron and colleagues, with an educational rick from [employer]. Physical exam (Primary Care) Vital Signs: Last Vital Signs Pulse 61 03/10/24 10:51 BP 128/80 03/10/24 10:51 Pulse Ox 93 03/10/24 10:51 Oxygen Delivery Method Room Air 03/10/24 10:51 BMI result Body Mass Index 49.9 Tobacco/Smoking Status: Tobacco use Status Tobacco use date assessed 02/09/24 03/10/24 10:52 Patient Tobacco Use Status Never used Tobacco 03/10/24 10:52 e-Cigarette/Vaping Use Never Used 03/10/24 10:52 Thrive Assessment: Date of Thrive Assessment Date Thrive assessed 10/16/23 03/10/24 10:52 Const General: alert; No acute distress Eyes Conjunctivae: conjunctivae normal Resp Auscultation: clear to auscultation bilaterally Cardio Rate: regular rate Rhythm: regular rhythm GI Inspection: Yes normal to inspection Extrem General: Yes normal to inspection and No edema Assessment and Plan Assessment & Plan (1) Hypercholesterolemia: Code(s): E78.00 - Pure hypercholesterolemia, unspecified Plan: Avoid fried foods, chicken skin, eggs, butter margarine, pastries and meat. Be it pork or beef they have a lot of cholesterol LDL goal of less than 100 and triglyceride of less than 150. Patient on atorvastatin 80 mg once a day (2) Type 2 diabetes mellitus with hyperglycemia: Comment: A1c at 6.1% on July 2023, BMI at 50.3 on September 2023 Code(s): E11.65 - Type 2 diabetes mellitus with hyperglycemia Plan: Decrease the amount of carbohydrate intake, pasta, bread, rice and potatoes are all sugar and that is aside from all the sweet stuff, remember that fruits are good but they are Sweet also. Hemoglobin A1c goal of less than 7.0 patient is on diet control (3) Hypertension: Code(s): I10 - Essential (primary) hypertension Plan: Continue with blood pressure medication. Decrease salt intake and exercise on spironolactone 12.5 mg once a day atenolol 50 mg once a day (4) Hypothyroid: Code(s): E03.9 - Hypothyroidism, unspecified Plan: Continue with thyroid medication (5) Afib: Code(s): I48.91 - Unspecified atrial fibrillation Plan: Continue with anticoagulation. (6) Morbid obesity: Code(s): E66.01 - Morbid (severe) obesity due to excess calories Plan: Diet and exercise (7) Knee osteoarthritis: Code(s): M17.9 - Osteoarthritis of knee, unspecified Plan: Narcotic pain meds: Is being prescribed with the understanding that these medications are potentially addictive and should be used only when absolutely necessary and must always be secured. Any remaining pills should be safely disposed off appropriately. Patient is advised that narcotics can impaired judgment and one should not drive or operate heavy machinery while taking these medications. Never share these medications with anybody and do not leave them unattended. They will not be replaced under any circumstances. Received notes from pain management and agrees with narcotic prescription. Medications: Refilled oxycodone 5 mg PO BID PRN 60 tabs 0RF pain M17.9 - Osteoarthritis of knee, unspecified omeprazole 20 mg PO BEDTIME 90 days 90 caps 3RF levothyroxine 50 mcg PO QAM 90 tabs 2RF Coding Level of Care Code Est Pt Level 4 (89047) Complex EM visit Add On G2211 Diagnoses Hypercholesterolemia E78.00 Type 2 diabetes mellitus with hyperglycemia E11.65 Hypertension I10 Hypothyroid E03.9 Afib I48.91 Morbid obesity E66.01 Knee osteoarthritis M17.9
[2024-03-10 10:51] VITALS: BP 128/80; PULSE 61; O2SAT 93; BMI 49.9
== END 2024-03-10 11:48 | disposition home or self-care (01) ==
PROVIDERS: PCP Internal Medicine; Visit Provider Internal Medicine
DX: E78.00 Pure hypercholesterolemia, unspecified (principal); E11.65 Type 2 diabetes mellitus with hyperglycemia; E03.9 Hypothyroidism, unspecified; I48.91 Unspecified atrial fibrillation; M17.9 Osteoarthritis of knee, unspecified
CPT/HCPCS: 99214; G2211

== ENCOUNTER 2024-04-07 09:28 | Outpatient (AMB) | payer MEDICARE, MEDICAID, SELFPAY ==
[2024-04-07 09:29] VITALS: BP 122/68; PULSE 74; O2SAT 94; BMI 50.3
--- NOTE | 2024-04-07 09:29 | A.OFFPC_ITS ---
Vital Signs 04/07/24 09:29 Height 5 ft 2 in Weight 275 lb 0.4 oz BMI 50.3 BP 122/68 Blood Pressure Location Lt brachial Position Sitting Pulse 74 Pulse Source Pulse Oximeter Pulse Oximetry (%) 94 Oxygen Delivery Method Room Air Intake Visit Reasons: DM , Knee OA Dental Hygiene Teacher Required: No Allergies codeine [CODEINE] Allergy (Intermediate, Verified 04/07/24 09:30) CHEST PAIN Medication List - Last Reconciled 04/07/24 by Yuliet Gibbs PA-C acetaminophen 500 mg PO Q6H apixaban (Eliquis) 5 mg PO BID atenolol 50 mg PO DAILY 90 days atorvastatin 80 mg PO BEDTIME blood sugar diagnostic (FreeStyle Lite Strips) As directed check the BS QD blood-glucose meter (FreeStyle Lite Meter kit) As directed bumetanide 3 mg (1.5 x 2 mg) PO BID 90 days cephalexin 500 mg PO Q6H 7 days doxycycline hyclate 100 mg PO BID escitalopram oxalate 20 mg PO DAILY gabapentin 300 mg PO DAILY lancets (FreeStyle Lancets) As directed check BS QD levothyroxine 50 mcg PO QAM magnesium oxide 400 mg PO DAILY omeprazole 20 mg PO BEDTIME 90 days ondansetron 8 mg PO Q8H PRN oxycodone 5 mg PO BID PRN spironolactone 12.5 mg (1/2 x 25 mg) PO DAILY 90 days walker (Ultra-Light Rollator misc) As directed Tobacco use date assessed: 02/09/24 Fall risk assessment: No Falls in past year Last assessed Fall Risk: 04/07/24 Dental Screening Dental Screen Date: 10/16/23 HPI DM , Knee OA HPI Details 68-year-old female with history of contr olled diabetes mellitus, hypertension, hypothyroid, hypercholesterolemia, atrial fibrillation, coronary artery disease, and knee osteoarthritis last seen March 2024 coming in for follow up.? In review of the notes, she is followed by pain management for bilateral knee osteoarthritis. Today she tells us she still has continued pain in the back and bilateral knees she uses pain medication to manage. She is still regularly sees pain management in [place] every 6 months and has trialed injections and physical therapy in the past with no relief. She is leaving for vacation on a cruise and is looking for antinausea medication. She also mentioned she has been eating 3 meals regularly a day and has been decreasing carbohydrates and increasing protein and vegetables. [facility] Medical History Pneumonia Bilateral claudication of lower limb Breast calcification, left Breast cancer screening by mammogram [facility] discharge follow-up [facility] (obstructive sleep apnea) Morbid obesity Persistent atrial fibrillation Hypokalemia Physical deconditioning CHF (congestive heart failure) Diabetes Chronic venous stasis Hypothyroid Afib HTN (hypertension) Surgical History S/P cardiac catheterization History of ankle surgery History of appendectomy S/P cholecystectomy Hx of total knee arthroplasty Family History Father EtOH dependence Social History Housing: Apartment Alcohol intake: current Alcohol intake frequency: holidays/special occasions only Patient Tobacco Use Status: Never used Tobacco e-Cigarette/Vaping Use: Never Used Second Hand Smoke Exposure: No service: No Current occupational status: disabled Cognitive needs: No Hearing needs: No Vision needs: Yes Questionnaire Thrive Questionnaire Date Thrive assessed: 10/16/23 AUDIT C Alcohol Use Questionnaire (AUDIT-C) 1. How often do you have a drink containing alcohol?: Monthly or less 2. How many drinks containing alcohol do you have on a typical day when you are drinking?: 1 or 2 3. How often do you have six or more drinks on one occasion?: Never Total Score: 1 Score Reviewed/Action Taken: No MARTITA-7 AMB Questionnaire MARTITA-7 Date MARTITA - 7 assessed: 10/16/23 Source: Developed by Drs. Jaime Moore, Kasia Manzo, Ganesh Lebron and colleagues, with an educational rick from [employer]. Review of Systems Const Denies body aches, Denies headache(s) and Denies poor appetite Eyes Reports no additional complaints ENT Reports no additional complaints and Denies headache(s) Card Denies chest pain, Denies syncope, Denies edema, Denies irregular heart rhythm, Denies lightheadedness, Denies dyspnea and Reports dyspnea on exertion (With prolonged exercise) Resp Denies dyspnea and Reports dyspnea on exertion (With prolonged exercise) GI Denies abdominal pain, Denies nausea and Denies vomiting Reports no additional complaints Musc Reports as per HPI Skin/Breast Reports system reviewed and no additional complaints, except as documented Neuro Denies syncope and Denies headache(s) Psych Reports no additional complaints Physical exam (Primary Care) Vital Signs: Last Vital Signs Pulse 74 04/07/24 09:29 BP 122/68 04/07/24 09:29 Pulse Ox 94 04/07/24 09:29 Oxygen Delivery Method Room Air 04/07/24 09:29 BMI result Body Mass Index 50.3 BMI Assessment/Plan discussion: High BMI High, discussed plan: lifestyle, weight reduction, dietary and physical activity Tobacco/Smoking Status: Tobacco use Status Tobacco use date assessed 02/09/24 04/07/24 09:30 Patient Tobacco Use Status Never used Tobacco 04/07/24 09:30 e-Cigarette/Vaping Use Never Used 04/07/24 09:30 Thrive Assessment: Date of Thrive Assessment Date Thrive assessed 10/16/23 04/07/24 09:30 Const General: cooperative, healthy appearing, comfortable and no acute distress Orientation/consciousness: patient oriented x3 HENMT Head: Yes normocephalic Ears: hearing grossly normal bilaterally General nose exam: Normal external nose present Eyes General: appearance normal, both eyes and all related structures Conjunctivae: conjunctivae normal Neck Neck: Yes full ROM and Yes no lymphadenopathy Resp Effort & Inspection: normal respiratory effort Auscultation: clear to auscultation bilaterally, no crackles, no rales, no rhonchi and no wheezes Cardio Rate: regular rate Rhythm: regular rhythm Skin General skin exam: no rashes or lesions noted Neuro General: patient oriented x3 Gait exam (Neuro): Normal gait present Extrem General: Yes normal to inspection, Yes full ROM and No edema Psych Affect: normal affect Attitude: cooperative Insight: Good insight present (Psych) Judgement: Good judgement present (Psych) Assessment and Plan Assessment & Plan (1) Obesity, Class III, BMI 40-49.9 (morbid obesity): Code(s): E66.01 - Morbid (severe) obesity due to excess calories Plan: Discussed the importance of eating 3 balanced meals a day with regular exercise. She mentioned she does a stationary bike and light weights while at home. Encouraged patient to look into exercise programs as she mentioned she has lack of motivation. (2) Knee osteoarthritis: Code(s): M17.9 - Osteoarthritis of knee, unspecified Plan: Continue on pain medication and continue to follow up with pain management. (3) Type 2 diabetes mellitus with hyperglycemia: Comment: A1c at 6.1% on July 2023, BMI at 50.3 on September 2023 Code(s): E11.65 - Type 2 diabetes mellitus with hyperglycemia Plan: Last A1c was at goal we will have new level next month. Decrease the amount of carbohydrates such as pasta, bread, rice, and potatoes and limit the amount of sweets. Although fruits are generally healthy they should be eaten in moderation as they are still high in sugar. Hemoglobin A1c goal of less than 7%. Encouraged weight loss. Plan This note was constructed using voice recognition software. While every effort has been made to ensure accuracy and applications engineering manager, still areas may have been included sometimes these areas may affect the content or meeting of the given symptoms. Total time spent caring for the patient today was 30 minutes. This includes time spent before the visit reviewing the chart, time spent during the visit, and time spent after the visit and documentation. Medications: Refilled ondansetron 8 mg PO Q8H PRN 30 tabs 1RF nausea Coding Level of Care Code Est Pt Level 4 (50690) Diagnoses Obesity, Class III, BMI 40-49.9 (morbid obesity) E66.01 Knee osteoarthritis M17.9 Type 2 diabetes mellitus with hyperglycemia E11.65
== END 2024-04-07 10:06 | disposition home or self-care (01) ==
PROVIDERS: PCP Internal Medicine
DX: E11.65 Type 2 diabetes mellitus with hyperglycemia (principal); M17.0 Bilateral primary osteoarthritis of knee; E66.01 Morbid (severe) obesity due to excess calories; Z68.43 Body mass index [BMI] 50.0-59.9, adult
CPT/HCPCS: 99214

== ENCOUNTER 2024-05-10 10:23 | Outpatient (AMB) | payer MEDICARE, SELFPAY ==
[2024-05-10 10:27] VITALS: BP 128/78; PULSE 84; O2SAT 96; BMI 49.6
--- NOTE | 2024-05-10 10:27 | A.OFFPC_ITS ---
Vital Signs 05/10/24 10:27 Height 5 ft 2 in Weight 271 lb BMI 49.6 BP 128/78 Blood Pressure Location Lt brachial Position Sitting Pulse 84 Pulse Source Pulse Oximeter Pulse Oximetry (%) 96 Oxygen Delivery Method Room Air Intake Visit Reasons: Pain Med Follow Up Tier In Required: No Accompanied by: Self / Same As Patient Allergies codeine [CODEINE] Allergy (Intermediate, Verified 05/10/24 10:32) CHEST PAIN Tobacco use date assessed: 02/09/24 Fall risk assessment: 2 + Falls in past year Last assessed Fall Risk: 05/10/24 Dental Screening Dental Screen Date: 10/16/23 HPI Pain Med Follow Up HPI Details 68-year-old morbidly obese female with c ontrolled diabetes mellitus kn ee osteoarthritis on narcotic pain medication coming in for follow-up. Patient has hypertension hypothyroidism cardiomyopathy coronary artery disease obstructive sleep apnea. Mammogram is up-to-date declined colonoscopy up-to-date with bone density. took oxycodone this am deny any other recreational medication [facility] Medical History Pneumonia Bilateral claudication of lower limb Breast calcification, left Breast cancer screening by mammogram [facility] discharge follow-up [facility] (obstructive sleep apnea) Morbid obesity Persistent atrial fibrillation Hypokalemia Physical deconditioning CHF (congestive heart failure) Diabetes Chronic venous stasis Hypothyroid Afib HTN (hypertension) Surgical History S/P cardiac catheterization History of ankle surgery History of appendectomy S/P cholecystectomy Hx of total knee arthroplasty Family History Father EtOH dependence Social History Housing: Apartment Alcohol intake: current Alcohol intake frequency: holidays/special occasions only Patient Tobacco Use Status: Never used Tobacco Tobacco use type: Cigarette e-Cigarette/Vaping Use: Never Used Second Hand Smoke Exposure: No service: No Current occupational status: disabled Cognitive needs: No Hearing needs: No Vision needs: Yes Questionnaire PHQ-9 Over the last 2 weeks, how often have you been bothered by any of the following problems? 1. Little interest or pleasure in doing things: not at all 2. Feeling down, depressed, or hopeless: nearly every day 3. Trouble falling or staying asleep, or sleeping too much: nearly every day 4. Feeling tired or having little energy: nearly every day 5. Poor appetite or overeating: several days 6. Feeling bad about yourself - or that you are a failure or have let yourself or your family down: several days 7. Trouble concentrating on things, such as reading the newspaper or watching television: more than half the days 8. Moving or speaking so slowly that other people could have noticed. Or the opposite - being so fidgety or restless that you have been moving around a lot more than usual: not at all 9. Thoughts that you would be better off or of hurting yourself in some way: not at all Total score: 13 Depression Screening Interpretation: Positive Depression Screening Follow-up: Community Mental Health Worker F/U Depression Screening Done: Yes 43945 - PHQ-9 Billing: Yes Source: Developed by Drs. Jaime Moore, Kasia Manzo, Ganesh Lebron and colleagues, with an educational rick from [employer]. Thrive Questionnaire Date Thrive assessed: 10/16/23 AUDIT C Alcohol Use Questionnaire (AUDIT-C) 1. How often do you have a drink containing alcohol?: Monthly or less 2. How many drinks containing alcohol do you have on a typical day when you are drinking?: 1 or 2 3. How often do you have six or more drinks on one occasion?: Never Total Score: 1 Score Reviewed/Action Taken: No MARTITA-7 AMB Questionnaire MARTITA-7 Date MARTITA - 7 assessed: 10/16/23 Source: Developed by Drs. Jaime Moore, Kasia Manzo, Ganesh Lebron and colleagues, with an educational rick from [employer]. Physical exam (Primary Care) Vital Signs: Last Vital Signs Pulse 84 05/10/24 10:27 BP 128/78 05/10/24 10:27 Pulse Ox 96 05/10/24 10:27 Oxygen Delivery Method Room Air 05/10/24 10:27 BMI result Body Mass Index 49.6 Tobacco/Smoking Status: Tobacco use Status Tobacco use date assessed 02/09/24 05/10/24 10:29 Patient Tobacco Use Status Never used Tobacco 05/10/24 10:29 Tobacco use type Cigarette 05/10/24 10:35 e-Cigarette/Vaping Use Never Used 05/10/24 10:29 PHQ-9: PHQ-9 Score PHQ-9: Total score 13 05/10/24 10:38 Depression Screening Interpretation: Positive Depression Screening Follow-up: Community Mental Health Worker F/U Thrive Assessment: Date of Thrive Assessment Date Thrive assessed 10/16/23 05/10/24 10:29 Const General: alert; No acute distress Eyes Conjunctivae: conjunctivae normal Resp Auscultation: clear to auscultation bilaterally Cardio Rate: regular rate Rhythm: regular rhythm GI Inspection: Yes normal to inspection Extrem General: Yes normal to inspection and No edema Results AMB Hemoglobin A1c AMB Hemoglobin A1c 5.9 % Last Edit by Lucinda Justin CMA on 05/10/24 10:39 Results Reviewed Results Reviewed: Laboratory Last Values Hgb A1c (Clinic) 5.9 % (4.0-6.0) 05/10/24 10:38 Assessment and Plan Assessment & Plan (1) Type 2 diabetes mellitus with hyperglycemia: Comment: A1c at 6.1% on July 2023, BMI at 50.3 on September 2023 Code(s): E11.65 - Type 2 diabetes mellitus with hyperglycemia Plan: Decrease the amount of carbohydrate intake, pasta, bread, rice and potatoes are all sugar and that is aside from all the sweet stuff, remember that fruits are good but they are Sweet also. Hemoglobin A1c goal of less than 6.5 patient is diet controlled (2) Morbid obesity: Code(s): E66.01 - Morbid (severe) obesity due to excess calories Plan: Diet and exercise (3) Hypertension: Code(s): I10 - Essential (primary) hypertension Plan: Continue with blood pressure medication. Decrease salt intake and exercise patient is on spironolactone 12.5 mg once a day atenolol 50 mg once a day. (4) Hypothyroid: Code(s): E03.9 - Hypothyroidism, unspecified Plan: Continue with thyroid medication 10/21/2023 last tested (5) Hypercholesterolemia: Code(s): E78.00 - Pure hypercholesterolemia, unspecified Plan: Avoid fried foods, chicken skin, eggs, butter margarine, pastries and meat. Be it pork or beef they have a lot of cholesterol patient in on atorvastatin 80 mg once a day last LDL tested was in 10/21/2023 advised to retest. (6) Coronary atherosclerosis: Code(s): I25.10 - Atherosclerotic heart disease of [place] coronary artery without angina pectoris Plan: Control the cholesterol, weight, blood pressure, diabetes patient is on anticoagulation (7) Afib: Code(s): I48.91 - Unspecified atrial fibrillation Plan: Continue with anticoagulation and reminded patient about the blood work (8) Knee osteoarthritis: Code(s): M17.9 - Osteoarthritis of knee, unspecified Orders: Orders AMB Hemoglobin A1c Today E11.65 - Type 2 diabetes mellitus with hyperglycemia Opiates GCMS Expanded, Ur Today M17.9 - Osteoarthritis of knee, unspecified Drug Screen Urine Today M17.9 - Osteoarthritis of knee, unspecified Medications: Refilled oxycodone 5 mg PO BID PRN 60 tabs 0RF pain M17.9 - Osteoarthritis of knee, unspecified Coding Level of Care Code Est Pt Level 4 (41264) Diagnoses Type 2 diabetes mellitus with hyperglycemia E11.65 Morbid obesity E66.01 Hypertension I10 Hypothyroid E03.9 Hypercholesterolemia E78.00 Coronary atherosclerosis I25.10 Afib I48.91 Knee osteoarthritis M17.9
== END 2024-05-10 15:11 | disposition home or self-care (01) ==
PROVIDERS: PCP Internal Medicine; Visit Provider Internal Medicine
DX: E11.65 Type 2 diabetes mellitus with hyperglycemia (principal); E66.01 Morbid (severe) obesity due to excess calories; I48.91 Unspecified atrial fibrillation; Z68.42 Body mass index [BMI] 45.0-49.9, adult; I10 Essential (primary) hypertension; E03.9 Hypothyroidism, unspecified; E78.00 Pure hypercholesterolemia, unspecified; I25.10 Atherosclerotic heart disease of native coronary artery without angina pectoris; M17.9 Osteoarthritis of knee, unspecified
CPT/HCPCS: 83036; 99214

== ENCOUNTER 2024-05-20 13:45 | Outpatient (AMB) | payer MEDICARE, MEDICAID, SELFPAY ==
[2024-05-20 14:09] VITALS: BP 128/72; PULSE 88; BMI 51.4
--- NOTE | 2024-05-20 14:09 | A.OFFVIS_ITS ---
Vital Signs 05/20/24 14:09 Height 5 ft 2 in Weight 280 lb 13.903 oz BMI 51.4 BP 128/72 Blood Pressure Location Lt brachial Position Sitting Pulse 88 Pulse Source Monitor Intake Visit Reasons: 6 mth f/up Cutting Tool Sharpener: Cutting Tool Sharpener Present Allergies codeine [CODEINE] Allergy (Intermediate, Verified 05/20/24 14:12) CHEST PAIN Medication List - Last Reconciled 05/20/24 by JACKY Adam acetaminophen 500 mg PO Q6H apixaban (Eliquis) 5 mg PO BID atenolol 50 mg PO DAILY 90 days atorvastatin 80 mg PO BEDTIME blood sugar diagnostic (FreeStyle Lite Strips) As directed check the BS QD blood-glucose meter (FreeStyle Lite Meter kit) As directed bumetanide 3 mg (1.5 x 2 mg) PO BID 90 days escitalopram oxalate 20 mg PO DAILY gabapentin 300 mg PO DAILY lancets (FreeStyle Lancets) As directed check BS QD levothyroxine 50 mcg PO QAM magnesium oxide 400 mg PO DAILY omeprazole 20 mg PO BEDTIME 90 days ondansetron 8 mg PO Q8H PRN oxycodone 5 mg PO BID PRN spironolactone 12.5 mg (1/2 x 25 mg) PO DAILY 90 days walker (Ultra-Light Rollator misc) As directed HPI HPI 6 mth f/up: Details: Stella 68-year-old past medical history of hypertension, diabetes, morbid obesity, obstructive sleep apnea, Congestive heart failure, chronic atrial fibrillation, mild cardiomyopathy, nonobstructive coronary artery disease, severe pulmonary hypertension who presents for follow-up. Her last prior visit was 10/27/2023. Today she reports that her condition has been unchanged since her visit here in October. She states that she has ongoing issues with shortness of breath with activity which she feels has not worsened. She denies PND, orthopnea. She sleeps on a love seat with her head on the arm rest. She has been having issues with swollen feet. No chest discomfort at rest or with activity. She will feel heart palpitations at times -nothing overly concerning. No lightheadedness, presyncope, syncope. She has not had recent falls. A few weeks ago she went on a cruise with her friend. Taking all meds as directed. No bleeding issues noted. [facility] Medical History Pneumonia Bilateral claudication of lower limb Breast calcification, left Breast cancer screening by mammogram [facility] discharge follow-up [facility] (obstructive sleep apnea) Morbid obesity Persistent atrial fibrillation Hypokalemia Physical deconditioning CHF (congestive heart failure) Diabetes Chronic venous stasis Hypothyroid Afib HTN (hypertension) Surgical History S/P cardiac catheterization History of ankle surgery History of appendectomy S/P cholecystectomy Hx of total knee arthroplasty Family History Father EtOH dependence Social History Housing: Apartment Alcohol intake: current Alcohol intake frequency: holidays/special occasions only Patient Tobacco Use Status: Never used Tobacco Tobacco use type: Cigarette e-Cigarette/Vaping Use: Never Used Second Hand Smoke Exposure: No service: No Current occupational status: disabled Cognitive needs: No Hearing needs: No Vision needs: Yes Review of Systems Const All systems reviewed & are unremarkable except as noted in HPI and below ENT Denies dizziness Card Denies chest pain, Denies chest pain at rest, Denies chest pain with activity, Denies rapid heart rate, Reports pedal edema, Denies edema, Denies lightheadedness, Denies palpitations, Reports dyspnea, Reports dyspnea on exertion and Denies orthopnea Resp Denies cough, Reports dyspnea and Reports dyspnea on exertion GI Denies hematochezia and Denies change in stool character Musc Reports abnormal gait, Denies limited range of motion, Denies muscle cramps, Reports muscle weakness, Denies numbness, Denies radiating pain into limb, Denie s stiffness and Denies tingling Neuro Reports abnormal gait, Denies dizziness, Denies numbness and Denies tingling Endo Denies palpitations Physical Exam Vital Signs: Last Vital Signs Pulse 88 05/20/24 14:09 BP 128/72 05/20/24 14:09 BMI result Body Mass Index 51.4 Const Other: morbidly obese General: cooperative, comfortable and no acute distress Orientation/consciousness: patient oriented x3 Neck Neck: Yes normal visual inspection Resp Effort & Inspection: normal respiratory effort Auscultation: clear to auscultation bilaterally, no rales, no rhonchi and no wheezes Cardio Jugular venous distension: no JVD Rate: regular rate Rhythm: abnormal rhythm Heart sounds: S1 normal heart sound present, S2 normal heart sound present, no murmurs and no rubs Skin General skin exam: no rashes or lesions noted Neuro General: patient oriented x3 Extrem Other: pillow top feet, no pitting edema into ankle or lower leg Psych Appearance: grossly normal Mental Status: mental status grossly normal Speech and movement: Normal speech and movement present Office Procedures EKG Details: Today, read by me, atrial fibrillation, right bundle branch block, T-wave abnormality inferior and far lateral leads, no significant change from prior, rate 88, QTC 493 milliseconds [id number], Complete Assessment & Plan Assessment & Plan (1) Cardiomyopathy: Code(s): I42.9 - Cardiomyopathy, unspecified Category: Medical Plan: Hx of RV failure, Congestive heart failure with preserved EF. Echo done 10/2022 showing a mildly reduced EF 45-50% with moderate increase in the RV size and moderate decrease in the RV systolic function. She underwent cardiac catheterization on 03/11/2023 showing mid LAD 50% stenosis, IFR 0.97, mildly elevated PA pressures with PAD 28, wedge 19. She was determined to have severe pulmonary hypertension as a cause of her RV dysfunction. She has been on Bumex 3 mg b.i.d. since prior to last visit. On exam today she is noted to have p illow top feet, lungs are clear. She is morbidly obese making the evaluation for fluid more challenging. She does report her chronic shortness of breath with activity is unchanged recently. Her weight is up over 10 lb since she was last seen here. Overall she is mostly sedentary. She is having labs checked tomorrow, will check BMP, BNP. Will update echocardiogram to see if EF has changed and evaluate RV systolic function. At this time will Continue Bumex, atenolol, spironolactone. Will consider increase in diuretics if lab work allows and BNP warrants. Signs and symptoms of heart failure reviewed with her. Will call her with echo results once available. Follow-up in the office 6 months, sooner if needed. She has upcoming visits with her PCP. (2) S/P cardiac catheterization: Comment: 03/11/2023, mid LAD 50% stenosis, IFR 0.97, wedge 19, PA pressure is 62/42/28, RA 14 Code(s): Z98.890 - Other specified postprocedural states Category: Surgical Plan: As above (3) Hypertension: Code(s): I10 - Essential (primary) hypertension Category: Medical Plan: Well controlled at present (4) CHF (congestive heart failure): Code(s): I50.9 - Heart failure, unspecified Category: Medical Plan: As above (5) Morbid obesity: Code(s): E66.01 - Morbid (severe) obesity due to excess calories Category: Medical Plan: BMI 51.4. Weight loss strongly encouraged. She may benefit from weight loss program. (6) Hypercholesterolemia: Code(s): E78.00 - Pure hypercholesterolemia, unspecified Category: Medical Plan: [place] LDL goal less than 70 in patient with CAD. Labs done 10/15/2023 showed LDL 104. She tells me that her atorvastatin dose was increased from 20 mg up to 40 mg daily. Fasting labs pending. -she says she will do them tomorrow. (7) Coronary atherosclerosis: Code(s): I25.10 - Atherosclerotic heart disease of [place] coronary artery without angina pectoris Category: Medical Plan: As above, 50 % mid LAD stenosis. No reports of anginal sounding symptoms. Her shortness of breath is chronic and unchanged. Medical management. She has not on aspirin as she is on Eliquis. She is on atenolol and on atorvastatin 40 mg daily. (8) Afib: Code(s): I48.91 - Unspecified atrial fibrillation Category: Medical Plan: History of chronic atrial fibrillation. She is treated with rate control with use of atenolol. EKG done today showed AFib with right bundle branch block, rate 88. No concerning heart palpitations. She is on Eliquis for anticoagulation. No bleeding issues reported. CBC and BMP are pending. Continue current treatment Plan Time spent on chart review, documentation, interview and assessment Orders: Orders CA echo transthoracic complete Today I25.10 - Atherosclerotic heart disease of [place] coronary artery without angina pectoris, I42.9 - Cardiomyopathy, unspecified Coding Level of Care Code Est Pt Level 4 (85898) Diagnoses Cardiomyopathy I42.9 S/P cardiac catheterization Z98.890 Hypertension I10 CHF (congestive heart failure) I50.9 Morbid obesity E66.01 Hypercholesterolemia E78.00 Coronary atherosclerosis I25.10 Afib I48.91 CPT Codes EKG - CPT: [id number], Complete ([id number]) Time Spent (min) 35
== END 2024-05-20 14:46 | disposition home or self-care (01) ==
PROVIDERS: PCP Internal Medicine; Visit Provider Nurse Practitioner Family
DX: I42.9 Cardiomyopathy, unspecified (principal); Z98.890 Other specified postprocedural states; I10 Essential (primary) hypertension; I50.9 Heart failure, unspecified; E66.01 Morbid (severe) obesity due to excess calories; E78.00 Pure hypercholesterolemia, unspecified; I25.10 Atherosclerotic heart disease of native coronary artery without angina pectoris; I48.91 Unspecified atrial fibrillation
CPT/HCPCS: 93010; 99214

== ENCOUNTER → 2024-05-20 13:45 | Outpatient (BNVA) | payer MEDICARE, MEDICAID, SELFPAY | PROVIDERS: PCP Internal Medicine; Visit Provider Nurse Practitioner Family | DX: I42.9 Cardiomyopathy, unspecified (principal); I11.0 Hypertensive heart disease with heart failure; I50.9 Heart failure, unspecified; I25.10 Atherosclerotic heart disease of native coronary artery without angina pectoris; I48.91 Unspecified atrial fibrillation; E78.00 Pure hypercholesterolemia, unspecified; E66.01 Morbid (severe) obesity due to excess calories; Z98.890 Other specified postprocedural states; Z68.43 Body mass index [BMI] 50.0-59.9, adult | CPT/HCPCS: 93005; 99212 ==

== ENCOUNTER 2024-06-03 11:15 | Outpatient (REF) | payer MEDICARE, OTHER, SELFPAY ==
[2024-06-03 11:43] LABS: MANUAL DIFF FLAG NO
[2024-06-03 12:00] LABS: Basophils Absolute Auto 0.1 X10*3/uL (0.0-0.2); Basophils Percent Auto 0.8 % (0-2); Eosinophils Absolute Auto 0.1 X10*3/uL (0.0-0.4); Eosinophils Percent Auto 1.6 % (0-4); Hematocrit 46.3 % (37.0-47.0); Imm Gran Abs Auto 0.02 X10*3/uL (0.00-0.03); Imm Gran Pct Auto 0.3 % (0.0-0.4); Lymphocytes Absolute Auto 1.9 X10*3/uL (1.2-4.9); Lymphocytes Percent Auto 30.1 % (20-40); Mean Corpuscular HGB Conc 32.4 g/dl (31.0-35.0); Mean Corpuscular Hemoglobin 31.7 pg (27.0-33.0); Mean Corpuscular Volume 97.9 fL (80.0-98.0); Monocytes Absolute Auto 0.7 X10*3/uL (0.1-1.2); Neutrophils Absolute Auto 3.4 x10*3/uL (2.0-8.3); Neutrophils Percent Auto 55.2 % (45-73); Platelet Count 199 X10*3/uL (160-400); Red Blood Count 4.73 X10*6/uL (4.20-5.50); Red Cell Distribution Width 13.1 % (11.0-16.0); White Blood Count 6.2 X10*3/uL (4.8-10.8)
[2024-06-03 12:07] LABS: Estimated Average Glucose 100 mg/dL; Hemoglobin A1C 120.4863 umol/L; Hemoglobin A1c % 5.1 % (<6.0); Total Hemoglobin (HGBA1C) 3716.1908 umol/L
[2024-06-03 12:16] LABS: B Type Natriuretic Peptide 238 pg/mL (<100)
[2024-06-03 12:27] LABS: Alanine Aminotransferase 17 U/L (0-31); Albumin Level 4.7 g/dL (3.5-5.0); Alkaline Phosphatase 82 U/L (39-117); Anion Gap 18 (12-20); Aspartate Amino Transferase 19 U/L (5-31); Bilirubin Total 1.1 mg/dL (0.0-1.0); Blood Urea Nitrogen 23 mg/dL (9-16); Calcium 10.4 mg/dL (8.4-10.2); Carbon Dioxide 29 mmol/L (22-29); Chloride 101 mmol/L (96-108); Cholesterol 157 mg/dL (<200); Estimated Glomerular Filt Rate 42; Glucose Random 108 mg/dL (60-115); HDL Cholesterol 44 mg/dL (>40); LDL Cholesterol Calculated 75 mg/dL (<100); Magnesium 1.7 mg/dL (1.6-2.6); Potassium 3.8 mmol/L (3.3-5.1); Sodium 144 mmol/L (135-145); Total Protein 8.3 g/dL (6.5-8.0); Triglycerides 192 mg/dL (<150)
[2024-06-03 12:46] LABS: Free T4 (Free Thyroxine) 1.17 ng/dL (0.71-1.85); Thyroid Stimulating Hormone 5.89 uIU/mL (0.32-4.0); Vitamin D 25-OH Total 10.5 ng/mL (>30)
[2024-06-03 12:53] LABS: Folate 13.4 ng/mL (> or = 4.0); Vitamin B12 643 pg/mL (200-900)
[2024-06-03 12:59] LABS: Creatinine Urine 79.34 mg/dL
[2024-06-03 13:01] LABS: Creatinine Urine 79.14 mg/dL; Microalbum/Creatinine Ratio Ur 274.1 ug/mg cr (<30)
== END 2024-06-03 11:16 | disposition home or self-care (01) ==
LOC: HO.LAB 11:15
PROVIDERS: PCP Internal Medicine; Visit Provider Internal Medicine
DX: I25.10 Atherosclerotic heart disease of native coronary artery without angina pectoris (principal); E78.00 Pure hypercholesterolemia, unspecified; E11.65 Type 2 diabetes mellitus with hyperglycemia
CPT/HCPCS: 80053; 80061; 82043; 82306; 82570; 82607; 82746; 83036; 83735; 83880; 84439; 84443; 85025

== ENCOUNTER 2024-06-09 09:56 | Outpatient (AMB) | payer MEDICARE, MEDICAID, SELFPAY ==
--- NOTE | 2024-06-09 09:59 | A.OFFPC_ITS ---
Vital Signs 06/09/24 10:00 Height 5 ft 2 in Weight 272 lb BMI 49.7 BP 120/68 Blood Pressure Location Lt brachial Position Sitting Pulse 79 Pulse Source Pulse Oximeter Pulse Oximetry (%) 97 Oxygen Delivery Method Room Air Intake Visit Reasons: Pain Med Follow Up Intake Note: Patient is here to follow up on Pain medication management. Nurse Staff Required: No Cabana Attendant: Present Accompanied by: Nephew or Niece Allergies codeine [CODEINE] Allergy (Intermediate, Verified 06/09/24 10:03) CHEST PAIN Tobacco use date assessed: 06/09/24 Fall risk assessment: No Falls in past year Last assessed Fall Risk: 06/09/24 Dental Screening Dental Screen Date: 10/16/23 HPI Pain Med Follow Up HPI Details 68-year-old morbidly obese female(noted 8 lb weight loss) with controlled diabetes mellitus hypertension hypothyroid hypercholesterolemia coronary atherosclerosis atrial fibrillation and knee osteoarthritis. Patient is on narcotic pain medication. Patient's mammogram is up-to-date declined colonoscopy bone density is up-to-date. Patient follows up with Cardiology May 20 chronic atrial fibrillation with mild cardiomyopathy nonobstructive coronary artery disease severe pulmonary hypertension October 2022 EF of 45-50% cardiac catheterization in 03/20/2023 LAD 50% stenosis severe pulmonary hypertension on [facility] Medical History Pneumonia Bilateral claudication of lower limb Breast calcification, left Breast cancer screening by mammogram [facility] discharge follow-up [facility] (obstructive sleep apnea) Morbid obesity Persistent atrial fibrillation Hypokalemia Physical deconditioning CHF (congestive heart failure) Diabetes Chronic venous stasis Hypothyroid Afib HTN (hypertension) Surgical History S/P cardiac catheterization History of ankle surgery History of appendectomy S/P cholecystectomy Hx of total knee arthroplasty Family History Father EtOH dependence Social History Housing: Apartment Alcohol intake: current Alcohol intake frequency: holidays/special occasions only Patient Tobacco Use Status: Never used Tobacco Tobacco use type: Cigarette e-Cigarette/Vaping Use: Never Used Second Hand Smoke Exposure: No service: No Current occupational status: disabled Cognitive needs: No Hearing needs: No Vision needs: Yes Questionnaire Thrive Questionnaire Date Thrive assessed: 10/16/23 MARTITA-7 AMB Questionnaire MARTITA-7 Date MARTITA - 7 assessed: 10/16/23 Source: Developed by Drs. Jaime Moore, Kasia Manzo, Ganesh Lebron and colleagues, with an educational rick from [employer]. Physical exam (Primary Care) Vital Signs: Last Vital Signs Pulse 79 06/09/24 10:00 BP 120/68 06/09/24 10:00 Pulse Ox 97 06/09/24 10:00 Oxygen Delivery Method Room Air 06/09/24 10:00 BMI result Body Mass Index 49.7 Tobacco/Smoking Status: Tobacco use Status Tobacco use date assessed 06/09/24 06/09/24 10:05 Patient Tobacco Use Status Never used Tobacco 06/09/24 10:05 Tobacco use type Cigarette 06/09/24 10:05 e-Cigarette/Vaping Use Never Used 06/09/24 10:05 Thrive Assessment: Date of Thrive Assessment Date Thrive assessed 10/16/23 06/09/24 10:05 Const General: alert; No acute distress Eyes Conjunctivae: conjunctivae normal Resp Auscultation: clear to auscultation bilaterally Cardio Rate: regular rate Rhythm: regular rhythm GI Inspection: Yes normal to inspection Extrem General: Yes normal to inspection and No edema Office Procedures Flu Questionnaire Does the patient have a severe egg allergy?: No Does the patient have severe life threatening allergies?: No Does the patient have a fever or illness today?: No Has the patient ever had Guillain-Henderson Syndrome?: No Has the patient ever had any past reaction to a flu shot?: No Immunizations Fluarix Triv [id number] (PF) 45 mcg (15 mcg x 3)/0.5 mL IM syringe Performing Provider: Anderson Peters MD [facility] Administered by: Brittani Dawn RN on 06/09/24 10:22 Dose Route Admin Location Dispensed Lot Number Expiration Date [facility] [employer]cac Radar Operator/Navigator 0.5 mL IM Left Deltoid 0.5 mL [id number] 02/28/25 [id number] [employer] VIS Given Date VIS Provided VIS Publication Date 06/09/24 Single Vaccine 21 Eligibility Eligibility Date Funding Source Not [facility] Eligible 06/09/24 Private Coding Level of Care Code Est Pt Level 4 (74451) Complex EM visit Add On G2211 Diagnoses Obesity, Class III, BMI 40-49.9 (morbid obesity) E66.01 Coronary atherosclerosis I25.10 Cardiomyopathy I42.9 Type 2 diabetes mellitus with hyperglycemia E11.65 Hypertension I10 Hypothyroid E03.9 Hypercholesterolemia E78.00 Afib I48.91 CHF (congestive heart failure) I50.9 Knee osteoarthritis M17.9 Assessment & Plan Assessment & Plan (1) Obesity, Class III, BMI 40-49.9 (morbid obesity): Code(s): E66.01 - Morbid (severe) obesity due to excess calories Category: Medical Plan: Diet and exercise (2) Coronary atherosclerosis: Code(s): I25.10 - Atherosclerotic heart disease of [place] coronary artery without angina pectoris Category: Medical Plan: Control the cholesterol, weight, blood pressure, diabetes continue with anti coagulation with Eliquis cardiac catheterization nonobstructive (3) Cardiomyopathy: Code(s): I42.9 - Cardiomyopathy, unspecified Category: Medical Plan: Continue with atenolol and diuretics and spironolactone (4) Type 2 diabetes mellitus with hyperglycemia: Comment: A1c at 6.1% on July 2023, BMI at 50.3 on September 2023 Code(s): E11.65 - Type 2 diabetes mellitus with hyperglycemia Category: Medical Plan: Decrease the amount of carbohydrate intake, pasta, bread, rice and potatoes are all sugar and that is aside from all the sweet stuff, remember that fruits are good but they are Sweet also. Hemoglobin A1c goal of less than 7.0 patient is controlled (5) Hypertension: Code(s): I10 - Essential (primary) hypertension Category: Medical Plan: Continue with blood pressure medication. Decrease salt intake and exercise takes atenolol 50 mg once a day spironolactone (6) Hypothyroid: Code(s): E03.9 - Hypothyroidism, unspecified Category: Medical Plan: Continue with thyroid medication (7) Hypercholesterolemia: Code(s): E78.00 - Pure hypercholesterolemia, unspecified Category: Medical Plan: Avoid fried foods, chicken skin, eggs, butter margarine, pastries and meat. Be it pork or beef they have a lot of cholesterol LDL goal of less than 70 on atorvastatin 80 mg once a day (8) Afib: Code(s): I48.91 - Unspecified atrial fibrillation Category: Medical Plan: Continue with anticoagulation and atenolol (9) CHF (congestive heart failure): Code(s): I50.9 - Heart failure, unspecified Category: Medical Plan: Continue with Aldactone (10) Knee osteoarthritis: Code(s): M17.9 - Osteoarthritis of knee, unspecified Category: Medical Plan: Narcotic pain meds: Is being prescribed with the understanding that these medications are potentially addictive and should be used only when absolutely necessary and must always be secured. Any remaining pills should be safely disposed off appropriately. Patient is advised that narcotics can impaired judgment and one should not drive or operate heavy machinery while taking these medications. Never share these medications with anybody and do not leave them unattended. They will not be replaced under any circumstances. Orders: Orders Influenza [id number] Immunization Today Z23 - Encounter for immunization Comprehensive Met. Panel 3 Months E78.00 - Pure hypercholesterolemia, unspecified Influenza [id number] Immunization Today Z23 - Encounter for immunization Thyroid Stimulating Hormone 3 Months E03.9 - Hypothyroidism, unspecified Free T4 (Free Thyroxine) 3 Months E03.9 - Hypothyroidism, unspecified Lipid Panel 3 Months E78.00 - Pure hypercholesterolemia, unspecified Medications: New Fluarix Triv [id number] (PF) (flu vacc [id number] 6mos up(PF)) 0.5 mL IM ONCE 0.5 mL 0RF NS Z23 - Encounter for immunization Refilled oxycodone 5 mg PO BID PRN 60 tabs 0RF pain M17.9 - Osteoarthritis of knee, unspecified
[2024-06-09 10:00] VITALS: BP 120/68; PULSE 79; O2SAT 97; BMI 49.7
== END 2024-06-09 11:52 | disposition home or self-care (01) ==
PROVIDERS: PCP Internal Medicine; Visit Provider Internal Medicine
DX: E11.65 Type 2 diabetes mellitus with hyperglycemia (principal); Z68.42 Body mass index [BMI] 45.0-49.9, adult; I42.9 Cardiomyopathy, unspecified; E66.813 Obesity, class 3; I48.91 Unspecified atrial fibrillation; I50.9 Heart failure, unspecified; I11.0 Hypertensive heart disease with heart failure; I25.10 Atherosclerotic heart disease of native coronary artery without angina pectoris; E03.9 Hypothyroidism, unspecified; E78.00 Pure hypercholesterolemia, unspecified; M17.9 Osteoarthritis of knee, unspecified

== ENCOUNTER → 2024-06-09 09:56 | Outpatient (BNVA) | payer MEDICARE, MEDICAID, SELFPAY | PROVIDERS: PCP Internal Medicine; Visit Provider Internal Medicine | DX: Z23 Encounter for immunization (principal); E66.01 Morbid (severe) obesity due to excess calories; Z68.42 Body mass index [BMI] 45.0-49.9, adult; I25.10 Atherosclerotic heart disease of native coronary artery without angina pectoris; I42.9 Cardiomyopathy, unspecified; E11.65 Type 2 diabetes mellitus with hyperglycemia; E03.9 Hypothyroidism, unspecified; E78.00 Pure hypercholesterolemia, unspecified; I48.91 Unspecified atrial fibrillation; I11.0 Hypertensive heart disease with heart failure; I50.9 Heart failure, unspecified; M17.9 Osteoarthritis of knee, unspecified | CPT/HCPCS: 90471; 90656; 99212 ==

== ENCOUNTER 2024-07-09 11:28 | Outpatient (AMB) | payer MEDICARE, MEDICAID, SELFPAY ==
--- NOTE | 2024-07-09 11:31 | MHC.PC.OV ---
Vital Signs 07/09/24 11:32 Height 5 ft 2 in Weight 271 lb 8 oz BMI 49.7 BP 126/72 Blood Pressure Location Lt brachial Position Sitting Pulse 72 Pulse Source Pulse Oximeter Pulse Oximetry (%) 100 Oxygen Delivery Method Room Air Intake Visit Reasons: Pain management Intake Note: Patient is here to follow up on Pain Management. Imaging Science Professor Required: No Mixing Tumbler Operator: Not Required per policy Accompanied by: Self / Same As Patient Allergies codeine [CODEINE] Allergy (Intermediate, Verified 07/09/24 11:32) CHEST PAIN Tobacco use date assessed: 07/09/24 Fall risk assessment: No Falls in past year Last assessed Fall Risk: 07/09/24 Dental Screening Dental Screen Date: 10/16/23 HPI Pain management HPI Details 69-year-old morbidly obese female with coronary artery disease diabetes mellitus hypertension hypothyroidism hypercholesterolemia atrial fibrillation and the bilateral knee osteoarthritis. Patient is on narcotic pain medication and refilled monthly. Last seen in 06/09/2024. Patient's mammogram is due in August has declined colonoscopy. patient states has a cold presently , no fevers, no cp, no change in sob PFSH Medical History (Updated 07/09/24 @ 12:13 by Anderson Peters MD) Obesity Pneumonia Bilateral claudication of lower limb Breast calcification, left Breast cancer screening by mammogram [facility] discharge follow-up [facility] (obstructive sleep apnea) Morbid obesity Persistent atrial fibrillation Hypokalemia Physical deconditioning CHF (congestive heart failure) Diabetes Chronic venous stasis Hypothyroid Afib HTN (hypertension) Surgical History S/P cardiac catheterization History of ankle surgery History of appendectomy S/P cholecystectomy Hx of total knee arthroplasty Family History Father EtOH dependence Social History Housing: Apartment Alcohol intake: current Alcohol intake frequency: holidays/special occasions only Patient Tobacco Use Status: Never used Tobacco Tobacco use type: Cigarette e-Cigarette/Vaping Use: Never Used Second Hand Smoke Exposure: No service: No Current occupational status: disabled Cognitive needs: No Hearing needs: No Vision needs: Yes Questionnaire Thrive Questionnaire Date Thrive assessed: 10/16/23 MARTITA-7 AMB Questionnaire MARTITA-7 Date MARTITA - 7 assessed: 10/16/23 Source: Developed by Drs. Jaime Moore, Kasia Manzo, Ganesh Lebron and colleagues, with an educational rick from [employer]. Physical exam (Primary Care) Vital Signs: Last Vital Signs Pulse 72 07/09/24 11:32 BP 126/72 07/09/24 11:32 Pulse Ox 100 07/09/24 11:32 Oxygen Delivery Method Room Air 07/09/24 11:32 BMI result Body Mass Index 49.7 Tobacco/Smoking Status: Tobacco use Status Tobacco use date assessed 07/09/24 07/09/24 11:37 Patient Tobacco Use Status Never used Tobacco 07/09/24 11:37 Tobacco use type Cigarette 07/09/24 11:37 e-Cigarette/Vaping Use Never Used 07/09/24 11:37 Thrive Assessment: Date of Thrive Assessment Date Thrive assessed 10/16/23 07/09/24 11:37 Const General: alert; No acute distress Eyes Conjunctivae: conjunctivae normal Resp Auscultation: clear to auscultation bilaterally Cardio Rate: regular rate Rhythm: regular rhythm GI Inspection: Yes normal to inspection Extrem General: Yes normal to inspection and No edema Coding Level of Care Code Est Pt Level 4 (31618) Diagnoses Obesity, Class III, BMI 40-49.9 (morbid obesity) E66.01 Coronary atherosclerosis I25.10 Knee osteoarthritis M17.9 Hypercholesterolemia E78.00 Viral illness B34.9 Assessment & Plan Assessment & Plan (1) Obesity, Class III, BMI 40-49.9 (morbid obesity): Code(s): E66.01 - Morbid (severe) obesity due to excess calories Category: Medical Plan: Diet and exercise (2) Coronary atherosclerosis: Code(s): I25.10 - Atherosclerotic heart disease of [place] coronary artery without angina pectoris Category: Medical Plan: Control the cholesterol, weight, blood pressure, diabetes continue with anticoagulation with Eliquis. June last blood work for renal function (3) Knee osteoarthritis: Code(s): M17.9 - Osteoarthritis of knee, unspecified Category: Medical Plan: Narcotic pain meds: Is being prescribed with the understanding that these medications are potentially addictive and should be used only when absolutely necessary and must always be secured. Any remaining pills should be safely disposed off appropriately. Patient is advised that narcotics can impaired judgment and one should not drive or operate heavy machinery while taking these medications. Never share these medications with anybody and do not leave them unattended. They will not be replaced under any circumstances. (4) Hypercholesterolemia: Code(s): E78.00 - Pure hypercholesterolemia, unspecified Category: Medical Plan: Avoid fried foods, chicken skin, eggs, butter margarine, pastries and meat. Be it pork or beef they have a lot of cholesterol presently on atorvastatin 80 mg once a day (5) Viral illness: Code(s): B34.9 - Viral infection, unspecified Category: Medical Plan: Keep well hydrated, for productive cough use Mucinex 600 mg twice a day, for dry cough use Delsym [id number]. May take Tylenol for myalgia and fever.. Medications: Refilled atenolol 50 mg PO DAILY 90 days 90 tabs 2RF I10 - Essential (primary) hypertension oxycodone 5 mg PO BID PRN 60 tabs 0RF pain M17.9 - Osteoarthritis of knee, unspecified
[2024-07-09 11:32] VITALS: BP 126/72; PULSE 72; O2SAT 100; BMI 49.7
== END 2024-07-09 12:26 | disposition home or self-care (01) ==
PROVIDERS: PCP Internal Medicine; Visit Provider Internal Medicine
DX: I25.10 Atherosclerotic heart disease of native coronary artery without angina pectoris (principal); E66.01 Morbid (severe) obesity due to excess calories; Z68.42 Body mass index [BMI] 45.0-49.9, adult; M17.9 Osteoarthritis of knee, unspecified; E78.00 Pure hypercholesterolemia, unspecified; B34.9 Viral infection, unspecified

== ENCOUNTER → 2024-07-09 11:28 | Outpatient (BNVA) | payer MEDICARE, MEDICAID, SELFPAY | PROVIDERS: PCP Internal Medicine; Visit Provider Internal Medicine | DX: E66.01 Morbid (severe) obesity due to excess calories (principal); I25.10 Atherosclerotic heart disease of native coronary artery without angina pectoris; M17.9 Osteoarthritis of knee, unspecified; E78.00 Pure hypercholesterolemia, unspecified; B34.9 Viral infection, unspecified | CPT/HCPCS: 99212 ==

== ENCOUNTER 2024-08-26 15:47 | Outpatient (AMB) | payer MEDICARE, MEDICAID, SELFPAY ==
[2024-08-26 16:04] VITALS: BP 126/80; PULSE 74; O2SAT 95
--- NOTE | 2024-08-26 16:04 | MHC.PC.OV ---
Vital Signs 08/26/24 16:04 Height 5 ft 2 in BMI Reason not done Patient refused/unable BP 126/80 Blood Pressure Location Lt brachial Position Sitting Pulse 74 Pulse Source Pulse Oximeter Pulse Oximetry (%) 95 Oxygen Delivery Method Room Air Intake Visit Reasons: Pain Med f/u Care Transport Nurse Required: No Accompanied by: Brother Allergies codeine [CODEINE] Allergy (Intermediate, Verified 08/26/24 16:07) CHEST PAIN Tobacco use date assessed: 07/09/24 Fall risk assessment: No Falls in past year Last assessed Fall Risk: 08/26/24 Dental Screening Dental Screen Date: 08/26/24 Did you have a dental visit in the last 12 months?: No Did you have a dental problem in the last 6 months where you did not have access to dental care?: No Was dental information given to patient?: Patient has dentist HPI Pain Med f/u HPI Details The patient is a 69-year-old female presenting with chronic pain in her feet. The pain has been ongoing and affects her ability to walk. The patient indicates that the pain migrates between her feet, with severity sufficient to limit movement. She has a history of bunion surgery on both feet and reports a diagnosis of arthritis, with degenerative changes noted in the midfoot and the presence of arthritis in the big toes. Previous attempts to manage this pain included x-rays at the hospital and concern for cellulitis, though no definitive cause has been confirmed beyond suggested arthritis. She has also received injections in her feet without significant relief. No fall incidents are noted. The patient's recent blood test results indicate no issues with blood glucose levels, though there is concern regarding her cholesterol levels. She has been taking atorvastatin but received incorrect dosages from her pharmacy. The patient also discussed issues surrounding medications like metformin, which she has not taken for a long time, indicating an error in her medication records. She has upcoming appointments scheduled, including an echocardiogram and a mammogram. [facility] Medical History (Updated 07/09/24 @ 12:13 by Anderson Peters MD) Obesity Pneumonia Bilateral claudication of lower limb Breast calcification, left Breast cancer screening by mammogram [facility] discharge follow-up [facility] (obstructive sleep apnea) Morbid obesity Persistent atrial fibrillation Hypokalemia Physical deconditioning CHF (congestive heart failure) Diabetes Chronic venous stasis Hypothyroid Afib HTN (hypertension) Surgical History S/P cardiac catheterization History of ankle surgery History of appendectomy S/P cholecystectomy Hx of total knee arthroplasty Family History Father EtOH dependence Social History Housing: Apartment Alcohol intake: current Alcohol intake frequency: holidays/special occasions only Patient Tobacco Use Status: Never used Tobacco Tobacco use type: Cigarette e-Cigarette/Vaping Use: Never Used Second Hand Smoke Exposure: No service: No Current occupational status: disabled Cognitive needs: Yes Hearing needs: No Vision needs: Yes Questionnaire PHQ-9 Over the last 2 weeks, how often have you been bothered by any of the following problems? 1. Little interest or pleasure in doing things: not at all 2. Feeling down, depressed, or hopeless: several days 3. Trouble falling or staying asleep, or sleeping too much: several days 4. Feeling tired or having little energy: several days 5. Poor appetite or overeating: not at all 6. Feeling bad about yourself - or that you are a failure or have let yourself or your family down: several days 7. Trouble concentrating on things, such as reading the newspaper or watching television: not at all 8. Moving or speaking so slowly that other people could have noticed. Or the opposite - being so fidgety or restless that you have been moving around a lot more than usual: not at all 9. Thoughts that you would be better off or of hurting yourself in some way: not at all Total score: 4 Source: Developed by Drs. Jaime Moore, Kasia Manzo, Ganesh Lebron and colleagues, with an educational rick from [facility]. Thrive Questionnaire Date Thrive assessed: 10/16/23 MARTITA-7 AMB Questionnaire MARTITA-7 Date MARTITA - 7 assessed: 08/26/24 Feeling nervous, anxious, or on edge: 1 = Several days Not being able to stop or control worryin = Not at all Worrying too much about different things: 1 = Several days Trouble relaxin = Several days Being so restless that it is hard to sit still: 0 = Not at all Becoming easily annoyed or irritable: 1 = Several days Feeling afraid as if something awful might happen: 0 = Not at all Total MARTITA-7 score (0-4 normal; 5-9 mild; 10-14 moderate; 15-21 severe): 4 Source: Developed by Drs. Jaime Moore, Kasia Manzo, Ganesh Lebron and colleagues, with an educational rick from [facility]. Physical exam (Primary Care) Vital Signs: Last Vital Signs Pulse 74 08/26/24 16:04 BP 126/80 08/26/24 16:04 Pulse Ox 95 08/26/24 16:04 Oxygen Delivery Method Room Air 08/26/24 16:04 Tobacco/Smoking Status: Tobacco use Status Tobacco use date assessed 07/09/24 08/26/24 16:12 Patient Tobacco Use Status Never used Tobacco 08/26/24 16:12 Tobacco use type Cigarette 08/26/24 16:12 e-Cigarette/Vaping Use Never Used 08/26/24 16:12 PHQ-9: PHQ-9 Score PHQ-9: Total score 4 08/26/24 16:34 Thrive Assessment: Date of Thrive Assessment Date Thrive assessed 10/16/23 08/26/24 16:12 Const General: alert; No acute distress Eyes Conjunctivae: conjunctivae normal Resp Auscultation: clear to auscultation bilaterally Cardio Rate: regular rate Rhythm: regular rhythm GI Inspection: Yes normal to inspection Extrem General: Yes normal to inspection and No edema Coding Level of Care Code Est Pt Level 4 (55769) Complex EM visit Add On G2211 Diagnoses Type 2 diabetes mellitus with hyperglycemia E11.65 Hypertension I10 Hypothyroid E03.9 Hypercholesterolemia E78.00 Chronic knee pain after total replacement of both knee joints M25.561; M25.562; G89.28; Z96.653 Coronary atherosclerosis I25.10 Obesity, Class III, BMI 40-49.9 (morbid obesity) E66.01 Assessment & Plan Assessment & Plan (1) Type 2 diabetes mellitus with hyperglycemia: Comment: A1c at 6.1% on July 2023, BMI at 50.3 on September 2023 Code(s): E11.65 - Type 2 diabetes mellitus with hyperglycemia Category: Medical Plan: Decrease the amount of carbohydrate intake, pasta, bread, rice and potatoes are all sugar and that is aside from all the sweet stuff, remember that fruits are good but they are Sweet also. Hemoglobin A1c of goal of less than 6.5 patient is at goal patient is diet controlled. (2) Hypertension: Code(s): I10 - Essential (primary) hypertension Category: Medical Plan: Continue with blood pressure medication. Decrease salt intake and exercise on atenolol 50 mg once a day spironolactone 12.5 mg once a day. (3) Hypothyroid: Code(s): E03.9 - Hypothyroidism, unspecified Category: Medical Plan: Continue with thyroid medication at 50 mcg once a day and has been advised to repeat the test in 1 month (4) Hypercholesterolemia: Code(s): E78.00 - Pure hypercholesterolemia, unspecified Category: Medical Plan: Avoid fried foods, chicken skin, eggs, butter margarine, pastries and meat. Be it pork or beef they have a lot of cholesterol LDL goal of less than 70 and triglyceride of less than 150. Patient was advised to get the blood work in 1 month. (5) Chronic knee pain after total replacement of both knee joints: Code(s): M25.561 - Pain in right knee; M25.562 - Pain in left knee; G89.28 - Other chronic postprocedural pain; Z96.653 - Presence of artificial knee joint, bilateral Category: Medical Plan: Narcotic pain meds: Is being prescribed with the understanding that these medications are potentially addictive and should be used only when absolutely necessary and must always be secured. Any remaining pills should be safely disposed off appropriately. Patient is advised that narcotics can impaired judgment and one should not drive or operate heavy machinery while taking these medications. Never share these medications with anybody and do not leave them unattended. They will not be replaced under any circumstances. (6) Coronary atherosclerosis: Code(s): I25.10 - Atherosclerotic heart disease of [place] coronary artery without angina pectoris Category: Medical Plan: Control the cholesterol, weight, blood pressure, diabetes patient is on anticoagulation with Eliquis (7) Obesity, Class III, BMI 40-49.9 (morbid obesity): Code(s): E66.01 - Morbid (severe) obesity due to excess calories Category: Medical Plan: Diet and exercise Plan 1. - Advise against reliance solely on flu vaccination for immunity; continue practicing preventive measures: - Ensure upcoming scheduled echocardiogram and mammogram appointments are attended. - Reiterate the importance of lifestyle modifications, including weight management, to alleviate pressure on feet. Medications: Refilled atorvastatin 80 mg PO BEDTIME 90 tabs 3RF E78.00 - Pure hypercholesterolemia, unspecified
== END 2024-08-26 16:49 | disposition home or self-care (01) ==
LOC: HO.HMCH 15:47
PROVIDERS: PCP Internal Medicine; Visit Provider Internal Medicine
DX: E11.65 Type 2 diabetes mellitus with hyperglycemia (principal); I10 Essential (primary) hypertension; E66.01 Morbid (severe) obesity due to excess calories; E03.9 Hypothyroidism, unspecified; E78.00 Pure hypercholesterolemia, unspecified; M25.561 Pain in right knee; M25.562 Pain in left knee; G89.28 Other chronic postprocedural pain; Z96.653 Presence of artificial knee joint, bilateral; I25.10 Atherosclerotic heart disease of native coronary artery without angina pectoris; Z23 Encounter for immunization

== ENCOUNTER → 2024-08-26 15:47 | Outpatient (BNVA) | payer MEDICARE, MEDICAID, SELFPAY | PROVIDERS: PCP Internal Medicine; Visit Provider Internal Medicine | DX: E11.65 Type 2 diabetes mellitus with hyperglycemia (principal); I10 Essential (primary) hypertension; M79.672 Pain in left foot; M79.671 Pain in right foot; E03.9 Hypothyroidism, unspecified; G89.29 Other chronic pain; I25.10 Atherosclerotic heart disease of native coronary artery without angina pectoris; E66.01 Morbid (severe) obesity due to excess calories; E78.00 Pure hypercholesterolemia, unspecified; Z23 Encounter for immunization | CPT/HCPCS: 90471; 90714; 96127; 99212 ==

== ENCOUNTER → 2024-09-08 08:42 | Outpatient (REF) | payer MEDICARE, MEDICAID, SELFPAY ==
--- NOTE | 2024-09-08 08:46 | CA_ITS ---
Transthoracic Echocardiogram Patient (Last, First, Middle): Stella Frias M Gender: Female Date of : 1955 Age: 69 Procedure Date: 09/08/2024 Procedure Type: Transthoracic Echocardiogram Location: OP Height: 157.48 cm Weight: 122.47 kg BSA: 2.17 m2 Heart Rate: bpm BP: 130 / 82 mmHg [employer]: VH Referring MD: Elza Macdonald [facility] Symptoms: I25.10 - Atherosclerotic heart disease of [place] [facility] [place] coronary artery without... Study Quality: Adequate ECG Rhythm: Atrial Fibrillation Conclusions: - The left ventricular systolic function is mildly decreased. The calculated ejection fraction is 45% by biplane method. - The left atrium is moderately dilated. - There is moderate tricuspid valve regurgitation. - Moderate pulmonary hypertension is present. Findings Left Ventricle Normal left ventricular cavity size. There is mildly increased left ventricular wall thickness. The left ventricular systolic function is mildly decreased. The calculated ejection fraction is 45% by biplane method. There is mild global hypokinesis. Diastolic function is indeterminate on the basis of available data. Right Ventricle Normal right ventricular cavity size. There is mildly decreased right ventricular systolic function. Atria The left atrium is moderately dilated. The right atrium is severely dilated. Aortic Valve The aortic valve was not well visualized. There is no aortic valve stenosis. There is mild aortic valve regurgitation. Mitral Valve There is mild mitral annular calcification. There is no mitral valve regurgitation. There is no mitral valve stenosis. Pulmonic Valve The pulmonic valve is likely normal. Tricuspid Valve There is moderate tricuspid valve regurgitation. Moderate pulmonary hypertension is present. Great Vessels The asc aorta is normal in size. Venous The inferior vena cava is mildly dilated and collapses greater than 50% with inspiration. Pericardium/Pleural There is no evidence of pericardial effusion. Prior Study Comparison No significant change compared to prior study dated: 11/14/2022. Measurements 2D Linear Measurements IVSd: 1.08 0.6-0.9/0.6-1.0 cm LVIDd: 5.25 3.9-5.3/4.2-5.9 cm LVIDd Index: 2.42 2.4-3.2/2.2-3.1 cm/m2 LVIDs: 3.83 2.0-3.6 cm LVPWd: 1.09 0.7-1.1 cm Ao Root: 3.70 2.1-3.5 cm LA Diam: 5.30 2.7-3.8/3.0-4.0 cm LAIDs Index: 2.44 1.5-2.3 cm/m2 LV Mass: 274.37 67-162/88-224 g LV Mass Index: 126.44 43-95/49-115 g/m2 LVOT Diam: 2.10 3.0+(-)1.3 cm 2D Systolic Function EF 4C: 44.60 >55% EF 2C: 44.90 >55% EF BiP: 44.60 >55% Mitral Valve MV VTI: 0.27 MV Pk Flaquito: 1.27 MV Mn Flaquito: 0.74 MV Pk Grad: 6.00 MV Mn Grad: 3.00 MV Pk E: 1.09 MV Decel Time: 204.00 E'Lateral: 7.94 E'Medial: 6.09 E/E' Med: 17.90 E/E' Lat: 13.70 PHT: 60.00 MVA PHT: 3.67 MVA Continuity: 2.09 Decel [place]: 5.35 Aortic Valve AoV Pk [place]quito: 1.12 AoV Mn [place]quito: 0.84 AoV VTI: 0.30 AoV Pk Grad: 5.00 Aov Mn Grad: 3.00 GARCIA Cont.VTI: 1.84 LVOT LVOT Pk [place]: 0.68 LVOT Mn [place]quito: 0.47 LVOT VTI: 0.16 LVOT Pk Grad: 2.00 LVOT Mn Grad: 1.00 LVOT Diam: 2.10 LVOT Area: 3.46 Diastolic Function MV Pk E: 1.09 E'Medial: 6.09 E/E' Med: 17.90 E' Laterial: 7.94 E/E' Lat: 13.70 Right Ventricle TAPSE (mm): 21.00 TVS' Flaquito: 7.00 Tricuspid Valve TR Pk Flaquito: 3.24 TR Pk Grad: 42.00 RA Press: 15.00 RVSP: 57.00 Great Vessels Aorta Ao Root-2D: 3.70 2.0-3.7 cm Ao Asc: 3.60 2.1-3.4 cm Pulmonary Valve PV Pk Flaquito: 1.00 Peak PV Grad: 4.00 Updated in Other Vendor System with Status of Final Alan Hutchison MD electronically signed on 09/10/2024 4:02:38 PM with status of Final
== END ==
LOC: HO.CARD 08:42
PROVIDERS: PCP Internal Medicine; Visit Provider Nurse Practitioner Family
DX: I25.10 Atherosclerotic heart disease of native coronary artery without angina pectoris (principal); I42.9 Cardiomyopathy, unspecified
CPT/HCPCS: 93306

== ENCOUNTER → 2024-09-08 08:46 | Outpatient (BNV) | payer MEDICARE, MEDICAID, SELFPAY | PROVIDERS: PCP Internal Medicine; Visit Provider Internal Medicine | DX: I27.20 Pulmonary hypertension, unspecified (principal); I36.1 Nonrheumatic tricuspid (valve) insufficiency; I34.81 Nonrheumatic mitral (valve) annulus calcification | CPT/HCPCS: 93306 ==

== ENCOUNTER 2024-09-16 10:49 | Outpatient (REF) | payer MEDICARE, MEDICAID, SELFPAY ==
--- NOTE | ~2024-09-16 | MM_ITS ---
EXAMINATION: MM DIAGNOSTIC DIGITAL BREAST TOMOSYNTHESIS, BILATERAL CLINICAL INFORMATION: Two-year follow-up for grouped calcifications in the right breast. COMPARISON: Mammography: Comparison is made with relevant prior exams. TECHNIQUE: Digital breast mammography with tomosynthesis is performed in both the craniocaudal and mediolateral oblique views along with computer-aided detection (CAD). FINDINGS: There are scattered areas of fibroglandular density (ACR BI-RADS breast composition Category b). Previously seen grouped calcifications in the lower inner right breast are not significantly changed from priors dating back for 2 years and therefore benign. There are no significant masses, abnormal calcifications, or other abnormalities. Results are provided to the patient at time of visit by the technologist. MM/MM tomosynthesis diagnostic BI IMPRESSION: Right: Grouped calcifications in the right breast are not significantly changed from priors dating back for 2 years and therefore benign. Left: Negative. ASSESSMENT: BI-RADS BI-RADS 2 - Benign Findings RECOMMENDATION: 1 year F/U This patient's information was entered into a reminder system with a target due date for their next mammogram. Electronically signed by: Elke Patterson DO 09/16/2024 11:37 AM TRACY
== END 2024-09-16 10:50 | disposition home or self-care (01) ==
LOC: HO.MAMMO 10:49
PROVIDERS: PCP Internal Medicine; Visit Provider Internal Medicine
DX: R92.1 Mammographic calcification found on diagnostic imaging of breast (principal)
CPT/HCPCS: 77062; 77066

== ENCOUNTER → 2024-09-16 11:00 | Outpatient (BNV) | payer MEDICARE, MEDICAID, SELFPAY | PROVIDERS: PCP Internal Medicine; Visit Provider Internal Medicine | DX: R92.1 Mammographic calcification found on diagnostic imaging of breast (principal) | CPT/HCPCS: 77066; G0279 ==

== ENCOUNTER 2024-09-23 13:04 | Outpatient (AMB) | payer MEDICARE, MEDICAID, SELFPAY ==
--- NOTE | 2024-09-23 13:13 | MHC.PC.OV ---
Vital Signs 09/23/24 13:14 Height 5 ft 2 in Weight 282 lb 10.122 oz BMI 51.7 BP 112/60 Blood Pressure Location Lt brachial Position Sitting Pulse 76 Pulse Source Pulse Oximeter Temp 97.1 F Temp Source Temporal Artery Scan Pulse Oximetry (%) 96 Oxygen Delivery Method Room Air Intake Visit Reasons: knee pain Allergies codeine [CODEINE] Allergy (Intermediate, Verified 08/26/24 16:07) CHEST PAIN Tobacco use date assessed: 07/09/24 Dental Screening Dental Screen Date: 08/26/24 HPI knee pain HPI Details The patient is a 69-year-old female presenting with ongoing management of her cardiomyopathy. She reported an ejection fraction of 45%, slightly below the normal range, indicating diminished cardiac efficiency. This condition is compounded by dilated left atrium and moderate tricuspid valve regurgitation, potentially linked to observed difficulties with pulmonary circulation. Recently, she experienced mobility issues due to significant foot pain, initially affecting one foot before transferring to the other. This occurred over the previous month, severely impacting her daily activities. The patient also noted weight gain due to reduced physical activity. In June, routine lab results were satisfactory with particular attention to glycemic control. However, she required further evaluation for thyroid function, and had previously received the seasonal influenza vaccination. She reported a prescription issue with her diuretic medication, Bumex, which needs coordination for appropriate quantities. Furthermore, she expressed caution regarding viral infections during the flu season, acknowledging limited social interaction to mitigate risks. Plans have been made for thyroid retesting, and she confirmed her next cardiology appointment in October. [facility] Medical History (Updated 07/09/24 @ 12:13 by Anderson Peters MD) Obesity Pneumonia Bilateral claudication of lower limb Breast calcification, left Breast cancer screening by mammogram [facility] discharge follow-up [facility] (obstructive sleep apnea) Morbid obesity Persistent atrial fibrillation Hypokalemia Physical deconditioning CHF (congestive heart failure) Diabetes Chronic venous stasis Hypothyroid Afib HTN (hypertension) Surgical History S/P cardiac catheterization History of ankle surgery History of appendectomy S/P cholecystectomy Hx of total knee arthroplasty Family History Father EtOH dependence Social History Housing: Apartment Alcohol intake: current Alcohol intake frequency: holidays/special occasions only Patient Tobacco Use Status: Never used Tobacco Tobacco use type: Cigarette e-Cigarette/Vaping Use: Never Used Second Hand Smoke Exposure: No service: No Current occupational status: disabled Cognitive needs: Yes Hearing needs: No Vision needs: Yes Questionnaire PHQ-9 Over the last 2 weeks, how often have you been bothered by any of the following problems? 1. Little interest or pleasure in doing things: nearly every day 2. Feeling down, depressed, or hopeless: nearly every day 3. Trouble falling or staying asleep, or sleeping too much: nearly every day 4. Feeling tired or having little energy: nearly every day 5. Poor appetite or overeating: nearly every day 6. Feeling bad about yourself - or that you are a failure or have let yourself or your family down: more than half the days 7. Trouble concentrating on things, such as reading the newspaper or watching television: more than half the days 8. Moving or speaking so slowly that other people could have noticed. Or the opposite - being so fidgety or restless that you have been moving around a lot more than usual: more than half the days 9. Thoughts that you would be better off or of hurting yourself in some way: not at all Total score: 21 00050 - PHQ-9 Billing: Yes Source: Developed by Drs. Jaime Moore, Kasia Manzo, Ganesh Lebron and colleagues, with an educational rick from [employer]. Thrive Questionnaire Date Thrive assessed: 09/23/24 I am a: Patient What is your living situation today?: I have a steady place to live Within the past 12 months, did the food you bought not last and you didn't have the money to get more?: Never true Within the past 12 months, did you worry whether your food would run out before you got money to buy more?: Never true Do you have trouble paying for medicines?: No Do you have trouble getting transportation to medical appointments?: No Do you have trouble paying your heating and electricity bill?: No Do you have trouble taking care of your child, family member or friend?: No Do you have trouble with day-to-day activities such as bathing, preparing meals, shopping, managing finances, etc.?: No Are you currently unemployed and looking for a job?: No Are you interested in more education?: No Please select the resources that you would like help with: None Currently or been in a relationship where the following occur: No concerns reported THRIVE Score: 0 AUDIT C Alcohol Use Questionnaire (AUDIT-C) 1. How often do you have a drink containing alcohol?: Monthly or less 2. How many drinks containing alcohol do you have on a typical day when you are drinking?: 1 or 2 3. How often do you have six or more drinks on one occasion?: Never Total Score: 1 MARTITA-7 AMB Questionnaire MARTITA-7 Date MARTITA - 7 assessed: 09/23/24 Feeling nervous, anxious, or on edge: 3 = Nearly every day Not being able to stop or control worryin = Nearly every day Worrying too much about different things: 3 = Nearly every day Trouble relaxin = More than half the days Being so restless that it is hard to sit still: 2 = More than half the days Becoming easily annoyed or irritable: 3 = Nearly every day Feeling afraid as if something awful might happen: 1 = Several days Total MARTITA-7 score (0-4 normal; 5-9 mild; 10-14 moderate; 15-21 severe): 17 Source: Developed by Drs. Jaime Moore, Kasia Manzo, Ganesh Lebron and colleagues, with an educational rick from [employer]. MARTITA-7 Assessment Billing MARTITA-7 Assessment Tool: MARTITA-7 Assessment 03682 Physical exam (Primary Care) Vital Signs: Last Vital Signs Temp 97.1 F 09/23/24 13:14 Pulse 76 09/23/24 13:14 BP 112/60 09/23/24 13:14 Pulse Ox 96 09/23/24 13:14 Oxygen Delivery Method Room Air 09/23/24 13:14 BMI result Body Mass Index 51.7 Tobacco/Smoking Status: Tobacco use Status Tobacco use date assessed 07/09/24 09/23/24 13:22 Patient Tobacco Use Status Never used Tobacco 09/23/24 13:22 Tobacco use type Cigarette 09/23/24 13:22 e-Cigarette/Vaping Use Never Used 09/23/24 13:22 PHQ-9: PHQ-9 Score PHQ-9: Total score 21 09/23/24 14:09 Thrive Assessment: Date of Thrive Assessment Date Thrive assessed 09/23/24 09/23/24 13:22 Currently or been in a relationship where the following occur: No concerns reported Const General: alert; No acute distress Eyes Conjunctivae: conjunctivae normal Resp Auscultation: clear to auscultation bilaterally Cardio Rate: regular rate Rhythm: regular rhythm GI Inspection: Yes normal to inspection Extrem General: Yes normal to inspection and No edema Coding Level of Care Code Est Pt Level 4 (61116) Complex EM visit Add On G2211 Diagnoses Type 2 diabetes mellitus with hyperglycemia E11.65 Morbid obesity E66.01 Hypertension I10 Hypothyroid E03.9 Knee osteoarthritis M17.9 Hypercholesterolemia E78.00 Additional Codes MARTITA-7 Assessment Billing - MARTITA-7 Assessment Tool: MARTITA-7 Assessment 91022 ([id number]) PHQ-9 - 68717 - PHQ-9 Billing: Yes ([id number]) Assessment & Plan Assessment & Plan (1) Type 2 diabetes mellitus with hyperglycemia: Comment: A1c at 6.1% on July 2023, BMI at 50.3 on September 2023 Code(s): E11.65 - Type 2 diabetes mellitus with hyperglycemia Category: Medical Plan: Decrease the amount of carbohydrate intake, pasta, bread, rice and potatoes are all sugar and that is aside from all the sweet stuff, remember that fruits are good but they are Sweet also. Controlled with diet (2) Morbid obesity: Code(s): E66.01 - Morbid (severe) obesity due to excess calories Category: Medical Plan: Diet and exercise (3) Hypertension: Code(s): I10 - Essential (primary) hypertension Category: Medical Plan: Continue with blood pressure medication. Decrease salt intake and exercise (4) Hypothyroid: Code(s): E03.9 - Hypothyroidism, unspecified Category: Medical Plan: Continue with thyroid medication (5) Knee osteoarthritis: Code(s): M17.9 - Osteoarthritis of knee, unspecified Category: Medical Plan: Strongly advised patient to try to lose the weight. (6) Hypercholesterolemia: Code(s): E78.00 - Pure hypercholesterolemia, unspecified Category: Medical Plan: Avoid fried foods, chicken skin, eggs, butter margarine, pastries and meat. Be it pork or beef they have a lot of cholesterol on atorvastatin 80 mg once a day Plan - Monitor cardiomyopathy with continued cardiac evaluations and reinforcement of current management strategy. - Arrange retesting for thyroid function. - Discuss with pharmacy regarding medication refill issues for diuretics Bumex ), ensuring adequate supply. - Encourage increased physical activity to address weight management and improve cardiovascular health. - Advise strict adherence to infection prevention measures, including an assessment of flu and respiratory syncytial virus RSV) risk. - Plan for follow-up appointment in three months to reassess and adjust the health management plan.
[2024-09-23 13:14] VITALS: BP 112/60; PULSE 76; TEMP 36.2; O2SAT 96; BMI 51.7
== END 2024-09-23 14:19 | disposition home or self-care (01) ==
PROVIDERS: PCP Internal Medicine; Visit Provider Internal Medicine
DX: E11.65 Type 2 diabetes mellitus with hyperglycemia (principal); E66.01 Morbid (severe) obesity due to excess calories; Z68.43 Body mass index [BMI] 50.0-59.9, adult; I10 Essential (primary) hypertension; E03.9 Hypothyroidism, unspecified; M17.9 Osteoarthritis of knee, unspecified; E78.00 Pure hypercholesterolemia, unspecified

== ENCOUNTER → 2024-09-23 13:04 | Outpatient (BNVA) | payer MEDICARE, MEDICAID, SELFPAY | PROVIDERS: PCP Internal Medicine; Visit Provider Internal Medicine | DX: E11.65 Type 2 diabetes mellitus with hyperglycemia (principal); E66.01 Morbid (severe) obesity due to excess calories; E03.9 Hypothyroidism, unspecified; E78.00 Pure hypercholesterolemia, unspecified; I10 Essential (primary) hypertension; M17.9 Osteoarthritis of knee, unspecified | CPT/HCPCS: 96127; 99212 ==

== ENCOUNTER 2024-11-29 12:28 | Outpatient (AMB) | payer MEDICARE, MEDICAID, SELFPAY ==
--- NOTE | 2024-11-29 12:52 | A.OFFVIS_ITS ---
Vital Signs 11/29/24 12:54 Height 5 ft 2 in Weight 276 lb 7.355 oz BMI 50.6 BP 122/76 Blood Pressure Location Lt brachial Position Sitting Pulse 66 Pulse Source Pulse Oximeter Intake Visit Reasons: r/s 11/10/24 6 mos followup Intake Note: r/s 6 mth f/up Weed Cutter Required: No Accompanied by: Significant Other Allergies codeine [CODEINE] Allergy (Intermediate, Verified 08/26/24 16:07) CHEST PAIN Medication List - Last Reconciled 11/29/24 by Danyel Prado MD acetaminophen 500 mg PO Q6H apixaban (Eliquis) 5 mg PO BID atenolol 50 mg PO DAILY 90 days atorvastatin 80 mg PO BEDTIME blood sugar diagnostic (FreeStyle Lite Strips) As directed check the BS QD blood-glucose meter (FreeStyle Lite Meter kit) As directed bumetanide 3 mg (1.5 x 2 mg) PO BID escitalopram oxalate 20 mg PO DAILY gabapentin 300 mg PO DAILY lancets (FreeStyle Lancets) As directed check BS QD levothyroxine 50 mcg PO QAM magnesium oxide 400 mg PO DAILY omeprazole 20 mg PO BEDTIME 90 days ondansetron 8 mg PO Q8H PRN oxycodone 5 mg PO BID PRN spironolactone 12.5 mg (1/2 x 25 mg) PO DAILY 90 days walker (Ultra-Light Rollator misc) As directed HPI Comments Details: 69 female here for f/u. She was seen in March 2022 in the hospital when she presented with RV failure and congestive heart failure. She is c/o dyspnea and PND. She recently has gained weight. Taking meds regularly. She is on Bumex 2 mg once daily. She had repeat echocardiography in October 2022 which is showing mildly reduced ejection fraction of 45-50% with moderately increased right ventricular size and moderately decreased right ventricular systolic function. She continues to have dyspnea on exertion. She is denying chest discomfort. By exam she is not in heart failure but has gained 5 more lb. She is saying she had sleep study in the past which was borderline and she was not offered CPAP treatment. 07/28/23: She returns for f/u. She underwent cardiac catheterization which showed 50% mid LAD stenosis which was IFR negative. She had elevated filling pressures. She was advised to increase the Bumex to 3 mg in the morning. She was seen in the office by Elza in April at that time she was taking Bumex 2 mg twice a day and she was advised to increase to 3 mg in the morning and 2 in the afternoon. She is returning and continues to be short of breath. She sleeps on 2 pillows and has not been experiencing any orthopnea. She had borderline PARADISE in the past. Given pulmonary hypertension RV dysfunction I have advised her that she should get repeat sleep study and should see sleep medicine. 11/29/2024: She is here for follow-up. She is denying any change in her symptoms and continues to have dyspnea with activities. She is morbidly obese and has BMI of 50.6. Taking medications regularly. She is on anticoagulation for permanent atrial fibrillation. Last echocardiography has shown EF 40 45%. [facility] Medical History (Updated 07/09/24 @ 12:13 by Anderson Peters MD) Obesity Pneumonia Bilateral claudication of lower limb Breast calcification, left Breast cancer screening by mammogram [facility] discharge follow-up [facility] (obstructive sleep apnea) Morbid obesity Persistent atrial fibrillation Hypokalemia Physical deconditioning CHF (congestive heart failure) Diabetes Chronic venous stasis Hypothyroid Afib HTN (hypertension) Surgical History S/P cardiac catheterization History of ankle surgery History of appendectomy S/P cholecystectomy Hx of total knee arthroplasty Family History Father EtOH dependence Social History Housing: Apartment Alcohol intake: current Alcohol intake frequency: holidays/special occasions only Patient Tobacco Use Status: Never used Tobacco Tobacco use type: Cigarette e-Cigarette/Vaping Use: Never Used Second Hand Smoke Exposure: No service: No Current occupational status: disabled Cognitive needs: Yes Hearing needs: No Vision needs: Yes Review of Systems Const Denies chills, Denies fatigue, Denies fever(s), Denies frequent falls, Denies weakness, Denies weight gain and Denies weight loss ENT Denies dizziness Card Denies chest pain, Denies leg edema, Denies lightheadedness, Denies palpitations, Denies dyspnea and Denies dyspnea on exertion Resp Denies cough, Denies dyspnea and Denies dyspnea on exertion GI Denies hematochezia Musc Denies abnormal gait, Denies muscle weakness, Denies numbness, Denies radiating pain into limb and Denies tingling Neuro Denies abnormal gait, Denies dizziness, Denies frequent falls, Denies numbness, Denies tingling and Denies weakness Endo Denies fatigue and Denies palpitations Physical Exam Vital Signs: Last Vital Signs Pulse 66 11/29/24 12:54 BP 122/76 11/29/24 12:54 BMI result Body Mass Index 50.6 GENERAL APPEARANCE: in no acute distress, pleasant. Morbidly obese. NECK: no carotid bruit, no significant jugular venous distention. SKIN: no suspicious lesions, warm and dry. HEART: no murmurs, irregular rate and rhythm. LUNGS: clear to auscultation bilaterally. ABDOMEN: Mildly distended and tense, nontender. EXTREMITIES: Mild edema. PERIPHERAL PULSES: equal. NEUROLOGIC: No gross deficits, AAO X 3 Assessment & Plan Assessment & Plan (1) CHF (congestive heart failure): Code(s): I50.9 - Heart failure, unspecified Category: Medical (2) Morbid obesity: Code(s): E66.01 - Morbid (severe) obesity due to excess calories Category: Medical (3) Afib: Code(s): I48.91 - Unspecified atrial fibrillation Category: Medical (4) Hypertension: Code(s): I10 - Essential (primary) hypertension Category: Medical Plan [age] year female who is here for follow-up. She has background history of cardiomyopathy with EF 45%. Cardiac catheterization showed 50% lad stenosis which was IFR negative. She has permanent atrial fibrillation and is currently on atenolol Eliquis. On Bumex 3 mg twice a day. Some of her peripheral edema is related to gabapentin. Adding Farxiga for diastolic heart failure. I think most of her symptoms are related to morbid obesity. I have advised her to discuss her primary care physician if she is a candidate for starting Ozempic or Zepbound. Thank you for allowing me to participate in the care of your patient. Please feel free to contact me if you have any questions. Medications: New dapagliflozin propanediol (Farxiga) 5 mg PO DAILY 30 tabs 6RF I42.9 - Cardiomyopathy, unspecified Coding Level of Care Code Est Pt Level 4 (36632) Complex EM visit Add On G2211 Diagnoses CHF (congestive heart failure) I50.9 Morbid obesity E66.01 Afib I48.91 Hypertension I10
[2024-11-29 12:54] VITALS: BP 122/76; PULSE 66; BMI 50.6
--- OUTSIDE RECORDS SUMMARY | 2024-11-29 14:05 | XMS_ITS ---
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 Generated for Printi ng/Fafernandog/eTransmitting on:?11/29/2024 02:05 PM EDT
--- OUTSIDE RECORDS SUMMARY | 2024-11-29 14:05 | XMS_ITS | Patient Health Record ---
Author Organization [facility] Address [address] [facility] [place] [address] Care Team Providers Care Fiberglass Finisher Name Role Phone Anderson Peters Primary Care Provider Terra Lund Unavailable [phone] Allergies Allergen (clinical drug ingredient) Drug/Non Drug Allergy documented on EMR Reaction Allergy Type Onset Date Status aspirin Aspirin Unknown Drug Allergy Active codeine Codeine Unknown Drug Allergy Active Reason For Referral No Information Medications Medication SIG (Take, Route, Frequency, Duration) Notes Start Date End Date Status Spironolactone 25 MG TAKE 1/2 TABLET BY MOUTH DAILY Oral for 90 Days Active Eliquis 5 MG Oral for 30 Days Active Escitalopram Oxalate 20 MG TAKE 1 TABLET BY MOUTH DAILY Oral for 90 Days Active Atenolol 50 MG TAKE 1 TABLET BY BRANDON TH DAILY Oral for 90 Days Active Levothyroxine Sodium 50 MCG Oral for 90 Days Active Omeprazole 20 MG TAKE 1 CAPSULE BY MO UTH AT BEDTIME Oral for 90 Days Active oxyCODONE HCl 5 MG TAKE 1 TABLET BY BRANDON TH TWICE DAILY NEEDED FOR PAIN Oral for 30 Days Active Gabapentin 300 MG TAKE 1 CAPSULE BY MO UTH THREE TIMES DAILY Oral for 90 Days Active Atorvastatin Calcium 20 MG TAKE 1 TABLET BY MOUTH AT BEDTIME Oral for 90 Days Active Bumetanide 2 MG Oral for 60 Days Active Magnesium Oxide -Mg Supplement 400 (240 Mg) MG TAKE 1 TABLET BY MOUTH EVERY DAY Oral for 30 Days Active Social History Tobacco Use: [...] Are you an other tobacco user? No Encounters Encounter Location Date Provider Diagnosis [facility] [address] [place] [address] 01/21/2024 Terra Black Plan Of Treatment No Information Insurance Providers Payer Name Payer Address Payer Phone Subscriber Number Group Number Insured Name Patient Relationship to Insured Coverage Start Date Coverage End Date Medicare [employer] [address] [place] [address] [id number] Stella Frias Self - patient is the insured Medical (General) History Medical History History ICD Code Anxiety Arthritis Back,Hip,and Knee pain Broken bones CAD (Cholesterol) Depression Diabetic Gall bladder problems Headaches/Migraines Heart disease Measles Mumps Chicken pox Joint implants/screws Surgical History Surgery Date(Month/Year) appendectomy Gall bladder removal ankle 2001
--- OUTSIDE RECORDS SUMMARY | 2024-11-29 14:06 | XMS_ITS ---
[facility] Address [address] [place] [address] Care Team Providers Care Journeyman [employer] Name Role Phone Fran Jinamichael Primary Care Provider Unavaildaniel e Black, Terra Unavailable [phone] Allergies Allergen (clinical drug ingredient) Drug/Non Drug Allergy documented on EMR Reaction Allergy Type Onset Date Status aspirin Aspirin Unknown Drug Allergy Active codeine Codeine Unknown Drug Allergy Active Medications Medication SIG (Take, Route, Frequency, Duration) Notes Start Date End Date Status Spironolactone 25 MG TAKE 1/2 TABLET BY MOUTH DAILY Oral for 90 Days Active Gabapentin 300 MG TAKE [...] EVERY DAY Oral for 30 Days Active Escitalopram Oxalate [...] FOR PAIN Oral for 30 Days Active Eliquis 5 MG Oral for 30 Days Active Social History [...] 03/25/2024 Encounters Encounter Location Date [facility] [address] [place] [address] 03/25/2024 Terra Soriano Plan Of Treatment No Information Progress Notes * Stella FRIAS MDOB:[birth year] (69 yo F)Acc No.[id number]:03/25/2024 Progress Notes Patient:?Stella FRIAS Provider:?Terra Soriano DPM :1955???Age:68 Y???Sex:Female D ate:03/25/2024 Address:[address] [place], [place] [id number] Pcp:Anderson Peters Subjective: * Chief Complaints: * ??? * ROS:?General/Constitutional:?Nausea?denies.?Vomiting?denies.?Hunger Thirst?denies.?Loss appetite?admits.?Chills?denies.?Fatigue?admits.?Fever?denies.?Night Sweats?denies.?Unexplained weight loss?denies.?Unexplained weight gain?denies.?HEENTM:?Dentures?denies.?Dizziness?denies.?Glasses/contacts?admits.?Retinopathy?de nies.?Blurred/double vision?denies.?TMJ?denies.?Discharge/drainage?denies.?Implants?denies.?Sore throat?denies.?Dental implants?denies.?Hard of hearing ?denies.?Difficulty chewing/swallowing/speaking?denies.?Nose bleeds?denies.?Sore mouth?denies.?Respiratory:?On Oxygen?denies.?Pneumonia/pleurisy?denies.?Bronchitis?denies.?Emphysema?denies.?C oughing?denies.?Cough blood?denies.?Shortness of breath?admits.?Wheezing?denies.?Cardiovascular:?Pacemaker?denies.?MVP?denies.?WPW?denies.?CHF?denies.?Heart attack?denies.?Septal defect?denies.?Rapid beat?denies.?Chest pain ?denies.?Atrial Fib.?denies.?Murmur/Palpitations?admits.?Gastrointestinal:?Hemorrhoids?denies.?Stomach/Abdominal pain?denies.?Dark blood stool?denies.?Irritable bowel ?denies.?Constipation?denies.?Diarrhea?admits.?Hematology:?Swelling?denies.?Clots?denies.?Varicose Veins?denies.?Bruising?denies.?Bleeding problem?denies.?Genitourinary:?Blood urine?denies.?Frequent/Painfu/urination/bladder control?denies.?Kidney stones?denies.?Infection (UTI)?denies.?Nephropathy?denies.?sex trans dis (STD)?denies.?Prostate?denies.?Musculoskeletal:?Hammertoes?denies.?Bunions?denies.?Back Pain?denies.?Muscle Cramps/ Resting?denies.?Muscle cramps / walking?admits.?Generalized aches and pains?admits.?Weakness?denies.?Integ.:?Guerrero?denies.?Scars?denies.?Corns/calluses?denies.?Ingrown nails?denies.?Painful nails?denies.?Open Sores?denies.?Rashes?denies.?Neurologic:?Difficulty sleeping?admits.?Brain disorder?denies.?Numbness?denies.?Balance trouble?admits.?Confusion?denies.?Fainting/blackouts?denies.?Tingling?denies.?Tr emors?denies.? * Medical History:?Anxiety, Ar thritis, Back,Hip,and Knee pain, Broken bones, CAD (Cholesterol), Depression, Diabetic, Gall bladder problems, Headaches/Migraines, Heart disease, Measles, Mumps, Chicken pox, Joint implants/screws. * Surgical History:?appendecto my , Gall bladder removal , ankle 2002. * Family History:?Mother: dece ased, diagnosed with Other malignant neoplasm of unspecified site.?Father: , diagnosed with Unspecified heart disease.? * Social History:?Tobacco Use:?Tobacco Use/Smoking?Are you a:?nonsmoker ?Additional Findings: Tobacco Non-User?Current non-smoker ?Tobacco use other than smoking?Are you an other tobacco user??No ???Drugs/Alcohol:?Drugs?Have you used drugs other than those for medical reasons in the past 12 months??No ?Alcohol Screen?Did you have a drink containing alcohol in the past year??Yes ?Points?0 ?Interpretation?Negative ???Miscellaneous:?Caffeine: yes, frequency:. ?Children: yes, 2. ?Marital status: . * Medications:?Taking Atorvast atin Calcium 20 MG Tablet TAKE 1 TABLET [...] BY MOUTH THREE TIMES DAILY Oral * Allergies:?Aspirin, Codeine. Objective: * Vitals:?Ht: 5 ft 2 in, Wt:26 0, BMI:47.55, Shoe size: 8, Ht-cm: 157.48 cm, Wt-k.93 kg. Assessment: Plan: * Treatment: * Images: * The named appointment provid er may or may not be the originator of this progress note, and it is not deemed complete until electronically signed by the appointment provider. Sign off status: Pending * Provider:?Terra Soriano DPM Date:?2023 Generated for Christina devi/Ella/Alfred on:?11/29/2024 02:06 PM EDT
--- OUTSIDE RECORDS SUMMARY | 2024-11-29 14:06 | XMS_ITS | Data Portability ---
Author Organization [facility] Address [address] [place], [place] [address] [address] Care Team Providers Care Delivery Rep Name Role Phone SINTIA PETERS Primary Care Provider [phone] Assessment Encounter Date Assessment Date Assessment LastModified by Organization Details LastModified Time 05/02/2021 05/02/2021 Stella Frias is a 65 year old woman with complaints of bilateral knee, ankle and feet pain. She has osteoarthritis of her knees. She is S/P bilateral knee replacements and has persistent pain. She is currently on Oxycodone 5 mg 3 times a day. She reports good pain control with no side effects and the medications helps her function better. I have reviewed her medications in the prescription monitoring program. She has been receiving pain medications only from her PCP, Dr. Charles and has used [facility] . I recommend continuing Ms. Frias on present doses of oxycodone 5 mg TID as there is a role for opioid therapy for knee pain . There is a neuropathic component to her pain . She reports good pain benefit with gabapentin and I have advised her to continue gabapentin 300 mg to Three times a day. She will follow up as needed I also recommend aquatic exercises to improve the strength of her quadriceps muscles. Her PCP is retiring. I have advised Ms. Frias that I do not prescribe these medications and she should get a new PCP and discuss opioid therapy with them. [email or web address] Not available 05/03/2021 11:32:00 02/26/2023 02/26/2023 Stella Frias is a 67 year old woman with complaints of bilateral knee, ankle and feet pain. She has osteoarthritis of her knees. She is S/P bilateral knee replacements and has persistent pain. She is currently on Oxycodone 5 mg 2 times a day. She reports good pain control with no side effects and the medications helps her function better. I have reviewed her medications in the prescription monitoring program. She has been receiving pain medications only from her PCP, Dr. Peters and has used [facility] . I recommend continuing Ms. Frias on present doses of oxycodone 5 mg BID as there is a role for opioid therapy for knee pain . There is a neuropathic component to her pain . She reports good pain benefit with gabapentin and I have advised her to continue gabapentin 300 mg to Three times a day. She will follow up in six months. I also recommend aquatic exercises to improve the strength of her quadriceps muscles. [email or web address] Not available 03/05/2023 16:55:01 08/28/2023 08/28/2023 Stella Frias is a 68 year old woman with complaints of bilateral knee, ankle and feet pain. She has osteoarthritis of her knees. She is S/P bilateral knee replacements and has persistent pain. She is currently on Oxycodone 5 mg 2 times a day. She reports good pain control with no side effects and the medications helps her function better. I have reviewed her medications in the prescription monitoring program. She has been receiving pain medications only from her PCP, Dr. Peters and has used [facility] . I recommend continuing Ms. Frias on present doses of oxycodone 5 mg BID as there is a role for opioid therapy for knee pain . There is a neuropathic component to her pain . She reports good pain benefit with gabapentin and I have advised her to continue gabapentin 300 mg to Three times a day. She will follow up in six months. I also recommend aquatic exercises to improve the strength of her quadriceps muscles. [email or web address] Not available 08/28/2023 10:14:44 02/12/2024 02/12/2024 Stella Frias is a 68 year old woman with complaints of bilateral knee, ankle and feet pain. She has osteoarthritis of her knees. She is S/P bilateral knee replacements and has persistent pain. She is currently on Oxycodone 5 mg 2 times a day. Her PCP is reducing the dose of her oxycodone . She feels her pain is greater. I have reviewed her medications in the prescription monitoring program. She has been receiving pain medications only from her PCP, Dr. Peters and has used [facility] . I recommend continuing Ms. Frias on present doses of oxycodone 5 mg BID as there is a role for opioid therapy for knee pain . There is a neuropathic component to her pain . She reports good pain benefit with gabapentin and I have titrated her to continue gabapentin 300 mg in the morning and afternoon and two at bedtime. She will follow up in three months. I also recommend aquatic exercises to improve the strength of her quadriceps muscles. [email or web address] Not available 02/12/2024 10:24:47 05/20/2024 05/20/2024 Stella Frias is a 68 year old woman with complaints of bilateral knee, ankle and feet pain. She has osteoarthritis of her knees. She is S/P bilateral knee replacements and has persistent pain. She is currently on Oxycodone 5 mg 2 times a day. Her PCP is reducing the dose of her oxycodone . She feels her pain is greater. I have reviewed her medications in the prescription monitoring program. She has been receiving pain medications only from her PCP, Dr. Peters and has used [facility] . I recommend continuing Ms. Frias on present doses of oxycodone 5 mg BID as there is a role for opioid therapy for knee pain . There is a neuropathic component to her pain . She reports good pain benefit with gabapentin and I have titrated her to continue gabapentin 300 mg in the morning and afternoon and two at bedtime. She will follow up in six months. I also recommend aquatic exercises to improve the strength of her quadriceps muscles. [email or web address] Not available 05/20/2024 14:12:36 Plan of Treatment Reminders Order Date Submit Date Provider Last Modified By Organization Details Last Modified Time Details Appointments None recorded. Lab None recorded. Referral None recorded. Procedures None recorded. Surgeries None recorded. Imaging None recorded. Medication Orders gabapentin 300 mg capsule 2023 024 [facility] #[id number], [address] [place], [place], [id number], 10:25:03 gabapentin 300 mg capsule 2022 023 [facility] #[id number], [address] [place] [address], [place], [id number], 3 10:15:06 [facility]abapentin 300 mg capsule 2022 023 [id number], [address] [place], [place], [id number], 3 09:20:45 gabapentin 300 mg capsule 2020 021 [id number], [address] [place] [address], [place], [id number], 3 09:21:07 Patient TargetsNo targets recorded. Patient Instructions Encounter Date Encounter Id Patient Instructions Last Modified By Organization Details Last Modified Time 05/02/2021 [id number] She was advised against bed rest lasting longer than four days and to continue activities as tolerated. Telehealth visit: The patient was located at home for this telephone electronic visit and gave consent for this visit to be conducted via telehealth. 15 minutes was spent on this call and greater than 50% of the visit was spent on counseling and coordination of care. [email or web address] Not available 05/02/2021 15:49:25 02/26/2023 [id number] She was advised against bed rest lasting longer than four days and to continue activities as tolerated. [email or web address] Not available 03/05/2023 16:55:05 08/28/2023 [id number] She was advised against bed rest lasting longer than four days and to continue activities as tolerated. [email or web address] Not available 08/28/2023 10:02:27 02/12/2024 [id number] She was advised against bed rest lasting longer than four days and to continue activities as tolerated. [email or web address] Not available 02/12/2024 10:24:54 05/20/2024 [id number] She was advised against bed rest lasting longer than four days and to continue activities as tolerated. [email or web address] Not available 05/20/2024 13:27:11 Reason for Referral None Reported. Problems Name Problem SNOMED Code Status Onset Date Resolution Date Notes Provider Name and Address Organization Details Recorded Time History of osteoarthritis 920317086 Active Dustin powers MD [address] [place] [address] , [address], [facility] [place], [address], [place] [facility] 5 09:34:24 Knee pain Active Dustin powers MD [address] [facility] , [address], [place], [address], [place] [facility] 5 09:34:24 Osteoarthritis of knee 028002069 Active Dustin powers MD [address] [facility] , [address], [place], [address], [place] [facility] 8 13:28:06 Problem Notes None recorded. Procedures Surgical History Date Name Laterality Status Provider Name and Address Organization Details Recorded Time 03/12/20 18 Intra-articular Knee Steroid Injection completed Dustin Tello MD [address] [facility] , [address], [place], [address], [place] [facility] 03/12/2018 10:07:50 02/04/20 18 Intra-articular Knee Steroid Injection completed Dustin Tello MD [address] [facility] , [address], [place], [address], [place] [facility] 02/03/2018 10:27:21 Cholecystectomy completed Hannah Call [place] [facility] 11/18/2014 09:31:24 Appendectomy completed Hannah Call [place] [facility] 11/18/2014 09:31:24 Other completed Hannah Call [place] [facility] 11/18/2014 09:31:24 Other completed Hannah Call [place] [facility] 11/18/2014 09:31:24 Caesarean Section completed Hannah Call [place] [facility] 11/18/2014 09:33:01 Tubal Ligation completed Hannah Call [place] [facility] 11/18/2014 09:33:01 Joint Replacement completed Hannah Call [place] [facility] 04/09/2019 09:40:38 Imaging Results None recorded. Procedure Notes None recorded. Medical Equipment None Reported. Allergies Allergen ID Allergen Name Allergen Category Reaction Reaction Severity Criticality Documentation Date Start Date Code Code System Note Provider Name and Address Organization Details Recorded Time 93657 codeine medicatio n other Not available Not available 11/18/2014 2670 RxNorm Chest pain Hannah [place], [place] [facility] 5 09:26:18 Medications Name Sig Start Date Stop Date Status Note LastModified by Organization Details LastModified Time losartan 50 mg tablet TK 1 T PO QD 02/26 completed Not Available Not Available Not Available celecoxib 200 mg capsule TK 1 C PO QD 04/09 completed Not Available Not Available Not Available atorvastat in 40 mg tablet TAKE 1 TABLET BY MOUTH AT BEDTIME 02/11 completed Not Available Not Available Not Available metformin 500 mg tablet TAKE 1 TABLET BY MOUTH TWICE DAILY 08/28 completed Not Available Not Available Not Available atorvastat in 80 mg tablet TAKE 1 TABLET BY MOUTH AT BEDTIME active Not Available Not Available No t Available atorvastat in 20 mg tablet TAKE 1 TABLET BY MOUTH AT BEDTIME active Not Available Not Available No t Available bumetanide 2 mg tablet TAKE 1.5 TABLETS BY MOUTH TWICE DAILY active Not Available Not Available No t Available lisinopril 20 mg-hydroch lorothiazi de 12.5 mg tablet 01/16 completed Not Available Not Available Not Available atenolol 100 mg tablet TAKE 1/2 TABLET BY MOUTH DAILY 02/26 completed Not Available Not Available Not Available FreeStyle Lancets 28 gauge USE TO CHECK BLOOD SUGAR EVERY DAY active Not Available Not Available No t Available simvastati n 10 mg tablet TAKE 1 TABLET BY MOUTH DAILY 08/28 completed Not Available Not Available Not Available atenolol 25 mg tablet take 4 tablets by mouth once daily 01/16 completed Not Available Not Available Not Available acetazolam moises 250 mg tablet TAKE 2 TABLETS BY MOUTH DAILY 02/26 completed for Nausea Not Available Not Available Not Available warfarin 2.5 mg tablet 08/28 completed Not Available Not Available Not Available amlodipine 5 mg tablet TAKE 1 TABLET BY MOUTH EVERY DAY 02/26 completed Not Available Not Available Not Available omeprazole 40 mg capsule,de layed release TK ONE C PO QD STARTING AFTER SURGERY 04/09 completed Not Available Not Available Not Available tramadol 50 mg tablet TK 1 T PO QID PRF PAIN 04/09 completed Not Available Not Available Not Available spironolac tone 25 mg tablet TAKE 1/2 TABLET BY MOUTH DAILY active Not Available Not Available No t Available ondansetro n 8 mg disintegra ting tablet DISSOLVE 1 TABLET ON THE TONGUE EVERY 8 HOURS NEEDED FOR NAUSEA active Not Available Not Available No t Available warfarin 3 mg tablet TAKE 1 TABLET BY MOUTH EVERY DAY FOR 30 DAYS OR DIRECTED BY OFFICE BASED ON INR 04/09 completed Not Available Not Available Not Available hydromorph one 2 mg tablet TK 1 T PO Q 6 H PRN P. DO NOT DRIVE WHILE TAKING THIS MEDICATI ON 04/09 completed Not Available Not Available Not Available magnesium oxide 400 mg (241.3 mg magnesium) tablet TAKE 1 TABLET BY MOUTH DAILY active Not Available Not Available No t Available DOK 100 mg capsule active Not Available Not Available Not Available levothyrox ine 50 mcg tablet TAKE 1 TABLET BY MOUTH EVERY MORNING active Not Available Not Available No t Available cephalexin 500 mg capsule TAKE 1 CAPSULE BY MOUTH EVERY 6 HOURS FOR 7 DAYS 02/11 completed Not Available Not Available Not Available pantoprazo le 40 mg tablet,del ayed release TK 1 T PO QD. MEDICATI ON FOR AFTER SURGERY. 04/09 completed Not Available Not Available Not Available warfarin 2 mg tablet TAKE 2 TABLETS BY MOUTH 2 DAYS OF THE WEEK AND TAKE 3 MG 5 DAYS OF THE WEEK 08/28 completed Not Available Not Available Not Available gabapentin 300 mg capsule take one capsule in the morning and afternoo n and two at bedtime active Not Available Not Available No t Available omeprazole 20 mg capsule,de layed release TAKE 1 CAPSULE BY MOUTH AT BEDTIME active Not Available Not Available No t Available furosemide 20 mg tablet TK 1 T PO QOD 03/30 completed Not Available Not Available Not Available warfarin 1 mg tablet TAKE 3 TABLETS BY MOUTH 5 TIMES A WEEK AND 4 TABLETS BY MOUTH TWICE A WEEK 08/28 completed Not Available Not Available Not Available losartan 50 mg-hydroch lorothiazi de 12.5 mg tablet TK 1 T PO QD 12/14 completed Not Available Not Available Not Available hydromorph one 4 mg tablet TK 1 TO 2 TS PO Q 6 H PRF PAIN. DO NOT DRIVE WHILE TAKING THIS MEDICATI ON 04/09 completed Not Available Not Available Not Available doxycyclin e hyclate 100 mg tablet TAKE 1 TABLET BY MOUTH TWICE DAILY 02/11 completed Not Available Not Available Not Available atenolol 50 mg tablet TAKE 1 TABLET BY MOUTH DAILY active Not Available Not Available No t Available oxycodone 5 mg tablet TAKE 1 TABLET BY MOUTH TWICE DAILY NEEDED FOR PAIN active Not Available Not Available No t Available enoxaparin 30 mg/0.3 mL subcutaneo us syringe INJECT CONTENTS OF 1 SYRINGE SUBCUTAN EOUSLY TWO TIMES A DAY FOR 7 DAYS 04/09 completed Not Available Not Available Not Available enoxaparin 40 mg/0.4 mL subcutaneo us syringe INJECT 0.4 ML UNDER THE SKIN DAILY FOR 4 DAYS 02/11 completed Not Available Not Available Not Available enoxaparin 120 mg/0.8 mL subcutaneo us syringe 02/11 completed Not Available Not Available Not Available escitalopr am 10 mg tablet TAKE 1 TABLET BY MOUTH DAILY 08/28 completed Not Available Not Available Not Available escitalopr am 20 mg tablet TAKE 1 TABLET BY MOUTH DAILY active Not Available Not Available No t Available escitalopr am 5 mg tablet TAKE 1 TABLET BY MOUTH DAILY 02/26 completed Not Available Not Available Not Available hydrochlor othiazide 12.5 mg tablet TAKE 1 TABLET BY MOUTH DAILY 02/26 completed Not Available Not Available Not Available FreeStyle Lite Meter kit USE DIRECTED active Not Available Not Available No t Available Eliquis 5 mg tablet TAKE 1 TABLET BY MOUTH TWICE DAILY active Not Available Not Available No t Available Multi Vitamin active Not Available Not Available Not Available Vitals Date Recorded Heart rate Oxygen saturation Oxygen saturation in Arterial blood by Pulse oximetry Systolic blood pressure Diastolic blood pressure Provider Name and Address Organization Details Last Updated DateTime 3 75 /min 96 % 96 % 116 mm[Hg] 56 mm[Hg] Charis Yeung [place] [facility] 3 15:03:33 Date Recorded Heart rate Oxygen saturation Oxygen saturation in Arterial blood by Pulse oximetry Pain severity - 0-10 verbal numeric rating [Score] - Reported Systolic blood pressure Diastolic blood pressure Provider Name and Address Organization Details Last Updated DateTime 3 61 /min 96 % 96 % 7 153 mm[Hg] 61 mm[Hg] Brigette Luna [place] [facility] 3 09:17:04 Date Recorded Heart rate Oxygen saturation Oxygen saturation in Arterial blood by Pulse oximetry Pain severity - 0-10 verbal numeric rating [Score] - Reported Systolic blood pressure Diastolic blood pressure Provider Name and Address Organization Details Last Updated DateTime 4 61 /min 95 % 95 % 8 141 mm[Hg] 76 mm[Hg] Brigette Luna [place] [facility] 4 10:03:14 Date Recorded Heart rate Oxygen saturation Oxygen saturation in Arterial blood by Pulse oximetry Systolic blood pressure Diastolic blood pressure Provider Name and Address Organization Details Last Updated DateTime 4 78 /min 93 % 93 % 124 mm[Hg] 79 mm[Hg] Felicitas machado [place] [facility] 4 10:07:51 Social History Question Answer Notes LastModified by Organizat ion Details LastModified Time Tobacco Smoking Status Never Smoker Not Available [employer] 06/16/2020 03:16:11 What Is Your Level Of Alcohol Consumption? Occasional [id number] Information not available 06/16/2020 Are You Currently Employed? No [id number] Information not available 06/16/2020 Which Illicit Or Recreational Drugs Have You Used? No [id number] Information not available 06/16/2020 Education 10 Information no t available 11/18/2014 Live Alone Or With Others? With Others And Son Information not available 11/18/2014 Marital Status Informatio n not available 11/18/2014 What Was The Date Of Your Most Recent Tobacco Screening? 03/12/2018 [id number] Information not available 06/16/2020 Sex: Unknown Functional Status None recorded. Mental Status None recorded. Family History Relationship Description Onset Age of this Age Resolved Age Notes LastModified by Organization Details LastModified Time Mother Chronic obstructive pulmonary disease [email or web address] Not available 10/31 17:35:43 Mother Malignant neoplastic disease Breast [email or web address] Not available 10/31 17:35:43 Paternal Grandmother Malignant neoplastic disease breast [email or web address] Not available 10/31 17:35:43 Medical History Condition Response Headache Y Arthritis Y High Cholesterol Y GERD/Reflux Y Hypertension Y Depression Y Hypothyroidism Y Osteoporosis Y Gynecological HistoryNo gynecological history recorded. Obstetrics History GPAL:G 0 P 0 0 0 0 Past Encounters Encounter ID Performer Location Encounter Start Date Encounter Closed Date Diagnosis/Indication Diagnosis SNOMED-CT Code Diagnosis ICD10 Code Diagnosis Note [id number] [facility] [address] [place] [address] 11/18/2014 08:56:57 11/20/2014 17:48:13 History of osteoarthritis [id number] Knee pain 01893954 [id number] Dustin Tello MD PAIN OFFICE [address] [place] [address] 01/16/2018 09:42:05 01/20/2018 13:23:32 History of osteoarthritis 849922788 Z87.39 Knee pain 97354395 M25.5 61 M25.562 Osteoarthr itis of knee 825564761 M17.0 [id number] Dustin Tello MD PAIN OFFICE [address] [place] [address] 02/03/2018 09:49:46 02/03/2018 10:51:10 History of osteoarthritis 790756781 Z87.39 Knee pain 83373272 M25.5 61 M25.562 Osteoarthr itis of knee 117709261 M17.0 [id number] Dustin Tello MD PAIN OFFICE [address] [facility] [place] [address] 03/12/2018 08:41:18 03/12/2018 10:10:41 History of osteoarthritis 258965419 Z87.39 Knee pain 07126416 M25.5 61 M25.562 Osteoarthr itis of knee 192997710 M17.0 [id number] Dustin Tello MD PAIN OFFICE [address] [facility] [place] [address] 04/09/2019 09:14:11 04/09/2019 11:38:40 Knee pain 75969739 M25.561 M25.562 History of osteoarthritis 680099955 Z87.39 Osteoarthr itis of knee 497218333 M17.0 [id number] Dustin Tello MD PAIN OFFICE [address] [place] [address] 05/07/2019 09:17:32 05/07/2019 15:46:50 Knee pain 40113975 M25.561 M25.562 History of osteoarthritis 590268183 Z87.39 Osteoarthr itis of knee 833626770 M17.0 [id number] Dustin Tello MD [facility] [address] [place] [address] 12/14/2020 13:12:22 12/14/2020 14:31:27 Knee pain 76951672 M25.561 M25.562 History of osteoarthritis 538789024 Z87.39 Osteoarthr itis of knee 450131703 M17.0 [id number] Dustin Tello MD [facility] [address] [place] [address] 03/30/2021 10:24:25 03/30/2021 12:42:37 History of osteoarthritis 217065377 Z87.39 Knee pain 05855932 M25.5 61 M25.562 Osteoarthr itis of knee 923785763 M17.0 [id number] Dustin Tello MD [facility] [address] [facility] [address] 05/02/2021 15:39:22 05/02/2021 15:59:54 Knee pain 13624404 M25.561 M25.562 History of osteoarthritis 797360703 Z87.39 Osteoarthr itis of knee 205874680 M17.0 [id number] Dustin Tello MD [facility] [address] [facility] [address] 02/26/2023 14:26:30 02/28/2023 12:03:49 Osteoarthritis of knee 103989040 M17.0 Knee pain 13791477 M25.5 61 M25.562 History of osteoarthritis 506730656 Z87.39 [id number] Dustin Tello MD [facility] [address] [facility] [place] [address] 08/28/2023 09:07:28 08/28/2023 10:50:08 Osteoarthritis of knee 936332173 M17.0 Knee pain 65679516 M25.5 61 M25.562 History of osteoarthritis 843492200 Z87.39 [id number] Dustin Tello MD [facility] [address] [place] [address] 02/12/2024 09:51:51 02/12/2024 14:18:59 Knee pain 62984847 M25.561 M25.562 Osteoarthr itis of knee 916454210 M17.0 History of osteoarthritis 248458647 Z87.39 [id number] Dustin Tello MD [facility] [address] [place] [address] 05/20/2024 10:01:53 05/21/2024 09:05:20 Knee pain 37251959 M25.561 M25.562 Osteoarthr itis of knee 536799434 M17.0 History of osteoarthritis 822155171 Z87.39 Health Concerns Section Related Observation LastModified by Organization Detai ls LastModified Time None Recorded Concern Status LastModified by Organization Details LastModified Time None Recorded Advance Directives Directive None Recorded Payers Encounter Date Sequence Insurance Name Policy Number Policy Howell Covered Member ID Howell Member ID Guarantor Name 05/02/2021 1 [facility] (MEDICARE REPLACEMENT/A DVANTAGE - PPO) [id number] Stella Altagracia [id number] Stella Altagracia 02/26/2023 1 [facility] (MEDICARE REPLACEMENT/A DVANTAGE - PPO) [id number] Stella Altagracia [id number] Stella Altagracia 02/26/2023 2 [place] [facility] Stella Altagracia [id number] Stella Altagracia 08/28/2023 1 [facility] (MEDICARE REPLACEMENT/A DVANTAGE - PPO) [id number] Stella Altagracia [id number] Stella Altagracia 08/28/2023 2 [place] [facility] Stella Altagracia [id number] Stella Altagracia 02/12/2024 1 [facility] (MEDICARE REPLACEMENT/A DVANTAGE - PPO) [id number] Stella Altagracia [id number] Stella Altagracia 02/12/2024 2 [place] [facility] Stella Altagracia [id number] Stella Altagracia 05/20/2024 1 [facility] (MEDICARE REPLACEMENT/A DVANTAGE - PPO) [id number] Stella Frias [id number] Stella Frias 05/20/2024 2 [place] [facility] Stella Frias [id number] Stella Frias Notes Date Note Type Note Provider Name and Address Organization Details Recorded Time 05/02/2021 text/html This is a follow up. She has been taking gabapentin 300mg three times a day with good effect. She is walking in the pool at her friend's house. She has not been able to make it to the physical therapy due to transportation issues.She states Dr. Charles is retiring and needs a new PCP. Dustin Tello MD [address] [facility] [address], [place], [address], [facility] 05/03/2021 11:32:05 02/26/2023 text/html This is a follow up. She was last seen in March 2021. She states she is feeling short of breath and has not been able to walk and has gained 40 pounds of weight. She is also on coumadin after her knee replacement surgery .She was taking gabapentin 300mg at night and feels that she was sleeping better at night.She has been on oxycodone 5 mg bid. I have been seeing Ms. Frias since 2014 . Her previous PCP was Dr. Charles and he was prescribing the medications for her. She is on 15 MME per day . She has been using the medications appropriately. Dr. Peters is her PCP and he has been prescribing for her. She states he wants her to wean off the medication. She is worried as she has been on it for a long time. Dustin Tello MD [address] [facility] , [address], [place], [address], [facility] 03/05/2023 16:55:15 08/28/2023 text/html This is a follow up. She was last seen in January 2023. She states she is feeling better and is going on a cruise to [place] soon. She is also on Eliquis after her knee replacement surgery .She has stopped coumadin as she was not able to get her INR levels within limits. She is taking gabapentin 300mg two to three tablets a day as her PCP is weaning off her oxycodone and feels that she was sleeping better at night.She has been on oxycodone 5 mg bid. I have been seeing Ms. Frias since 2014 . Her previous PCP was Dr. Charles and he was prescribing the medications for her. She is on 15 MME per day . She has been using the medications appropriately. Dr. Peters is her PCP and he has been prescribing for her. She states he wants her to wean off the medication. She is worried as she has been on it for a long time. Dustin [facility]ello [facility] [address] [facility] , [address], [place], [address], [facility] 08/28/2023 11:07:14 02/12/2024 text/html This is a follow up. She was last seen in August 2023. She states she is feeling better and is going on a cruise to [facility] soon. She is also on Eliquis after her knee replacement surgery .She is taking gabapentin 300mg two to three tablets a day as her PCP is weaning off her oxycodone and feels that she was sleeping better at night.She has been on oxycodone 5 mg bid. She is now receiving 45 tablets of oxycodone per month and feels her pain is not as well controlled. I have been seeing Ms. Frias since 2014 . Her previous PCP was Dr. Charles and he was prescribing the medications for her. She is on 15 MME per day . She has been using the medications appropriately. Dr. Peters is her PCP and he has been prescribing for her. She states he wants her to wean off the medication. She is worried as she has been on it for a long time.She is having bilateral foot pain and was admitted in the hospital and treated for cellulitis . She has an appointment to see a fire systems inspector soon.She has not started her aquatic exercises yet. She will [facility] her local [facility] and will start exercises soon. Dustin Tello MD [address] , [address], [place], [address], [facility] 02/12/2024 15:03:38 05/20/2024 text/html This is a follow up. She was last seen in 02/12/2024. . She is also on Eliquis after her knee replacement surgery .She is taking gabapentin 300mg three tablets a day as her PCP is weaning off her oxycodone and feels that she was sleeping better at night.She has been on oxycodone 5 mg bid. She is now receiving 45 tablets of oxycodone per month and feels her pain is not as well controlled. I have been seeing Ms. Frias since 2014 . Her previous PCP was Dr. Charles and he was prescribing the medications for her. She is on 15 MME per day . She has been using the medications appropriately. Dr. Peters is her PCP and he has been prescribing for her. She states he wants her to wean off the medication. She is worried as she has been on it for a long time.She is having bilateral foot pain . She has an appointment to see a fire systems inspector soon.She has not started her aquatic exercises yet. She will contact her local [facility] and will start exercises soon. Dustin Tello MD [address] [facility] , [address], [place], [address], [facility] 05/21/2024 10:41:19 OBGyn Episode No OBEpisode recorded.
== END 2024-11-29 13:11 | disposition home or self-care (01) ==
LOC: HO.HCS 12:28
PROVIDERS: PCP Internal Medicine; Visit Provider Internal Medicine Cardiovascular Disease
DX: I50.9 Heart failure, unspecified (principal); E66.01 Morbid (severe) obesity due to excess calories; I48.91 Unspecified atrial fibrillation; I10 Essential (primary) hypertension
CPT/HCPCS: 99214; G2211

== ENCOUNTER → 2024-11-29 12:28 | Outpatient (BNVA) | payer MEDICARE, MEDICAID, SELFPAY | PROVIDERS: PCP Internal Medicine; Visit Provider Internal Medicine Cardiovascular Disease | DX: I11.0 Hypertensive heart disease with heart failure (principal); I50.9 Heart failure, unspecified; I48.91 Unspecified atrial fibrillation; E66.01 Morbid (severe) obesity due to excess calories; Z68.43 Body mass index [BMI] 50.0-59.9, adult | CPT/HCPCS: 99212 ==

== ENCOUNTER 2024-12-29 06:59 | Outpatient (REF) | payer MEDICARE, MEDICAID, SELFPAY ==
--- OUTSIDE RECORDS SUMMARY | 2024-12-29 07:01 | XMS_ITS | Patient Health Record ---
Author Organization [facility] Address [address] [facility] [address] Care Team Providers Care Railroad Detective Name Role Phone Anderson Peters Primary Care Provider Terra Lund Unavailable [phone] Allergies Allergen (clinical drug ingredient) Drug/Non Drug [...] No Encounters Encounter Location Date Provider Diagnosis [facility] [address] [place] [address] 01/21/2024 Terra Black Plan Of Treatment No Information Insurance Providers Payer Name Payer Address Payer Phone Subscriber Number Group Number Insured Name Patient Relationship to Insured Coverage Start Date Coverage End Date Medicare National [employer]t [employer] [address] [facility] [place] [address] [id number] Stella Frias Self - patient is the insured Medical (General) History Medical History History ICD Code Anxiety Arthritis Back,Hip,and Knee pain Broken bones CAD (Cholesterol) Depression Diabetic Gall bladder problems Headaches/Migraines Heart disease Measles Mumps Chicken pox Joint implants/screws Surgical History Surgery Date(Month/Year) appendectomy Gall bladder removal ankle 2001
--- OUTSIDE RECORDS SUMMARY | 2024-12-29 07:02 | XMS_ITS ---
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 Generated for Printi ng/Fafernandog/eTransmitting on:?12/29/2024 07:01 AM EDT
--- OUTSIDE RECORDS SUMMARY | 2024-12-29 07:02 | XMS_ITS | Data Portability ---
Author Organization [facility] Address [address] [place], [place] [address] [address] Care Team Providers Care Tree Topper Name Role Phone SINTIA PETERS Primary Care Provider [phone] Assessment Encounter Date Assessment Date Assessment LastModified [...] Orders gabapentin 300 mg capsule 2023 024 [facility][id number], [address] [place], [place], [id number], 10:25:03 gabapentin 300 mg capsule 2022 023 [facility] #[id number], [address], [place], [id number], 3 10:15:06 gabapentin 300 mg capsule 2022 [facility]23 [id number], [address], [place], [id number], 3 09:20:45 gabapentin 300 mg capsule 2020 [facility]21 [id number], [address], [place], [id number], 3 09:21:07 Patient TargetsNo targets recorded. Patient Instructions Encounter Date Encounter Id Patient Instructions Last Modified By Organization Details Last Modified Time 05/02/2021 [id number] She was advised against bed rest lasting [...] care. [email or web address] Not available 05/02/2021 15:49:25 02/26/2023 [id number] She was advised against bed rest lasting longer than four days and to continue activities as tolerated. [email or web address] Not available 03/05/2023 16:55:05 08/28/2023 [id number] She was advised against bed rest lasting longer than four days and to continue activities as tolerated. tmanikantan Not available 08/28/2023 10:02:27 02/12/2024 [id number] She was advised against bed rest lasting longer than four days and to continue activities as tolerated. tmanikantan Not available 02/12/2024 10:24:54 05/20/2024 [id number] She was advised against bed rest lasting longer than four days and to continue activities as tolerated. [email or web address] Not available 05/20/2024 13:27:11 Reason for Referral None Reported. Problems Name Problem SNOMED Code Status Onset Date Resolution Date Notes Provider Name and Address Organization Details Recorded Time History of osteoarthritis 997427237 Active Dustin powers MD [address] [place] [address] , [address], [facility] [place], [address], [place] [facility] 5 09:34:24 Knee pain Active Dustin powers MD [address] [facility] , [address], [place], [address], [place] [facility] 5 09:34:24 Osteoarthritis of knee 692249301 Active Dustin powers MD [address] [facility] , [address], [place], [address], [place] [facility] 8 13:28:06 Problem Notes None recorded. Procedures Surgical History Date Name Laterality Status Provider Name and Address Organization Details Recorded Time 03/12/20 18 Intra-articular Knee Steroid Injection completed Dustin Tello MD [address] [facility] , [address], [place], [address], [place] [facility] 03/12/2018 10:07:50 02/04/20 18 Intra-articular Knee Steroid Injection completed Dustin Tello MD [address] [facility] , [address], [place], [address], [place] [facility] 02/03/2018 10:27:21 Cholecystectomy completed Hannah Call [place] [facility] 11/18/2014 09:31:24 Appendectomy completed Hannah Call [place] [facility] 11/18/2014 09:31:24 Other completed Hannah Call [place] [facility] 11/18/2014 09:31:24 Other completed Hannha Call [place] [facility] 11/18/2014 [...] Name and Address Organization Details Recorded Time 03454 codeine medicatio n other Not available Not [...] % 116 mm[Hg] 56 mm[Hg] Charis Yeung [place] [facility] 3 15:03:33 Date Recorded Heart rate Oxygen saturation Oxygen saturation in Arterial blood by Pulse oximetry Pain severity - 0-10 verbal numeric rating [Score] - Reported Systolic blood pressure Diastolic blood pressure Provider Name and Address Organization Details Last Updated DateTime 3 61 /min 96 % 96 % 7 153 mm[Hg] 61 mm[Hg] Brigette Luna [place] [facility] 3 09:17:04 Date Recorded [...] Is Your Level Of Alcohol Consumption? Occasional [id number] Information not available 06/16/2020 Are You Currently Employed? No [id number] Information not available 06/16/2020 Which Illicit Or Recreational Drugs Have You Used? No [id number] Information not available 06/16/2020 Education 10 Information no t available 11/18/2014 Live Alone Or With Others? With Others And Son Information not available 11/18/2014 Marital Status Informatio n not available 11/18/2014 What Was The Date Of Your Most Recent Tobacco Screening? 03/12/2018 [id number] Information not available 06/16/2020 Sex: Unknown Functional [...] History Condition Response Headache Y Arthritis Y GERD/Reflux Y High Cholesterol Y Hypertension Y Depression Y Hypothyroidism Y Osteoporosis Y Gynecological HistoryNo gynecological history recorded. Obstetrics History GPAL:G 0 P 0 0 0 0 Past Encounters Encounter ID Performer Location Encounter Start Date Encounter Closed Date Diagnosis/Indication Diagnosis SNOMED-CT Code Diagnosis ICD10 Code Diagnosis Note [id number] [facility] [address] [place] [address] 11/18/2014 08:56:57 11/20/2014 17:48:13 History of osteoarthritis 735839797 Knee pain 13969233 [id number] Dustin Tello MD PA[facility] OFFICE [address] [place] [address] 01/16/2018 09:42:05 01/20/2018 13:23:32 History of osteoarthritis 203199197 Z87.39 Knee pain 02640829 M25.5 61 M25.562 Osteoarthr itis of knee 622608225 M17.0 [id number] Dustin Tello MD PAIN OFFICE [address] [place] [address] 02/03/2018 09:49:46 02/03/2018 10:51:10 History of osteoarthritis 781572649 Z87.39 Knee pain 40431745 M25.5 61 M25.562 Osteoarthr itis of knee 724454720 M17.0 [id number] Dustin Tello MD PA[facility] [address] [facility] [address] 03/12/2018 08:41:18 03/12/2018 10:10:41 History of osteoarthritis 455402059 Z87.39 Knee pain 65609943 M25.5 61 M25.562 Osteoarthr itis of knee 734193420 M17.0 [id number] Dustin Tello MD PAIN OFFICE [address] [facility] [place] [address] 04/09/2019 09:14:11 04/09/2019 11:38:40 Knee pain 83180168 M25.561 M25.562 History of osteoarthritis 176877741 Z87.39 Osteoarthr itis of knee 402666553 M17.0 [id number] Dustin Tello MD PAIN OFFICE [address] [place] [address] 05/07/2019 09:17:32 05/07/2019 15:46:50 Knee pain 66167672 M25.561 M25.562 History of osteoarthritis 216022200 Z87.39 Osteoarthr itis of knee 907294908 M17.0 [id number] Dustin Tello MD [facility] [address] [place] [address] 12/14/2020 13:12:22 12/14/2020 14:31:27 Knee pain 69891025 M25.561 M25.562 History of osteoarthritis 456511106 Z87.39 Osteoarthr itis of knee 838185346 M17.0 [id number] Dustin Tello MD [facility] [address] [place] [address] 03/30/2021 10:24:25 03/30/2021 12:42:37 History of osteoarthritis 077746744 Z87.39 Knee pain 58447496 M25.5 61 M25.562 Osteoarthr itis of knee 056529585 M17.0 [id number] Dustin Tello MD [facility] [address] [facility] [place] [address] 05/02/2021 15:39:22 05/02/2021 15:59:54 Knee pain 86639861 M25.561 M25.562 History of osteoarthritis 785089359 Z87.39 Osteoarthr itis of knee 971814053 M17.0 [id number] Dustin Tello MD [facility] [address] [facility] [place] [address] 02/26/2023 14:26:30 02/28/2023 12:03:49 Osteoarthritis of knee 682614279 M17.0 Knee pain 62010524 M25.5 61 M25.562 History of osteoarthritis 109685272 Z87.39 [id number] Dustin Tello MD [facility] [address] [facility] [place] [address] 08/28/2023 09:07:28 08/28/2023 10:50:08 Osteoarthritis of knee 451451160 M17.0 Knee pain 07945767 M25.5 61 M25.562 History of osteoarthritis 913357042 Z87.39 [id number] Dustin Tello MD [facility] [address] [place] [address] 02/12/2024 09:51:51 02/12/2024 14:18:59 Knee pain 30147197 M25.561 M25.562 Osteoarthr itis of knee 679098860 M17.0 History of osteoarthritis 092391935 Z87.39 [id number] Dustin Tello MD [facility] [address] [place] [address] 05/20/2024 10:01:53 05/21/2024 09:05:20 Knee pain 05965033 M25.561 M25.562 Osteoarthr itis of knee 431911723 M17.0 History of osteoarthritis 156773636 Z87.39 Health Concerns Section Related Observation LastModified by Organization Detai ls LastModified Time None Recorded Concern Status LastModified by Organization Details LastModified Time None Recorded Advance Directives Directive None Recorded Payers Encounter Date Sequence Insurance Name Policy Number Policy Howell Covered Member ID Howell Member ID Guarantor Name 05/02/2021 1 [facility] (MEDICARE REPLACEMENT/A DVANTAGE - PPO) [id number] Stella Altagracia [id number] Stella Altagracia 02/26/2023 1 [facility] (MEDICARE REPLACEMENT/A DVANTAGE - PPO) [id number] Stella Altagracia [id number] Stella Altagracia 02/26/2023 2 [place] [facility] Stella Altagracia [id number] Stella Altagracia 08/28/2023 1 [facility] (MEDICARE REPLACEMENT/A DVANTAGE - PPO) [id number] Stella Altagracia [id number] Stella Altagracia 08/28/2023 2 [place] [facility] Stella Altagracia [id number] Stella Altagracia 02/12/2024 1 [facility] (MEDICARE REPLACEMENT/A DVANTAGE - PPO) [id number] Stella Altagracia [id number] Stella Altagracia 02/12/2024 2 [place] [facility] Stella Altagracia [id number] Stella Altagracia 05/20/2024 1 [facility] (MEDICARE REPLACEMENT/A DVANTAGE - PPO) [id number] Stella Frias [id number] Stella Frias 05/20/2024 2 [place] [facility] Stella Frias [id number] Stella Frias Notes Date Note Type Note [...] a new PCP. Dustin [facility]ello MD [address] [facility] , [address], [place], [address], [facility] 05/03/2021 11:32:05 02/26/2023 text/html [...] long time. Dustin Tello MD [address] [facility] , [address], [place], [address], [facility] 03/05/2023 16:55:15 08/28/2023 text/html [...] a long time. Dustin Tello MD [address] [facility] , [address], [place], [address], [facility] 08/28/2023 11:07:14 02/12/2024 text/html This is a follow up. She was last seen in August 2023. She states she is feeling better and is going on a cruise [facility] soon. She is also on Eliquis after [...] She has an appointment to see a marketing underwriter soon.She has not started her aquatic exercises yet. She will contact her local Y and will start exercises soon. Dustin Tello MD [address] , [address], [place], [address], [facility] 02/12/2024 15:03:38 05/20/2024 text/html [...] She has an appointment to see a marketing underwriter soon.She has not started her aquatic exercises yet. She will contact her local Y and will start exercises soon. Dustin Tello MD [address] [facility] , [address], [place], [address], [facility] 05/21/2024 10:41:19 OBGyn Episode No OBEpisode recorded.
--- OUTSIDE RECORDS SUMMARY | 2024-12-29 07:02 | XMS_ITS ---
[facility] Address [address] [place] [address] Care Team Providers Care Moulder Operator Name Role Phone Fran Jadesaran Primary Care Provider Unavaildaniel e Black, Terra Unavailable [phone] Allergies Allergen (clinical drug ingredient) Drug/Non Drug [...] 03/25/2024 Encounters Encounter Location Date [facility] [address] [place] [address] 03/25/2024 Terra Soriano Plan Of Treatment No Information Progress Notes * Stella FRIAS MDOB:[birth year] (69 yo F)Acc No.[id number]:03/25/2024 Progress Notes Patient:?Stella FRIAS Provider:?Terra Soriano DPM :1955???Age:68 Y???Sex:Female D ate:03/25/2024 Address:[address] [place], [place] [address] Pcp:Anderson Peters Subjective: * Chief Complaints: * [...] Provider:?Terra Soriano DPM Date:?2023 Generated for Christina edvi/Ella/Alfred on:?12/29/2024 07:01 AM EDT
[2024-12-29 07:51] LABS: Alanine Aminotransferase 22 U/L (0-31); Albumin Level 4.5 g/dL (3.5-5.0); Alkaline Phosphatase 103 U/L (39-117); Anion Gap 17 (12-20); Aspartate Amino Transferase 25 U/L (5-31); Bilirubin Total 0.7 mg/dL (0.0-1.0); Blood Urea Nitrogen 37 mg/dL (9-16); Calcium 10.2 mg/dL (8.4-10.2); Carbon Dioxide 27 mmol/L (22-29); Chloride 99 mmol/L (96-108); Cholesterol 145 mg/dL (<200); Estimated Glomerular Filt Rate 36; Glucose Random 126 mg/dL (60-115); HDL Cholesterol 41 mg/dL (>40); LDL Cholesterol Calculated 71 mg/dL (<100); Potassium 3.8 mmol/L (3.3-5.1); Sodium 139 mmol/L (135-145); Total Protein 8.1 g/dL (6.5-8.0); Triglycerides 169 mg/dL (<150)
[2024-12-29 08:29] LABS: Free T4 (Free Thyroxine) 0.99 ng/dL (0.71-1.85); Thyroid Stimulating Hormone 4.11 uIU/mL (0.32-4.0)
== END 2024-12-29 07:00 | disposition home or self-care (01) ==
LOC: HO.LAB 06:59
PROVIDERS: PCP Internal Medicine; Visit Provider Internal Medicine
DX: E03.9 Hypothyroidism, unspecified (principal); E78.00 Pure hypercholesterolemia, unspecified
CPT/HCPCS: 36415; 80053; 80061; 84439; 84443

== ENCOUNTER 2024-12-30 11:14 | Outpatient (AMB) | payer MEDICARE, MEDICAID, SELFPAY ==
[2024-12-30 11:17] VITALS: BP 112/68; PULSE 60; O2SAT 93; BMI 50.8
--- NOTE | 2024-12-30 11:17 | MHC.PC.OV ---
Vital Signs 12/30/24 11:17 Height 5 ft 2 in Weight 278 lb BMI 50.8 BP 112/68 Blood Pressure Location Lt brachial Position Sitting Pulse 60 Pulse Source Pulse Oximeter Pulse Oximetry (%) 93 Oxygen Delivery Method Room Air Intake Visit Reasons: knee Osteoarthritis, DM - see comments Allergies codeine [CODEINE] Allergy (Intermediate, Verified 12/30/24 11:18) CHEST PAIN Tobacco use date assessed: 12/30/24 Fall risk assessment: No Falls in past year Last assessed Fall Risk: 12/30/24 Dental Screening Dental Screen Date: 12/30/24 Did you have a dental visit in the last 12 months?: No Did you have a dental problem in the last 6 months where you did not have access to dental care?: No Was dental information given to patient?: Patient has dentist [facility] Medical History (Updated 07/09/24 @ 12:13 by Anderson Peters MD) Obesity Pneumonia Bilateral claudication of lower limb Breast calcification, left Breast cancer screening by mammogram [facility] discharge follow-up [facility] (obstructive sleep apnea) Morbid obesity Persistent atrial fibrillation Hypokalemia Physical deconditioning CHF (congestive heart failure) Diabetes Chronic venous stasis Hypothyroid Afib HTN (hypertension) Surgical History S/P cardiac catheterization History of ankle surgery History of appendectomy S/P cholecystectomy Hx of total knee arthroplasty Family History Father EtOH dependence Social History Housing: Apartment Alcohol intake: current Alcohol intake frequency: holidays/special occasions only Patient Tobacco Use Status: Never used Tobacco Tobacco use type: Cigarette e-Cigarette/Vaping Use: Never Used Second Hand Smoke Exposure: No service: No Current occupational status: disabled Cognitive needs: Yes Hearing needs: No Vision needs: Yes Questionnaire PHQ-9 Over the last 2 weeks, how often have you been bothered by any of the following problems? 1. Little interest or pleasure in doing things: not at all 2. Feeling down, depressed, or hopeless: several days 3. Trouble falling or staying asleep, or sleeping too much: several days 4. Feeling tired or having little energy: several days 5. Poor appetite or overeating: not at all 6. Feeling bad about yourself - or that you are a failure or have let yourself or your family down: not at all 7. Trouble concentrating on things, such as reading the newspaper or watching television: not at all 8. Moving or speaking so slowly that other people could have noticed. Or the opposite - being so fidgety or restless that you have been moving around a lot more than usual: not at all 9. Thoughts that you would be better off or of hurting yourself in some way: not at all Total score: 3 Depression Screening Interpretation: Positive Depression Screening Done: Yes 82073 - PHQ-9 Billing: Yes Source: Developed by Drs. Jaime Moore, Kasia Manzo, Ganesh Lebron and colleagues, with an educational irck from [employer]. Thrive Questionnaire Date Thrive assessed: 09/23/24 I am a: Patient What is your living situation today?: I have a steady place to live Within the past 12 months, did the food you bought not last and you didn't have the money to get more?: I choose not to answer this question Within the past 12 months, did you worry whether your food would run out before you got money to buy more?: I choose not to answer this question Do you have trouble paying for medicines?: I choose not to answer this question Do you have trouble getting transportation to medical appointments?: I choose not to answer this question Do you have trouble paying your heating and electricity bill?: I choose not to answer this question Do you have trouble taking care of your child, family member or friend?: I choose not to answer this question Do you have trouble with day-to-day activities such as bathing, preparing meals, shopping, managing finances, etc.?: I choose not to answer this question Are you currently unemployed and looking for a job?: No Are you interested in more education?: No Please select the resources that you would like help with: None Currently or been in a relationship where the following occur: I choose not to answer THRIVE Score: 0 AUDIT C Alcohol Use Questionnaire (AUDIT-C) 1. How often do you have a drink containing alcohol?: Monthly or less 2. How many drinks containing alcohol do you have on a typical day when you are drinking?: 1 or 2 3. How often do you have six or more drinks on one occasion?: Never Total Score: 1 MARTITA-7 AMB Questionnaire MARTITA-7 Date MARTITA - 7 assessed: 09/23/24 Feeling nervous, anxious, or on edge: 0 = Not at all Not being able to stop or control worryin = Not at all Worrying too much about different things: 0 = Not at all Trouble relaxin = Not at all Being so restless that it is hard to sit still: 0 = Not at all Becoming easily annoyed or irritable: 0 = Not at all Feeling afraid as if something awful might happen: 0 = Not at all Total MARTITA-7 score (0-4 normal; 5-9 mild; 10-14 moderate; 15-21 severe): 0 Source: Developed by Drs. Jaime Moore, Kasia Manzo, Ganesh Lebron and colleagues, with an educational rick from [employer]. Physical exam (Primary Care) Vital Signs: Last Vital Signs Pulse 60 12/30/24 11:17 BP 112/68 12/30/24 11:17 Pulse Ox 93 12/30/24 11:17 Oxygen Delivery Method Room Air 12/30/24 11:17 BMI result Body Mass Index 50.8 Tobacco/Smoking Status: Tobacco use Status Tobacco use date assessed 12/30/24 12/30/24 11:19 Patient Tobacco Use Status Never used Tobacco 12/30/24 11:19 Tobacco use type Cigarette 12/30/24 11:19 e-Cigarette/Vaping Use Never Used 12/30/24 11:19 PHQ-9: PHQ-9 Score PHQ-9: Total score 3 12/30/24 11:44 Depression Screening Interpretation: Positive Thrive Assessment: Date of Thrive Assessment Date Thrive assessed 09/23/24 12/30/24 11:19 Currently or been in a relationship where the following occur: I choose not to answer Const General: alert; No acute distress Eyes Conjunctivae: conjunctivae normal Resp Auscultation: clear to auscultation bilaterally Cardio Other: Rate and rhythm GI Inspection: Yes normal to inspection Extrem General: Yes normal to inspection and No edema Coding Level of Care Code Est Pt Level 4 (13444) Diagnoses Type 2 diabetes mellitus with hyperglycemia E11.65 Morbid obesity E66.01 CHF (congestive heart failure) I50.9 Hypertension I10 Hypothyroid E03.9 Knee osteoarthritis M17.9 Cardiomyopathy I42.9 Additional Codes PHQ-9 - 79539 - PHQ-9 Billing: Yes ([id number]) Assessment & Plan Assessment & Plan (1) Type 2 diabetes mellitus with hyperglycemia: Comment: A1c at 6.1% on July 2023, BMI at 50.3 on September 2023 Code(s): E11.65 - Type 2 diabetes mellitus with hyperglycemia Category: Medical Plan: Decrease the amount of carbohydrate intake, pasta, bread, rice and potatoes are all sugar and that is aside from all the sweet stuff, remember that fruits are good but they are Sweet also. Hemoglobin A1c goal of less than 7.0 patient is diet controlled but recently because of the congestive heart failure problem added Farxiga 5 mg once a day (2) Morbid obesity: Code(s): E66.01 - Morbid (severe) obesity due to excess calories Category: Medical Plan: Patient is advised diet and exercise but discussion regarding additional medication to help with weight (3) CHF (congestive heart failure): Code(s): I50.9 - Heart failure, unspecified Category: Medical Plan: Continue with Bumex on 3 mg twice a day noted renal function come up (4) Hypertension: Code(s): I10 - Essential (primary) hypertension Category: Medical Plan: Continue with blood pressure medication. Decrease salt intake and exercise on atenolol 50 mg once a day spironolactone 12.5 mg once a day (5) Hypothyroid: Code(s): E03.9 - Hypothyroidism, unspecified Category: Medical Plan: Continue with thyroid medication but will need to have retesting (6) Knee osteoarthritis: Code(s): M17.9 - Osteoarthritis of knee, unspecified Category: Medical Plan: Narcotic pain meds: Is being prescribed with the understanding that these medications are potentially addictive and should be used only when absolutely necessary and must always be secured. Any remaining pills should be safely disposed off appropriately. Patient is advised that narcotics can impaired judgment and one should not drive or operate heavy machinery while taking these medications. Never share these medications with anybody and do not leave them unattended. They will not be replaced under any circumstances. (7) Cardiomyopathy: Code(s): I42.9 - Cardiomyopathy, unspecified Category: Medical Plan: Continue to follow up with Cardiology continue with the diuretics continue with atenolol Plan History of Present Illness The patient is a 69-year-old female presenting for follow-up management of chronic conditions including Congestive Heart Failure, Atrial Fibrillation, Type 2 Diabetes Mellitus, and others. Recent conversations highlighted renal function decline with a notable rise in creatinine and BUN levels, warranting ongoing monitoring. Her blood glucose was recorded at 126, with an aim to maintain hemoglobin A1c below 7.0%. Thyroid levels remain mildly elevated, prompting continued medication adjustments. Medications include Bumex, Procega, Atenolol, Spironolactone, and thyroid supplements, all of which are part of her chronic disease management strategy. Lipid profiles are relatively stable, with slight variations in triglycerides. The patient acknowledges chronic knee pain and adheres to prescribed therapies. Lifestyle improvements through diet and exercise are being encouraged to aid in her weight management, with consideration for new therapeutic interventions to further assist this effort. Health Maintenance - Mammogram: Updated as of September 2024 - Bone Density: Last performed August 2023 - Cholesterol: Controlled with LDL at 71 - Thyroid level retesting to be planned in six weeks - Diabetes: Target hemoglobin A1c of less than 7.0% - Dietary and exercise regimens discussed Social History - Weight management discussions: Patient is morbidly obese Review of Systems - Cardiovascular: Reports irregular rate and rhythm - Endocrine: Reports diabetes management, elevated thyroid levels - Musculoskeletal: Reports chronic knee pain - Renal: Reports proteinuria Physical Exam Results - Labs: Last blood glucose 126, BUN 37, Creatinine 1.4 Plan I continued Bumex at a dosage of 3 mg twice daily for heart failure management, given concerns with renal function as evidenced by elevated BUN and creatinine. Procega 5 mg once daily was also continued for diabetes management, alongside promoting diet and exercise. Thyroid medication will remain and be reassessed in six weeks. Blood pressure is managed with Atenolol and Spironolactone, while lipid levels are controlled through dietary measures. The option of additional weight loss medication was discussed, with a plan to start at a low dose and increase based on effectiveness and tolerability. Further coordination with specialists might be necessary to address renal implications. Patient was informed and verbally consented to the use of an ambient scribe for clinic note documentation during this visit. Discussion Notes During the consultation, I provided a comprehensive review of the patient's numerous chronic conditions, emphasizing the management strategies currently in place and planned adjustments based on recent lab results, particularly concerning renal function. We discussed the benefits of maintaining current dosages of medications like Bumex and Procega while considering lifestyle changes to aid in diabetes and weight management. The patient was counselled on a stepwise approach to potential new treatments, particularly for weight reduction, explaining their benefits and considering any contraindications. Follow-up measures include retesting thyroid function in six weeks and close monitoring of renal function. Instructions for diet and exercise were provided to complement medical treatments, with encouragement to reach weight and blood glucose goals safely. Patient Instructions - Continue Bumex 3 mg twice daily as prescribed - Take Procega 5 mg daily for diabetes management - Maintain current thyroid medication and retest in six weeks - Follow diet and exercise recommendations to aid in weight management - Monitor any new symptoms and report concerns promptly - Return for follow-up appointments as scheduled Orders: Orders B Type Natriuretic Peptide Today E66.01 - Morbid (severe) obesity due to excess calories Medications: New tirzepatide (Mounjaro) for 4 weeks 2.5 mg (0.5 mL) subcut QWEEK 2 mL 1RF E11.65 - Type 2 diabetes mellitus with hyperglycemia, E66.01 - Morbid (severe) obesity due to excess calories
--- OUTSIDE RECORDS SUMMARY | 2024-12-30 13:07 | XMS_ITS | Patient Health Record ---
Author Organization [facility] Address [address] [place] [address] Care Team Providers Care Zoology Technical Officer Name Role Phone Anderson Peters Primary Care Provider Terra Lund Unavailable [phone] Allergies Allergen (clinical drug ingredient) Drug/Non Drug [...] No Encounters Encounter Location Date Provider Diagnosis [facility] [address] [place] [address] 01/21/2024 Terra Black Plan Of Treatment No Information Insurance Providers Payer Name Payer Address Payer Phone Subscriber Number Group Number Insured Name Patient Relationship to Insured Coverage Start Date Coverage End Date Medicare National [employer] [address] [place] [address] [id number] Stella Frias Self - patient is the insured Medical (General) History Medical History History ICD Code Anxiety Arthritis Back,Hip,and Knee pain Broken bones CAD (Cholesterol) Depression Diabetic Gall bladder problems Headaches/Migraines Heart disease Measles Mumps Chicken pox Joint implants/screws Surgical History Surgery Date(Month/Year) appendectomy Gall bladder removal ankle 2001
--- OUTSIDE RECORDS SUMMARY | 2024-12-30 13:07 | XMS_ITS ---
Author Organization [facility] Address [address] [place] [address] Care Team Providers Care Industrial Training Specialist Name Role Phone Anderson Peters Primary Care Provider Unavailabl e Black, Terra Unavailable [phone] REASON FOR VISIT BAG CHECKER PW entered Encounters Encounter Location Date Provider Diagnosis [facility] [address] [place] [address] 01/21/2024 Terra Black Plan Of Treatment No Information Progress Notes * Stella FRIAS MDOB:[birth year] (68 yo F)Acc No.[id number]:01/21/2024 Patient:?Stella Frias :1955???Age:68 Y???Sex:Female Address: [place] [address] * true * Date:? Generated for Printi ng/Fafernandog/eTransmitting on:?12/30/2024 01:07 PM EDT
--- OUTSIDE RECORDS SUMMARY | 2024-12-30 13:08 | XMS_ITS | Data Portability ---
Author Organization [facility] PA[facility] OFF[facility] Address [address] [place], [place] [address] [address] Care Team Providers Care Apprentice Instrument Technician Name Role Phone SINTIA ARREOLA Primary Care Provider [phone] Assessment Encounter Date Assessment Date Assessment LastModified [...] pain medications only from her PCP, Dr. Arreola and has used [facility] . I recommend [...] pain medications only from her PCP, Dr. Arreola and has used [facility] . I recommend [...] pain medications only from her PCP, Dr. Arreola and has used [facility] . I recommend [...] pain medications only from her PCP, Dr. Arreola and has used [facility] . I recommend [...] Orders gabapentin 300 mg capsule 2023 024 [facility] #[id number], [address] [place], [place], [id number], 10:25:03 gabapentin 300 mg capsule 2022 023 [facility] #[id number], [address] [place], [place], [id number], 3 10:15:06 [facility] 300 [facility] 2022 [facility]23 [id number], [address] [place], [place], [id number], 3 09:20:45 gabapentin 300 mg capsule 2020 [facility]21 [id number], [address] [place], [place], [id number], 3 09:21:07 Patient TargetsNo targets recorded. Patient Instructions Encounter Date Encounter Id Patient Instructions Last Modified By Organization Details Last Modified Time 05/02/2021 [id number] She was advised against bed rest lasting [...] care. [email or web address] Not available 05/02/2021 15:49:25 02/26/2023 [id number] She was advised against bed rest lasting longer than four days and to continue activities as tolerated. [email or web address] Not available 03/05/2023 16:55:05 08/28/2023 [id number] She was advised against bed rest lasting longer than four days and to continue activities as tolerated. tmanikantan Not available 08/28/2023 10:02:27 02/12/2024 [id number] She was advised against bed rest lasting longer than four days and to continue activities as tolerated. tmanikantan Not available 02/12/2024 10:24:54 05/20/2024 [id number] She was advised against bed rest lasting longer than four days and to continue activities as tolerated. [email or web address] Not available 05/20/2024 13:27:11 Reason for Referral None Reported. Problems Name Problem SNOMED Code Status Onset Date Resolution Date Notes Provider Name and Address Organization Details Recorded Time History of osteoarthritis 183646029 Active Dustin powers MD [address] [place] [address] , [address], [facility] [place], [address], [place] [facility] 5 09:34:24 Knee pain Active Dustin powers MD [address] [facility] , [address], [place], [address], [place] [facility] 5 09:34:24 Osteoarthritis of knee 173776405 Active Dustin powers MD [address] [facility] , [address], [place], [address], [place] [facility] 8 13:28:06 Problem Notes None recorded. Procedures Surgical History Date Name Laterality Status Provider Name and Address Organization Details Recorded Time 03/12/20 18 Intra-articular Knee Steroid Injection completed Dustin Tello MD [address] [facility] , [address], [place], [address], [place] [facility] 03/12/2018 10:07:50 02/04/20 18 Intra-articular Knee Steroid Injection completed Dustin Tello MD [address] [facility] , [address], [place], [address], [place] [facility] 02/03/2018 [...] Name and Address Organization Details Recorded Time 74817 codeine medicatio n other Not available Not [...] % 116 mm[Hg] 56 mm[Hg] Charis Yeung [place] [facility] 3 15:03:33 Date Recorded Heart rate Oxygen saturation Oxygen saturation in Arterial blood by Pulse oximetry Pain severity - 0-10 verbal numeric rating [Score] - Reported Systolic blood pressure Diastolic blood pressure Provider Name and Address Organization Details Last Updated DateTime 3 61 /min 96 % 96 % 7 153 mm[Hg] 61 mm[Hg] Brigette Luna [place] [facility] 3 09:17:04 Date Recorded [...] Is Your Level Of Alcohol Consumption? Occasional [id number] Information not available 06/16/2020 Are You Currently Employed? No [id number] Information not available 06/16/2020 Which Illicit Or Recreational Drugs Have You Used? No [id number] Information not available 06/16/2020 Education 10 Information no t available 11/18/2014 Live Alone Or With Others? With Others And Son Information not available 11/18/2014 Marital Status Informatio n not available 11/18/2014 What Was The Date Of Your Most Recent Tobacco Screening? 03/12/2018 [id number] Information not available 06/16/2020 Sex: Unknown Functional [...] available 10/31 17:35:43 Medical History Condition Response Depression Y Hypothyroidism Y Arthritis Y Headache Y High Cholesterol Y GERD/Reflux Y Hypertension Y Osteoporosis Y Gynecological HistoryNo gynecological history recorded. Obstetrics History GPAL:G 0 P 0 0 0 0 Past Encounters Encounter ID Performer Location Encounter Start Date Encounter Closed Date Diagnosis/Indication Diagnosis SNOMED-CT Code Diagnosis ICD10 Code Diagnosis Note [id number] Dustin Tello MD PAIN OFFICE [address] [facility] [place] [address] 11/18/2014 08:56:57 11/20/2014 17:48:13 History of osteoarthritis 819773765 Knee pain 90954638 [id number] Dustin Tello MD [facility] [address] [place] [address] 01/16/2018 09:42:05 01/20/2018 13:23:32 History of osteoarthritis 604474805 Z87.39 Knee pain 31096323 M25.5 61 M25.562 Osteoarthr itis of knee 925787500 M17.0 [id number] Dustin Tello MD PAIN OFFICE [address] [place] [address] 02/03/2018 09:49:46 02/03/2018 10:51:10 History of osteoarthritis 435181690 Z87.39 Knee pain 15846090 M25.5 61 M25.562 Osteoarthr itis of knee 485884044 M17.0 [id number] Dustin Tello MD PAIN OFFICE [address] [place] [address] 03/12/2018 08:41:18 03/12/2018 10:10:41 History of osteoarthritis 618060998 Z87.39 Knee pain 19478788 M25.5 61 M25.562 Osteoarthr itis of knee 278481149 M17.0 [id number] Dustin Tello MD [facility] [address] [facility] [place] [address] 04/09/2019 09:14:11 04/09/2019 11:38:40 Knee pain 11738952 M25.561 M25.562 History of osteoarthritis 692832187 Z87.39 Osteoarthr itis of knee 328273660 M17.0 [id number] Dustin Tello MD [facility] [address] [place] [address] 05/07/2019 09:17:32 05/07/2019 15:46:50 Knee pain 71683702 M25.561 M25.562 History of osteoarthritis 621891654 Z87.39 Osteoarthr itis of knee 043969906 M17.0 [id number] Dustin Tello MD [facility] [address] [facility] [place] [address] 12/14/2020 13:12:22 12/14/2020 14:31:27 Knee pain 52495221 M25.561 M25.562 History of osteoarthritis 169006622 Z87.39 Osteoarthr itis of knee 002263947 M17.0 [id number] Dustin Tello MD [facility] [address] [facility] [place] [address] 03/30/2021 10:24:25 03/30/2021 12:42:37 History of osteoarthritis 087567627 Z87.39 Knee pain 17475052 M25.5 61 M25.562 Osteoarthr itis of knee 605183821 M17.0 [id number] Dustin Tello MD [facility] [address] [facility] [place] [address] 05/02/2021 15:39:22 05/02/2021 15:59:54 Knee pain 59372566 M25.561 M25.562 History of osteoarthritis 243285123 Z87.39 Osteoarthr itis of knee 430029879 M17.0 [id number] Dustin Tello MD [facility] [address] [facility] [place] [address] 02/26/2023 14:26:30 02/28/2023 12:03:49 Osteoarthritis of knee 374047955 M17.0 Knee pain 16060943 M25.5 61 M25.562 History of osteoarthritis 905062622 Z87.39 [id number] Dustin Tello MD [facility] [address] [facility] [place] [address] 08/28/2023 09:07:28 08/28/2023 10:50:08 Osteoarthritis of knee 310670231 M17.0 Knee pain 09422784 M25.5 61 M25.562 History of osteoarthritis 688636560 Z87.39 [id number] Dustin Tello MD [facility] [address] [place] [address] 02/12/2024 09:51:51 02/12/2024 14:18:59 Knee pain 57781700 M25.561 M25.562 Osteoarthr itis of knee 061736393 M17.0 History of osteoarthritis 483065772 Z87.39 [id number] Dustin Tello MD [facility] [address] [place] [address] 05/20/2024 10:01:53 05/21/2024 09:05:20 Knee pain 64862669 M25.561 M25.562 Osteoarthr itis of knee 352994897 M17.0 History of osteoarthritis 119520212 Z87.39 Health Concerns Section Related Observation LastModified by Organization Detai ls LastModified Time None Recorded Concern Status LastModified by Organization Details LastModified Time None Recorded Advance Directives Directive None Recorded Payers Encounter Date Sequence Insurance Name Policy Number Policy Howell Covered Member ID Howell Member ID Guarantor Name 05/02/2021 1 [facility] (MEDICARE REPLACEMENT/A DVANTAGE - PPO) [id number] Stella Altagracia [id number] Stella Altagracia 02/26/2023 1 [facility] (MEDICARE REPLACEMENT/A DVANTAGE - PPO) [id number] Stella Altagracia [id number] Stella Altagracia 02/26/2023 2 [place] [facility] Stella Altagracia [id number] Stella Altagracia 08/28/2023 1 [facility] (MEDICARE REPLACEMENT/A DVANTAGE - PPO) [id number] Stella Altagracia [id number] Stella Altagracia 08/28/2023 2 [place] [facility] Stella Altagracia [id number] Stella Altagracia 02/12/2024 1 [facility] (MEDICARE REPLACEMENT/A DVANTAGE - PPO) [id number] Stella Altagracia [id number] Stella Altagracia 02/12/2024 2 [place] [facility] Stella Altagracia [id number] Setlla Altagracia 05/20/2024 1 [facility] (MEDICARE REPLACEMENT/A DVANTAGE - PPO) [id number] Stella Frias [id number] Stella Frias 05/20/2024 2 [place] [facility] Stella Frias [id number] Stella Frias Notes Date Note Type Note [...] a new PCP. Dustin Tello MD [address] [facility] , [address], [place], [address], [facility] 05/03/2021 11:32:05 02/26/2023 text/html [...] mg bid. I have been seeing Ms. Frais since 2014 . Her previous PCP was Dr. Charles and he was prescribing the medications for her. She is on 15 MME per day . She has been using the medications appropriately. Dr. Arreola is her PCP and he has been prescribing for her. She states he wants her to wean off the medication. She is worried as she has been on it for a long time. Dustin Tello MD [address] , [address], [place], [address], [facility] 03/05/2023 16:55:15 08/28/2023 text/html [...] has been using the medications appropriately. Dr. Arreola is her PCP and he has been prescribing for her. She states he wants her to wean off the medication. She is worried as she has been on it for a long time. Dustin Tello MD [address] [facility] [facility] , [address], [place], [address], [facility] 08/28/2023 11:07:14 02/12/2024 text/html This is a follow up. She was last seen in August 2023. She states she is feeling better and is going on a cruise to [facility] soon. She is also on Eliquis [...] has been using the medications appropriately. Dr. Arreola is her PCP and he has been prescribing for her. She states he wants her to wean off the medication. She is worried as she has been on it for a long time.She is having bilateral foot pain and was admitted in the hospital and treated for cellulitis . She has an appointment to see a tumbler machine operator helper soon.She has not started her aquatic exercises yet. [facility] and will [facility] soon. Dustin Tello MD [address] , [address], [place], [address], [facility] 02/12/2024 15:03:38 05/20/2024 text/html [...] has been using the medications appropriately. Dr. Arreola is her PCP and he has been prescribing for her. She states he wants her to wean off the medication. She is worried as she has been on it for a long time.She is having bilateral foot pain . She has an appointment to see a tumbler machine operator helper soon.She has not started her aquatic exercises yet. She will contact her local [facility] and will start [facility] soon. Dustin Tello MD [address] [place] [address] , [address], [place], [address], [facility] 05/21/2024 10:41:19 OBGyn Episode No OBEpisode recorded.
--- OUTSIDE RECORDS SUMMARY | 2024-12-30 13:08 | XMS_ITS ---
Author Organization [facility] Address [address] [place] [address] Care Team Providers Care Anime Designer Name Role Phone Fran Jinamichael Primary Care Provider Unavaildaniel e Black, Terra Unavailable [phone] Allergies Allergen (clinical drug ingredient) Drug/Non Drug [...] 03/25/2024 Encounters Encounter [facility] Date [facility] [address] [place] [address] 03/25/2024 Terra Soriano Plan Of Treatment No Information Progress Notes * Stella FRIAS MDOB:[birth year] (69 yo F)Acc No.[id number]:03/25/2024 Progress Notes Patient:?Stella FRIAS Provider:?Terra Soriano DPM :1955???Age:68 Y???Sex:Female D ate:03/25/2024 Address[address] [place], [place] [address] Pcp:Anderson Peters Subjective: * Chief Complaints: * [...] Soriano DPM Date:?2023 Generated for Christina devi/Ella/Alfred on:?12/30/2024 01:08 PM EDT
== END 2024-12-30 11:54 | disposition home or self-care (01) ==
LOC: HO.HMCH 11:15
PROVIDERS: PCP Internal Medicine; Visit Provider Internal Medicine
DX: E11.65 Type 2 diabetes mellitus with hyperglycemia (principal); E66.01 Morbid (severe) obesity due to excess calories; I50.9 Heart failure, unspecified; I42.9 Cardiomyopathy, unspecified; I11.0 Hypertensive heart disease with heart failure; Z68.43 Body mass index [BMI] 50.0-59.9, adult; E03.9 Hypothyroidism, unspecified; M17.9 Osteoarthritis of knee, unspecified

== ENCOUNTER → 2024-12-30 11:14 | Outpatient (BNVA) | payer MEDICARE, MEDICAID, SELFPAY | PROVIDERS: PCP Internal Medicine; Visit Provider Internal Medicine | DX: E11.65 Type 2 diabetes mellitus with hyperglycemia (principal); E66.01 Morbid (severe) obesity due to excess calories; Z68.43 Body mass index [BMI] 50.0-59.9, adult; I11.0 Hypertensive heart disease with heart failure; I50.9 Heart failure, unspecified; E03.9 Hypothyroidism, unspecified; M17.9 Osteoarthritis of knee, unspecified; I42.9 Cardiomyopathy, unspecified; Z71.3 Dietary counseling and surveillance | CPT/HCPCS: 96127; 99212 ==

== ENCOUNTER 2025-02-10 07:04 | Outpatient (REF) | payer MEDICARE, MEDICAID, SELFPAY ==
--- OUTSIDE RECORDS SUMMARY | 2025-02-10 07:07 | XMS_ITS | Patient Health Record ---
Author Organization [facility] Address [address] [facility] [place] [address] Care Team Providers Care Trace Clerk Name Role Phone Anderson Peters Primary Care Provider Terra Lund Unavailable [phone] Allergies Allergen (clinical drug ingredient) Drug/Non Drug [...] Are you an other tobacco user? No Plan Of Treatment No Information Insurance Providers Payer Name Payer Address Payer Phone Subscriber Number Group Number Insured Name Patient Relationship to Insured Coverage Start Date Coverage End Date Medicare [employer] [address] [place] [address] [id number] Stella Frias Self - patient is the insured Medical (General) History Medical History History ICD Code Anxiety Arthritis Back,Hip,and Knee pain Broken bones CAD (Cholesterol) Depression Diabetic Gall bladder problems Headaches/Migraines Heart disease Measles Mumps Chicken pox Joint implants/screws Surgical History Surgery Date(Month/Year) appendectomy Gall bladder removal ankle 2001
[2025-02-10 07:15] LABS: MANUAL DIFF FLAG NO
[2025-02-10 07:46] LABS: Basophils Percent Auto 0.4 % (0-2); Eosinophils Absolute Auto 0.1 X10*3/uL (0.0-0.4); Eosinophils Percent Auto 1.6 % (0-4); Hematocrit 42.5 % (37.0-47.0); Hemoglobin 13.7 g/dl (12.0-16.0); Imm Gran Abs Auto 0.02 X10*3/uL (0.00-0.03); Imm Gran Pct Auto 0.4 % (0.0-0.4); Lymphocytes Absolute Auto 2.4 X10*3/uL (1.2-4.9); Lymphocytes Percent Auto 42.4 % (20-40); Mean Corpuscular HGB Conc 32.2 g/dl (31.0-35.0); Mean Corpuscular Hemoglobin 30.9 pg (27.0-33.0); Mean Corpuscular Volume 95.7 fL (80.0-98.0); Monocytes Absolute Auto 0.7 X10*3/uL (0.1-1.2); Monocytes Percent Auto 11.6 % (2-11); Neutrophils Absolute Auto 2.5 x10*3/uL (2.0-8.3); Neutrophils Percent Auto 43.6 % (45-73); Platelet Count 190 X10*3/uL (160-400); Red Blood Count 4.44 X10*6/uL (4.20-5.50); Red Cell Distribution Width 12.8 % (11.0-16.0); White Blood Count 5.7 X10*3/uL (4.8-10.8)
[2025-02-10 08:14] LABS: Estimated Average Glucose 108 mg/dL; Hemoglobin A1c % 5.4 % (<6.0)
[2025-02-10 08:21] LABS: Alanine Aminotransferase 18 U/L (0-31); Albumin Level 4.5 g/dL (3.5-5.0); Alkaline Phosphatase 92 U/L (39-117); Anion Gap 15 (12-20); Aspartate Amino Transferase 22 U/L (5-31); Bilirubin Total 0.6 mg/dL (0.0-1.0); Blood Urea Nitrogen 28 mg/dL (9-16); Calcium 9.7 mg/dL (8.4-10.2); Carbon Dioxide 29 mmol/L (22-29); Chloride 102 mmol/L (96-108); Estimated Glomerular Filt Rate 51; Glucose Random 100 mg/dL (60-115); Potassium 3.7 mmol/L (3.3-5.1); Sodium 142 mmol/L (135-145); Total Protein 7.5 g/dL (6.5-8.0)
[2025-02-10 08:38] LABS: Thyroid Stimulating Hormone 1.93 uIU/mL (0.32-4.0)
[2025-02-10 09:10] LABS: B Type Natriuretic Peptide 277 pg/mL (<100)
== END 2025-02-10 07:05 | disposition home or self-care (01) ==
LOC: HO.LAB 07:04
PROVIDERS: PCP Internal Medicine; Visit Provider Internal Medicine
DX: E11.65 Type 2 diabetes mellitus with hyperglycemia (principal); E03.9 Hypothyroidism, unspecified; E66.01 Morbid (severe) obesity due to excess calories
CPT/HCPCS: 36415; 80053; 83036; 83880; 84439; 84443; 85025

== ENCOUNTER 2025-04-28 10:23 | Outpatient (AMB) | payer MEDICARE, MEDICAID, SELFPAY ==
--- OUTSIDE RECORDS SUMMARY | 2024-03-25 05:30 | XMS_ITS ---
Author Organization [facility] Address [address] [facility] [place] [address] Care Team Providers Care Cranberry Grower Name Role Phone Anderson Peters Primary Care Provider Enrique Lundmie Unavailable [phone] Allergies Allergen (clinical drug ingredient) Drug/Non Drug [...] 03/25/2024 Encounters Encounter Location Date Provider Diagnosis [facility] [place] [address] [place] [address] 03/25/2024 Terra Soriano Plan Of Treatment No Information Progress Notes * Stella FRIAS MDOB:[birth year] (69 yo F)Acc No.[id number]:03/25/2024 Progress Notes Patient: Stella MORTON Provider: Isidoro Soriano DPM :1955 A ge:68 Y S ex:Female Date:03/25/2024 Address:[address] [place] [address] [facility] Pcp:Anderson Peters Subjective: * Chief Complaints: * [...] enies. C ardiovascular: Pacemaker d enies. 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 W PW d enies. C [...] DPM Date: 0 03/25/2024 Generated for Christina devi/Shana on: 0 04/28/2025 11:43 AM EDT
[2025-04-28 10:40] VITALS: BP 132/76; PULSE 71; O2SAT 91; BMI 48.1
--- NOTE | 2025-04-28 10:40 | MHC.PC.OV ---
Vital Signs 04/28/25 10:40 Height 5 ft 2 in Weight 263 lb BMI 48.1 BP 132/76 Blood Pressure Location Lt brachial Position Sitting Pulse 71 Pulse Source Pulse Oximeter Pulse Oximetry (%) 91 L Oxygen Delivery Method Room Air Intake Visit Reasons: DM , Knee pain, obesity - see comments Allergies codeine (CODEINE) Allergy (Intermediate, Verified 04/28/25 10:41) CHEST PAIN Medication List - Last Reconciled 04/28/25 by Anderson Peters MD acetaminophen 500 mg PO Q6H apixaban (Eliquis) 5 mg PO BID atenolol 50 mg PO DAILY 90 days atorvastatin 80 mg PO BEDTIME blood sugar diagnostic (FreeStyle Lite Strips) As directed check the BS QD blood-glucose meter (FreeStyle Lite Meter kit) As directed bumetanide 3 mg (1.5 x 2 mg) PO BID dapagliflozin propanediol (Farxiga) 5 mg PO DAILY escitalopram oxalate 20 mg PO DAILY gabapentin 300 mg PO DAILY lancets (FreeStyle Lancets) As directed check BS QD levothyroxine 75 mcg PO QAM magnesium oxide 400 mg PO DAILY omeprazole 20 mg PO BEDTIME 90 days ondansetron 8 mg PO Q8H PRN oxycodone 5 mg PO BID PRN spironolactone 12.5 mg (1/2 x 25 mg) PO DAILY 90 days tirzepatide (Mounjaro) 2.5 mg (0.5 mL) subcut QWEEK walker (Ultra-Light Rollator misc) As directed Tobacco use date assessed: 12/30/24 Fall risk assessment: No Falls in past year Last assessed Fall Risk: 04/28/25 Dental Screening Dental Screen Date: 12/30/24 [facility] Medical History (Updated 07/09/24 @ 12:13 by Anderson Peters MD) Obesity Pneumonia Bilateral claudication of lower limb Breast calcification, left Breast cancer screening by mammogram [facility] discharge follow-up [facility] (obstructive sleep apnea) Morbid obesity Persistent atrial fibrillation Hypokalemia Physical deconditioning CHF (congestive heart failure) Diabetes Chronic venous stasis Hypothyroid Afib HTN (hypertension) Surgical History S/P cardiac catheterization History of ankle surgery History of appendectomy S/P cholecystectomy Hx of total knee arthroplasty Family History Father EtOH dependence Social History Housing: Apartment Alcohol intake: current Alcohol intake frequency: holidays/special occasions only Patient Tobacco Use Status: Never used Tobacco Tobacco use type: Cigarette e-Cigarette/Vaping Use: Never Used Second Hand Smoke Exposure: No service: No Current occupational status: disabled Cognitive needs: Yes Hearing needs: No Vision needs: Yes Questionnaire PHQ-9 Over the last 2 weeks, how often have you been bothered by any of the following problems? 1. Little interest or pleasure in doing things: not at all 2. Feeling down, depressed, or hopeless: several days 3. Trouble falling or staying asleep, or sleeping too much: several days 4. Feeling tired or having little energy: several days 5. Poor appetite or overeating: not at all 6. Feeling bad about yourself - or that you are a failure or have let yourself or your family down: not at all 7. Trouble concentrating on things, such as reading the newspaper or watching television: not at all 8. Moving or speaking so slowly that other people could have noticed. Or the opposite - being so fidgety or restless that you have been moving around a lot more than usual: not at all 9. Thoughts that you would be better off or of hurting yourself in some way: not at all Total score: 3 Depression Screening Interpretation: Positive Depression Screening Done: Yes 42928 - PHQ-9 Billing: Yes Source: Developed by Drs. Jaime Moore, Kasia Manzo, Ganesh Lebron and colleagues, with an educational rick from [employer]. Thrive Questionnaire Date Thrive assessed: 12/30/24 I am a: Patient What is your living situation today?: I have a steady place to live Within the past 12 months, did the food you bought not last and you didn't have the money to get more?: I choose not to answer this question Within the past 12 months, did you worry whether your food would run out before you got money to buy more?: I choose not to answer this question Do you have trouble paying for medicines?: I choose not to answer this question Do you have trouble getting transportation to medical appointments?: I choose not to answer this question Do you have trouble paying your heating and electricity bill?: I choose not to answer this question Do you have trouble taking care of your child, family member or friend?: I choose not to answer this question Do you have trouble with day-to-day activities such as bathing, preparing meals, shopping, managing finances, etc.?: I choose not to answer this question Are you currently unemployed and looking for a job?: No Are you interested in more education?: No Please select the resources that you would like help with: None Currently or been in a relationship where the following occur: I choose not to answer THRIVE Score: 0 AUDIT C Alcohol Use Questionnaire (AUDIT-C) 1. How often do you have a drink containing alcohol?: Monthly or less 2. How many drinks containing alcohol do you have on a typical day when you are drinking?: 1 or 2 3. How often do you have six or more drinks on one occasion?: Never Total Score: 1 MARTITA-7 AMB Questionnaire MARTITA-7 Date MARTITA - 7 assessed: 09/23/24 Source: Developed by Drs. Jaime Moore, Kasia Manzo, Ganesh Lebron and colleagues, with an educational rick from [employer]. Physical exam (Primary Care) Vital Signs: Last Vital Signs Pulse 71 04/28/25 10:40 BP 132/76 04/28/25 10:40 Pulse Ox 91 L 04/28/25 10:40 Oxygen Delivery Method Room Air 04/28/25 10:40 BMI result Body Mass Index 48.1 Tobacco/Smoking Status: Tobacco use Status Tobacco use date assessed 12/30/24 04/28/25 10:47 Patient Tobacco Use Status Never used Tobacco 04/28/25 10:47 Tobacco use type Cigarette 04/28/25 10:47 e-Cigarette/Vaping Use Never Used 04/28/25 10:47 PHQ-9: PHQ-9 Score PHQ-9: Total score 3 04/28/25 10:57 Depression Screening Interpretation: Positive Thrive Assessment: Date of Thrive Assessment Date Thrive assessed 12/30/24 04/28/25 10:47 Currently or been in a relationship where the following occur: I choose not to answer Const General: alert; No acute distress Eyes Conjunctivae: conjunctivae normal Resp Auscultation: clear to auscultation bilaterally Cardio Rate: regular rate Rhythm: regular rhythm GI Inspection: Yes normal to inspection Extrem General: Yes normal to inspection and No edema Coding Level of Care Code Est Pt Level 4 (73678) Complex EM visit Add On G2211 Diagnoses Hypertension I10 Cardiomyopathy I42.9 Coronary atherosclerosis I25.10 Afib I48.91 Hypercholesterolemia E78.00 Type 2 diabetes mellitus with hyperglycemia E11.65 Hypothyroid E03.9 Morbid obesity E66.01 Additional Codes PHQ-9 - 67735 - PHQ-9 Billing: Yes ([id number]) Assessment & Plan Assessment & Plan (1) Hypertension: Code(s): I10 - Essential (primary) hypertension Category: Medical Plan: Continue with blood pressure medication. Decrease salt intake and exercise patient on atenolol 50 mg once a day spironolactone 12.5 mg once a day (2) Cardiomyopathy: Code(s): I42.9 - Cardiomyopathy, unspecified Category: Medical Plan: Continue with weight loss, continue with the beta gregg and Farxiga (3) Coronary atherosclerosis: Code(s): I25.10 - Atherosclerotic heart disease of [place] coronary artery without angina pectoris Category: Medical Plan: Control the cholesterol, weight, blood pressure, diabetes continue with anticoagulation with Eliquis January last renal function (4) Afib: Code(s): I48.91 - Unspecified atrial fibrillation Category: Medical Plan: Continue with anticoagulation with Eliquis and atenolol 50 mg once a day (5) Hypercholesterolemia: Code(s): E78.00 - Pure hypercholesterolemia, unspecified Category: Medical Plan: Avoid fried foods, chicken skin, eggs, butter margarine, pastries and meat. Be it pork or beef they have a lot of cholesterol November 2024 last blood work LDL goal of less than 70. (6) Type 2 diabetes mellitus with hyperglycemia: Comment: A1c at 6.1% on July 2023, BMI at 50.3 on September 2023 Code(s): E11.65 - Type 2 diabetes mellitus with hyperglycemia Category: Medical Plan: Decrease the amount of carbohydrate intake, pasta, bread, rice and potatoes are all sugar and that is aside from all the sweet stuff, remember that fruits are good but they are Sweet also. Hemoglobin A1c goal of less than 7.0 patient is on Farxiga at 5 mg once a day and Mounjaro (7) Hypothyroid: Code(s): E03.9 - Hypothyroidism, unspecified Category: Medical Plan: Continue with thyroid medication (8) Morbid obesity: Code(s): E66.01 - Morbid (severe) obesity due to excess calories Category: Medical Plan: Diet and exercise Plan History of Present Illness The patient is a 69-year-old female presenting for a follow-up visit. She has a history of multiple chronic conditions including atrial fibrillation, diabetes mellitus, hypertension, hypercholesterolemia, hypothyroidism, depression, cardiomyopathy, and coronary artery disease. Her last visit was in December 2024, and she has experienced a 15-pound weight loss since then. Her blood work in January showed normal blood count, normal electrolytes, good renal function with a creatinine level of 1.08, and a hemoglobin A1c of 5.4. Liver function tests were normal, and her last cholesterol check in November showed an LDL of 71. Preventative care measures include a declined colonoscopy, a bone density screening in August 2023, and an up-to-date mammogram as of September 2024. Health Maintenance - Colonoscopy declined - Bone density screening scheduled for August 2023 - Mammogram up to date as of September 2024 - Shingles vaccination completed - Flu shot recommended for late May to early June Social History - Exercise: Patient is engaging in walking and using a stationary bike at home. Review of Systems Physical Exam Results - Labs: Normal blood count, normal electrolytes, renal function with creatinine 1.08, hemoglobin A1c 5.4, normal liver function, LDL 71 Plan Patient was informed and verbally consented to the use of an ambient scribe for clinic note documentation during this visit. 1. Obesity The patient has experienced a 15-pound weight loss and is advised to continue with weight loss efforts. She is currently on Mounjaro, which is helping with appetite control and weight loss. The patient is encouraged to increase physical activity to avoid dependency on medication. 2. Atrial Fibrillation The patient is on anticoagulation therapy with Eliquis to manage atrial fibrillation. 3. Diabetes Mellitus The patient's diabetes is managed with Farxiga and Mounjaro, with a hemoglobin A1c goal of less than 7.0. Her current hemoglobin A1c is 5.4, indicating good control. 4. Hypertension The patient is on Atenolol and Spironolactone for blood pressure management. 5. Hypercholesterolemia The patient's LDL cholesterol was last checked in November with a level of 71, and the goal is to maintain it below 70. 6. Hypothyroidism The patient's thyroid function is stable, and she is advised to continue with her current thyroid medication. 7. Preventative Care Preventative care measures include a declined colonoscopy, bone density screening scheduled for August 2023, and an up-to-date mammogram as of September 2024. The patient has completed the shingles vaccination and is advised to get the flu shot in late May to early June. Discussion Notes During the visit, we discussed the management of the patient's chronic conditions, including the continuation of current medications such as Mounjaro for weight management and Eliquis for atrial fibrillation. We also reviewed the importance of preventative care measures, including the completion of the shingles vaccination and the recommendation for a flu shot in the upcoming months. Patient Instructions - Continue with current medications, including Mounjaro and Eliquis. - Maintain physical activity, including walking and using a stationary bike. - Schedule and attend the bone density screening in August 2023. - Plan to receive the flu shot in late May to early June. Medications: Changed From tirzepatide (Mounjaro) for 4 weeks 2.5 mg (0.5 mL) subcut QWEEK 2 mL 1RF E11.65 - Type 2 diabetes mellitus with hyperglycemia, E66.01 - Morbid (severe) obesity due to excess calories To tirzepatide for 4 weeks 5 mg (0.5 mL) subcut QWEEK 2 mL 2RF E11.65 - Type 2 diabetes mellitus with hyperglycemia, E66.01 - Morbid (severe) obesity due to excess calories
--- OUTSIDE RECORDS SUMMARY | 2025-04-28 11:43 | XMS_ITS | Patient Health Record ---
Author Organization [facility] Address [address] [place] [address] Care Team Providers Care Plate Sensitizer Name Role Phone Anderson Peters Primary Care Provider Terra Lund Unavailable [phone] Allergies Allergen (clinical drug ingredient) Drug/Non Drug Allergy documented on EMR Reaction Allergy Type Onset Date Status aspirin Aspirin Unknown Drug Allergy Active codeine Codeine Unknown Drug Allergy Active Reason For Referral No Information Medications Medication SIG (Take, Route, Frequency, Duration) Notes Start Date End Date Status Spironolactone 25 MG TAKE 1/2 TABLET BY MOUTH DAILY Oral; Duration: 90 Days Active Eliquis 5 MG Oral; Duration: 30 Days Active Escitalopram Oxalate [...] FOR PAIN Oral; Duration: 30 Days Active Gabapentin 300 MG TAKE [...] EVERY DAY Oral; Duration: 30 Days Active Social History [...] Medicare National [employer] [address] [place] [address] [id number] Stella Frias Self - patient is the insured Medical (General) History Medical History History ICD Code Anxiety Arthritis Back,Hip,and Knee pain Broken bones CAD (Cholesterol) Depression Diabetic Gall bladder problems Headaches/Migraines Heart disease Measles Mumps Chicken pox Joint implants/screws Surgical History Surgery Date(Month/Year) appendectomy Gall bladder removal ankle 2001
== END 2025-04-28 11:04 | disposition home or self-care (01) ==
LOC: HO.HMCH 10:24
PROVIDERS: PCP Internal Medicine; Visit Provider Internal Medicine
DX: I42.9 Cardiomyopathy, unspecified (principal); I48.91 Unspecified atrial fibrillation; E66.01 Morbid (severe) obesity due to excess calories; E11.65 Type 2 diabetes mellitus with hyperglycemia; Z68.42 Body mass index [BMI] 45.0-49.9, adult; I10 Essential (primary) hypertension; I25.10 Atherosclerotic heart disease of native coronary artery without angina pectoris; E78.00 Pure hypercholesterolemia, unspecified; E03.9 Hypothyroidism, unspecified

== ENCOUNTER → 2025-04-28 10:23 | Outpatient (BNVA) | payer MEDICARE, MEDICAID, SELFPAY | PROVIDERS: PCP Internal Medicine; Visit Provider Internal Medicine | DX: E11.65 Type 2 diabetes mellitus with hyperglycemia (principal); I10 Essential (primary) hypertension; I42.9 Cardiomyopathy, unspecified; I25.10 Atherosclerotic heart disease of native coronary artery without angina pectoris; I48.91 Unspecified atrial fibrillation; E78.00 Pure hypercholesterolemia, unspecified; E03.9 Hypothyroidism, unspecified; E66.01 Morbid (severe) obesity due to excess calories; Z68.42 Body mass index [BMI] 45.0-49.9, adult; Z71.3 Dietary counseling and surveillance | CPT/HCPCS: 96127; 99212 ==

== ENCOUNTER 2025-06-02 12:46 | Outpatient (AMB) | payer MEDICARE, MEDICAID, SELFPAY ==
--- OUTSIDE RECORDS SUMMARY | 2024-03-25 05:30 | XMS_ITS ---
Author Organization [facility] Address [address] [place] [address] Care Team Providers Care Sound Printer Name Role Phone Anderson Peters Primary Care Provider Enrique Lundmie Unavailable [phone] Allergies Allergen (clinical drug ingredient) Drug/Non Drug [...] 03/25/2024 Encounters Encounter Location Date Provider Diagnosis [facility] [place] [address] [place] [address] 03/25/2024 Terra Soriano Plan Of Treatment No Information Progress Notes * Stella FRIAS MDOB:[birth year] (69 yo F)Acc No.[id number]:03/25/2024 Progress Notes Patient: Stella MORTON Provider: Isidoro Soriano DPM :1955 A ge:68 Y S ex:Female Date:03/25/2024 Address:[address] [place] [address] [facility] Pcp:Anderson Peters Subjective: * Chief Complaints: * [...] enies. C ardiovascular: Pacemaker d enies. M PIPELINE EXECUTIVE d enies. W PW d enies. C [...] 0 03/25/2024 Generated for Christina Cid on: 02:16 PM EDT
[2025-06-02 12:51] VITALS: BP 114/62; PULSE 81; BMI 48.1
--- NOTE | 2025-06-02 12:51 | A.OFFVIS_ITS ---
Vital Signs 06/02/25 12:51 Height 5 ft 2 in Weight 263 lb 3.711 oz BMI 48.1 BP 114/62 Blood Pressure Location Lt brachial Position Sitting Pulse 81 Pulse Source Monitor Intake Visit Reasons: 6 mth KM Greenhouse Instructor Required: No Independent Film Maker: Independent Film Maker Present Allergies codeine (CODEINE) Allergy (Intermediate, Verified 06/02/25 12:54) CHEST PAIN aspirin Adverse Reaction (Mild, Verified 06/02/25 12:54) Chest Pain Medication List - Last Reconciled 06/03/25 by JACKY Adam acetaminophen 500 mg PO Q6H apixaban (Eliquis) 5 mg PO BID atenolol 50 mg PO DAILY 90 days atorvastatin 80 mg PO BEDTIME blood sugar diagnostic (FreeStyle Lite Strips) As directed check the BS QD blood-glucose meter (FreeStyle Lite Meter kit) As directed bumetanide 3 mg (1.5 x 2 mg) PO BID dapagliflozin propanediol (Farxiga) 5 mg PO DAILY escitalopram oxalate 20 mg PO DAILY gabapentin 300 mg PO DAILY lancets (FreeStyle Lancets) As directed check BS QD levothyroxine 75 mcg PO QAM magnesium oxide 400 mg PO DAILY omeprazole 20 mg PO BEDTIME 90 days ondansetron 8 mg PO Q8H PRN oxycodone 5 mg PO BID PRN spironolactone 12.5 mg (1/2 x 25 mg) PO DAILY 90 days tirzepatide 5 mg (0.5 mL) subcut QWEEK walker (Ultra-Light Rollator misc) As directed HPI HPI 6 mth KM: Details: Stella 69-year-old past medical history of hypertension, diabetes, morbid obesity, obstructive sleep apnea, Congestive heart failure, chronic atrial fibrillation, mild cardiomyopathy, nonobstructive coronary artery disease, severe pulmonary hypertension who presents for follow-up. Today she reports that she is now on injections for weight loss. She is tolerating it well and says she has lost some weight. She has been feeling good overall. Her chronic shortness of breath with exertion is unchanged recently. She denies PND, orthopnea. She sleeps on a love seat with her head on the arm rest. No chest discomfort at rest or with activity. No concerning heart palpitations, lightheadedness, presyncope, syncope. Taking all meds as directed. No bleeding issues noted. Significant other present. [facility] Medical History Obesity Pneumonia Bilateral claudication of lower limb Breast calcification, left Breast cancer screening by mammogram [facility] discharge follow-up [facility] (obstructive sleep apnea) Morbid obesity Persistent atrial fibrillation Hypokalemia Physical deconditioning CHF (congestive heart failure) Diabetes Chronic venous stasis Hypothyroid Afib HTN (hypertension) Surgical History S/P cardiac catheterization History of ankle surgery History of appendectomy S/P cholecystectomy Hx of total knee arthroplasty Family History (Reviewed 06/03/25 @ 11: by Elza Macdonald NP-C) Father EtOH dependence Social History Housing: Apartment Alcohol intake: current Alcohol intake frequency: holidays/special occasions only Patient Tobacco Use Status: Never used Tobacco Tobacco use type: Cigarette e-Cigarette/Vaping Use: Never Used Second Hand Smoke Exposure: No service: No Current occupational status: disabled Cognitive needs: Yes Hearing needs: No Vision needs: Yes Review of Systems Const All systems reviewed & are unremarkable except as noted in HPI and below ENT Denies dizziness Card Denies chest pain, Denies chest pain at rest, Denies chest pain with activity, Denies rapid heart rate, Denies pedal edema, Denies edema, Denies leg edema, Denies lightheadedness, Denies palpitations, Denies dyspnea, Denies dyspnea on exertion and Denies orthopnea Resp Denies cough, Denies dyspnea and Denies dyspnea on exertion GI Denies hematochezia and Denies change in stool character Musc Denies abnormal gait, Denies limited range of motion, Denies muscle cramps, Denies muscle weakness, Denies numbness, Denies radiating pain into limb, Denies stiffness and Denies tingling Neuro Denies abnormal gait, Denies dizziness, Denies numbness and Denies tingling Endo Denies palpitations Physical Exam Vital Signs: Last Vital Signs Pulse 81 06/02/25 12:51 BP 114/62 06/02/25 12:51 BMI result Body Mass Index 48.1 Const Other: morbidly obese General: cooperative, comfortable and no acute distress Orientation/consciousness: patient oriented x3 Neck Neck: Yes normal visual inspection Resp Effort & Inspection: normal respiratory effort Auscultation: clear to auscultation bilaterally, no rales, no rhonchi and no wheezes Cardio Jugular venous distension: no JVD Rate: regular rate Rhythm: abnormal rhythm Heart sounds: S1 normal heart sound present, S2 normal heart sound present, no murmurs and no rubs Skin General skin exam: no rashes or lesions noted Neuro General: patient oriented x3 Extrem Other: pillow top feet, no pitting edema into ankle or lower leg Psych Appearance: grossly normal Mental Status: mental status grossly normal Speech and movement: Normal speech and movement present Office Procedures EKG Details: Today, read by me, atrial fibrillation, right bundle branch block, T-wave abnormality inferior, anterior and lateral leads, no significant change from prior EKGs, rate 81. [id number], Complete Assessment & Plan Assessment & Plan (1) Cardiomyopathy: Code(s): I42.9 - Cardiomyopathy, unspecified Category: Medical Plan: Hx of RV failure, Congestive heart failure with preserved EF. Echo from 10/2022 showed EF 45-50% with moderate increase in the RV size and moderate decrease in the RV systolic function. She underwent cardiac catheterization on 03/11/2023 showing mid LAD 50% stenosis, IFR 0.97, mildly elevated PA pressures with PAD 28, wedge 19. She was determined to have severe pulmonary hypertension as a cause of her RV dysfunction. She has been stable on Bumex 3 mg b.i.d. she is actively working on weight loss. Echocardiogram done 09/08/2024 showed EF 45%, mild decrease in the RV systolic function. Signs and symptoms of heart failure discussed. Labs 02/10/2025 showed creatinine 1.08, BNP 2 7 7 which is typical for her. Continue Bumex, atenolol, spironolactone. Cardiology follow-up 6 months, sooner if needed. (2) S/P cardiac catheterization: Comment: 03/11/2023, mid LAD 50% stenosis, IFR 0.97, wedge 19, PA pressure is 62/42/28, RA 14 Code(s): Z98.890 - Other specified postprocedural states Category: Surgical Plan: As above (3) Coronary atherosclerosis: Code(s): I25.10 - Atherosclerotic heart disease of [place] coronary artery without angina pectoris Category: Medical Plan: Nonobstructive coronary artery disease with 50 % mid LAD stenosis. No reports of anginal sounding symptoms. Her shortness of breath is chronic and unchanged. Medical management. She has not on aspirin as she is on Eliquis. She is on atenolol and on atorvastatin 40 mg daily. (4) Afib: Code(s): I48.91 - Unspecified atrial fibrillation Category: Medical Plan: History of chronic atrial fibrillation. She is treated with rate control with use of atenolol. EKG done today showed AFib with right bundle branch block, rate 81. No concerning heart palpitations. She is on Eliquis for anticoagulation. Labs 02/10/2025 showed hematocrit 42.5. No bleeding issues reported. Continue current treatment (5) Hypertension: Code(s): I10 - Essential (primary) hypertension Category: Medical Plan: Blood pressure goal less than 130/80. Well controlled at present. No med changes made. (6) CHF (congestive heart failure): Code(s): I50.9 - Heart failure, unspecified Category: Medical Plan: As above (7) Morbid obesity: Code(s): E66.01 - Morbid (severe) obesity due to excess calories Category: Medical Plan: BMI 48.1. She is now on weight loss injections. Instructed on increasing physical activity as tolerated. (8) Hypercholesterolemia: Code(s): E78.00 - Pure hypercholesterolemia, unspecified Category: Medical Plan: [place] LDL goal less than 70 in patient with CAD. Labs done 12/29/2024 showed LDL 71, LFT normal. Continue atorvastatin. Plan Time spent on chart review, documentation, interview and assessment Coding Level of Care Code Est Pt Level 4 (62762) Complex EM visit Add On G2211 Diagnoses Cardiomyopathy I42.9 S/P cardiac catheterization Z98.890 Coronary atherosclerosis I25.10 Afib I48.91 Hypertension I10 CHF (congestive heart failure) I50.9 Morbid obesity E66.01 Hypercholesterolemia E78.00 CPT Codes EKG - CPT: 23870-[id number], Complete ([id number]) Time Spent (min) 28
--- OUTSIDE RECORDS SUMMARY | 2025-06-02 14:16 | XMS_ITS | Patient Health Record ---
Author Organization [facility] Address [address] [place] [address] Care Team Providers Care Box Closing Machine Operator Name Role Phone Anderson Peters Primary Care Provider Terra Lund Unavailable [phone] Allergies Allergen (clinical drug ingredient) Drug/Non Drug [...] Medicare National Gov[employer] [address] [place] [address] [id number] Stella Frias Self - patient is the insured Medical (General) History Medical History History ICD Code Anxiety Arthritis Back,Hip,and Knee pain Broken bones CAD (Cholesterol) Depression Diabetic Gall bladder problems Headaches/Migraines Heart disease Measles Mumps Chicken pox Joint implants/screws Surgical History Surgery Date(Month/Year) appendectomy Gall bladder removal ankle 2001
--- OUTSIDE RECORDS SUMMARY | 2025-06-02 14:16 | XMS_ITS | Data Portability ---
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 Name Role Phone SINTIA ARREOLA Primary Care Provider Assessment Encounter Date Assessment Date Assessment LastModified [...] Not available 02/12/2024 10:24:47 05/20/2024 05/20/2024 Stella Frais is a 68 year old woman with [...] Orders gabapentin 300 mg capsule 2023 024 [facility] #75380, [address] [place], [place], [id number], 10:25:03 gabapentin 300 mg capsule 2022 023 [facility] #55572, [address], [place], [id number], 3 10:15:06 gabapentin 300 mg capsule 2022 023 [facility], [address], [place], [id number], 3 09:20:45 gabapentin 300 mg capsule 2020 021 [facility], [address], [place], [id number], 3 09:21:07 Patient TargetsNo targets recorded. Patient Instructions Encounter Date Encounter Id Patient Instructions Last Modified By Organization Details Last Modified Time 05/02/2021 [id number] She was advised against bed rest lasting [...] care. [email or web address] Not available 05/02/2021 15:49:25 02/26/2023 [id number] She was advised against bed rest lasting longer than four days and to continue activities as tolerated. [email or web address] Not available 03/05/2023 16:55:05 08/28/2023 [id number] She was advised against bed rest lasting longer than four days and to continue activities as tolerated. [email or web address] Not available 08/28/2023 10:02:27 02/12/2024 [id number] She was advised against bed rest lasting longer than four days and to continue activities as tolerated. [email or web address] Not available 02/12/2024 10:24:54 05/20/2024 [id number] She was advised against bed rest lasting longer than four days and to continue activities as tolerated. [email or web address] Not available 05/20/2024 13:27:11 Reason for Referral None Reported. Problems Name Problem SNOMED Code Status Onset Date Resolution Date Notes Provider Name and Address Organization Details Recorded Time History of osteoarthritis 584604621 Active Dustin powers MD [address] [place] [address] , [address], [place], [address], [place] [facility] 5 09:34:24 Knee pain Active Dustin powers MD [address] [facility] , [address], [place], [address], [place] [facility] 5 09:34:24 Osteoarthritis of knee 273487637 Active Dustin powers MD [address] [facility] , [address], [place], [address], [place] [facility] 8 13:28:06 Problem Notes None recorded. Procedures Surgical History Date Name Laterality Status Provider Name and Address Organization Details Recorded Time 03/12/20 18 Intra-articular Knee Steroid Injection completed Dustin Tello MD [address] [facility] , [address], [place], [address], [place] [facility] 03/12/2018 10:07:50 02/04/20 18 Intra-articular Knee Steroid Injection completed Dustin Tello MD [address] [facility] , [address], [place], [address], [place] [facility] 02/03/2018 [...] Name and Address Organization Details Recorded Time 71096 codeine medicatio n other Not available Not available 11/18/2014 2670 RxNorm Chest pain Hannah gaston [place] - [facility] 5 09:26:18 [...] completed Not Available Not Available Not Available levothyrox ine 75 mcg tablet TAKE 1 TABLET BY MOUTH EVERY MORNING active Not Available Not Available No t Available hydromorph one 2 mg tablet TK [...] active Not Available Not Available Not Available Farxiga 5 mg tablet TAKE 1 TABLET BY MOUTH DAILY active Not Available Not Available No t Available Mounjaro 5 mg/0.5 mL subcutaneo us pen injector ADMINIST ER 5 MG UNDER THE SKIN EVERY WEEK FOR 4 WEEKS active Not Available Not Available No t Available Mounjaro 2.5 mg/0.5 mL subcutaneo us pen injector ADMINIST ER 2.5 MG UNDER THE SKIN EVERY WEEK FOR 4 WEEKS active Not Available Not Available No t Available Vitals Date Recorded Heart rate Oxygen saturation Oxygen saturation in Arterial blood by Pulse oximetry Pain severity - 0-10 verbal numeric rating [Score] - Reported Systolic And Diastolic Provider Name and Address Organization Details Last Updated DateTime 4 61 /min 95 % 95 % 8 141/76 mm[Hg] Brigette Delaney [facility] 4 10:03:14 Date Recorded Heart rate Oxygen saturation Oxygen saturation in Arterial blood by Pulse oximetry Systolic And Diastolic Provider Name and Address Organization Details Last Updated DateTime 02/26/2023 75 /min 96 % 96 % 116/56 mm[Hg] Charis Gamal [place] [facility] 3 15:03:33 Date Recorded Heart rate Oxygen saturation Oxygen saturation in Arterial blood by Pulse oximetry Systolic And Diastolic Provider Name and Address Organization Details Last Updated DateTime 05/20/2024 78 /min 93 % 93 % 124/79 mm[Hg] Felicitas Augustegrino [place] - [facility] 4 10:07:51 Date Recorded Heart rate Oxygen saturation Oxygen saturation in Arterial blood by Pulse oximetry Pain severity - 0-10 verbal numeric rating [Score] - Reported Systolic And Diastolic Provider Name and Address Organization Details Last Updated DateTime 3 61 /min 96 % 96 % 7 153/61 mm[Hg] Brigette Luna [place] - [facility] 3 09:17:04 Social History Question Answer Notes LastModified by [employer] Details LastModified Time Tobacco Smoking Status Never Smoker Not Available [facility] 06/16/2020 03:16:11 Which Illicit Or Recreational Drugs Have You Used? No [id number] Information not available 06/16/2020 Education 10 [email or web address] Information no t available 11/18/2014 Live Alone Or With Others? With Others And Son [email or web address] Information not available 11/18/2014 Marital Status [email or web address] Informatio n not available 11/18/2014 What Was The Date Of Your Most Recent Tobacco Screening? 03/12/2018 [id number] Information not available 06/16/2020 Sex: Unknown Functional Status Question Answer Note LastModified by [employer] Details LastModified Time What is your level of alcohol consumption? Occasional [id number] Information not available 06/16/2020 Are you currently employed? No [id number] Information not available 06/16/2020 Mental Status None recorded. Family History Relationship [...] Diagnosis SNOMED-CT Code Diagnosis ICD10 Code Diagnosis IMO Codes Diagnosis Note [id number] Dustin Tello MD [facility] [address] [facility] [place] [address] 11/18/2014 08:56:57 11/20/2014 17:48:13 History of osteoarthritis 122320833 Knee pain 57402477 00194 Dustin Tello MD PAIN OFFICE [address] [place] [address] 01/16/2018 09:42:05 01/20/2018 13:23:32 History of osteoarthritis 591812925 Z87.39 Knee pain 03107354 M25.5 61 M25.562 Osteoarthr itis of knee 754227169 M17.0 74356 Dustin Tello MD PAIN OFFICE [address] [place] [address] 02/03/2018 09:49:46 02/03/2018 10:51:10 History of osteoarthritis 838457752 Z87.39 Knee pain 04167399 M25.5 61 M25.562 Osteoarthr itis of knee 139240050 M17.0 82661 Dustin Tello MD [facility] [address] [place] [address] 03/12/2018 08:41:18 03/12/2018 10:10:41 History of osteoarthritis 581590849 Z87.39 Knee pain 60388389 M25.5 61 M25.562 Osteoarthr itis of knee 650757660 M17.0 08510 Dustin Tello MD PAIN OFFICE [address] [place] [address] 04/09/2019 09:14:11 04/09/2019 11:38:40 Knee pain 06538796 M25.561 M25.562 History of osteoarthritis 739782498 Z87.39 Osteoarthr itis of knee 155445458 M17.0 46333 Dustin Tello MD [facility] [address] [place] [address] 05/07/2019 09:17:32 05/07/2019 15:46:50 Knee pain 29288297 M25.561 M25.562 History of osteoarthritis 534947435 Z87.39 Osteoarthr itis of knee 976965567 M17.0 85228 Dustin Tello MD [facility] [address] [place] [address] 12/14/2020 13:12:22 12/14/2020 14:31:27 Knee pain 74260467 M25.561 M25.562 History of osteoarthritis 720652030 Z87.39 Osteoarthr itis of knee 107235599 M17.0 75061 Dustin Tello MD [facility] [address] [place] [address] 03/30/2021 10:24:25 03/30/2021 12:42:37 History of osteoarthritis 751375018 Z87.39 Knee pain 44345188 M25.5 61 M25.562 Osteoarthr itis of knee 195714884 M17.0 61466 Dustin Tello MD [facility] [address] [place] [address] 05/02/2021 15:39:22 05/02/2021 15:59:54 Knee pain 86045973 M25.561 M25.562 History of osteoarthritis 630891606 Z87.39 Osteoarthr itis of knee 915177426 M17.0 20318 Dustin Tello MD [facility] [address] [place] [address] 02/26/2023 14:26:30 02/28/2023 12:03:49 Osteoarthritis of knee 837848260 M17.0 Knee pain 92113281 M25.5 61 M25.562 History of osteoarthritis 110256997 Z87.39 40636 Dustin Tello MD [facility] [address] [facility] [place] [address] 08/28/2023 09:07:28 08/28/2023 10:50:08 Osteoarthritis of knee 343204373 M17.0 Knee pain 30420945 M25.5 61 M25.562 History of osteoarthritis 745493147 Z87.39 78472 Dustin Tello MD PAIN OFFICE [address] [facility] [place] [address] 02/12/2024 09:51:51 02/12/2024 14:18:59 Knee pain 19265252 M25.561 M25.562 Osteoarthr itis of knee 781614989 M17.0 History of osteoarthritis 952638337 Z87.39 55404 Dustin Tello MD [facility] [address] [facility] [place] [address] 05/20/2024 10:01:53 05/21/2024 09:05:20 Knee pain 55106351 M25.561 M25.562 Osteoarthr itis of knee 934170854 M17.0 History of osteoarthritis 510428648 Z87.39 Health Concerns Section Related Observation LastModified by Organization Detai ls LastModified Time None Recorded Concern Status LastModified by Organization Details LastModified Time None Recorded Advance Directives Directive None Recorded Payers Insurance Date Sequence Insurance Name Policy Number Policy Howell Covered Member ID Howell Member ID Guarantor Name 02/12/2024 1 [employer] [id number] Stella Frias [id number] Stella Frias 05/27/2025 1 [facility] (MEDICARE REPLACEMENT /ADVANTAGE - PPO) [id number] Stella Frias [id number] Stella Frias 02/12/2024 2 [employer]IG[employer] Stella Frias [id number] Stella Frias 05/27/2025 2 [place] [facility] Stella Frias [id number] Stella Frias 02/12/[address] [place] [address] ([facility]) [id number] Stella Frias [id number] Stella Frias Notes Date Note Type Note [...] a new PCP. Dustin Tello MD [address] , [address], [place], [address], [facility] 05/03/2021 11:32:05 02/26/2023 text/html [...] a long time. Dustin Tello MD [address] , [address], [place], [address], [facility] 03/05/2023 16:55:15 08/28/2023 text/html [...] a long time. Dustin Tello MD [address] , [address], [place], [address], [facility] 08/28/2023 11:07:14 02/12/2024 text/html This is a follow up. She was last seen in August 2023. She states she is feeling better and is going on a cruise to [facility] soon. She is also on Eliquis after [...] She has an appointment to see a service specialist soon.She has not started her aquatic exercises yet. [facility] and will [facility] exercises soon. Dustin Tello MD [address] , [address], [place], [address], [facility] 02/12/2024 15:03:38 05/20/2024 text/html [...] She has an appointment to see a service specialist soon.She has not started her aquatic exercises yet. She will contact her local [facility] and will start exercises soon. Dustin Tello MD [address] [place] [address] , [address], [place], [address], [place] [facility] 05/21/2024 10:41:19 OBGyn Episode No OBEpisode recorded.
== END 2025-06-02 13:25 | disposition home or self-care (01) ==
LOC: HO.HCS 12:47
PROVIDERS: PCP Internal Medicine; Visit Provider Nurse Practitioner Family
DX: I42.9 Cardiomyopathy, unspecified (principal); Z98.890 Other specified postprocedural states; I25.10 Atherosclerotic heart disease of native coronary artery without angina pectoris; I48.91 Unspecified atrial fibrillation; I10 Essential (primary) hypertension; I50.9 Heart failure, unspecified; E66.01 Morbid (severe) obesity due to excess calories; E78.00 Pure hypercholesterolemia, unspecified
CPT/HCPCS: 93010; 99214; G2211

== ENCOUNTER → 2025-06-02 12:46 | Outpatient (BNVA) | payer MEDICARE, MEDICAID, SELFPAY | PROVIDERS: PCP Internal Medicine; Visit Provider Nurse Practitioner Family | DX: I42.9 Cardiomyopathy, unspecified (principal); I25.10 Atherosclerotic heart disease of native coronary artery without angina pectoris; I48.91 Unspecified atrial fibrillation; I11.0 Hypertensive heart disease with heart failure; I50.9 Heart failure, unspecified; E78.00 Pure hypercholesterolemia, unspecified; E66.01 Morbid (severe) obesity due to excess calories; Z68.42 Body mass index [BMI] 45.0-49.9, adult; I45.10 Unspecified right bundle-branch block; R94.31 Abnormal electrocardiogram [ECG] [EKG] | CPT/HCPCS: 93005; 99212 ==

== ENCOUNTER 2025-06-21 11:51 | Outpatient (REF) | payer MEDICARE, MEDICAID, SELFPAY ==
[2025-06-21 13:33] LABS: Microalbum/Creatinine Ratio Ur 55.4 ug/mg cr (<30)
--- OUTSIDE RECORDS SUMMARY | 2025-06-21 15:20 | XMS_ITS | Data Portability ---
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 Referral None recorded. Procedures None recorded. Surgeries None recorded. Imaging None recorded. Medication Orders gabapenti n 300 mg capsule 2023 024 [facility]51901, [address] [place], [place], [id number], 02/12/2024 10:25:03 gabapenti n 300 mg capsule 2022 023 [facility] #39095, [address] [place], [place], [id number], 08/28/2023 10:15:06 gabapenti n 300 mg capsule 2022 023 [facility] #04883, [address] [place], [place], [id number], 08/28/2023 09:20:45 gabapenti n 300 mg capsule 2020 021 [facility] #66291, [address] [place], [place], [id number], 08/28/2023 09:21:07 Patient TargetsNo targets recorded. Patient Instructions Encounter Date Encounter Id Patient Instructions Last Modified By Organization Details Last Modified Time 05/02/2021 [id number] She was advised against bed rest lasting [...] care. [email or web address] Not available 05/02/2021 15:49:25 02/26/2023 [id number] She was advised against bed rest lasting longer than four days and to continue activities as tolerated. [email or web address] Not available 03/05/2023 16:55:05 08/28/2023 [id number] She was advised against bed rest lasting longer than four days and to continue activities as tolerated. [email or web address] Not available 08/28/2023 10:02:27 02/12/2024 [id number] She was advised against bed rest lasting longer than four days and to continue activities as tolerated. [email or web address] Not available 02/12/2024 10:24:54 05/20/2024 [id number] She was advised against bed rest lasting longer than four days and to continue activities as tolerated. [email or web address] Not available 05/20/2024 13:27:11 Reason for Referral None Reported. Problems Name Problem SNOMED Code Status Onset Date Resolution Date Notes Provider Name and Address Organization Details Recorded Time History of osteoarthritis 994150585 Active Dustin powers MD [address] , [address], [place], [address], [place] [facility] 5 09:34:24 Knee pain Active Dustin powers MD [address] , [address], [place], [address], [place] [facility] 5 09:34:24 Osteoarthritis of knee 467394630 Active Dustin powers MD [address] , [address], [place], [address], [place] [facility] 8 13:28:06 Problem Notes None recorded. Procedures Surgical History Date Name Laterality Status Provider Name and Address Organization Details Recorded Time 03/12/20 18 Intra-articular Knee Steroid Injection completed Dustin Tello MD [address] [facility] , [address], [place], [address], [place] [facility] 03/12/2018 10:07:50 02/04/20 18 Intra-articular Knee Steroid Injection completed Dustin Tello MD [address] , [address], [place], [address], [place] [facility] 02/03/2018 10:27:21 Cholecystectomy completed Hannahconstantine Call [place] - [facility] 11/18/2014 09:31:24 Appendectomy completed Hannah Call [place] - [facility] 11/18/2014 09:31:24 Other completed Hannah Call [place] - [facility] 11/18/2014 09:31:24 Other completed Hannah Call [place] - [facility] 11/18/2014 09:31:24 Caesarean Section completed Hannah Call [place] - [facility] 11/18/2014 09:33:01 Tubal Ligation completed Hannahconstantine Call [place] - [facility] 11/18/2014 09:33:01 Joint Replacement completed Hannahconstantine Call [place] - [facility] 04/09/2019 09:40:38 Imaging Results None recorded. Procedure Notes None recorded. Medical Equipment None Reported. Allergies Allergen ID Allergen Name Allergen Category Reaction Reaction Severity Criticality Documentation Date Start Date Code Code System Note Provider Name and Address Organization Details Recorded Time 57378 codeine medicatio n other Not available Not available 11/18/2014 5070 RxNorm Chest pain Hannah Freedmanantonio gaston, [place] - [facility] 5 [...] % 95 % 8 141/76 mm[Hg] Brigette Luna [place] - [facility] 4 10:03:14 Date Recorded Heart rate Oxygen saturation Oxygen saturation in Arterial blood by Pulse oximetry Systolic And Diastolic Provider Name and Address Organization Details Last Updated DateTime 02/26/2023 75 /min 96 % 96 % 116/56 mm[Hg] Charis Toribiowell [place] - [facility] 3 15:03:33 Date Recorded Heart rate Oxygen saturation Oxygen saturation in Arterial blood by Pulse oximetry Systolic And Diastolic Provider Name and Address Organization Details Last Updated DateTime 05/20/2024 78 /min 93 % 93 % 124/79 mm[Hg] Felicitas Vicki [place] - [facility] 4 10:07:51 Date Recorded Heart rate Oxygen saturation Oxygen saturation in Arterial blood by Pulse oximetry Pain severity - 0-10 verbal numeric rating [Score] - Reported Systolic And Diastolic Provider Name and Address Organization Details Last Updated DateTime 3 61 /min 96 % 96 % 7 153/61 mm[Hg] Brigette Luna [place] - [facility] 3 09:17:04 Social History Question Answer Notes LastModified by [employer] Details LastModified Time Tobacco Smoking Status Never Smoker Not Available [facility] 06/[facility]/2020 03:16:11 Which Illicit Or Recreational Drugs Have You Used? No [id number] Information not available 06/16/2020 Education 10 Information no t available 11/18/2014 Live Alone Or With Others? With Others And Son Information not available 11/18/2014 Marital Status [email or web address] Informatio n not available 11/18/2014 What Was The Date Of Your Most Recent Tobacco Screening? 03/12/2018 [id number] Information not available 06/16/2020 Sex: Unknown Functional Status Question Answer Note LastModified by [employer] Details LastModified Time What is your level of alcohol consumption? Occasional [id number] Information not available 06/16/2020 Are you currently employed? No [id number] Information not available 06/16/2020 Mental Status None [...] ICD10 Code Diagnosis IMO Codes Diagnosis Note 58506 Dustin Tello MD PAIN OFFICE [address] [place] [address] 11/18/2014 08:56:57 11/20/2014 17:48:13 History of osteoarthritis 032269510 Knee pain 84860113 68557 Dustin Tello MD PAIN OFFICE [address] [place] [address] 01/16/2018 09:42:05 01/20/2018 13:23:32 History of osteoarthritis 251083228 Z87.39 Knee pain 11874239 M25.5 61 M25.562 Osteoarthr itis of knee 886706189 M17.0 82156 Dustin Tello MD PAIN OFFICE [address] [place] [address] 02/03/2018 09:49:46 02/03/2018 10:51:10 History of osteoarthritis 999514668 Z87.39 Knee pain 73598000 M25.5 61 M25.562 Osteoarthr itis of knee 580531419 M17.0 87414 Dustin Tello MD PAIN OFFICE [address] [place] [address] 03/12/2018 08:41:18 03/12/2018 10:10:41 History of osteoarthritis 239755176 Z87.39 Knee pain 62531239 M25.5 61 M25.562 Osteoarthr itis of knee 252934003 M17.0 89363 Dustin Tello MD [facility] [address] [facility] [address] 04/09/2019 09:14:11 04/09/2019 11:38:40 Knee pain 63808692 M25.561 M25.562 History of osteoarthritis 242133571 Z87.39 Osteoarthr itis of knee 160795355 M17.0 16915 Dustin Tello MD [facility] [address] [facility] [place] [address] 05/07/2019 09:17:32 05/07/2019 15:46:50 Knee pain 36637600 M25.561 M25.562 History of osteoarthritis 257685592 Z87.39 Osteoarthr itis of knee 716741069 M17.0 40995 Dustin Tello MD [facility] [address] [facility] [place] [address] 12/14/2020 13:12:22 12/14/2020 14:31:27 Knee pain 95815926 M25.561 M25.562 History of osteoarthritis 844231129 Z87.39 Osteoarthr itis of knee 304432722 M17.0 60432 Dustin Tello MD [facility] [address] [facility] [place] [address] 03/30/2021 10:24:25 03/30/2021 12:42:37 History of osteoarthritis 011768920 Z87.39 Knee pain 88160655 M25.5 61 M25.562 Osteoarthr itis of knee 767179345 M17.0 35511 Dustin Tello MD [facility] [address] [facility] [place] [address] 05/02/2021 15:39:22 05/02/2021 15:59:54 Knee pain 97662220 M25.561 M25.562 History of osteoarthritis 676297489 Z87.39 Osteoarthr itis of knee 184804723 M17.0 93316 Dustin Tello MD [facility] [address] [place] [address] 02/26/2023 14:26:30 02/28/2023 12:03:49 Osteoarthritis of knee 737608382 M17.0 Knee pain 36103103 M25.5 61 M25.562 History of osteoarthritis 511342957 Z87.39 02747 Dustin Tello MD [facility] [address] [place] [address] 08/28/2023 09:07:28 08/28/2023 10:50:08 Osteoarthritis of knee 250405780 M17.0 Knee pain 93517545 M25.5 61 M25.562 History of osteoarthritis 163133241 Z87.39 69497 Dustin Tello MD [facility] [address] [place] [address] 02/12/2024 09:51:51 02/12/2024 14:18:59 Knee pain 55196897 M25.561 M25.562 Osteoarthr itis of knee 743762390 M17.0 History of osteoarthritis 957535736 Z87.39 22658 Dustin Tello MD [facility] [address] [place] [address] 05/20/2024 10:01:53 05/21/2024 09:05:20 Knee pain 97769494 M25.561 M25.562 Osteoarthr itis of knee 072679668 M17.0 History of osteoarthritis 595391586 Z87.39 Health Concerns Section Related Observation LastModified by Organization Detai ls LastModified Time None Recorded Concern Status LastModified by Organization Details LastModified Time None Recorded Advance Directives Directive None Recorded Payers Insurance Date Sequence Insurance Name Policy Number Policy Howell Covered Member ID Howell Member ID Guarantor Name 02/12/2024 1 [employer] [id number] Stella Frias [id number] Stella Frias 05/27/2025 1 [facility] (MEDICARE REPLACEMENT /ADVANTAGE - PPO) [id number] Stella Frias [id number] Stella Frias 02/12/2024 2 [employer] Stella Frias [id number] Stella Frias 05/27/2025 2 [place] [facility] Stella Frias [id number] Stella Frias 02/12/2024 1 [facility] [id number] Stella Frias [id number] Stella Frias Notes Date Note Type Note [...] a new PCP. Dustin Tello MD [address] [facility] , [facility] [address], [place], [address], [facility] 05/03/2021 11:32:05 02/26/2023 text/html This [...] a long time. Dustin Tello MD [address] [facility] , [address], [place], [address], [facility] 03/05/2023 16:55:15 08/28/2023 text/html This [...] a long time. Dustin Tello MD [address] [facility] , [address], [place], [address], [facility] 08/28/2023 11:07:14 02/12/2024 text/html This is a follow up. She was last seen in August 2023. She states she is feeling better and is going on a cruise to [facility] soon. She is also on Eliquis after [...] She has an appointment to see a computer numerical control operator soon.She has not started her aquatic exercises yet. She will [facility] her local [facility] and will start exercises soon. Dustin Tello MD [address] , [address], [place], [address], [facility] 02/12/2024 15:03:38 05/20/2024 text/html This [...] She has an appointment to see a computer numerical control operator soon.She has not started her aquatic exercises yet. She will contact her local [facility] and will start exercises soon. Dustin Tello MD [address] [place] [address] , [address], [place], [address], [place] [facility] 05/21/2024 10:41:19 OBGyn Episode No OBEpisode recorded.
== END 2025-06-21 11:52 | disposition home or self-care (01) ==
LOC: HO.LAB 11:51
PROVIDERS: PCP Internal Medicine; Visit Provider Internal Medicine
DX: E11.65 Type 2 diabetes mellitus with hyperglycemia (principal)
CPT/HCPCS: 82043; 82570

== ENCOUNTER 2025-08-18 12:22 | Outpatient (AMB) | payer MEDICARE, MEDICAID, SELFPAY ==
--- OUTSIDE RECORDS SUMMARY | 2024-03-25 04:30 | XMS_ITS ---
Author Organization [facility] Address [address] [facility] [place] [address] Care Team Providers Care Safe Expert Name Role Phone Anderson Peters Primary Care Provider Enrique Lundmie Unavailable [phone] Allergies Allergen (clinical drug ingredient) Drug/Non Drug Allergy documented on EMR Reaction Allergy Type Onset Date Status aspirin Aspirin Unknown Drug Allergy Active codeine Codeine Unknown Drug Allergy Active Medications Medication SIG (Take, Route, Frequency, Duration) Notes Start Date End Date Status Spironolactone 25 MG TAKE 1/2 TABLET BY MOUTH DAILY Oral; Duration: 90 Days Active Gabapentin 300 MG TAKE 1 CAPSULE BY MO UTH THREE TIMES DAILY Oral; Duration: 90 Days Active Atorvastatin Calcium 20 MG TAKE 1 TABLET BY MOUTH AT BEDTIME Oral; Duration: 90 Days Active Bumetanide 2 MG Oral; Duration: 60 Days Active Magnesium Oxide -Mg Supplement 400 (240 Mg) MG TAKE 1 TABLET BY MOUTH EVERY DAY Oral; Duration: 30 Days Active Escitalopram Oxalate 20 MG TAKE 1 TABLET BY MOUTH DAILY Oral; Duration: 90 Days Active Atenolol 50 MG TAKE 1 TABLET BY BRANDON TH DAILY Oral; Duration: 90 Days Active Levothyroxine Sodium 50 MCG Oral; Duration: 90 Days Active Omeprazole 20 MG TAKE 1 CAPSULE BY MO UTH AT BEDTIME Oral; Duration: 90 Days Active oxyCODONE HCl 5 MG TAKE 1 TABLET BY BRANDON TH TWICE DAILY NEEDED FOR PAIN Oral; Duration: 30 Days Active Eliquis 5 MG Oral; Duration: 30 Days Active Social History Tobacco Use: Social History Observation Description Date Details (start date - stop date) Never Smoker NA - NA Tobacco Use/Smoking Question Answer Notes Are you a: nonsmoker Additional Findings: Tobacco Non-User Current no n-smoker Alcohol Screen Question Answer Notes Did you have a drink containing alcohol in the p ast year? Yes Points 0 Interpretation Negative Tobacco use other than smoking: Question Answer Notes Are you an other tobacco user? No Vital Signs Height 5 ft 2 in in 03/25/2024 Weight 260 lbs 03/25/2024 BMI 47.55 kg/m2 03/25/2024 Encounters Encounter Location Date Provider Diagnosis [facility] [place] [address] [place] [address] 03/25/2024 Terra Soriano Plan Of Treatment No Information Progress Notes * Stella FRIAS MDOB:[birth year] (70 yo F)Acc No.[id number]:03/25/2024 Progress Notes Patient: Stella MORTON Provider: Isidoro Soriano DPM :1955 A ge:68 Y S ex:Female Date:03/25/2024 Address:[address] [place] [address] [facility] Pcp:Anderson Peters Subjective: * Chief Complaints: * * ROS: G eneral/Constitutional: Nausea d enies. V omiting d enies. H [place] Thirst d enies. L oss appetite a dmits. C hills d enies. F atigue a dmits.?Fever d enies. N ight Sweats d enies. U nexplained weight loss d enies. U nexplained weight gain d enies. H EENTM: Dentures d enies. D izziness d enies. G lasses/contacts a dmits. R etinopathy d enies. B lurred/double vision d enies. T MJ?denies. D ischarge/drainage d enies. I mplants d enies. S ore throat d enies. D ental implants d enies. H anita of hearing d enies. D ifficulty chewing/swallowing/speaking d enies. N ose bleeds d enies. S ore mouth d enies. ? R espiratory: On Oxygen d enies. P neumonia/pleurisy d enies.?Bronchitis d enies. E mphysema d enies. C oughing d enies. C ough blood?denies. S hortness of breath a dmits. W heezing d enies. C ardiovascular: Pacemaker d enies. 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 W PW d enies. C HF d enies. H eart attack d enies. S eptal defect d enies. R apid beat d enies. C hest pain d enies. A trial Fib. d enies. M urmur/Palpitations a dmits. G astrointestinal: Hemorrhoids d enies. S tomach/Abdominal pain d enies. D ark blood stool d enies. I rritable bowel d enies. C onstipation d enies. D iarrhea a dmits. H ematology: Swelling d enies. C lots d enies. V aricose Veins d enies. B ruising d enies. B leeding problem d enies. G enitourinary: Blood urine d enies. F requent/Painfu/urination/bladder control d enies. K idney stones d enies. I nfection (UTI) d enies. N ephropathy d enies. s ex trans dis (STD) d enies. P rostate d enies. M usculoskeletal: Hammertoes d enies. B unions d enies. B ack Pain d enies. M uscle Cramps/ Resting d enies. M uscle cramps / walking a dmits.?Generalized aches and pains a dmits. W eakness d enies. I nteg.: Guerrero d enies. S cars d enies. C orns/calluses?denies. I ngrown nails d enies. P ainful nails d enies. O pen Sores d enies. R ashes d enies. N eurologic: Difficulty sleeping a dmits. B rain disorder d enies. N umbness d enies. B alance trouble a dmits. C onfusion d enies. F ainting/blackouts d enies. T ingling d enies. T remors d enies. * Medical History: A nxiety, Arthritis, Back,Hip,and Knee pain, Broken bones, CAD (Cholesterol), Depression, Diabetic, Gall bladder problems, Headaches/Migraines, Heart disease, Measles, Mumps, Chicken pox, Joint implants/screws. * Surgical History: a ppendectomy , Gall bladder removal , ankle 2001. * Family History: M other: , diagnosed with Other malignant neoplasm of unspecified site. F ather: , diagnosed with Unspecified heart disease. * Social History: T obacco Use: T obacco Use/Smoking A re you a: n onsmoker A dditional Findings: Tobacco Non-User C urrent non-smoker Tobacco use other than smoking A re you an other tobacco user? N o D rugs/Alcohol: D rugs H ave you used drugs other than those for medical reasons in the past 12 months? N o Alcohol Screen D id you have a drink containing alcohol in the past year? Y es P oints 0 I nterpretation N egative M iscellaneous: C affeine: yes, frequency:. Children: yes, 2. Marital status: . * Medications: T aking Atorvastatin Calcium 20 MG Tablet TAKE 1 TABLET BY MOUTH AT BEDTIME Oral , Taking Bumetanide 2 MG Tablet Oral , Taking Magnesium Oxide -Mg Supplement 400 (240 Mg) MG Tablet TAKE 1 TABLET BY MOUTH EVERY DAY Oral , Taking Spironolactone 25 MG Tablet TAKE 1/2 TABLET BY MOUTH DAILY Oral , Taking Eliquis 5 MG Tablet Oral , Taking Escitalopram Oxalate 20 MG Tablet TAKE 1 TABLET BY MOUTH DAILY Oral , Taking Atenolol 50 MG Tablet TAKE 1 TABLET BY MOUTH DAILY Oral , Taking Levothyroxine Sodium 50 MCG Tablet Oral , Taking Omeprazole 20 MG Capsule Delayed Release TAKE 1 CAPSULE BY MOUTH AT BEDTIME Oral , Taking oxyCODONE HCl 5 MG Tablet TAKE 1 TABLET BY MOUTH TWICE DAILY NEEDED FOR PAIN Oral , Taking Gabapentin 300 MG Capsule TAKE 1 CAPSULE BY MOUTH THREE TIMES DAILY Oral * Allergies: A spirin, Codeine. Objective: * Vitals: H t: 5 ft 2 in, Wt:260, BMI:47.55, Shoe size: 8, Ht-cm: 157.48 cm, Wt-k.93 kg. Assessment: Plan: * Treatment: * Images: * The named appointment provid er may or may not be the originator of this progress note, and it is not deemed complete until electronically signed by the appointment provider. Sign off status: Pending * Provider: Isidoro Soriano DPM Date: 0 03/25/2024 Generated for Christina Cid on: 10/19/2024 04:12 PM EST
--- NOTE | 2025-08-18 12:40 | MHC.PC.OV ---
Vital Signs 08/18/25 12:41 Height 5 ft 2 in Weight 261 lb 4 oz BMI 47.8 BP 110/62 Blood Pressure Location Lt brachial Position Sitting Respiration 18 Pulse 55 Pulse Source Pulse Oximeter Temp Source Temporal Artery Scan Pulse Oximetry (%) 100 Oxygen Delivery Method Room Air Intake Visit Reasons: DM, obesity, hypothryoid Vice President Fixed Income Required: No Accompanied by: Self / Same As Patient Allergies codeine (CODEINE) Allergy (Intermediate, Verified 08/18/25 12:41) CHEST PAIN aspirin Adverse Reaction (Mild, Verified 08/18/25 12:41) Chest Pain Tobacco use date assessed: 08/18/25 Fall risk assessment: No Falls in past year Last assessed Fall Risk: 08/18/25 Dental Screening Dental Screen Date: 08/18/25 Did you have a dental visit in the last 12 months?: No Did you have a dental problem in the last 6 months where you did not have access to dental care?: No Was dental information given to patient?: No HPI HPI Comments History of Present Illness Details History of Present Illness The patient is a 70-year-old morbidly obese female presenting for a follow-up visit for management of multiple chronic conditions, having last been seen in April 2025. Her cardiovascular history is significant for congestive heart failure, cardiomyopathy, coronary artery disease, atrial fibrillation, and severe pulmonary hypertension. She followed up with cardiology in June and an echocardiogram from September 2024 showed an ejection fraction of 45%. Her cardiac medications include Bumex, atenolol, spironolactone, and Eliquis for anticoagulation. Her metabolic and endocrine history includes diabetes mellitus, which is well-controlled with a hemoglobin A1c of 5.4 on Tirzepatide. She has hypertension managed with medication, hypothyroidism, and hyperlipidemia with a last LDL of 71 in November 2024 while on atorvastatin. The patient has a history of knee osteoarthritis and a neuropathic pain component, for which she follows with pain management and takes narcotic pain medication and gabapentin. Regarding health maintenance, her mammogram is up to date, she has declined colonoscopy, and her last bone density scan was in August 2023. Health Maintenance The patient was reminded about the need for a repeat bone density scan. Vaccination with the shingles shot and RSV vaccine was discussed and offered. Social History - Substance Use: The patient uses narcotic medication for chronic pain. - Exercise: Exercise is recommended. - Weight Management: The patient has had some weight loss, and her medication dose is being increased to promote faster weight loss. Results - Labs from January: normal blood health and electrolytes. - Renal function: Creatinine 1.08. - Hemoglobin A1c: 5.4%. - Cholesterol (November 2024): LDL 71 mg/dL. - Echocardiogram (September 2024): Ejection fraction 45%. - Bone density scan (August 2023): Status noted. - Mammogram: Up to date. [facility] Medical History Obesity Pneumonia Bilateral claudication of lower limb Breast calcification, left Breast cancer screening by mammogram [facility] discharge follow-up [facility] (obstructive sleep apnea) Morbid obesity Persistent atrial fibrillation Hypokalemia Physical deconditioning CHF (congestive heart failure) Diabetes Chronic venous stasis Hypothyroid Afib HTN (hypertension) Surgical History S/P cardiac catheterization History of ankle surgery History of appendectomy S/P cholecystectomy Hx of total knee arthroplasty Family History Father EtOH dependence Social History Housing: Apartment Alcohol intake: current Alcohol intake frequency: holidays/special occasions only Patient Tobacco Use Status: Never used Tobacco Tobacco use type: Cigarette e-Cigarette/Vaping Use: Never Used Second Hand Smoke Exposure: No service: No Current occupational status: disabled Cognitive needs: Yes Hearing needs: No Vision needs: Yes Questionnaire Thrive Questionnaire Date Thrive assessed: 08/18/25 I am a: Patient What is your living situation today?: I have a steady place to live Within the past 12 months, did the food you bought not last and you didn't have the money to get more?: I choose not to answer this question Within the past 12 months, did you worry whether your food would run out before you got money to buy more?: I choose not to answer this question Do you have trouble paying for medicines?: I choose not to answer this question Do you have trouble getting transportation to medical appointments?: I choose not to answer this question Do you have trouble paying your heating and electricity bill?: I choose not to answer this question Do you have trouble taking care of your child, family member or friend?: I choose not to answer this question Do you have trouble with day-to-day activities such as bathing, preparing meals, shopping, managing finances, etc.?: I choose not to answer this question Are you currently unemployed and looking for a job?: No Are you interested in more education?: No Please select the resources that you would like help with: None Currently or been in a relationship where the following occur: I choose not to answer THRIVE Score: 0 MARTITA-7 AMB Questionnaire MARTITA-7 Date MARTITA - 7 assessed: 09/23/24 Source: Developed by Drs. Jaime Moore, Kasia Manzo, Ganesh Lebron and colleagues, with an educational rick from [employer]. Review of Systems Narrative Review of Systems - General: Reports some weight loss. - Extremities: Reports leg swelling. - Neurological: Reports a neuropathy component to her pain. - Skin: Reports easy bruising. Physical exam (Primary Care) Vital Signs: Last Vital Signs Pulse 55 08/18/25 12:41 Resp 18 08/18/25 12:41 BP 110/62 08/18/25 12:41 Pulse Ox 100 08/18/25 12:41 Oxygen Delivery Method Room Air 08/18/25 12:41 BMI result Body Mass Index 47.8 Tobacco/Smoking Status: Tobacco use Status Tobacco use date assessed 08/18/25 08/18/25 12:44 Patient Tobacco Use Status Never used Tobacco 08/18/25 12:44 Tobacco use type Cigarette 08/18/25 12:44 e-Cigarette/Vaping Use Never Used 08/18/25 12:44 Thrive Assessment: Date of Thrive Assessment Date Thrive assessed 08/18/25 08/18/25 12:44 Currently or been in a relationship where the following occur: I choose not to answer Narrative Physical Exam - Vitals: Blood pressure is very good. - Skin: No bruising noted on examination. Const General: alert; No acute distress Eyes Conjunctivae: conjunctivae normal Resp Auscultation: clear to auscultation bilaterally Cardio Rate: regular rate Rhythm: regular rhythm GI Inspection: Yes normal to inspection Extrem General: Yes normal to inspection and No edema Coding Level of Care Code Est Pt Level 4 (64533) Add On Problem Visit Only Diagnoses Type 2 diabetes mellitus with hyperglycemia E11.65 Hypercholesterolemia E78.00 Hypertension I10 Cardiomyopathy I42.9 Coronary atherosclerosis I25.10 Afib I48.91 Hypothyroid E03.9 Osteopenia M85.80 Morbid obesity E66.01 Knee osteoarthritis M17.9 Assessment & Plan Assessment & Plan (1) Type 2 diabetes mellitus with hyperglycemia: Comment: A1c at 6.1% on July 2023, BMI at 50.3 on September 2023 Code(s): E11.65 - Type 2 diabetes mellitus with hyperglycemia Category: Medical Plan: Decrease the amount of carbohydrate intake, pasta, bread, rice and potatoes are all sugar and that is aside from all the sweet stuff, remember that fruits are good but they are Sweet also. Patient is controlled hemoglobin A1c goal of less than 7.0. On tirzepatide 5 mg once a week and Farxiga (2) Hypercholesterolemia: Code(s): E78.00 - Pure hypercholesterolemia, unspecified Category: Medical Plan: Avoid fried foods, chicken skin, eggs, butter margarine, pastries and meat. Be it pork or beef they have a lot of cholesterol LDL goal of less than 70 and triglyceride of less than 150 patient needs new blood work LDL before was 71 on atorvastatin 80 mg once a day (3) Hypertension: Code(s): I10 - Essential (primary) hypertension Category: Medical Plan: Continue with blood pressure medication. Decrease salt intake and exercise continuing with atenolol 50 mg once a day Bumex spironolactone (4) Cardiomyopathy: Code(s): I42.9 - Cardiomyopathy, unspecified Category: Medical Plan: Continuing with spironolactone and diuretics continue to follow-up with cardiology (5) Coronary atherosclerosis: Code(s): I25.10 - Atherosclerotic heart disease of [place] coronary artery without angina pectoris Category: Medical Plan: Control the cholesterol, weight, blood pressure, diabetes on anticoagulation with Eliquis (6) Afib: Code(s): I48.91 - Unspecified atrial fibrillation Category: Medical Plan: Continue with anticoagulation (7) Hypothyroid: Code(s): E03.9 - Hypothyroidism, unspecified Category: Medical Plan: Continue with thyroid medication (8) Osteopenia: Code(s): M85.80 - Other specified disorders of bone density and structure, unspecified site Category: Medical Plan: Patient is reminded about repeat bone density (9) Morbid obesity: Code(s): E66.01 - Morbid (severe) obesity due to excess calories Category: Medical Plan: Diet and exercise continuing with tirzepatide (10) Knee osteoarthritis: Code(s): M17.9 - Osteoarthritis of knee, unspecified Category: Medical Plan: Narcotic pain meds: Is being prescribed with the understanding that these medications are potentially addictive and should be used only when absolutely necessary and must always be secured. Any remaining pills should be safely disposed off appropriately. Patient is advised that narcotics can impaired judgment and one should not drive or operate heavy machinery while taking these medications. Never share these medications with anybody and do not leave them unattended. They will not be replaced under any circumstances. Plan Plan Patient was informed and verbally consented to the use of an ambient scribe for clinic note documentation during this visit. 1. Diabetes Mellitus The patient's diabetes is well-controlled with a hemoglobin A1c of 5.4, meeting the goal of less than 7.0. She will continue taking Farxiga and her Tirzepatide (Mounjaro) dose will be increased from 5 mg to 7.5 mg weekly to also assist with weight loss. 2. Hyperlipidemia The patient's LDL goal is less than 70 mg/dL, and her last level was 71 mg/dL. She will continue atorvastatin 80 mg once a day, and new fasting blood work will be ordered to recheck levels. 3. Hypertension And Congestive Heart Failure Continue current antihypertensive medications including atenolol 50 mg once a day, Bumex, and spironolactone. She will continue to follow up with cardiology. Compression boots were recommended for leg swelling. 4. Coronary Artery Disease And Atrial Fibrillation Continue anticoagulation with Eliquis. New blood work will be ordered to monitor renal function, which is necessary while on anticoagulation. 5. Hypothyroidism Continue current thyroid medication. 6. Chronic Pain And Neuropathy The patient will continue to follow up with pain management. She will continue taking gabapentin and other pain medications as prescribed, with no refill needed today. 7. Morbid Obesity To promote more rapid weight loss, the dose of Tirzepatide (Mounjaro) will be increased from 5 mg to 7.5 mg once weekly. Continue to recommend diet and exercise. Discussion Notes I discussed with the patient the need to increase her Mounjaro (Tirzepatide) dose from 5 mg to 7.5 mg weekly to accelerate her weight loss, as progress has been slow. I explained that she is due for new fasting blood work to monitor her kidney function, which is important while she is on Eliquis, and to recheck her cholesterol, as her LDL of 71 is not yet at our goal of below 70. I reassured her that her blood sugar is well-controlled. We reviewed her vaccinations, noting she is up-to-date on her flu and COVID shots, and I recommended she consider getting the shingles and RSV vaccines. I also suggested she could purchase [id number] compression boots to help manage her leg swelling. 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 I set an expectation for better weight loss results by our next follow-up. Patient Instructions - I have sent a new prescription to your pharmacy for Bibiana. You will now take the 7.5 mg dose once a week to help with weight loss. - Please go for a fasting blood test to check your kidney and cholesterol levels. - Continue taking all your current medications for blood pressure, heart, cholesterol, and thyroid as prescribed. - You might want to consider getting the shingles vaccine to prevent the rash and the RSV vaccine for additional protection. - Please remember to schedule a new bone density scan. - Continue your diet and exercise efforts. - For the swelling in your legs, you could try using compression boots, which can be found at stores like [employer]. - Make sure you have enough of your pain medications and keep your follow-up appointment with your pain management doctor. Orders: Orders NT Pro B Type Natriuretic Pept Today I42.9 - Cardiomyopathy, unspecified Complete Blood Count Auto Diff Today I42.9 - Cardiomyopathy, unspecified Free T4 (Free Thyroxine) Today I42.9 - Cardiomyopathy, unspecified Thyroid Stimulating Hormone Today I42.9 - Cardiomyopathy, unspecified Creatinine Urine Today E11.65 - Type 2 diabetes mellitus with hyperglycemia, I42.9 - Cardiomyopathy, unspecified Microalbumin, Random (w Creat) Today E11.65 - Type 2 diabetes mellitus with hyperglycemia, I42.9 - Cardiomyopathy, unspecified Comprehensive Met. Panel Today I42.9 - Cardiomyopathy, unspecified Lipid Panel Today E78.00 - Pure hypercholesterolemia, unspecified, I42.9 - Cardiomyopathy, unspecified Vitamin B12 and Folate Today I42.9 - Cardiomyopathy, unspecified Vitamin D 25-OH Total Today I42.9 - Cardiomyopathy, unspecified Hemoglobin A1c Today I42.9 - Cardiomyopathy, unspecified Medications: Changed From tirzepatide for 4 weeks 5 mg (0.5 mL) subcut QWEEK 2 mL 2RF E11.65 - Type 2 diabetes mellitus with hyperglycemia, E66.01 - Morbid (severe) obesity due to excess calories To tirzepatide for 4 weeks 7.5 mg (0.5 mL) subcut QWEEK 2 mL 2RF E11.65 - Type 2 diabetes mellitus with hyperglycemia, E66.01 - Morbid (severe) obesity due to excess calories
[2025-08-18 12:41] VITALS: BP 110/62; PULSE 55; RESP 18; O2SAT 100; BMI 47.8
--- OUTSIDE RECORDS SUMMARY | 2025-08-18 16:12 | XMS_ITS | Patient Health Record ---
Author Organization [facility] Address [address] [place] [address] Care Team Providers [employer] Dealer Name Role Phone Anderson Peters Primary Care Provider Terra Lund Unavailable [phone] Allergies Allergen (clinical drug ingredient) Drug/Non Drug [...] Medicare [employer] [address] [place] [address] [id number] Stella Frias Self - patient is the insured Medical (General) History Medical History History ICD Code Anxiety Arthritis Back,Hip,and Knee pain Broken bones CAD (Cholesterol) Depression Diabetic Gall bladder problems Headaches/Migraines Heart disease Measles Mumps Chicken pox Joint implants/screws Surgical History Surgery Date(Month/Year) appendectomy Gall bladder removal ankle 2001
== END 2025-08-18 13:16 | disposition home or self-care (01) ==
LOC: HO.HMCH 12:23
PROVIDERS: PCP Internal Medicine; Visit Provider Internal Medicine
DX: E11.65 Type 2 diabetes mellitus with hyperglycemia (principal); I42.9 Cardiomyopathy, unspecified; I48.91 Unspecified atrial fibrillation; Z68.42 Body mass index [BMI] 45.0-49.9, adult; E66.01 Morbid (severe) obesity due to excess calories; E78.00 Pure hypercholesterolemia, unspecified; I10 Essential (primary) hypertension; I25.10 Atherosclerotic heart disease of native coronary artery without angina pectoris; E03.9 Hypothyroidism, unspecified; M85.80 Other specified disorders of bone density and structure, unspecified site; M17.9 Osteoarthritis of knee, unspecified

== ENCOUNTER → 2025-08-18 12:22 | Outpatient (BNVA) | payer MEDICARE, MEDICAID, SELFPAY | PROVIDERS: PCP Internal Medicine; Visit Provider Internal Medicine | DX: E11.65 Type 2 diabetes mellitus with hyperglycemia (principal); E78.00 Pure hypercholesterolemia, unspecified; I10 Essential (primary) hypertension; I42.9 Cardiomyopathy, unspecified; I25.10 Atherosclerotic heart disease of native coronary artery without angina pectoris; I48.91 Unspecified atrial fibrillation; E03.9 Hypothyroidism, unspecified; M85.80 Other specified disorders of bone density and structure, unspecified site; E66.01 Morbid (severe) obesity due to excess calories; M17.9 Osteoarthritis of knee, unspecified; G89.29 Other chronic pain; G62.9 Polyneuropathy, unspecified; Z79.899 Other long term (current) drug therapy | CPT/HCPCS: 99212 ==